=== PATIENT | male | born 1965 | race Caucasian/White ===

== ENCOUNTER 2017-06-24 02:19 | Emergency (ER) | payer MEDICARE ==
[2017-06-24] MEDS ORDERED: tiZANidine HCl 4 MG TAB PO SCH (04:00)
--- NOTE | 2017-06-24 08:15 | RAD ---
THREE VIEWS LUMBOSACRAL SPINE: COMPARISON: 04/23/11. HISTORY: Low back pain that started today. FINDINGS: Three views lumbosacral spine show postsurgical changes from prior posterior fusion of L4 through S1. No perihardware lucency is seen. The vertebral bodies and intervertebral disks demonstrate normal height and alignment without fracture or subluxation. IMPRESSION: Postsurgical changes of the lumbar spine without acute osseous abnormality. POS: [facility]
== END 2017-06-24 04:13 | disposition home or self-care (01) ==
LOC: ERS 02:19
DX: M54.5 Low back pain (principal); G89.29 Other chronic pain; I10 Essential (primary) hypertension; F17.210 Nicotine dependence, cigarettes, uncomplicated; Z87.442 Personal history of urinary calculi; Z79.891 Long term (current) use of opiate analgesic; Z79.899 Other long term (current) drug therapy
CPT/HCPCS: 72100

== ENCOUNTER 2017-07-02 14:15 | Inpatient (IN) | payer MEDICARE ==
[2017-07-02] MEDS ORDERED: ISOVUE-370 76%-LOCM 1 ML ONE (14:36)
[2017-07-02] MEDS ORDERED: Acetaminophen 650 MG Suppository ONE (14:51)
[2017-07-02 15:23] LABS: Hemoglobin 14.3 g/dL (14.0-18.0); Mean Corpuscular HGB CONC 33.6 g/dL (32.0-36.0); Mean Corpuscular Hemoglobin 30.8 pg (27.0-31.0); Mean Corpuscular Volume 91.6 fl (80.0-94.0); Mean Platelet Volume 7.6 fL (7.4-10.4); Platelet Count 224 thou/uL (130-400); RBC Distribution Width 13.9 % (11.5-14.5); Red Blood Cell (RBC) Count 4.65 mill/uL (4.70-6.10); White Blood Cell (WBC) Count 33.7 thou/uL (4.8-10.8)
[2017-07-02 15:37] LABS: Band 23 % (5-11); Lymphocytes 3 % (21-51); MDiff Complete? YES; Monocytes 2 % (0-10); Neutrophil 71 % (42-75); PLT Morphology Comment Appears Adequate; RBC Morphology Normal; Reactive Lymphocytes 1 % (0-10); Reflex for Review?? NO; Toxic Granulation MODERATE; Vacuoles SLIGHT
[2017-07-02 15:39] LABS: Bilirubin Negative (Negative); Blood, Urine Small (Negative); Clarity CLOUDY (Clear); Glucose, Urine (Dipstick) 250 mg/dL (Negative); Leukocyte Negative (Negative); Nitrite Negative (Negative); Protein, Urine (Dipstick) 30 mg/dL (Neg-Trace); Urobilinogen 0.2 mg/dL (0.2-1.0)
[2017-07-02 15:43] LABS: Bacteria/HPF 4+ HPF (None Seen); Hyaline Casts/LPF 4-6 HYALINE CAST LPF (0-3 Hyaline); Pathc Cast-AUWi Flag 1.21 (0-2.49); RBC/HPF 0-3 HPF (0-3); Squamous Epithelial 0-3 HPF (0-3)
[2017-07-02 15:45] LABS: Yeast-AUWi Flag 482.9 (0-25.0)
[2017-07-02 15:49] LABS: Acetaminophen Less than 6.0 mcg/mL (10.0-30.0); Alcohol Less than 10 mg/dL (Less than 10); Amphetamine Not Detected (NotDetected); Barbiturates Screen Not Detected (NotDetected); Benzodiazepine Screen Not Detected (NotDetected); Cocaine Metabolite Screen Not Detected (NotDetected); Medtox Control Line Valid? VALID (VALID); Medtox Reader # READER 1; Methadone Not Detected (NotDetected); Methamphetamine Not Detected (NotDetected); Opiate Screen Detected (NotDetected); Oxycodone Screen Not Detected (NotDetected); Phencyclidine (PCP) Not Detected (NotDetected); Salicylate Less than 8.0 mg/dL (15.0-30.0); THC/Cannabinoid Screen Not Detected (NotDetected); Tricyclic Screen Not Detected (NotDetected)
[2017-07-02 15:53] LABS: CKMB 5.3 ng/mL (0-6.6); Troponin I 0.027 ng/mL (< 0.028)
[2017-07-02 15:58] LABS: Other Casts/LPF 0-3 COARSE GRAN LPF (0-3 Hyaline); Renal Epithelial 0-3 HPF (0-3); Yeast-All Forms None Seen HPF (None Seen)
[2017-07-02 16:04] LABS: ALT (SGPT) 20 U/L (8-55); AST (SGOT) 26 U/L (5-34); Albumin 2.7 g/dL (3.5-5.0); Alkaline Phosphatase 188 U/L (40-150); Anion Gap 22 mmol/L (10-20); BUN (Urea Nitrogen) 53 mg/dL (8.9-20.6); CK (CPK) 269 U/L (30-200); Calc. Creatinine Clearance 0 mL/min (70-130); Calcium 8.5 mg/dL (7.8-10.44); Carbon Dioxide 14 mmol/L (22-29); Chloride 106 mmol/L (98-107); Estimated GFR-MDRD 35; Globulin 3.9 g/dL (2.4-3.5); Glucose 247 mg/dL (70-105); Lipase 12 U/L (8-78); Magnesium 2.3 mg/dL (1.6-2.6); Potassium 3.6 mmol/L (3.5-5.1); Protein, Total 6.6 g/dL (6.0-8.3); Sodium 138 mmol/L (136-145)
--- NOTE | 2017-07-02 16:12 | RAD ---
CHEST 1 VIEW: Date: 07/02/17 HISTORY: Emergency exam. COMPARISON: Chest 1 view dated 08/15/14. FINDINGS: The lungs are slightly hypoinflated with vascular crowding. No pneumothorax. No focal air space conso lidation. IMPRESSION: No acute intrathoracic abnormality. POS: [facility]
[2017-07-02 16:19] LABS: Actual Bicarbonate (HCO3a) 15.1 mEq/L (22-26); Base Excess (BEa) -6.6 mEq/L (0 (+/-) 2.5); CO2 Tension 21.7 mmHg (35.0-45.0); Hemoglobin (Hb) 13.1 g/dL (14.0-18.0); O2 Tension (PaO2) 76.1 mmHg (80.0-100.0); pH, Arterial 7.46 (7.35-7.45)
[2017-07-02 16:20] LABS: Analyzer IN Cardio ER; Calcium, Ionized 1.2 mmol/L (1.12-1.30); Puncture Site LBA
[2017-07-02] MEDS ORDERED: Lorazepam 2 MG/ML VIAL ONE (16:20)
--- NOTE | 2017-07-02 17:29 | CT ---
NONCONTRAST HEAD CT: Date: 07/02/17 HISTORY: Altered mental status changes over past 4 days. COMPARISON: 06/30/08. TECHNIQUE: A noncontrast head CT is performed from the skull base to the skull vertex. FINDINGS: No parenchymal hemorrhage or extra-axial hematoma. No midline shift. Basilar cisterns are patent. Bra in volume is age-appropriate. Cortical patterson-white matter differentiation is preserved. Ventricles and sulci are patent and symmetric. Calvarium is intact. Adequate aeration of the sinuses and mastoid ai r cells. IMPRESSION: No acute intracranial process. POS: [facility]
--- NOTE | 2017-07-02 17:46 | CT ---
CT ANGIOGRAM OF THORACIC AND ABDOMINAL AORTA: Date: 07/02/17 HISTORY: Back pain. Altered mental status. COMPARISON: None. TECHNIQUE: CT angiogram of the chest is performed in the axial plane. Sagittal and coronal three-dimensional ref ormatted images are submitted for interpretation. Limited evaluation of the thoracic and abdominal aorta due to decreased volume of contrast which had to be given due to patient's poor renal function. FINDINGS: No mediastinal mass, lymphadenopathy, or hematoma. Heart size is within normal limits. No pericardial effusion. Trachea and central bronchi are patent. There are diffuse ground-glass opacities throughout the lung parenchyma, which may be due to edema or infiltrate. A small bleb in the right upper lobe and small b lebs in the left upper lobe are noted. There are calcified granulomas in the right and left upper lob es, as well as the left lower lobe. There is no consolidation with air bronchograms. There is no pleu ral effusion or pneumothorax. ABDOMEN CT: Limited evaluation of the solid organs due to inadequate contrast opacification. Grossly, the liver, spleen, pancreas, and adrenal glands are unremarkable. Right hepatic lobe is enlarged, measuring 21.0 cm. Spleen is also mildly enlarged, measuring 15.0 cm. Appropriate enhancement of the adrenal glands and pancreas. No gastrohepatic, retrocrural, or periportal lymphadenopathy. Limited evaluation of the mesentery and alimentary canal due to motion and lack of oral contrast admi nistration. No definite mesenteric mass, lymphadenopathy, free air, or free fluid. There is a slightl y prominent duodenum which is fluid-filled. Findings are nonspecific. The remainder of the small rodrigue l is unremarkable. Ileocecal junction is normal. Normal caliber appendix is suggested from the cecal apex. Visualized colon is unremarkable. Nonobstructing calcifications in the lower pole of the left kidney. Subcentimeter hypodensity in the upper pole of the right kidney. Symmetric enhancement of the kidneys. Bilaterally, no obstructive uro trever. Symmetric attenuation of the psoas muscles. No retroperitoneal mass, lymphadenopathy, or hematoma. There is evidence of fusion hardware changes at L4, L5, and S1. No obvious complication or loosening. Evaluation limited by technique. CT ANGIOGRAM OF AORTA: There is appropriate enhancement and luminal diameter in the ascending thoracic aorta, aortic arch, d escending thoracic aorta, and abdominal aorta. The celiac artery origin, superior mesenteric artery o rigin, bilateral renal artery ostia, and inferior mesenteric artery origin are unremarkable. Limited evaluation of the aortic bifurcation and distal aorta due to beam attenuation artifact from lumbar fu ursula hardware. IMPRESSION: No evidence of aneurysm or dissection with regard to the aorta. Evaluation is limited due to decrease d volume of IV contrast secondary to patient's poor renal status. POS: [facility]
[2017-07-02] MEDS ORDERED: Fentanyl 100 MCG/2 ML VIAL ONE (18:22)
[2017-07-02] MEDS ORDERED: Fentanyl 20 MCG/ML 250 ML ONE (18:28)
--- NOTE | 2017-07-02 18:38 | RAD ---
1 VIEW CHEST: Date: 07/02/17 COMPARISON: 07/02/17. HISTORY: Respiratory distress. Ventilated patient. FINDINGS: There is evidence of endotracheal tube at the level of the clavicles. Nasogastric tube extends beyond the diaphragm. Distal tip is not seen. Normal cardiac silhouette. Pulmonary vessels are slightly pro minent. There are patchy infiltrates. No pleural effusion or pneumothorax. IMPRESSION: Endotracheal and nasogastric tubes as above. POS: [facility]
[2017-07-02 18:40] LABS: Actual Bicarbonate (HCO3a) 12.4 mEq/L (22-26); Base Excess (BEa) -13.3 mEq/L (0 (+/-) 2.5); CO2 Tension 28.2 mmHg (35.0-45.0); pH, Arterial 7.26 (7.35-7.45)
[2017-07-02 18:41] LABS: Analyzer IN Cardio ER; Calcium, Ionized 0.9 mmol/L (1.12-1.30); Hematocrit-ABG 27.6 % (42.0-52.0); Hemoglobin (Hb) 9.2 g/dL (14.0-18.0); Puncture Site RRA
[2017-07-02] MEDS ORDERED: VANCOMYCIN IVPB PRN (19:52)
[2017-07-02] MEDS ORDERED: CCU Electrolyte Replacement 1 EACH FS SCH (19:52)
[2017-07-02] MEDS ORDERED: Sedation Protocol FS SCH (19:52)
[2017-07-02] MEDS ORDERED: CCU ELECTROLYTE REPLACEMENT PROTOCOL FS PRN (19:57)
[2017-07-02] MEDS ORDERED: Potassium Chloride 40 MEQ in Sodium Chloride 0.9% 250 ML 250 ML IVPB PRN (19:57)
[2017-07-02] MEDS ORDERED: Potassium Phosphate 9 MMOL in Sodium Chloride 0.9% 100 ML IVPB PRN (19:57)
[2017-07-02] MEDS ORDERED: Potassium Phosphate 12 MMOL in Sodium Chloride 0.9% 250 ML 250 ML IV PRN (19:57)
[2017-07-02] MEDS ORDERED: Magnesium 2 GM/NS 0.9% 100 ML 2 GM in Premix Bag 1 BAG IVPB PRN (19:57)
[2017-07-02] MEDS ORDERED: Magnesium Oxide 400 MG TAB PO PRN ×2 (19:57)
[2017-07-02] MEDS ORDERED: Potassium Chloride 40 MEQ in Premix Bag 1 BAG IVPB PRN (19:57)
[2017-07-02] MEDS ORDERED: Potassium Phosphate 15 MMOL in Sodium Chloride 0.9% 250 ML 250 ML IV PRN (19:57)
[2017-07-02] MEDS ORDERED: Potassium Chloride 20 MEQ TAB PO PRN (19:57)
[2017-07-02] MEDS: Sodium Chloride 0.9% 1,000 ML IV SCH (20:00)
[2017-07-02] MEDS ORDERED: Morphine 2 MG/ML SYRINGE SLOW IVP PRN (20:04)
[2017-07-02] MEDS ORDERED: DISCONTINUE PREVIOUS NARCOTIC PAIN MEDICATIONS AND BENZODIAZEPINES FS SCH (20:04)
[2017-07-02] MEDS ORDERED: Fentanyl 20 MCG/ML 250 ML IVPB SCH (20:04)
[2017-07-02] MEDS ORDERED: Sodium Chloride 0.9% 1,000 ML IV SCH ×2 (20:45→22:30)
[2017-07-02 20:53] LABS: Lactic Acid 2.7 mmol/L (0.5-2.2)
[2017-07-02 20:54] LABS: Troponin I 0.045 ng/mL (< 0.028)
[2017-07-02] MEDS ORDERED: cefTRIAXone\\ROCEPHIN 2 GM in Sodium Chloride 0.9% 100 ML IVPB SCH (21:00)
[2017-07-02] MEDS ORDERED: Norepinephrine 8 MG/0.9% NS 250 ML IVPB SCH (21:15)
[2017-07-02] MEDS ORDERED: Dextrose 5% in Water 1,000 ML IV PRN (21:17)
[2017-07-02] MEDS ORDERED: Dextrose 50% Abboject 50 ML SYRINGE SLOW IVP PRN (21:17)
--- NOTE | 2017-07-02 21:43 | RAD ---
CHEST 1 VIEW: Date: 07/02/17 HISTORY: Interval placement of a central venous catheter. COMPARISON: 07/02/17 at 1806 hours. FINDINGS: Redemonstration of endotracheal and nasogastric tube. Interval placement of right-sided subclavian ce ntral venous catheter with the distal tip in the expected region of the right atrium. No pneumothorax . Increasing bilateral perihilar infiltrates. IMPRESSION: 1. Right-sided central venous catheter as above. No pneumothorax. 2. Worsening bilateral perihilar infiltrates. POS: [facility]
--- NOTE | 2017-07-02 21:48 | HP ---
DATE OF ADMISSION: 07/02/2017. CHIEF COMPLAINT: Altered mental status. HISTORY OF PRESENT ILLNESS: This is a 51-year-old young white male who has chronic back pain and has been disabled because of that, and has had multiple surgeries to the back. Recently, he has been go ing to the ER for his chronic back pain at the [facility]. He went there a week ago because of his chronic back pain and had some mental status changes. The patient was in a very b ad state according to the when he went to [place] ER. There, they diagnosed him with ce llulitis secondary to gout and they discharged the patient back to his home. The patient was in a pr ramírez bad state when he returned back home according to the , and his mental status was getting wo rse for the past 3 days as he was unable to walk and was not making any sense when he is talking. Sh e denies the patient having any fevers. She denies the patient having any nausea, vomiting, diarrhea , or constipation. The patient was brought to the [facility] ER in a completely disoriented state. Otherwise, the patient is usually alert and oriented x4 according to the EMS. The patient was unab le to tell where he was hurting. He denies any drug use and was totally confused. Because of his wo rsening mental status and the patient was very tachypneic with a respiratory rate of 70 with saturati on of 90%, the patient was intubated by the ER physician. Most of the history was obtained from the ER physicians and the patient's at the bedside. Pulmonology was immediately consulted because o f the worsening condition of the patient. Dr. Vital had seen the patient in the ER and advised imm ediately to transfer the patient to the ICU. The patient was noted to have markedly elevated white c ount of 33,000 and has a poorly controlled type 2 diabetes mellitus. The patient's was not even aware that the patient was diabetic. He had a severe lactic acid of 5, but his blood pressures were keeping up at 132/80. The patient had a thorough physical examination. He had a cellulitis of his right upper arm and also on the right lower extremity. Otherwise, no other respiratory abnormalities were noted. The patient had a chest x-ray, which showed an evidence of bilateral infiltrates, but n o solid consolidation or any focus of infection was noted. PAST MEDICAL HISTORY: 1. Back pain. 2. Hypertension. PAST SURGICAL HISTORY: The patient had a cholecystectomy according to his , but she is not very sure about this. SOCIAL HISTORY: The patient is a nonsmoker. He does not drink alcohol. No history of illicit drug use. FAMILY HISTORY: No significant family history of coronary artery disease, but again the history is o btained from the , which is not reliable as she is very anxious and confused at this time. REVIEW OF SYSTEMS: Could not be obtained as the patient is intubated and has no idea about what is going on with the patient at this time. HOME MEDICATIONS: The patient is on losartan and hydrochlorothiazide, and Tylenol No. 3. ALLERGIES: The patient has allergies to NSAIDs. PHYSICAL EXAMINATION: VITAL SIGNS: Blood pressure was 132/80, respiratory rate was 70 at the time of admission, and satura tion was 90% on 4 liters. This was before intubation. GENERAL: The patient was seen lying in the bed, intubated and sedated with propofol. HEENT: Atraumatic, normocephalic. CARDIOVASCULAR: S1, S2 normal. No murmurs, no rubs, no gallops. LUNGS: Bilateral air entry was equal. Crackles were noted in the lower bases. ABDOMEN: Distended, nontender. No guarding. No rebound tenderness. Bowel sounds were diminished. MUSCULOSKELETAL: The patient has erythema of the lower extremities with right-sided cellulitis kind of picture was noted. Calf tenderness could not be elicited as the patient is sedated. Joint tender ness was also not elicited as the patient is sedated. CENTRAL NERVOUS SYSTEM: Examination could not be done as the patient is sedated and not responding. SKIN: As explained above, the patient has cellulitis. Redness was noted in the lower extremities on the anterior part of the lower legs. No bruising wounds were noted on the body except for some redn ess on the right hand. LABORATORY DATA: WBC 33,000, hemoglobin is 14.3, hematocrit is 42.6. Sodium is 138, potassium 3.6, chloride is 106, bicarbonate is 14, BUN is 53, creatinine 2.02. Blood sugar is 247. Lactic acid is 4.9. Creatinine kinase is 269. Urine was negative for any urinary tract infection. Blood gases, ABG was done, pH was 7.2, pCO2 was 28, pO2 was 71. ASSESSMENT AND PLAN: 1. Acute hypoxic respiratory failure. 2. Acute metabolic encephalopathy. 3. Severe sepsis, unknown source. 4. Severe metabolic acidosis. 5. Acute kidney injury. 6. Type 2 diabetes mellitus, poorly controlled. PLAN: 1. Plan is to continue to monitor the patient in the ICU, the patient being intubated, and do the wo rkup for a sepsis. At this point, the patient has infiltrates in the lungs bilaterally. We would tr eat this as pneumonia and we will continue the patient on meropenem and vancomycin, which was started in the ER. Pulmonary has been consulted. Dr. Vital has seen the patient in the ER. We will foll ow up with the recommendations at this time regarding the vent management. 2. The patient has worsening encephalopathy for the past few days. The patient could be having a me ningitis, which could not be ruled out at this time. Plan to do a lumbar puncture. The CT head was negative for any intracranial hemorrhage. 3. We will consult Neurology on this patient once the patient is more awake. 4. Type 2 diabetes mellitus. We will start the patient on sliding scale insulin at this time and cl osely monitor. We will check for A1c to look for diabetes control. 5. The patient has renal dysfunction. We will continue the patient on IV fluids at 100 mL an hour a nd closely monitor the urine output. 6. DVT prophylaxis with Lovenox. I spent 75 minutes with this patient, of this 1 hour is critical care time. I have seen the patient from 07:15 to 08:15 p.m.
[2017-07-02 22:13] LABS: pH, Arterial 7.29 (7.35-7.45)
[2017-07-02 22:14] LABS: ALV-art Gradient 138.825 (0-20); Actual Bicarbonate (HCO3a) 17.8 mEq/L (22-26); CO2 Tension 37.5 mmHg (35.0-45.0); Calcium, Ionized 1.1 mmol/L (1.12-1.30); Hematocrit-ABG 39.4 % (42.0-52.0); Hemoglobin (Hb) 12.8 g/dL (14.0-18.0); O2 Tension (PaO2) 99.5 mmHg (80.0-100.0); Puncture Site RBRACH
[2017-07-02] MEDS ORDERED: Norepinephrine 8 MG/250 ML BAG IVPB PRN (22:25)
[2017-07-02] MEDS: Oseltamivir 75 MG CAP PO SCH (22:28)
[2017-07-02] MEDS: cefTRIAXone\\ROCEPHIN 2 GM in Sodium Chloride 0.9% 100 ML IVPB SCH (22:29)
[2017-07-02 22:30] LABS: Anion Gap 16 mmol/L (10-20); BUN (Urea Nitrogen) 56 mg/dL (8.9-20.6); Calc. Creatinine Clearance 60 mL/min (70-130); Calcium 7.9 mg/dL (7.8-10.44); Carbon Dioxide 20 mmol/L (22-29); Chloride 108 mmol/L (98-107); Estimated GFR-MDRD 31; Glucose 143 mg/dL (70-105); Potassium 3.9 mmol/L (3.5-5.1); Sodium 140 mmol/L (136-145)
[2017-07-02] MEDS: Potassium Chloride 40 MEQ in Sodium Chloride 0.9% 500 ML IVPB SCH (22:35)
[2017-07-02 22:37] LABS: Troponin I 0.063 ng/mL (< 0.028)
[2017-07-02] MEDS: Lorazepam 2 MG/ML VIAL SLOW IVP PRN (22:53)
[2017-07-02] MEDS: Vecuronium 10 MG VIAL IVP PRN (23:09)
[2017-07-02] MEDS: Hydrocortisone Sod Succ/PF 100 mg/2 ml Vial IVP SCH (23:19)
[2017-07-02] MEDS: Sterile Water 10 ML VIAL IVP PRN (23:19)
[2017-07-02] MEDS: Piperacillin/Tazobactam 3.375 GM in Sodium Chloride 0.9% 100 ML IVPB SCH (23:31)
--- NOTE | 2017-07-02 23:31 | OP ---
DATE OF SERVICE: 07/02/2017 PROCEDURE: Central line placement. PREOPERATIVE DIAGNOSIS: Poor IV access, need for aggressive hemodynamic monitoring and vasopressor s upport. ANESTHESIA: A 1% lidocaine without epinephrine to the entry site. DESCRIPTION OF PROCEDURE: Informed consent was obtained from the patient's , who understood the risks and agreed to proceed. The patient was placed in the Trendelenburg position. His right subclavian region was scrubbed with chlorhexidine and draped sterilely. A 1% lidocaine was used to anesthetize the entry site. Using th e modified Seldinger technique, a triple lumen catheter was placed in the right subclavian vein on th e first attempt. Three ports flushed venous blood. The x-ray confirmed placement. There were no ap parent complications.
--- NOTE | 2017-07-02 23:40 | CON ---
DATE OF CONSULTATION: 07/02/2017 This is 2-hour critical care time and does not include time spent performing central line. HISTORY OF PRESENT ILLNESS: The patient is a 51-year-old male, who was brought by EMS to the [facility] earlier this evening with altered mental status. I obtained the history mainly from speaking with the patient's , but also from speaking with the emergency room physician. The says he has b een sick for at least 6 days. She took him to [facility] 2 days ago. At that ti me, he was complaining of total body aches, particularly in the back. Apparently, back pain is not u nusual for him. She says at that time he had altered mental status. She was surprised he got sent h ome from the emergency room. Over the last 2 days, he has been laying around the house, not doing mu ch of anything. She says he has not been eating or drinking and has been barely communicative. He h as had a cough and congestion. She does not know much else of what is going on. PAST MEDICAL HISTORY: 1. Hypertension. She says he has never been diagnosed with diabetes mellitus before. 2. Chronic back pain. 3. Gout. 4. Nephrolithiasis. 5. Hypertension. PAST SURGICAL HISTORY: He has had back surgery, cholecystectomy, hernia repair, and orthopedic surge ry in the right hand. SOCIAL HISTORY: He is a hzi-lyxf-fnv-day smoker. He never drinks alcohol and never uses illicit susu gs other than that was prescribed to him. FAMILY MEDICAL HISTORY: Both parents of cancer. Heart disease also runs in the family. ALLERGIES: She says he is not allergic to any medications that she knows of, but he is sometimes sen sitive to NONSTEROIDAL ANTI-INFLAMMATORY MEDICATION in terms of making his stomach upset. MEDICATIONS PRIOR TO ADMISSION: She says he took hydrochlorothiazide and [place]. She does not know t he other medications at this time. REVIEW OF SYSTEMS: Cannot be obtained as the patient is sedated and on mechanical ventilation. PHYSICAL EXAMINATION: VITAL SIGNS: Pulse is 125, blood pressure 92/59, O2 sat 99%, temperature has been as high as 104.2. The patient is obtunded on mechanical ventilation. NEUROLOGIC: With deep painful stimulation, I cannot get him to withdraw in all 4 extremities. He wi ll open his eyes. He will not follow any commands for me. HEENT: Pupils are reactive. Sclerae are anicteric. Oropharynx is dry. NECK: No JVD or bruits. LUNGS: Inspiratory crackles bilaterally. CARDIOVASCULAR: S1, S2 tachycardic without audible murmur. ABDOMEN: Soft, obese, nontender. EXTREMITIES: He has no edema. He has cyanotic toes. He has Doppler pulses in the posterior tibial aspect of his ankle, but not dorsalis pedis. LABORATORY DATA: His chest x-ray demonstrated ground glass infiltrates bilaterally in the lungs. So dium is 138, potassium 3.6, chloride 106, CO2 of 14, BUN 53, creatinine 2, glucose 247. Lactate 4.9, repeat lactate 2.7. Troponin is 0.045. CPK is 269. TSH 0.15, free T4 of 0.8, lipase 12. White bl ood cell count 33.7, hemoglobin 14, hematocrit 42.6, platelet count 224 with 71% neutrophils, 23% ban ds. D-dimer was 7.88. ABG initial, pH was 7.46, pCO2 of 21, pO2 of 76. After intubation, pH 7.26, pCO2 of 28, pO2 of 71. Urinalysis demonstrates 4+ bacteria, 4-6 white blood cells. Toxicology scre en demonstrated opiates. No acetaminophen, no salicylates, no alcohol. Beta hydroxybutyrate level w as 0.36. I reviewed his chest x-ray and CT of the chest personally. ASSESSMENT: 1. Septic shock secondary to bilateral pneumonia. 2. Acute hypoxic respiratory failure requiring mechanical ventilation. 3. Severe metabolic acidosis, which appears to be lactic in nature. 4. History of pain in the back - I reviewed the CT scan that was done aortic dissection protocol. I do not see anything focal in the lumbar region that would look like an epidural abscess, although th is needs to be kept in mind. PLAN: 1. The patient is too unstable for further imaging at this time. He will be placed on broad-spectru m IV antibiotics to include vancomycin, Zosyn, and Levaquin. He will be sedated as needed. 2. CVP monitoring. 3. Empiric steroids, thiamine, vitamin C. 4. I spoke with the patient's at length.
[2017-07-03] MEDS: Oseltamivir 75 MG CAP PO SCH (00:17)
[2017-07-03 00:47] LABS: Lactic Acid 1.8 mmol/L (0.5-2.2)
[2017-07-03] MEDS: Potassium Chloride 40 MEQ in Sodium Chloride 0.9% 500 ML IVPB SCH (00:48)
[2017-07-03] MEDS: Sodium Chloride 0.9% 1,000 ML IV SCH ×5 (01:42→20:43)
[2017-07-03] MEDS: Sterile Water 10 ML VIAL IVP PRN (03:50)
[2017-07-03] MEDS: Vecuronium 10 MG VIAL IVP PRN ×2 (03:50→10:42)
[2017-07-03] MEDS: Vancomycin HCl 750 MG in Sodium Chloride 0.9% 250 ML 250 ML IVPB SCH ×2 (03:55→16:54)
[2017-07-03 04:28] LABS: ALT (SGPT) 15 U/L (8-55); AST (SGOT) 31 U/L (5-34); Albumin 1.9 g/dL (3.5-5.0); Alkaline Phosphatase 108 U/L (40-150); Anion Gap 16 mmol/L (10-20); BUN (Urea Nitrogen) 57 mg/dL (8.9-20.6); Bilirubin, Total 0.7 mg/dL (0.2-1.2); Calc. Creatinine Clearance 63 mL/min (70-130); Calcium 7.3 mg/dL (7.8-10.44); Carbon Dioxide 19 mmol/L (22-29); Chloride 113 mmol/L (98-107); Estimated GFR-MDRD 33; Globulin 3.5 g/dL (2.4-3.5); Glucose 158 mg/dL (70-105); Magnesium 2.3 mg/dL (1.6-2.6); Potassium 4.5 mmol/L (3.5-5.1); Protein, Total 5.4 g/dL (6.0-8.3); Sodium 143 mmol/L (136-145)
[2017-07-03] MEDS: Acetaminophen 650 MG Suppository PR PRN ×3 (04:28→20:43)
[2017-07-03] MEDS: HumaLOG 300 UNITS/3 ML VIAL SC PRN ×2 (04:38→18:29)
[2017-07-03 04:39] LABS: Band 16 % (5-11); Hemoglobin 11.5 g/dL (14.0-18.0); Lymphocytes 7 % (21-51); MDiff Complete? YES; Mean Corpuscular HGB CONC 32.3 g/dL (32.0-36.0); Mean Corpuscular Hemoglobin 30.7 pg (27.0-31.0); Mean Platelet Volume 7.4 fL (7.4-10.4); Metamyelocyte 1 % (0-0); Monocytes 2 % (0-10); Myelocyte 1 % (0-0); Neutrophil 73 % (42-75); PLT Morphology Comment Appears Adequate; Platelet Count 141 thou/uL (130-400); RBC Morphology Normal; Red Blood Cell (RBC) Count 3.77 mill/uL (4.70-6.10); White Blood Cell (WBC) Count 24.6 thou/uL (4.8-10.8)
[2017-07-03] MEDS: Hydrocortisone Sod Succ/PF 100 mg/2 ml Vial IVP SCH ×4 (05:04→23:42)
[2017-07-03] MEDS: Piperacillin/Tazobactam 3.375 GM in Sodium Chloride 0.9% 100 ML IVPB SCH ×2 (05:08→13:04)
[2017-07-03 05:27] LABS: Actual Bicarbonate (HCO3a) 17.4 mEq/L (22-26); CO2 Tension 42.7 mmHg (35.0-45.0); O2 Tension (PaO2) 86.3 mmHg (80.0-100.0)
[2017-07-03 05:28] LABS: ALV-art Gradient 145.525 (0-20); Base Excess (BEa) -9.6 mEq/L (0 (+/-) 2.5); Hemoglobin (Hb) 11.5 g/dL (14.0-18.0); Puncture Site RBRACH
--- NOTE | 2017-07-03 08:28 | PRG ---
DATE OF SERVICE: 07/03/2017 He is intubated on the vent and sedated. Her history is outlined. He presented to the hospital with mental status change. He was earlier at [facility] for bodyaches. It is unclear what transpired. He i s intubated on the vent. He has got Staph sepsis. He apparently had chronic back pain for a period of time. X-rays shows bilateral infiltrates. He has longstanding history of tobacco abuse, longstanding histo ry of back pain. He is on several different antibiotics of vancomycin, Zosyn, and Levaquin. PHYSICAL EXAMINATION: VITAL SIGNS: His temperature was 102, blood pressure 110/64, respirations 24. His I's and O's are 3 668, 80 out. CHEST: Chest reveals bilateral rhonchi and crackles. CARDIAC: Sinus tachycardia. ABDOMEN: Soft. NEURO: Neurologically sedated. LABORATORY: White count 20, H&H 11 and 35, platelet count 141, pO2 is 86, pCO2 42.30, rate of 24, 40 %, 5 of PEEP. BUN is 57, creatinine 2.3. Blood cultures are growing staph. IMPRESSION: 1. Staph sepsis with endocarditis versus osteomyelitis. 2. Renal failure. 3. Chronic obstructive pulmonary disease. PLAN: Continue antibiotics. We will deescalate once we have all cultures back. Will start nutrition and PT. Discuss with family as they arrive. One half hour critical care time.
[2017-07-03] MEDS ORDERED: Pantoprazole 40 MG VIAL IVP SCH (09:00)
[2017-07-03] MEDS: cefTRIAXone\\ROCEPHIN 2 GM in Sodium Chloride 0.9% 100 ML IVPB SCH (10:05)
[2017-07-03] MEDS: Lorazepam 2 MG/ML VIAL SLOW IVP PRN ×2 (10:21→18:49)
[2017-07-03] MEDS ORDERED: Sterile Water 10 ML ONE (10:32)
[2017-07-03] MEDS: Propofol 1,000 MG/100 ML VIAL IV PRN ×2 (10:48→20:15)
--- NOTE | 2017-07-03 12:24 | PDOC.PN ---
- Subjective Encounter Start Date: 07/03/17 Encounter Start Time: 10:45 -: non-verbal, old records requested/rev Pt seen and examined, chart reviewed in its entirety, this is my first visit with this patient Pt sedated and intubated on the vent. refrigeration service technician at the bedside getting echocardiogram. Cx back with s aureus, sensitivities pending. Pt on Vanc, Zozyn, levoflox and rocephin. pt persistently febrile 102.X. Bcx with staph aureus. Echo report reviewed, structurally normal yehuda without evidence of regurg, but suboptimal pictures - Objective Resuscitation Status: Resuscitation Status FULL:Full Resuscitation MAR Reviewed: Yes Vital Signs & Weight: Vital Signs (12 hours) Pulse 07/03/17 10:42 119 H 07/03/17 08:07 117 H 07/03/17 02:12 117 H Weight Weight 240 lb 4.862 oz Most Recent Monitor Data Heart Rate from ECG 117 NIBP 110/64 NIBP BP-Mean 75 Respiration from ECG 24 SpO2 97 I&O: 07/02/17 07/03/17 07/04/17 06:59 06:59 06:59 Intake Total 3687 Output Total 800 Balance 2887 Result Diagrams: 07/03/17 03:40 07/03/17 03:40 Radiology Reviewed by me: Yes EKG Reviewed by me: Yes Phys Exam - Physical Examination sedated, intubated HEENT: PERRLA, moist MMs, sclera anicteric, oral pharynx no lesions oral ETT Neck: no nodes, no JVD, supple, full ROM coarse bilateral rales, no wheezes, no prolonged expiration Cardiovascular: no significant murmur, irregular tachy Gastrointestinal: soft, non-tender, no distention, positive bowel sounds Musculoskeletal: pulses present, edema present not testable Lymphatic: no nodes Skin: no rash, normal turgor, cap refill <2 seconds Deviation from normal: no splinters, no osler nodes Dx/Plan (1) Staphylococcus aureus bacteremia with sepsis Code(s): A41.01 - SEPSIS DUE TO METHICILLIN SUSCEPTIBLE STAPHYLOCOCCUS AUREUS Status: Acute Comment: on Vanc, Cefepime pending sensitivities. If MSSA, can stop Vanc. covered for regualr bacteriala dn atypical organisms for now (2) CAP (community acquired pneumonia) Code(s): J18.9 - PNEUMONIA, UNSPECIFIED ORGANISM Status: Acute Qualifiers: Laterality: left Comment: bilaterla perihilar infiltates (3) Back pain Code(s): M54.9 - DORSALGIA, UNSPECIFIED Status: Acute Comment: per reports. could represent embolci infection or chronic back pain. Imaging later, wont change immediate management, but paraspinal or epidural abscess would neccessitate drainage. (4) Metabolic encephalopathy Code(s): G93.41 - METABOLIC ENCEPHALOPATHY Status: Acute Comment: could be due to general condition, meningoencephalitis, or perimeningela focus of infections. Covered. Will need advanced imaging. Would not undergo LP until we clear the spine, unless cervical approach possible - Plan cont current plan of care, continue antibiotics, respiratory therapy, DVT proph w/SCDs * .
[2017-07-03] MEDS: Cefepime 2 GM, Syringe 2.5 ML in Sterile Water 10 ML SLOW IVP SCH (18:34)
[2017-07-03] MEDS ORDERED: Cefepime 2 GM in Sodium Chloride 0.9% 100 ML IVPB SCH (21:00)
[2017-07-03] MEDS ORDERED: Pancrelipase DR 12000 1 CAP FS PRN (23:09)
[2017-07-03] MEDS ORDERED: Sodium Bicarbonate Tab 325 MG TAB PER TUBE PRN (23:09)
[2017-07-04] MEDS: HumaLOG 300 UNITS/3 ML VIAL SC PRN ×4 (01:19→15:32)
[2017-07-04] MEDS: Propofol 1,000 MG/100 ML VIAL IV PRN ×4 (03:14→19:30)
[2017-07-04] MEDS: Acetaminophen 650 MG Suppository PR PRN (03:14)
[2017-07-04] MEDS: Sodium Chloride 0.9% 1,000 ML IV SCH ×2 (04:04→08:43)
[2017-07-04 04:46] LABS: Vancomycin, Trough 12.9 ug/mL
[2017-07-04 04:47] LABS: Anion Gap 14 mmol/L (10-20); BUN (Urea Nitrogen) 54 mg/dL (8.9-20.6); Calc. Creatinine Clearance 70 mL/min (70-130); Calcium 7.3 mg/dL (7.8-10.44); Carbon Dioxide 18 mmol/L (22-29); Chloride 122 mmol/L (98-107); Estimated GFR-MDRD 36; Glucose 220 mg/dL (70-105); Magnesium 2.8 mg/dL (1.6-2.6); Potassium 3.7 mmol/L (3.5-5.1); Sodium 150 mmol/L (136-145)
[2017-07-04] MEDS: Hydrocortisone Sod Succ/PF 100 mg/2 ml Vial IVP SCH ×4 (05:01→23:53)
[2017-07-04] MEDS: Cefepime 2 GM, Syringe 2.5 ML in Sterile Water 10 ML SLOW IVP SCH ×2 (05:05→17:11)
[2017-07-04 05:08] LABS: Band 8 % (5-11); Hemoglobin 9.9 g/dL (14.0-18.0); Lymphocytes 8 % (21-51); MDiff Complete? YES; Mean Corpuscular HGB CONC 32.4 g/dL (32.0-36.0); Mean Corpuscular Hemoglobin 30.6 pg (27.0-31.0); Mean Corpuscular Volume 94.2 fl (80.0-94.0); Mean Platelet Volume 7.7 fL (7.4-10.4); Monocytes 2 % (0-10); Neutrophil 82 % (42-75); PLT Morphology Comment Appears Adequate; Platelet Count 150 thou/uL (130-400); Red Blood Cell (RBC) Count 3.24 mill/uL (4.70-6.10); White Blood Cell (WBC) Count 17.6 thou/uL (4.8-10.8)
[2017-07-04] MEDS: Vancomycin HCl 750 MG in Sodium Chloride 0.9% 250 ML 250 ML IVPB SCH (06:08)
[2017-07-04 06:47] LABS: ALV-art Gradient 178.125 (0-20); Base Excess (BEa) -7.2 mEq/L (0 (+/-) 2.5); CO2 Tension 29.5 mmHg (35.0-45.0); Calcium, Ionized 1.1 mmol/L (1.12-1.30); Hematocrit-ABG 25.5 % (42.0-52.0); Hemoglobin (Hb) 9.6 g/dL (14.0-18.0); O2 Tension (PaO2) 68.2 mmHg (80.0-100.0); Puncture Site RRA; pH, Arterial 7.38 (7.35-7.45)
--- NOTE | 2017-07-04 08:30 | RAD ---
PORTABLE UPRIGHT FRONTAL CHEST RADIOGRAPH: Date: 07-04-17 Comparison: 07-02-17 History: Ventilated patient. FINDINGS: Stable endotracheal tube, nasogastric tube, and right sided vascular catheter. No pneumothorax is pre sent. There is perihilar interstitial density and pulmonary vascular prominence with bibasilar increa sed linear density. IMPRESSION: Stable lines and tubes. Persistent interstitial opacity in the perihilar regions and lung bases may s ignify pulmonary edema or a interstitial infectious process. Follow up to resolution advised. POS: [facility]
[2017-07-04] MEDS: Sodium Chloride 0.45% 1,000 ML IV SCH ×2 (09:31→18:41)
[2017-07-04] MEDS: Pantoprazole 40 MG GRANULES PACKET PER TUBE SCH (09:32)
[2017-07-04] MEDS: Enoxaparin Sodium 30 MG/0.3 ML SYRINGE SC SCH (09:32)
--- NOTE | 2017-07-04 09:33 | PRG ---
DATE OF SERVICE: 07/04/2017 This morning he is intubated on the vent, sedated. Sedation is withheld. He opens his eyes. PHYSICAL EXAMINATION: VITAL SIGNS: Blood pressure 115/70, O2 sat 95%, respirations 24. His temperature is 103. EXTREMITIES: He has got a right thumb looks infected. CHEST: Chest revealed decreased breath sounds, no wheezing. CARDIAC: Normal S1-S2. No gallops. ABDOMEN: Soft. EXTREMITIES: Trace edema. LABORATORY: White count 17,000, H&H 9 and 30, platelet count is 150, PO2 68, PCO2 29, pH 7.38, rate of 24, 5, sodium 150, creatinine 1.98, BUN is 54. X-ray shows stable findings, his vancomycin level is 12. Blood cultures are growing Staph, it is not MRSA. IMPRESSION: 1. Respiratory failure, Staph sepsis. 2. Chronic back pain. 3. Infected right thumb. 4. Renal failure. PLAN: He is switched over to Maxipime. It is unclear why this was done, he has had adequate coverag e with ceftriaxone. I started on Lovenox. Cut back his steroids. Continue Levaquin. IV fluids will be changed to half normal. I will follow. Wean slowly. One-half hour critical care time.
--- NOTE | 2017-07-04 11:54 | CON ---
DATE OF SERVICE: 07/04/2017 ORTHOPEDIC CONSULTATION REQUESTING PHYSICIAN: Luis Miguel Osman M.D. CONSULTING PHYSICIAN: Frankie Miranda M.D. REASON FOR CONSULTATION: Right thumb septic tenosynovitis. BRIEF CLINICAL HISTORY: Joel is a 51-year-old white male who was admitted through the ER by the [facility] after he had mental status changes for almost a week. Pulmonary Service was consulted on the night of admission, which was yesterday evening. He was intubated in the emergency room and placed on pulmonary ventilation and antibiotics. His primary complaint was mental status changes loly or to being intubated. He has had some cough and congestion. He has chronic back pain and hypertens ion and apparently new diagnosis of diabetes type 2 has been established. He smokes 2 packs of cigar ettes per day. Apparently, he has been on hydrochlorothiazide and [place] prior to admission. His adm ission diagnosis at that time was septic shock secondary to bilateral pneumonia and acute hypoxic res piratory failure, metabolic acidosis. He has been placed on IV antibiotics. Our service was consult ed for right thumb which has been swollen and blistering with some drainage since admission. Has vag ue history of trauma, but I am not certain about this since I have not spoken directly with the patie nt nor family members at this time. PHYSICAL EXAMINATION: Visual inspection of the right thumb demonstrates him to indeed have blisterin g circumferential swelling and some redness which appears consistent with dorsal and volar septic syn ovitis. IMPRESSION: Right thumb septic tenosynovitis. PLAN: 1. I was able to obtain a culture at the bedside after a sterile prep, but since the patient is alre sulema intubated and not requiring pressors and medically he is stable, we will go ahead and take him to the operating room today for a formal incision, drainage, exploration, washout of the right thumb. The risks, benefits, options, alternatives, and rationale for proceeding with surgery have been expla ined in great detail to the patient's family and they are ready to proceed. All questions were answe red. No guarantee of outcomes were stated or implied. 2. Please see orders.
[2017-07-04] MEDS ORDERED: Acetaminophen 1,000 MG in Premix Bag 1 BAG IVPB PRN (12:52)
--- NOTE | 2017-07-04 13:20 | RAD ---
THREE VIEWS OF THE RIGHT THUMB: Date: 07-04-17 Comparison: None. History: Right thumb swelling. FINDINGS: There is mild degenerative change at the first interphalangeal joint. There is no displaced fracture or evidence of dislocation seen. There is probable soft tissue swelling dorsal to the first metacarpa l. IMPRESSION: Probable nonspecific soft tissue swelling with no radiopaque foreign body, subcutaneous gas, displace d fracture, or evidence of dislocation. POS: [facility]
--- NOTE | 2017-07-04 14:18 | PDOC.PN ---
- Subjective Encounter Start Date: 07/04/17 Encounter Start Time: 09:40 -: non-verbal Pt remains sedated and intubated. Dr Osman following, his input is appreciated Pt not on pressors, sedated with proprofol and fentanyl. Right thumb ecchymotic, apparently slammed in a car door prior to admit. Tmax down, but still elevated over 100.5. No chills or rigors, no D/C, no acute events noted ROS not obtainable - Objective Resuscitation Status: Resuscitation Status FULL:Full Resuscitation MAR Reviewed: Yes Vital Signs & Weight: Vital Signs (12 hours) Temp Pulse Pulse Resp BP BP Pulse Ox 07/04/17 12:00 103.2 F H 35 H 07/04/17 10:54 108 H 116/64 07/04/17 10:37 77 114/67 07/04/17 10:00 29 H 07/04/17 08:34 101 H 07/04/17 08:08 100 115/70 07/04/17 08:00 98.3 F 100 27 H 95 07/04/17 07:00 98.4 F 07/04/17 06:00 28 H 07/04/17 04:00 100.7 F H 07/04/17 03:00 101.8 F H 07/04/17 02:24 111 H 112/64 Pulse Ox 07/04/17 12:00 07/04/17 10:54 07/04/17 10:37 95 07/04/17 10:00 07/04/17 08:34 07/04/17 08:08 07/04/17 08:00 07/04/17 07:00 07/04/17 06:00 07/04/17 04:00 07/04/17 03:00 07/04/17 02:24 Weight Admit Weight 240 lb Weight 238 lb 1.588 oz Most Recent Monitor Data Heart Rate from ECG 111 NIBP 131/69 NIBP BP-Mean 89 Respiration from ECG 37 SpO2 92 I&O: 07/03/17 07/04/17 07/05/17 06:59 06:59 06:59 Intake Total 3687 5538 244.6 Output Total 800 5380 795 Balance 2887 158 -550.4 Result Diagrams: 07/04/17 03:02 07/04/17 03:02 Additional Labs: Accuchecks 07/04/17 12:09 POC Glucose 261 H Radiology Reviewed by me: Yes EKG Reviewed by me: Yes Phys Exam - Physical Examination Constitutional: NAD HEENT: PERRLA, moist MMs, sclera anicteric, oral pharynx no lesions oral ETT and OGT in place Neck: no nodes, no JVD, supple, full ROM Respiratory: no wheezing coarse bilateral rales, good airmovement Cardiovascular: RRR, no significant murmur, no rub Gastrointestinal: soft, non-tender, no distention, positive bowel sounds Musculoskeletal: pulses present, edema present Lymphatic: no nodes Skin: no rash, normal turgor, cap refill <2 seconds Deviation from normal: right humb ecchymotic, no splinters, no Ossler's nodes Dx/Plan (1) Staphylococcus aureus bacteremia with sepsis Code(s): A41.01 - SEPSIS DUE TO METHICILLIN SUSCEPTIBLE STAPHYLOCOCCUS AUREUS Status: Acute Comment: MSSA on sulture. Stop Vanc, to Rocephin and Levoflox. repeat BCx tomorrow. Has CVC in place on admit, by definition already infected. TTE neg for echo evidence of endocarditis, but thumbs looks like a distant site, febrile, possible pulm involvement. 1 major, 2 minor criteria presnet for now (2) CAP (community acquired pneumonia) Code(s): J18.9 - PNEUMONIA, UNSPECIFIED ORGANISM Status: Acute Qualifiers: Laterality: unspecified laterality Qualified Code(s): J18.9 - Pneumonia, unspecified organism Comment: bilaterla perihilar infiltates (3) Back pain Code(s): M54.9 - DORSALGIA, UNSPECIFIED Status: Acute Qualifiers: Chronicity: acute Back pain laterality: unspecified Sciatica presence: unspecified whether sciatica present Comment: per reports. could represent embolic infection or chronic back pain. Imaging later, wont change immediate management, but paraspinal or epidural abscess would neccessitate drainage. (4) Metabolic encephalopathy Code(s): G93.41 - METABOLIC ENCEPHALOPATHY Status: Acute Comment: could be due to general condition, meningoencephalitis, or perimeningela focus of infections. Covered. Will need advanced imaging. Would not undergo LP until we clear the spine, unless cervical approach possible - Plan cont current plan of care, continue antibiotics, respiratory therapy, DVT proph w/lovenox * .
[2017-07-04] MEDS: Lorazepam 2 MG/ML VIAL SLOW IVP PRN (15:15)
[2017-07-04] MEDS ORDERED: Acetaminophen 650 MG/20.3 ML UDCUP PER TUBE SCH (15:30)
[2017-07-04] MEDS ORDERED: [UNRECOGNIZED DRUG - OTHER] IV SCH ×2 (17:15)
[2017-07-04] MEDS ORDERED: SODIUM CHLORIDE 0.9% IV SCH ×2 (17:15)
[2017-07-04] MEDS: SODIUM CHLORIDE IV SCH (18:17)
[2017-07-04] MEDS: STERILE WATER IV SCH (18:17)
[2017-07-04] MEDS ORDERED: Bacitracin Zinc Ointment 30 gm TUBE ONE (19:07)
[2017-07-04] MEDS ORDERED: Bupivacaine PF 0.5% 30 ML VIAL ONE (19:18)
[2017-07-04] MEDS ORDERED: Morphine 2 MG/ML SYRINGE SLOW IVP SCH (21:00)
[2017-07-04] MEDS ORDERED: Morphine 4 MG/ML Carpuject SLOW IVP SCH (21:15)
[2017-07-04 23:26] LABS: HBCM Index 0.11 S/CO (0-0.79); HIV (1/2) Antibody/Antigen Non-Reactive (NonReactive); HIV 1/2 INDEX 0.11 S/CO (<1.00); Hep A IgM AB Non-Reactive (NonReactive); Hep A IgM S/CO 0.29 S/CO (0-0.79); Hep B Surf Ag Non-Reactive S/CO (NonReactive); Hep C IgG Ab Non-Reactive (NonReactive); Hep C Index 0.17 S/CO (0-0.79); Hepatitis B Core IGM Abs Non-Reactive (NonReactive)
[2017-07-05] MEDS: Propofol 1,000 MG/100 ML VIAL IV PRN ×3 (00:26→15:46)
[2017-07-05] MEDS: HumaLOG 300 UNITS/3 ML VIAL SC PRN ×4 (00:26→18:31)
[2017-07-05] MEDS: STERILE WATER IV SCH (02:42)
[2017-07-05] MEDS: SODIUM CHLORIDE IV SCH (02:42)
[2017-07-05 05:03] LABS: #Lymphocytes 1.7 thou/uL (1.20-3.40); #Monocytes 0.9 thou/uL (0.11-0.59); #Neutrophils 14.7 thou/uL (1.40-6.50); %Basophils 0.2 % (0.0-1.0); %Eosinophils 0.1 % (0.0-10.0); %Lymphocytes 9.5 % (21.0-51.0); %Monocytes 5.2 % (0.0-10.0); Hemoglobin 10.1 g/dL (14.0-18.0); Mean Corpuscular HGB CONC 32.8 g/dL (32.0-36.0); Mean Corpuscular Hemoglobin 30.9 pg (27.0-31.0); Mean Corpuscular Volume 94.2 fl (80.0-94.0); Mean Platelet Volume 8.4 fL (7.4-10.4); Platelet Count 184 thou/uL (130-400); RBC Distribution Width 14.4 % (11.5-14.5); Red Blood Cell (RBC) Count 3.28 mill/uL (4.70-6.10); White Blood Cell (WBC) Count 17.3 thou/uL (4.8-10.8)
[2017-07-05 05:13] LABS: Anion Gap 12 mmol/L (10-20); BUN (Urea Nitrogen) 54 mg/dL (8.9-20.6); Calc. Creatinine Clearance 91 mL/min (70-130); Calcium 7.6 mg/dL (7.8-10.44); Carbon Dioxide 19 mmol/L (22-29); Estimated GFR-MDRD 50; Glucose 256 mg/dL (70-105); Potassium 3.1 mmol/L (3.5-5.1); Sodium 155 mmol/L (136-145)
[2017-07-05] MEDS: Hydrocortisone Sod Succ/PF 100 mg/2 ml Vial IVP SCH ×4 (05:15→23:43)
[2017-07-05 05:20] LABS: Chloride 127 mmol/L (98-107)
[2017-07-05] MEDS: Cefepime 2 GM, Syringe 2.5 ML in Sterile Water 10 ML SLOW IVP SCH ×2 (05:20→18:38)
--- NOTE | 2017-07-05 08:00 | RAD ---
SINGLE VIEW OF THE CHEST: Comparison: 07-04-17 History: Ventilated patient with respiratory failure. FINDINGS: Single view of the chest shows a normal sized cardiomediastinal silhouette. The lines and tubes are u nchanged in position. Interstitial markings are unchanged. There is slight improvement in the airspac e opacity in the bilateral hilar regions and left lower lobe. IMPRESSION: Slight improvement in multifocal infiltrates. POS: [facility]
[2017-07-05 08:12] LABS: pH, Arterial 7.35 (7.35-7.45)
[2017-07-05 08:13] LABS: ALV-art Gradient 174.375 (0-20); Base Excess (BEa) -7.9 mEq/L (0 (+/-) 2.5); CO2 Tension 31.7 mmHg (35.0-45.0); Calcium, Ionized 1.2 mmol/L (1.12-1.30); Hemoglobin (Hb) 7.5 g/dL (14.0-18.0); O2 Tension (PaO2) 71.2 mmHg (80.0-100.0); Puncture Site LRA
--- NOTE | 2017-07-05 08:36 | PRG ---
DATE OF SERVICE: 07/05/2017 This morning he is intubated on the vent. He is a little bit more responsive. PHYSICAL EXAMINATION: VITAL SIGNS: Pulse 88, blood pressure 120/68, sats 97, respirations 33. NEURO: Neurologically, he opens her eyes. I's and O's 4494 in, 346 out. CHEST: Chest revealed decreased breath sounds, bilateral rhonchi. CARDIAC: Normal S1-S2. ABDOMEN: Soft. No masses. LABORATORY: White count 17,000, H&H 12 and 38, platelet 84, PO2 of 71, PCO2 of 37.35 on a rate of 16 , 40% FiO2. Sodium 155, BUN and creatinine 154 and 150 - improved renal function. Staph culture growing MRSA. IMPRESSION: 1. Staph sepsis. 2. Infected right thumb status post surgery. 3. Chronic back pain. PLAN: Continue nutrition, PT. IV fluid is being changed, antibiotics, steroids. Try and wean today. One-half hour critical care. I will follow.
[2017-07-05] MEDS ORDERED: FLU VACC QS2017-18 36 mo. & older 0.5 ML SYRINGE IM ONE (09:00)
[2017-07-05] MEDS: Enoxaparin Sodium 30 MG/0.3 ML SYRINGE SC SCH (09:36)
[2017-07-05] MEDS: Pantoprazole 40 MG GRANULES PACKET PER TUBE SCH (09:36)
[2017-07-05] MEDS ORDERED: fentaNYL Citrate/PF 2,000 MCG in Sodium Chloride 0.9% 60 ML IV SCH (11:00)
--- NOTE | 2017-07-05 14:50 | PDOC.PN ---
- Subjective Encounter Start Date: 07/05/17 Encounter Start Time: 10:00 -: non-verbal sedated and intubated. To OR yesterday for I&D of thumb, talked to orho - septic arthritis. febrile overnight, afebrile at present. Pt taken off of sedation earlier, following commands, put back under. No N/V/D/C, no acute event otherwise - Objective Resuscitation Status: Resuscitation Status FULL:Full Resuscitation MAR Reviewed: Yes Vital Signs & Weight: Vital Signs (12 hours) Pulse Pulse Pulse Resp BP BP BP 07/05/17 14:00 29 H 07/05/17 12:00 24 H 07/05/17 10:50 89 119/62 07/05/17 10:00 27 H 07/05/17 09:01 82 77 122/65 121/65 07/05/17 08:05 90 120/68 07/05/17 08:00 26 H Pulse Ox 07/05/17 14:00 07/05/17 12:00 07/05/17 10:50 07/05/17 10:00 07/05/17 09:01 97 07/05/17 08:05 07/05/17 08:00 Weight Admit Weight 240 lb Weight 239 lb 10.279 oz Most Recent Monitor Data Heart Rate from ECG 84 NIBP 109/64 NIBP BP-Mean 81 Respiration from ECG 25 SpO2 96 I&O: 07/04/17 07/05/17 07/06/17 06:59 06:59 06:59 Intake Total 5538 4494.6 50 Output Total 5380 3460 1250 Balance 158 1034.6 -1200 Result Diagrams: 07/05/17 04:00 07/05/17 04:00 Additional Labs: Accuchecks 07/05/17 07/05/17 07/05/17 12:35 05:38 00:21 POC Glucose 319 H 254 H 280 H 07/04/17 15:33 POC Glucose 226 H Radiology Reviewed by me: Yes (improved aeration, slight decr in infiltrates) EKG Reviewed by me: Yes Phys Exam - Physical Examination Constitutional: NAD HEENT: PERRLA, moist MMs, sclera anicteric, oral pharynx no lesions orally intubated, OG tube present Neck: no nodes, no JVD, supple, full ROM coarse bilateral crackles Cardiovascular: RRR, no significant murmur, no rub tachy Gastrointestinal: soft, non-tender, no distention, positive bowel sounds Musculoskeletal: pulses present, edema present right hand wrappe dpost op - not removed Lymphatic: no nodes Skin: no rash, normal turgor, cap refill <2 seconds Dx/Plan (1) Staphylococcus aureus bacteremia with sepsis Code(s): A41.01 - SEPSIS DUE TO METHICILLIN SUSCEPTIBLE STAPHYLOCOCCUS AUREUS Status: Acute Comment: MSSA on culture. Stop Vanc, to Rocephin and Levoflox. repeat BCx tomorrow. Has CVC in place on admit, by definition already infected. TTE neg for echo evidence of endocarditis, but thumbs looks like a distant site, febrile, possible pulm involvement. 1 major, 2 minor criteria present for now. Major concern is possible sinal emboli, will need imaging, CVC placed into infected bloodstream. Repeat Bcx, if neg, can try to place a picc while sterilized, i positive or fevers persistent, may need to pull CVC when possible (2) CAP (community acquired pneumonia) Code(s): J18.9 - PNEUMONIA, UNSPECIFIED ORGANISM Status: Acute Qualifiers: Laterality: unspecified laterality Qualified Code(s): J18.9 - Pneumonia, unspecified organism Comment: bilateral perihilar infiltates (3) Back pain Code(s): M54.9 - DORSALGIA, UNSPECIFIED Status: Acute Qualifiers: Chronicity: acute Back pain laterality: unspecified Sciatica presence: unspecified whether sciatica present Comment: per reports. could represent embolic infection or chronic back pain. Imaging later, wont change immediate management, but paraspinal or epidural abscess would neccessitate drainage. (4) Metabolic encephalopathy Code(s): G93.41 - METABOLIC ENCEPHALOPATHY Status: Acute Comment: could be due to general condition, meningoencephalitis, or perimeningela focus of infections. Covered. Will need advanced imaging. Would not undergo LP until we clear the spine, unless cervical approach possible - Plan cont current plan of care, continue antibiotics, PT/OT, social services specialist, respiratory therapy, DVT proph w/SCDs * .
[2017-07-05] MEDS: Acetaminophen 650 MG Suppository PR PRN (15:39)
[2017-07-05] MEDS ORDERED: Acetaminophen 650 MG in Premix Bag 1 BAG IVPB PRN (15:51)
[2017-07-06] MEDS: HumaLOG 300 UNITS/3 ML VIAL SC PRN ×6 (00:50→23:28)
[2017-07-06] MEDS: Cefepime 2 GM, Syringe 2.5 ML in Sterile Water 10 ML SLOW IVP SCH ×3 (02:17→18:39)
[2017-07-06] MEDS: Propofol 1,000 MG/100 ML VIAL IV PRN (02:17)
[2017-07-06 04:57] LABS: #Monocytes 0.5 thou/uL (0.11-0.59); #Neutrophils 10.1 thou/uL (1.40-6.50); %Eosinophils 0.2 % (0.0-10.0); %Lymphocytes 8.6 % (21.0-51.0); %Monocytes 4.6 % (0.0-10.0); %Neutrophils 86.5 % (42.0-75.0); Hemoglobin 9.3 g/dL (14.0-18.0); Mean Corpuscular HGB CONC 32.4 g/dL (32.0-36.0); Mean Corpuscular Hemoglobin 30.8 pg (27.0-31.0); Mean Corpuscular Volume 95.2 fl (80.0-94.0); Mean Platelet Volume 8.8 fL (7.4-10.4); Platelet Count 179 thou/uL (130-400); RBC Distribution Width 14.3 % (11.5-14.5); Red Blood Cell (RBC) Count 3.03 mill/uL (4.70-6.10); White Blood Cell (WBC) Count 11.7 thou/uL (4.8-10.8)
[2017-07-06 05:13] LABS: Anion Gap 12 mmol/L (10-20); BUN (Urea Nitrogen) 53 mg/dL (8.9-20.6); Calc. Creatinine Clearance 110 mL/min (70-130); Calcium 7.8 mg/dL (7.8-10.44); Carbon Dioxide 18 mmol/L (22-29); Estimated GFR-MDRD 61; Glucose 396 mg/dL (70-105); Magnesium 2.5 mg/dL (1.6-2.6); Potassium 3.3 mmol/L (3.5-5.1); Sodium 159 mmol/L (136-145)
[2017-07-06 05:19] LABS: Chloride 132 mmol/L (98-107)
[2017-07-06] MEDS: Hydrocortisone Sod Succ/PF 100 mg/2 ml Vial IVP SCH (06:44)
[2017-07-06 07:31] LABS: Actual Bicarbonate (HCO3a) 16.2 mEq/L (22-26); Base Excess (BEa) -8.4 mEq/L (0 (+/-) 2.5); CO2 Tension 29.9 mmHg (35.0-45.0); Hemoglobin (Hb) 9.2 g/dL (14.0-18.0); O2 Tension (PaO2) 110.9 mmHg (80.0-100.0); pH, Arterial 7.35 (7.35-7.45)
[2017-07-06 07:32] LABS: ALV-art Gradient 136.925 (0-20); Calcium, Ionized 1.3 mmol/L (1.12-1.30); Puncture Site LRA
[2017-07-06] MEDS: Dextrose 5% in Water 1,000 ML IV SCH ×3 (08:10→22:42)
--- NOTE | 2017-07-06 08:24 | PRG ---
DATE OF SERVICE: 07/06/2017 He is awake, more responsive this morning. Sedative is withheld. PHYSICAL EXAMINATION: VITAL SIGNS: Pulse 76, blood pressure 102/60, respirations 22. His I's and O's are 4494 in, 1506 ou t. CHEST: Chest revealed decreased breath sounds, no wheezing. CARDIAC: Normal S1-S2. No gallops. ABDOMEN: Soft. No masses. LABORATORY: White count 9000, H&H 9 and 20, platelet 179, pO2 of 110, pCO2 37.35, sodium is 159, pot assium 3.3, chloride 132. Glucose 396. Staph aureus. IMPRESSION: 1. Respiratory failure. 2. Pneumonia. 3. Adult respiratory distress syndrome. 4. Electrolyte imbalance. 5. Diabetes. 6. Staph sepsis. PLAN: IV fluid has been adjusted. Continue aggressive nutrition, PT. Will try and wean and extubate if possible. Await input from Dimitri camarena regarding further surgical intervention of his thumb. is still to come to the hospital discuss patient's underlying medical issues. One-half hour critical care time.
--- NOTE | 2017-07-06 09:07 | RAD ---
AP CHEST: Indication: Intubation. Comparison: 07-05-17 FINDINGS: Patient remains intubated with gastric catheter and right subclavian central venous catheter. Opacity within the right perihilar region is stable. Left lung is clear. No pneumothorax is evident. IMPRESSION: Stable exam. POS: [facility]
[2017-07-06] MEDS: Enoxaparin Sodium 30 MG/0.3 ML SYRINGE SC SCH (09:10)
[2017-07-06] MEDS: Pantoprazole 40 MG GRANULES PACKET PER TUBE SCH (09:10)
[2017-07-06] MEDS: Insulin Detemir 100 UNITS/ML 20 UNITS in Pre-Filled Syringe 1 EACH SC SCH ×2 (09:11→20:49)
--- NOTE | 2017-07-06 10:54 | OP ---
DATE OF PROCEDURE: 07/04/2017 SURGEON: Jae Reynoso M.D. PROCEDURE: Procedure was performed at bedside in ICU in sterile condition, bringing the operating ro om tech, nurse, and all of the equipment to the patient because he was intubated and sedated. Theref ore, anesthesia intubation sedation, supervised by Dr. Reynoso, augmented by 10 mL 0.5% Marcaine. 1. Thumb metacarpophalangeal joint block level. 2. The patient was given morphine 4 mg, and is already on propofol drip. PREOPERATIVE DIAGNOSIS: Abscessed thumb. FINDINGS: Intra-articular abscess process that had ruptured out of the joint and traveled up the ext ensor tendon, almost to the level of the dorsal al of MP joint. PROCEDURE PERFORMED: 1. Arthrotomy of the joint with drainage of abscess. 2. Incision and drainage abscess subcutaneous. 3. Radical extensor tenosynovectomy because the abscess and purulence followed the extensor tendon p ath as far proximal as the metacarpophalangeal joint dorsal al, but did not violate the joint. 4. Possible early osteomyelitis based on the changes on the chondral surface seen with chondrolysis already seen proximal aspect of the joint or the head of the proximal phalanx. PROCEDURE PERFORMED: 1. Incision and drainage of abscess subcutaneously. 2. Arthrotomy with drainage of abscess in metatarsophalangeal joint. 3. Extensive tenosynovectomy, extensor pollicis longus tendon along from the joint to the level of t he metacarpophalangeal joint from the interphalangeal joint to the level of the metacarpophalangeal j oint. DESCRIPTION OF PROCEDURE: After successful anesthesia listed above the limb was prepped and draped s terilely, has all the sterile field equipment, irrigation and cultures necessary were brought from [facility] operating room with the presence of OR nurse and OR tech. Under sterile conditions, we then made a n L-shaped incision across his joint surface and down proximal phalanx medially. Purulence escaped s ubcutaneously, but I noticed that the purulence seemed to be traveling along the extensor tendons, we extended the incision all the way to the level of the metacarpophalangeal head along the midlateral radial aspect of the thumb. Then, I opened the joint capsule, partially open so I opened it more, re tracted extensor pollicis longus tendon. Here we could see mucopurulence inside and discoloration of the chondral surface, especially on the proximal aspect/head of the proximal phalanx. We then irrig ated this joint out with 500 mL normal saline. There was tenosynovial involvement of the extensor te ndon so it was just probably along the entire proximal phalanx base underwent a radical synovectomy. We then irrigated this area with 2 liters normal saline bulb syringe technique, catching in . Dissected along the neurovascular bundle until I opened up the sheath of the flexor tendon. It had n o purulence escape. We finished irrigation with additional 1 liter of normal saline bulb syringe anne marie hnique. I released the finger tourniquet used for approximately 10 minutes using a Spurger drain, ob tained hemostasis and packed the wound with normal saline soaked gauze. I placed a bulky dressing wi th 4 x 4's, Kerlix, and Stevie wrap. The patient tolerated the procedure well. Cultures were taken fro m the joint with a swab and sent to the lab. He tolerated the procedure well.
--- NOTE | 2017-07-06 15:26 | PDOC.PN ---
- Subjective Encounter Start Date: 07/06/17 Encounter Start Time: 10:15 extubated, stable, but sleep. ROS not avialable due to somnolence No F/C, no N/V/D/C - Objective Resuscitation Status: Resuscitation Status FULL:Full Resuscitation MAR Reviewed: Yes Vital Signs & Weight: Vital Signs (12 hours) Temp Pulse Resp BP Pulse Ox 07/06/17 10:12 99 07/06/17 08:00 97.8 F 73 20 97 07/06/17 06:43 69 111/63 07/06/17 06:00 21 H 07/06/17 04:00 21 H Weight Admit Weight 240 lb Weight 235 lb 0.204 oz Most Recent Monitor Data Heart Rate from ECG 77 NIBP 132/55 NIBP BP-Mean 94 Respiration from ECG 27 SpO2 99 I&O: 07/05/17 07/06/17 07/07/17 06:59 06:59 06:59 Intake Total 4494.6 4036 182.9 Output Total 3460 4115 830 Balance 1034.6 -79 -647.1 Result Diagrams: 07/07/17 04:21 07/07/17 04:21 Additional Labs: Accuchecks 07/06/17 07/06/17 07/05/17 11:07 00:22 18:31 POC Glucose 370 H 340 H 374 H Radiology Reviewed by me: Yes EKG Reviewed by me: Yes Phys Exam - Physical Examination Constitutional: NAD HEENT: PERRLA, moist MMs, sclera anicteric, oral pharynx no lesions Neck: no nodes, no JVD, supple, full ROM Respiratory: no rhonchi coarse bilateral rales Cardiovascular: RRR, no significant murmur, no rub Gastrointestinal: soft, non-tender, no distention, positive bowel sounds Musculoskeletal: pulses present, edema present Neurological: non-focal, normal sensation, moves all 4 limbs Lymphatic: no nodes Skin: no rash, normal turgor, cap refill <2 seconds Dx/Plan (1) Staphylococcus aureus bacteremia with sepsis Code(s): A41.01 - SEPSIS DUE TO METHICILLIN SUSCEPTIBLE STAPHYLOCOCCUS AUREUS Status: Acute Comment: MSSA on culture. repeat BCx neg so far. Has CVC in place on admit, by definition already infected. TTE neg for echo evidence of endocarditis, but thumbs looks like a distant site, febrile, possible pulm involvement. 1 major, 2 minor criteria present for now. Streamline to anc alone tomorrow Major concern is possible sinal emboli, will need imaging, CVC placed into infected bloodstream. Repeat Bcx, if neg, can try to place a picc while sterilized, i positive or fevers persistent, may need to pull CVC when possible (2) CAP (community acquired pneumonia) Code(s): J18.9 - PNEUMONIA, UNSPECIFIED ORGANISM Status: Acute Qualifiers: Laterality: unspecified laterality Qualified Code(s): J18.9 - Pneumonia, unspecified organism Comment: ruled OUT by pulmonary (3) Back pain Code(s): M54.9 - DORSALGIA, UNSPECIFIED Status: Acute Qualifiers: Chronicity: acute Back pain laterality: unspecified Sciatica presence: unspecified whether sciatica present Comment: per reports. could represent embolic infection or chronic back pain. Imaging later, wont change immediate management, but paraspinal or epidural abscess would neccessitate drainage. (4) Metabolic encephalopathy Code(s): G93.41 - METABOLIC ENCEPHALOPATHY Status: Acute Comment: could be due to general condition, meningoencephalitis, or perimeningela focus of infections. Covered. Will need advanced imaging. Would not undergo LP until we clear the spine, unless cervical approach possible - Plan * .
--- NOTE | 2017-07-06 15:58 | RAD ---
PORTABLE CHEST 1 VIEW: Date: 07/03/17 Time: 0530 hours HISTORY: Respiratory failure. FINDINGS/IMPRESSION: Comparison is made with exam dated 07/03/17. Line and tube placements are unchanged in position. Bilateral perihilar infiltrates are again noted. No pneumothorax or large effusions are seen. POS: [facility]
[2017-07-06] MEDS: Morphine 4 MG/ML Carpuject IVP PRN ×2 (16:04→19:41)
[2017-07-06] MEDS: Acetaminophen/Codeine 30-300mg Tablet PO PRN ×2 (18:33→23:16)
[2017-07-06] MEDS ORDERED: Labetalol HCl 100 MG/20 ML VIAL SLOW IVP PRN (19:34)
[2017-07-06] MEDS ORDERED: hydrALAZINE 20 MG/ML VIAL SLOW IVP PRN (19:35)
[2017-07-06] MEDS ORDERED: Hydrocortisone Sod Succ/PF 100 mg/2 ml Vial IVP SCH (21:00)
[2017-07-07] MEDS: Morphine 4 MG/ML Carpuject IVP PRN (01:37)
[2017-07-07] MEDS: Cefepime 2 GM, Syringe 2.5 ML in Sterile Water 10 ML SLOW IVP SCH ×2 (01:42→09:26)
[2017-07-07] MEDS: Dextrose 5% in Water 1,000 ML IV SCH ×4 (01:42→22:53)
[2017-07-07] MEDS: HumaLOG 300 UNITS/3 ML VIAL SC PRN ×4 (04:04→21:38)
[2017-07-07 05:12] LABS: Anion Gap 10 mmol/L (10-20); BUN (Urea Nitrogen) 42 mg/dL (8.9-20.6); Calc. Creatinine Clearance 128 mL/min (70-130); Calcium 7.8 mg/dL (7.8-10.44); Carbon Dioxide 19 mmol/L (22-29); Chloride 136 mmol/L (98-107); Estimated GFR-MDRD 75; Glucose 281 mg/dL (70-105); Magnesium 2.2 mg/dL (1.6-2.6); Potassium 3.6 mmol/L (3.5-5.1); Sodium 161 mmol/L (136-145)
[2017-07-07 06:10] LABS: #Lymphocytes 1.7 thou/uL (1.20-3.40); #Monocytes 0.5 thou/uL (0.11-0.59); #Neutrophils 11.4 thou/uL (1.40-6.50); %Eosinophils 0.2 % (0.0-10.0); %Lymphocytes 12.4 % (21.0-51.0); %Monocytes 3.4 % (0.0-10.0); %Neutrophils 84.1 % (42.0-75.0); Hemoglobin 8.9 g/dL (14.0-18.0); Mean Corpuscular HGB CONC 32.7 g/dL (32.0-36.0); Mean Corpuscular Hemoglobin 30.7 pg (27.0-31.0); Mean Corpuscular Volume 93.9 fl (80.0-94.0); Mean Platelet Volume 8.6 fL (7.4-10.4); PLT Morphology Comment Appears Adequate; Platelet Count 230 thou/uL (130-400); RBC Distribution Width 14.4 % (11.5-14.5); RBC Morphology Normal; Red Blood Cell (RBC) Count 2.91 mill/uL (4.70-6.10); White Blood Cell (WBC) Count 13.6 thou/uL (4.8-10.8)
--- NOTE | 2017-07-07 08:18 | RAD ---
PORTABLE CHEST 1 VIEW: DATE: 07/27/17. TIME: 5:00 a.m. HISTORY: Respiratory distress. FINDINGS: Comparison is made with the exam of the previous day. Endotracheal and nasogastric tubes have been removed in the interim. Central line remains in place. The heart size is normal. The lungs are expanded without evidence of old granulomatous disease. Op acity in the right infrahilar region is again noted. No pneumothoraces or large effusions are seen. POS: [facility]
[2017-07-07] MEDS ORDERED: Furosemide 20 MG/2 ML VIAL SLOW IVP SCH (08:30)
--- NOTE | 2017-07-07 09:00 | PRG ---
DATE OF SERVICE: 07/07/2017 He is awake, alert, and responsive. PHYSICAL EXAMINATION: VITAL SIGNS: His I's and O's have been relatively even. Temperature 99, blood pressure 114/60, puls e 77, sats 100%. CHEST: Chest reveals extensive rhonchi and crackles. CARDIAC: Sinus tachycardia. ABDOMEN: Soft. NEUROLOGIC: He is awake. He is still having some back pain. His white count is growing Staph aureus sensitive to the present antibiotic coverage. His x-ray today shows nonspecific right-sided infiltrate. Surprised about his sodium which is 161 in spite of changing his IV fluid to D5. Chloride 136, gluco se 281. IMPRESSION: 1. Respiratory failure. 2. Encephalopathy. 3. Staph sepsis. 4. Right thumb osteomyelitis. 5. Electrolyte imbalance. PLAN: Continue D5 at 150 an hour. His BUN and creatinine are improved. I have given him Lasix 20. Recheck electrolytes later on in the afternoon. Continue observation in the ICU, neb treatments, steroids, supportive care. One-half hour critical care time.
[2017-07-07] MEDS: Enoxaparin Sodium 40 MG/0.4 ML SYRINGE SC SCH (09:27)
[2017-07-07] MEDS: Insulin Detemir 100 UNITS/ML 20 UNITS in Pre-Filled Syringe 1 EACH SC SCH ×2 (09:28→21:38)
[2017-07-07] MEDS ORDERED: Pantoprazole 40 MG VIAL IVP SCH ×2 (10:00→21:00)
--- NOTE | 2017-07-07 12:18 | PDOC.PN ---
- Subjective Encounter Start Date: 07/07/17 Encounter Start Time: 10:30 -: non-verbal Pt somnolent, but arousable, no recent fevers. No N/V/D/C, no CP, some SOB and wheezing Pt staying stable, but sleepy. NO acute overnight events 10 point ROS performed and neg x as per HPI - Objective Resuscitation Status: Resuscitation Status FULL:Full Resuscitation MAR Reviewed: Yes Vital Signs & Weight: Vital Signs (12 hours) Temp Pulse Resp Pulse Ox 07/07/17 08:00 99.5 F 79 30 H 99 Weight Admit Weight 240 lb Weight 236 lb 15.951 oz Most Recent Monitor Data Heart Rate from ECG 73 NIBP 123/68 NIBP BP-Mean 84 Respiration from ECG 30 SpO2 100 I&O: 07/06/17 07/07/17 07/08/17 06:59 06:59 06:59 Intake Total 4036 4182.9 Output Total 4115 3591 775 Balance -79 591.9 -775 Result Diagrams: 07/07/17 04:21 07/07/17 04:21 Additional Labs: Accuchecks 07/07/17 07/06/17 07/06/17 04:01 23:28 20:12 POC Glucose 283 H 233 H 284 H 07/06/17 11:07 POC Glucose 370 H EKG Reviewed by me: Yes Phys Exam - Physical Examination Constitutional: NAD HEENT: PERRLA, moist MMs, sclera anicteric, oral pharynx no lesions Neck: no nodes, no JVD, supple, full ROM Respiratory: wheezing present coarse bilateral BS, basilar/posterior crackles Cardiovascular: RRR, no significant murmur, no rub Gastrointestinal: soft, non-tender, no distention, positive bowel sounds Musculoskeletal: pulses present, edema present Neurological: non-focal, moves all 4 limbs Lymphatic: no nodes Skin: no rash, normal turgor, cap refill <2 seconds Dx/Plan (1) Staphylococcus aureus bacteremia with sepsis Code(s): A41.01 - SEPSIS DUE TO METHICILLIN SUSCEPTIBLE STAPHYLOCOCCUS AUREUS Status: Acute Comment: MSSA on culture. repeat BCx neg so far. Has CVC in place on admit, by definition already infected. TTE neg for echo evidence of endocarditis, but thumbs looks like a distant site, febrile, possible pulm involvement. 1 major, 2 minor criteria present for now. Streamline to ancef alone Major concern is possible sinal emboli, will need imaging, CVC placed into infected bloodstream. Repeat Bcx, if neg, can try to place a picc while sterilized, i positive or fevers persistent, may need to pull CVC when possible (2) CAP (community acquired pneumonia) Code(s): J18.9 - PNEUMONIA, UNSPECIFIED ORGANISM Status: Acute Qualifiers: Laterality: unspecified laterality Qualified Code(s): J18.9 - Pneumonia, unspecified organism Comment: ruled OUT by pulmonary (3) Back pain Code(s): M54.9 - DORSALGIA, UNSPECIFIED Status: Acute Qualifiers: Chronicity: acute Back pain laterality: unspecified Sciatica presence: unspecified whether sciatica present Comment: per reports. could represent embolic infection or chronic back pain. Imaging later, wont change immediate management, but paraspinal or epidural abscess would neccessitate drainage. (4) Metabolic encephalopathy Code(s): G93.41 - METABOLIC ENCEPHALOPATHY Status: Acute Comment: could be due to general condition, meningoencephalitis, or perimeningela focus of infections. Covered. Will need advanced imaging. Would not undergo LP until we clear the spine, unless cervical approach possible - Plan cont current plan of care, continue antibiotics, PT/OT, respiratory therapy, DVT proph w/SCDs * .
[2017-07-07 13:24] VITALS: BMI 33.0
[2017-07-07] MEDS: CEFAZOLIN/Water 2 GM/20 ML SYRINGE SLOW IVP SCH ×2 (14:59→21:36)
[2017-07-07] MEDS: Acetaminophen 500 MG TAB PO PRN (16:12)
[2017-07-07 16:37] LABS: Anion Gap 12 mmol/L (10-20); BUN (Urea Nitrogen) 41 mg/dL (8.9-20.6); Calc. Creatinine Clearance 120 mL/min (70-130); Calcium 7.5 mg/dL (7.8-10.44); Carbon Dioxide 19 mmol/L (22-29); Estimated GFR-MDRD 69; Glucose 335 mg/dL (70-105); Potassium 4.1 mmol/L (3.5-5.1); Sodium 159 mmol/L (136-145)
[2017-07-07 16:41] LABS: Chloride 132 mmol/L (98-107)
[2017-07-07] MEDS: Acetaminophen/Codeine 30-300mg Tablet PO PRN (21:37)
[2017-07-08] MEDS: HumaLOG 300 UNITS/3 ML VIAL SC PRN ×6 (00:25→21:05)
[2017-07-08] MEDS: CEFAZOLIN/Water 2 GM/20 ML SYRINGE SLOW IVP SCH ×3 (05:07→20:55)
[2017-07-08] MEDS: Dextrose 5% in Water 1,000 ML IV SCH ×3 (05:07→20:59)
[2017-07-08 05:09] LABS: #Lymphocytes 1.1 thou/uL (1.20-3.40); #Monocytes 0.4 thou/uL (0.11-0.59); #Neutrophils 10.1 thou/uL (1.40-6.50); %Basophils 0.1 % (0.0-1.0); %Eosinophils 0.1 % (0.0-10.0); %Lymphocytes 9.2 % (21.0-51.0); %Monocytes 3.2 % (0.0-10.0); %Neutrophils 87.4 % (42.0-75.0); Hemoglobin 8.8 g/dL (14.0-18.0); Mean Corpuscular HGB CONC 33.7 g/dL (32.0-36.0); Mean Corpuscular Hemoglobin 31.6 pg (27.0-31.0); Mean Corpuscular Volume 93.9 fl (80.0-94.0); Mean Platelet Volume 8.4 fL (7.4-10.4); Platelet Count 238 thou/uL (130-400); RBC Distribution Width 14.2 % (11.5-14.5); Red Blood Cell (RBC) Count 2.77 mill/uL (4.70-6.10); White Blood Cell (WBC) Count 11.5 thou/uL (4.8-10.8)
[2017-07-08 05:25] LABS: Anion Gap 10 mmol/L (10-20); BUN (Urea Nitrogen) 37 mg/dL (8.9-20.6); Calc. Creatinine Clearance 145 mL/min (70-130); Calcium 7.9 mg/dL (7.8-10.44); Carbon Dioxide 19 mmol/L (22-29); Estimated GFR-MDRD 85; Glucose 344 mg/dL (70-105); Magnesium 2.2 mg/dL (1.6-2.6); Sodium 156 mmol/L (136-145)
[2017-07-08 05:30] LABS: Chloride 131 mmol/L (98-107)
[2017-07-08] MEDS: Insulin Detemir 100 UNITS/ML 20 UNITS in Pre-Filled Syringe 1 EACH SC SCH ×2 (08:37→21:04)
[2017-07-08] MEDS: Enoxaparin Sodium 40 MG/0.4 ML SYRINGE SC SCH (08:38)
[2017-07-08] MEDS: Acetaminophen/Codeine 30-300mg Tablet PO PRN ×2 (09:52→18:24)
--- NOTE | 2017-07-08 10:56 | RAD ---
SEMIUPRIGHT PORTABLE CHEST 1 VIEW: HISTORY: A 51-year-old male with respiratory insufficiency. Monitor leads overlie the chest. Minimal increased linear interstitial markings bilaterally with dominique e old granulomatous disease. Right subclavian catheter in lace. The heart size is within normal ukmar its. No confluent pneumonia, overt edema, or pleural effusion. IMPRESSION: Stable-appearing chest. No significant new process. POS: MICHAELA
--- NOTE | 2017-07-08 10:59 | PRG ---
DATE OF SERVICE: 07/08/2017 SERVICE: Pulmonary Medicine. INTERVAL HISTORY: The patient is doing fine from a respiratory standpoint. He is breathing comforta denise. He has no chest discomfort. His major complaint this morning is that he is usually on Aurora 4 tabs on a daily basis. He has not been getting that since he has been here and he is having some wit hdrawal features. Otherwise, there has been no interval change to his condition. PHYSICAL EXAMINATION: VITAL SIGNS: Afebrile with T-max of 102.9, pulse 70, blood pressure 119/61, respirations 23, saturat ion 100% on 2 liters nasal cannula. GENERAL: Patient is awake, alert, no apparent distress. LUNGS: Decent air entry. There is no prolonged expiratory phase. Crackles are minimal. HEART: Normal rate, regular. ABDOMEN: Soft, nontender, nondistended. Bowel sounds positive. MUSCULOSKELETAL: No cyanosis or clubbing. He has a little erythema of the anterior leg on the right . He has got 1+ edema there. There is no edema of the left lower extremity. LABORATORY DATA: WBC 11.5, hemoglobin 8.8, platelets 283. Chloride 131 and down trending. Sodium 1 56 and gently down trending. Basic metabolic profile is otherwise unremarkable. BUN and creatinine are trending down into the normal range. Central line is persistently growing Staph aureus, most rec ently on 07/05/2017. IMAGING: Chest x-ray demonstrates no acute cardiopulmonary abnormality. There is a right-sided subc lavian central venous catheter that terminates at the cavoatrial junction. Small patchy infiltrates are present throughout predominantly in the right lung. ASSESSMENT: 1. Acute hypoxic respiratory failure, improving. 2. Metabolic encephalopathy, resolved. 3. Chronic pain. 4. Staphylococcal aureus bacteremia, persisting. 5. Right thumb osteomyelitis. 6. Endocarditis based on criteria. PLAN: We will continue antibiotics and supportive care. We will try to mobilize patient as much as he tolerates. I will discontinue daily chest x-rays. I will reintroduce Aurora 10/325 one tab p.o. b .i.d. We will do an ultrasound of right lower extremity. It appears that it is most likely represen tative of cellulitis, though I would like to exclude the possibility of DVT as it was the change what we have needed to do. Pulmonary or Critical Care will continue to follow while the patient remains in this location, but truth be told, he stable for transition out of the ICU to the IMCU.
--- NOTE | 2017-07-08 14:22 | ULT ---
RIGHT LOWER EXTREMITY VENOUS DUPLEX ULTRASOUND INCLUDING COLOR AND SPECTRAL DOPPLER IMAGING: HISTORY: A 51-year-old male with right lower extremity cellulitis, edema, and swelling. FINDINGS: Exam performed from groin to ankle including visualized greater saphenous, common femoral, superfici al femoral, profunda femoral, popliteal, and trifurcation and posterior tibial vein regions. There i s phasic flow with normal compressibility and normal augmentation. No intraluminal thrombus. IMPRESSION: No evidence for deep venous thrombosis. POS: TEENA
--- NOTE | 2017-07-08 15:45 | PDOC.PN ---
- Subjective Encounter Start Date: 07/08/17 Encounter Start Time: 12:00 Pt awake,m but still somewhat confused. No F/C, no N/V/D/C, no CP or SOB, no acute overnight events. Pulm/CC note reviewed. Pt gives history of chronic back pain well controlled until 2 months ago, then got acute worse and remained there - Objective Resuscitation Status: Resuscitation Status FULL:Full Resuscitation MAR Reviewed: Yes Vital Signs & Weight: Vital Signs (12 hours) Temp Pulse Pulse Resp BP Pulse Ox Pulse Ox 07/08/17 13:58 78 28 H 99 07/08/17 13:14 90 128/63 99 07/08/17 12:00 99 07/08/17 09:08 71 23 H 100 07/08/17 08:00 98.7 F 71 20 100 Pulse Ox 07/08/17 13:58 07/08/17 13:14 100 07/08/17 12:00 07/08/17 09:08 07/08/17 08:00 Weight Admit Weight 240 lb Weight 236 lb 15.951 oz Most Recent Monitor Data Heart Rate from ECG 90 NIBP 138/60 NIBP BP-Mean 89 Respiration from ECG 26 SpO2 100 I&O: 07/07/17 07/08/17 07/09/17 06:59 06:59 06:59 Intake Total 4182.9 4112 350 Output Total 3591 3810 1160 Balance 591.9 302 -810 Result Diagrams: 07/08/17 04:45 07/08/17 04:45 Additional Labs: Accuchecks 07/08/17 07/08/17 07/08/17 11:59 08:33 04:52 POC Glucose 273 H 262 H 317 H 07/08/17 07/07/17 07/07/17 00:19 21:07 16:10 POC Glucose 336 H 323 H 311 H 07/07/17 11:05 POC Glucose 238 H Radiology Reviewed by me: Yes EKG Reviewed by me: Yes Phys Exam - Physical Examination Constitutional: NAD HEENT: PERRLA, moist MMs, sclera anicteric, oral pharynx no lesions Neck: no nodes, no JVD, supple, full ROM Respiratory: no wheezing, no rhonchi coarse bilateral posterior rales Cardiovascular: RRR, no significant murmur, no rub Gastrointestinal: soft, non-tender, no distention, positive bowel sounds Musculoskeletal: pulses present, edema present LLE more than RLE Neurological: non-focal, normal sensation, moves all 4 limbs Lymphatic: no nodes Psychiatric: normal affect Skin: no rash, normal turgor, cap refill <2 seconds Dx/Plan (1) Staphylococcus aureus bacteremia with sepsis Code(s): A41.01 - SEPSIS DUE TO METHICILLIN SUSCEPTIBLE STAPHYLOCOCCUS AUREUS Status: Acute Comment: MSSA on culture. repeat BCx neg so far. Has CVC in place on admit, by definition already infected. TTE neg for echo evidence of endocarditis, but thumbs looks like a distant site, febrile, possible pulm involvement. 1 major, 2 minor criteria present for now. Streamline to ancef alone tomorrow Major concern is possible sinal emboli, will need imaging, CVC placed into infected bloodstream. Repeat Bcx, if neg, can try to place a picc while sterilized, i positive or fevers persistent, may need to pull CVC when possible (2) CAP (community acquired pneumonia) Code(s): J18.9 - PNEUMONIA, UNSPECIFIED ORGANISM Status: Acute Qualifiers: Laterality: unspecified laterality Qualified Code(s): J18.9 - Pneumonia, unspecified organism Comment: ruled OUT by pulmonary (3) Back pain Code(s): M54.9 - DORSALGIA, UNSPECIFIED Status: Acute Qualifiers: Chronicity: acute Back pain laterality: unspecified Sciatica presence: unspecified whether sciatica present Comment: per reports. could represent embolic infection or chronic back pain. Imaging later, wont change immediate management, but paraspinal or epidural abscess would neccessitate drainage. (4) Metabolic encephalopathy Code(s): G93.41 - METABOLIC ENCEPHALOPATHY Status: Acute Comment: could be due to general condition, meningoencephalitis, or perimeningela focus of infections. Covered. Will need advanced imaging. Would not undergo LP until we clear the spine, unless cervical approach possible - Plan * . will order MRI spine screen
--- NOTE | 2017-07-08 19:44 | MRI ---
MRI OF THE LUMBAR SPINE WITHOUT CONTRAST 07/08/17 COMPARISON: None. HISTORY: Acute onset of back pain. Patient has chronic back pain. Patient has Staph bacteremia. TECHNIQUE: Multiplanar and multisequence MR images were obtained of the lumbar spine without contrast. FINDINGS: Postsurgical changes are seen in the lower lumbosacral spine from fusion of L4 through S1 with bilate ral pedicle screws. Susceptibility artifact from the hardware limits evaluation of these levels. The patient has had a right laminectomy at L5. There is a lara shaped area extending through this laminec gurjit defect from the central canal measuring 3.5 cm in craniocaudal dimension which could represent a contained CSF leak or fluid collection. There is increased T2 signal within the L5 and S1 vertebral bodies. There is also a small amount of edema anterior to the sacrum. Within the central canal, the n erve roots of the cauda equina are seen along the posterior aspect of the canal at the L4 through S1 levels. There is a slightly heterogeneous signal appearance of the CSF in front of the nerve roots an d an epidural abscess cannot be excluded. The conus medullaris terminates normally at T11-12. No significant bulge or protrusion is seen throughout the lumbar spine. No obvious neural foraminal s tenosis is seen. Evaluation of the neural foramina at L4-5 and L5-S1 is limited secondary to the sanjay fact from the hardware. IMPRESSION: 1. There is abnormal T2 signal in the L5 and S1 vertebral bodies which may represent edema. This is of uncertain significance. There is a small amount of edema in front of these vertebral bodies an d a heterogeneous appearance of the signal within the central canal posterior to these vertebral bodi es. An epidural abscess in this location is a possibility but cannot be adequately seen or assessed w ithout IV contrast. 2. Abnormality extending through the laminectomy defect could represent a contained CSF leak or a fluid collection such as an abscess. Evaluation is limited without IV contrast. POS: TEENA
[2017-07-08] MEDS: HYDROcodone/Acetaminophen 10/325 mg Tablet PO SCH (20:55)
[2017-07-09] MEDS: HumaLOG 300 UNITS/3 ML VIAL SC PRN ×6 (00:54→21:27)
[2017-07-09] MEDS: Dextrose 5% in Water 1,000 ML IV SCH ×3 (02:45→19:56)
[2017-07-09 04:31] LABS: #Eosinphils 0.1 thou/uL (0.0-0.7); #Lymphocytes 2.3 thou/uL (1.20-3.40); #Monocytes 0.5 thou/uL (0.11-0.59); #Neutrophils 12.2 thou/uL (1.40-6.50); %Basophils 0.1 % (0.0-1.0); %Eosinophils 0.9 % (0.0-10.0); %Lymphocytes 15.4 % (21.0-51.0); %Neutrophils 80.6 % (42.0-75.0); Hemoglobin 9.7 g/dL (14.0-18.0); Mean Corpuscular HGB CONC 33.2 g/dL (32.0-36.0); Mean Corpuscular Hemoglobin 31.2 pg (27.0-31.0); Mean Corpuscular Volume 93.8 fl (80.0-94.0); Mean Platelet Volume 8.1 fL (7.4-10.4); Platelet Count 288 thou/uL (130-400); RBC Distribution Width 14.3 % (11.5-14.5); White Blood Cell (WBC) Count 15.1 thou/uL (4.8-10.8)
[2017-07-09 04:51] LABS: Anion Gap 12 mmol/L (10-20); BUN (Urea Nitrogen) 29 mg/dL (8.9-20.6); Calc. Creatinine Clearance 168 mL/min (70-130); Carbon Dioxide 18 mmol/L (22-29); Chloride 124 mmol/L (98-107); Estimated GFR-MDRD Greater than 90; Glucose 195 mg/dL (70-105); Potassium 3.7 mmol/L (3.5-5.1); Sodium 150 mmol/L (136-145)
[2017-07-09] MEDS: CEFAZOLIN/Water 2 GM/20 ML SYRINGE SLOW IVP SCH ×3 (04:56→21:20)
[2017-07-09] MEDS: Acetaminophen 500 MG TAB PO PRN ×2 (04:57→08:29)
[2017-07-09] MEDS: Enoxaparin Sodium 40 MG/0.4 ML SYRINGE SC SCH ×2 (08:29→12:42)
[2017-07-09] MEDS: HYDROcodone/Acetaminophen 10/325 mg Tablet PO SCH ×2 (08:29→21:20)
[2017-07-09] MEDS: Insulin Detemir 100 UNITS/ML 20 UNITS in Pre-Filled Syringe 1 EACH SC SCH ×2 (08:30→21:27)
[2017-07-09] MEDS ORDERED: HYDROcodone/Acetaminophen 10/325 mg Tablet PO SCH (10:45)
[2017-07-09] MEDS ORDERED: ISOVUE-370 76%-LOCM 1 ML ONE (12:44)
[2017-07-09] MEDS ORDERED: Gadobenate Dimeglumine 529 MG/1 ML (20ML VIAL) ONE (12:45)
--- NOTE | 2017-07-09 13:19 | MRI ---
LUMBAR SPINE MRI WITH IV CONTRAST: HISTORY: A 51-year-old male with a history of acute and chronic back pain with MRSA bacteremia. COMPARISON: A prior MRI exam 07/08/17. FINDINGS: There is some minimal increased marrow signal involving the L4, L5, and S1 vertebral bodies with some slight enhancement. I favor these changes being nonspecific osteitis versis eary osteomyelitis. Th ere is a somewhat multilobulated fluid collection extending posteriorly from the thecal sac to the ri ght of midline and extending into the adjacent paraspinous musculature. This fluid collection has so me enhancement around it. Consistent with a complicated postsurgical fluid collection. There is dominique e minimal fluid signal within the disk around the disk prosthesis at L5-S1 with some associated enhan cement which could represent some focal diskitis. There is some extradural nonspecific ventral and l eft ventral signal which appears to be compressing the thecal sac posteriorly with some minimal heter ogeneous enhancement raising concern for infection/phlegmon without a well-defined focal drainable ab scess. There does appear to be fairly marked compression of the thecal sac in the anterior posterior dimension at the L4 and L5 and L5-S1 levels. This exam is somewhat limited technically because of the extensive artifact from the pedicle screws a t L4, L5, and S1. IMPRESSION: Some nonspecific increased marrow signal involving the caudal aspects of L4, L5, and S1 vertebral bod ies consistent with at least nonspecific osteitis. The possibility of coexistent early osteomyelitis cannot be totally excluded. Some minimal STIR hyperintensity and minimal enhancement within the L5- S1 disk around the disk prosthesis raises concern for associated diskitis. Abnormal multilobulated f luid collection extending posteriorly primarily to the right of midline from the thecal sac at the L4 -L5 disk with some surrounding enhancement concerning for a complicated postsurgical extradural fluid collection. Some heterogeneous abnormal signal changes involving the anterior spinal canal from ap proximately the L4-L5 level down to the L5-S1 level with some slight heterogeneous enhancement juan antonio g concern for extradural infection/abscess/phlegmon versus some extensive scar. Bilateral pedicle sc rews at L4, L5, and S1. Moderate canal stenosis at L3-L4 with what may be some minimal nonspecific v entral extradural signal. More proximal lumbar spine appears unremarkable. Probable right renal cys t/cysts. This is reviewed in consensus with Dr. Allison. I will have a neuroradiologist review this study in the morning and, if any additional findings or re commendations are noted, I will have him do an addendum report at that time. POS: TEENA
--- NOTE | 2017-07-09 14:07 | PDOC.PN ---
- Subjective Encounter Start Date: 07/09/17 Encounter Start Time: 11:55 Pt more awake and alert, daughter at bedsdie. explained need for repeat lumbar MRI, pt had earlier, awaiting results then. febrile, 101.8 overnight, now 100.8 no chills, pain about the same, no bowel or bladder incontinence. 10 point ROS performed and neg for all systems except as above - Objective Resuscitation Status: Resuscitation Status FULL:Full Resuscitation MAR Reviewed: Yes Vital Signs & Weight: Vital Signs (12 hours) Temp Pulse Resp Pulse Ox 07/09/17 11:42 90 20 07/09/17 08:00 101.7 F H 109 H 22 H 100 07/09/17 07:11 98 24 H 07/09/17 02:48 98 Weight Admit Weight 240 lb Weight 236 lb 15.951 oz Most Recent Monitor Data Heart Rate from ECG 76 NIBP 119/61 NIBP BP-Mean 81 Respiration from ECG 28 SpO2 100 I&O: 07/08/17 07/09/17 07/10/17 06:59 06:59 06:59 Intake Total 4112 4545 100 Output Total 3810 2885 450 Balance 302 1660 -350 Result Diagrams: 07/09/17 04:15 07/09/17 04:15 Additional Labs: Accuchecks 07/09/17 07/09/17 07/09/17 12:20 08:33 04:16 POC Glucose 177 H 231 H 183 H 07/09/17 07/08/17 07/08/17 00:45 20:27 16:57 POC Glucose 204 H 262 H 308 H Radiology Reviewed by me: Yes EKG Reviewed by me: Yes Phys Exam - Physical Examination Constitutional: NAD HEENT: PERRLA, moist MMs, sclera anicteric, oral pharynx no lesions Neck: no nodes, no JVD, supple, full ROM coarse BS bilaterally, no wheeze, no rhonchi, failt bibasilar rales Cardiovascular: RRR, no significant murmur, no rub Gastrointestinal: soft, non-tender, no distention, positive bowel sounds Musculoskeletal: pulses present, edema present Neurological: non-focal, normal sensation, moves all 4 limbs Lymphatic: no nodes Psychiatric: normal affect, A&O x 3 Skin: no rash, normal turgor, cap refill <2 seconds Dx/Plan (1) Staphylococcus aureus bacteremia with sepsis Code(s): A41.01 - SEPSIS DUE TO METHICILLIN SUSCEPTIBLE STAPHYLOCOCCUS AUREUS Status: Acute Comment: MSSA on culture. repeat BCx neg so far. Has CVC in place on admit, by definition already infected. TTE neg for echo evidence of endocarditis, but thumbs looks like a distant site, febrile, possible pulm involvement. 1 major, 2 minor criteria present for now. Streamline to ancef alone tomorrow Major concern is possible sinal emboli, will need imaging, CVC placed into infected bloodstream. Repeat Bcx, if neg, can try to place a picc while sterilized, i positive or fevers persistent, may need to pull CVC when possible (2) CAP (community acquired pneumonia) Code(s): J18.9 - PNEUMONIA, UNSPECIFIED ORGANISM Status: Acute Qualifiers: Laterality: unspecified laterality Qualified Code(s): J18.9 - Pneumonia, unspecified organism Comment: ruled OUT by pulmonary (3) Back pain Code(s): M54.9 - DORSALGIA, UNSPECIFIED Status: Acute Qualifiers: Chronicity: acute Back pain laterality: unspecified Sciatica presence: unspecified whether sciatica present Comment: MRi with contrast with possible diskitis and possible abscess. I have discussed with Dr gonzalez, automation analyst for NeuroSurg, they will eval. (4) Metabolic encephalopathy Code(s): G93.41 - METABOLIC ENCEPHALOPATHY Status: Acute Comment: improved. no LP at present - Plan cont current plan of care, plan discussed w/ family, continue antibiotics, PT/OT , respiratory therapy * .
--- NOTE | 2017-07-09 15:17 | PRG ---
DATE OF SERVICE: 07/09/2017 SERVICE: Pulmonary Medicine. INTERVAL HISTORY: The patient is doing really well from a respiratory standpoint. He is breathing c omfortably. He was able to do the second part of the MRI today. Otherwise, there has been no interv al change to his condition. PHYSICAL EXAMINATION: VITAL SIGNS: Afebrile with T-max of 99.9, pulse 97, blood pressure 139/80, respirations 35, saturati on 100% on 2 liters nasal cannula. GENERAL: Patient is awake, alert, in no apparent distress. LUNGS: Decent air entry. There is no prolonged expiratory phase. I do not appreciate crackles or w heezing today. HEART: Normal rate, regular. ABDOMEN: Soft, nontender, nondistended. Bowel sounds are positive. MUSCULOSKELETAL: No cyanosis or clubbing. There is trace pitting in the bilateral lower extremities . NEUROLOGIC: Grossly nonfocal. LABORATORY DATA: WBC 15.1, hemoglobin 9.7, and platelets 288,000. Sodium 150 and down trending. Po tassium 3.7, chloride 124, also down trending nicely. Bicarbonate 18. Basic metabolic profile is ot herwise unremarkable. One out of two blood cultures drawn from the central line is growing Staph epi dermidis. Staph aureus is growing in multiple blood cultures. Urine culture is growing Staph aureus as well as alpha hemolytic streptococcus. Finger culture is growing Staphylococcus aureus. IMAGIN. MRI of the lumbar spine demonstrates abnormal T2 signal in L5-S1 vertebral bodies which may repre sent edema. Epidural abscess is a possibility but cannot be adequately assessed without IV contrast. The second portion of the study is currently pending. 2. Vascular ultrasound demonstrates no evidence of DVT. ASSESSMENT: 1. Acute hypoxic respiratory failure, resolving. 2. Metabolic encephalopathy, resolved. 3. Chronic pain. 4. Staphylococcus aureus bacteremia. 5. Right thumb osteomyelitis. 6. Possible lumbar spine osteomyelitis versus epidural abscess (second portion of MRI pending). 7. Endocarditis, based on criteria. 8. Hypernatremia, improving. PLAN: We will continue free water for an additional 24 hours. Tomorrow, if his sodium returns to th e normal range, we will need to back off on the amount of free water, but this may need to be continu ed for a period of time with some smaller rates of IV fluids may needed to be continued for a longer period of time. Pulmonary or Critical Care will continue to follow while he remains in this locatio n, but from my perspective, he is stable for transition out of the ICU to IMCU as he has fairly high nursing requirements.
--- NOTE | 2017-07-09 16:14 | CT ---
LUMBAR SPINE CT SCAN WITH AND WITHOUT IV CONTRAST: History: 51-year-old male with history of MRSA bacteremia, possible back infection FINDINGS: T12-L1, L1-2 and L2-3: No significant central canal stenosis or foraminal or lateral recess stenosis. L3-4: There is some generalized disc protrusion changes with some associated moderate canal and later al recess stenosis and some left foraminal stenosis. Post-operative pedicle screw placement changes are noted at L4, L5, and S1 with intradiscal prosthesi s at L4-5 and L5-S1. L4-5: There is a mass projecting posteriorly and laterally from the thecal sac into the right p araspinus region which appears to represent some central fluid and some enhancing wall thickness arou nd the fluid which certainly raises the concern for the possibility of infection. It is very difficul t to differentiate thecal sac from the epidural region at the L4-5 level because of the extensive art ifact. L5-S1: It is difficult to differentiate thecal sac from the epidural regions. There is some nondescri pt increased density in the ventral aspect of the spinal canal at the L4-5 and L5-S1 levels. There is a nonobstructing left renal calculus. There is noted to be some minimal nonspecific presacra l fat stranding centrally and to the right of midline beginning at the L4-5 level and extending down to the S2 region, possibly representing some type of nonspecific inflammation. IMPRESSION: Canal stenosis at L3-4 and some left foraminal stenosis and bilateral lateral recess stenosis posteri larissa projecting mass in the region of the posterolateral aspect at the L4-5 level with what liang ears to be some central low density and some minimal enhancing margin peripherally. The possibility o f some infected extradural fluid or other extradural process is certainly a consideration. The possib ility of some ventral extradural changes at L4 through S1 is a consideration as well. It is very diff icult to differentiate thecal sac from the extradural changes at this level from the extensive artifa ct. Nonspecific fat stranding in the presacral region centrally and to the right of midline, nonspeci fic. POS: TEENA
--- NOTE | 2017-07-09 19:44 | CON ---
This is Rafaela Edgar PA-C, with Neurosurgery Service. DATE OF CONSULTATION: 07/09/2017 ATTENDING PHYSICIAN: Dr. Markell Encinas. HISTORY OF PRESENT ILLNESS: The patient is a 51-year-old male with past medical history of hypertension and chronic back pain with prior fusion L4- S1 done by Dr. Camarillo in 2011 and was admitted for altered mental status and sepsis with new onset diabetes on 07/02/2017. His blood cultures have been positive for MRSA and Staph epidermidis. Patient was also complaining of progressively worsening low back pain for the past 2 months and was therefore evaluated with lumbar MRI with and without contrast. The MRI revealed enhancement around L4, L5 and S1 vertebrae as well as the disk spaces suspicious for osteomyelitis/diskitis. Also, there was a fluid collection posterior to the thecal sac at L4-L5, which was concerning for epidural abscess ; however, there was also significant artifacts from the hardware at this region making it difficult to completely characterize. CT of the lumbar spine with and without contrast was done additionally to further evaluate, but there was also significant artifacts of this image. I am seeing the patient at the bedside. He is also complaining of low back pain at this time. He has pain with any range of motion of the back and is tender to palpation of the lumbar spine. He is able to move all extremities, but is weak in the legs, 4/5 strength. He is hyperreflexive throughout. He denies any sensation changes or saddle anesthesia. PAST MEDICAL HISTORY: Back pain and hypertension. PAST SURGICAL HISTORY: Cholecystectomy, lumbar fusion L4-S1 in 2011. SOCIAL HISTORY: The patient is a 2-pack per day smoker. The patient does drink or use any drugs. He is . He lives at home with his . FAMILY HISTORY: Noncontributory. REVIEW OF SYSTEMS: Per HPI. ALLERGIES: The patient is allergic to NSAIDs. PHYSICAL EXAMINATION: VITAL SIGNS: Blood pressure is 150/76, heart rate is 89, temperature is 100.8, and he is 100% on room air. HEENT: Normocephalic and atraumatic. EYES: PERRLA. Extraocular movements are intact. NECK: Nontender to palpation. Free active range of motion. No meningismus or nuchal rigidity. LUNGS: The patient is breathing comfortably at this time. CARDIOVASCULAR: Regular rate and rhythm. BACK: He is tender to palpation of the lumbar spine. He has pain with any range of motion. MUSCULOSKELETAL: He is able to move all his extremities. He is hyperreflexive over all his extremities. Negative clonus. Negative Farley's. NEUROLOGIC: The patient is A&O x4. He is slightly weak over the lower extremities, 4/5 strength compared to the upper. He has normal cranial nerve exam. ASSESSMENT AND PLAN: This is a 51-year-old male who recently admitted for sepsis with positive blood cultures for Staph aureus and Staph epidermidis whose MRI is concerning for underlying osteomyelitis diskitis with questionable epidural fluid collection concerning for abscess. At this point on reviewing the imaging, there is a concern for possible epidural abscess; however, this has been poorly characterized by the imaging. I have discussed with Dr. Encinas and he will also review. We agreed with continued IV abx regimen at this time. MTDD
[2017-07-10] MEDS: HumaLOG 300 UNITS/3 ML VIAL SC PRN ×2 (00:22→05:55)
[2017-07-10] MEDS: Dextrose 5% in Water 1,000 ML IV SCH ×3 (02:13→12:28)
[2017-07-10 04:28] LABS: #Basophils 0.1 thou/uL (0.0-0.2); #Eosinphils 0.1 thou/uL (0.0-0.7); #Lymphocytes 1.8 thou/uL (1.20-3.40); #Monocytes 0.6 thou/uL (0.11-0.59); #Neutrophils 10.2 thou/uL (1.40-6.50); %Basophils 0.6 % (0.0-1.0); %Lymphocytes 14.1 % (21.0-51.0); %Monocytes 4.3 % (0.0-10.0); Hemoglobin 8.7 g/dL (14.0-18.0); Mean Corpuscular HGB CONC 32.9 g/dL (32.0-36.0); Mean Corpuscular Hemoglobin 30.8 pg (27.0-31.0); Mean Corpuscular Volume 93.6 fl (80.0-94.0); Mean Platelet Volume 7.8 fL (7.4-10.4); Platelet Count 219 thou/uL (130-400); RBC Distribution Width 14.6 % (11.5-14.5); White Blood Cell (WBC) Count 12.8 thou/uL (4.8-10.8)
[2017-07-10 04:46] LABS: Anion Gap 9 mmol/L (10-20); BUN (Urea Nitrogen) 21 mg/dL (8.9-20.6); Calc. Creatinine Clearance 172 mL/min (70-130); Calcium 7.7 mg/dL (7.8-10.44); Carbon Dioxide 20 mmol/L (22-29); Chloride 115 mmol/L (98-107); Estimated GFR-MDRD Greater than 90; Glucose 185 mg/dL (70-105); Potassium 3.9 mmol/L (3.5-5.1); Sodium 140 mmol/L (136-145)
[2017-07-10] MEDS: CEFAZOLIN/Water 2 GM/20 ML SYRINGE SLOW IVP SCH ×3 (05:56→20:55)
[2017-07-10] MEDS: Acetaminophen 500 MG TAB PO PRN (06:20)
[2017-07-10] MEDS: HYDROcodone/Acetaminophen 10/325 mg Tablet PO SCH ×2 (08:18→20:55)
[2017-07-10] MEDS: Insulin Detemir 100 UNITS/ML 20 UNITS in Pre-Filled Syringe 1 EACH SC SCH ×2 (08:21→20:56)
--- NOTE | 2017-07-10 08:29 | PRG ---
DATE OF SERVICE: 07/10/2017 This morning he appears weak, sitting in the chair. PHYSICAL EXAMINATION: VITAL SIGNS: Sats are 90% on room air, blood pressure 134/80, respirations 18, temperature 101. CHEST: Chest reveals decreased breath sounds, no wheezing. CARDIAC: Normal S1, S2. ABDOMEN: Soft, no masses. LABORATORY DATA: White count 12,000, H&H 8 and 26. Electrolytes normal. White count is unremarkabl e. Glucose is still elevated. Neurosurgery was consulted for his abnormal spine. IMPRESSION: The impression at this time is they may be a concern, but he is too unstable to continu e antibiotics. Will have to call Infectious Disease about long-term antibiotics. He is probably goi ng to need a PICC line. Outpatient antibiotics. Pulmonary-obrien, continue neb treatments, PT and supportive care. I will follow.
--- NOTE | 2017-07-10 10:15 | PRG ---
DATE OF SERVICE: 07/10/2017 HISTORY OF PRESENT ILLNESS: The patient seen and examined. I agree with Rafaela Herve's evaluation on 07/09/2017. This is a 51-year-old man with a history of L4-S1 instrumented fusion elsewhere in 2011, admitted for MRSA sepsis. He has generally been clinically improving on IV antibiotics. He has had ongoing and progressive complaints of low back pain. MRI with and without gadolinium as well as CT scans were re viewed. There is substantial artifact around his hardware. There is some enhancement of the vertebr al bodies and disk spaces between L4 and S1. There is some possible small amounts of fluid collectio n in the epidural space and extra laminar space. The quantity of any fluid is modest and it is uncle ar whether this would represent infected fluid or any fluid at all. IMPRESSION AND PLAN: The patient with recent MRSA sepsis as well as increased back pain. His imagin g is not definitive for the presence of infection, but is suspicious. There is no meaningful amount of abscess formation to necessitate surgical drainage. I am recommending no surgical intervention fo r now and ongoing IV antibiotic therapy. Ultimately, if his hardware has been seated by Graciela, he wo uld be high risk for recrudescence of infection and may ultimately require hardware removal and washo ut down the road. However, the interbody devices cannot be removed surgically. I will participate in ongoing outpatient followup with a follow up MRI of the lumbar spine in approxi mately 2 months.
[2017-07-10] MEDS: Acetaminophen/Codeine 30-300mg Tablet PO PRN (17:08)
--- NOTE | 2017-07-10 19:36 | PDOC.PN ---
- Subjective Encounter Start Date: 07/10/17 Encounter Start Time: 19:00 Subjective: f/u for staph aureaus bacteremia, thumb abscess post drainage and now -: L/T-spine epidural abscesses and likely osteomyelitis. Currently on Ancef -: but spiking fever with persistent leukocytosis. - Objective Resuscitation Status: Resuscitation Status FULL:Full Resuscitation MAR Reviewed: Yes Vital Signs & Weight: Vital Signs (12 hours) Temp Pulse Pulse Pulse Resp BP BP 07/10/17 18:33 97 24 H 07/10/17 16:11 100 26 H 07/10/17 16:05 100.3 F H 102 H 31 H 07/10/17 12:37 98.4 F 82 23 H 07/10/17 11:30 75 25 H 07/10/17 10:45 81 80 129/59 L 127/61 07/10/17 08:00 99.9 F H 85 28 H BP Pulse Ox 07/10/17 18:33 100 07/10/17 16:11 95 07/10/17 16:05 118/48 L 95 07/10/17 12:37 99 07/10/17 11:30 95 07/10/17 10:45 07/10/17 08:00 99 Weight Admit Weight 240 lb Weight 236 lb 15.951 oz Most Recent Monitor Data Heart Rate from ECG 97 NIBP 148/68 NIBP BP-Mean 93 Respiration from ECG 36 SpO2 99 I&O: 07/09/17 07/10/17 07/11/17 06:59 06:59 06:59 Intake Total 4545 4681 383 Output Total 2885 2590 1016 Balance 1660 2091 -518 Result Diagrams: 07/10/17 04:15 07/10/17 04:15 Additional Labs: Accuchecks 07/10/17 07/10/17 07/10/17 16:40 11:29 04:12 POC Glucose 191 H 219 H 181 H 07/10/17 07/09/17 00:19 21:24 POC Glucose 231 H 205 H Microbiology 07/05/17 13:20 Central Line - Right Subclavian Vein Blood Culture - Final Staphylococcus epidermidis 07/05/17 12:50 Central Line - Right Subclavian Vein Blood Culture - Final NO GROWTH IN 5 DAYS 07/04/17 19:41 Thumb - Abscess Bacterial Culture - Final 07/04/17 19:41 Thumb - Abscess Anaerobic Culture - Final Staphylococcus aureus 07/09/17 08:55 Central Line - Right Subclavian Vein Blood Culture - Preliminary Specimen has been received and culture in progress. No Growth to date. 07/05/17 18:09 Central Line - Right Subclavian Vein Blood Culture - Preliminary NO GROWTH AT 48 HOURS Laboratory Tests 07/05/17 07/06/17 07/07/17 04:00 04:20 04:21 WBC 17.3 H 11.7 H 13.6 H 07/08/17 07/09/17 04:45 04:15 WBC 11.5 H 15.1 H Radiology Reviewed by me: Yes (MRI L-spine - osteo, arachnoiditis, diskitis, spondylitis multiple sites) EKG Reviewed by me: Yes (Tele - SR) Phys Exam - Physical Examination lethargic, grimacing HEENT: PERRLA, oral pharynx no lesions Neck: no JVD, supple Respiratory: no wheezing Cardiovascular: RRR Gastrointestinal: soft, non-tender, no distention, positive bowel sounds bilat UE edema R hand with dressing in place Musculoskeletal: pulses present, edema present Neurological: moves all 4 limbs Psychiatric: A&O x 3 Skin: normal turgor, cap refill <2 seconds Dx/Plan (1) Lumbar spondylitis Code(s): M46.96 - UNSPECIFIED INFLAMMATORY SPONDYLOPATHY, LUMBAR REGION Status : Acute Comment: Continue Ancef, add Vancomycin 1gm IV q12h, no surgical intervention per Neurosurgery currently (2) Osteomyelitis of lumbar vertebra Code(s): M46.26 - OSTEOMYELITIS OF VERTEBRA, LUMBAR REGION Status: Acute Comment: See above (3) Arachnoiditis Code(s): G03.9 - MENINGITIS, UNSPECIFIED Status: Acute Comment: Staph spp, see mgmt as above (4) Metabolic encephalopathy Code(s): G93.41 - METABOLIC ENCEPHALOPATHY Status: Acute Comment: improved, supportive mgmt (5) Staphylococcus aureus bacteremia with sepsis Code(s): A41.01 - SEPSIS DUE TO METHICILLIN SUSCEPTIBLE STAPHYLOCOCCUS AUREUS Status: Acute Comment: MSSA on culture. repeat BCx neg so far. Has CVC in place on admit, by definition already infected. TTE neg for echo evidence of endocarditis, but thumbs looks like a distant site, febrile, possible pulm involvement. 1 major, 2 minor criteria present for now. Ancef currently, add Vancomycin Major concern is possible sinal emboli, will need imaging, CVC placed into infected bloodstream. Repeat Bcx, if neg, can try to place a picc while sterilized, i positive or fevers persistent, may need to pull CVC when possible (6) Diabetes mellitus, type II, insulin dependent Code(s): E11.9 - TYPE 2 DIABETES MELLITUS WITHOUT COMPLICATIONS; Z79.4 - VICE PRESIDENT OF TALENT MANAGEMENT (CURRENT) USE OF INSULIN Status: Acute Comment: Continue Levemir 20u sc BID, ISS (7) Abscess of thumb, right Code(s): L02.511 - CUTANEOUS ABSCESS OF RIGHT HAND Status: Acute Comment: s/ p I&D 07/06/17, continue local care, IV Ancef, add Vancomycin - Plan continue antibiotics, social service agency director, DVT proph w/SCDs Continue supportive mgmt -: Continue local WCT -: Add Vancomycin to current Ancef -: Likely will need PICC line and jail IV abx -: May need surgical intervention irregardless of IV abx coverage * AM lab: BMP, CBC
[2017-07-10] MEDS: Vancomycin HCl 1 GM in Premix Bag 1 BAG IVPB SCH (20:56)
[2017-07-10] MEDS ORDERED: Mag-Al 1200 mg/1200 mg/30 ML UDCUP PO PRN (21:53)
--- NOTE | 2017-07-10 22:29 | CON ---
DATE OF CONSULTATION: 07/10/2017. REASON FOR CONSULTATION: Bacteremia with possible back infection. HISTORY OF PRESENT ILLNESS: A 51-year-old admitted at the end of June, has a history of chronic back pain with prior back fusion with interbody device placement, about a week before admission developed worsening back pain and some confusional state. He was told by the ER staff that he had cellulitis and was discharged home. The patient worsened for the next 3 days, lost the ability to walk, and continued with confusional state. He was brought to the [facility] disoriented, and the patient was tachypneic with O2 sats 90% and had to be intubated by the ER physician. The patient was transferred to the ICU and initial white cell count 33,000 with a left shift. There was lactic acidosis of 5.0. BP kept stable at 130/80. Initial impression was hypoxic respiratory failure, metabolic encephalopathy, and sepsis. The patient has had 3 sets of blood cultures positive for Staphylococcus aureus. He also had a finger inflammatory process, which required surgical intervention. Dr. Reynoso did an I&D of thumb metacarpophalangeal joint. There was an intra- articular abscess, which ruptured out of the joint and travelled to the extensor tendon. There was possible early osteomyelitis as well. In addition to that, the patient had lumbosacral spine MRI, which demonstrated findings that would be consistent with infection at the level with effusion with abnormal T2 signal at L5-S1 vertebral bodies, heterogeneous appearance of the signal within central canal, possible epidural abscess, abnormally extending area of fluid collection through the laminectomy. Neurosurgery was consulted and Dr. Encinas recommended conservative management. He commented that the device would not be removable. Currently, Mr. Dennison is having some pain in the back area. The left hand has developed swelling, a little bit of pressure injury in the left presacral region. Otherwise denies headaches, visual symptoms, sore throat, odynophagia, dysphagia. No cough, sputum production, or chest pain. No abdominal pain. He has a Hernandez catheter with good output. I's and O's have been positive throughout. PAST MEDICAL HISTORY: Chronic back pain with multiple prior surgeries with interbody fusion at [facility] in 2009, hypertension. PAST SURGICAL HISTORY: Also includes cholecystectomy. SOCIAL HISTORY: Never a smoker. Does not drink. No illicit drug use history. FAMILY HISTORY: Coronary artery disease. ALLERGIES: NSAIDs. CURRENT MEDICATIONS: Tylenol, [place], DuoNeb, Ancef, glucagon, insulin, labetalol, magnesium. PHYSICAL EXAMINATION: VITAL SIGNS: T-max 103.2 a few days ago. He is currently 101.7. SKIN: Shows the area of superficial laceration or abrasion in the right anterior leg. The right hand is covered with dressing, which was not removed. The patient has a triple-lumen catheter in right subclavian location. The photo from the thumb shows the area of necrosis and dried blood from 2017. It is more like a dried scab of blood lying over the base of the wound. There is an area of pressure injury in the left intergluteal region, unstageable. No lymphadenopathy, alopecia. HEENT: Oral cavity dry with numerous teeth in marked decay. Ocular movements are conjugate. Sclerae are white. Pupils are equal. Conjunctivae are somewhat pale. No conjunctival hemorrhages. NECK: Supple. LUNGS: Symmetric breath sounds with faint basilar crackles. HEART: S1, S2 without murmurs. Regular rate. ABDOMEN: Soft, nondistended, or tender. No ascites. No bladder distention. MUSCULOSKELETAL: Hips and knees are okay. Ankles without pain. No foot involvement noted. The left hand is swollen, but no joint tenderness. The edema in the left upper extremity extends to the axillary fold area. NEUROLOGIC: He is awake, follows commands, oriented. LABORATORY DATA: White cell count is down from 30,000 to 12,000, hemoglobin 8.7 , platelets 219, bands are down markedly. Creatinine is 0.79. Liver profile is normal. Albumin is 1.9. Urinalysis with 4-6 wbc's. Serology with negative HIV and hepatitis C serology. Microbiology with multiple cultures positive for Staphylococcus aureus including 3 different sets of blood cultures. Last culture is from central line on 07/05/2017. The most recent cultures from central line was negative from 07/09/2017. ASSESSMENT: 1. Chronic low back pain, problems with multiple surgeries including fusion with interbody device in 2009. 2. Hand infection with septic arthritis and methicillin-susceptible Staphylococcus aureus bacteremia with involvement of the hand and lumbosacral spine involvement is possible as well at the region of the interbody device. DISCUSSION: Differential diagnosis includes superficial skin infection with bacteremia and dissemination to the other sites versus endocarditis associated with it. He does have some areas of what could be construed as representing embolic phenomenon in the feet area, particularly on the left first toe. We will check ultrasound of left upper extremity to rule out DVT and the echocardiogram, which was completed showed normal valvular structures, but the image of the valves was technically problematic, so this test will be repeated as recommended. PICC line placement and remove central line as soon as possible and continue Ancef for 6 weeks at least, probably 8 weeks in view of the osteomyelitis of right hand. Eventually transition to Rocephin to facilitate disposition. Regarding the interbody device, it is likely that there is involvement by the inflammatory process, and we will consider adding rifampin in view of the hardware. The patient will need to continue on suppressive dose of Keflex indefinitely following completion of iv phase of treatment. MTDD
[2017-07-10] MEDS: Melatonin 3 MG TAB PO PRN (23:38)
[2017-07-11] MEDS: Acetaminophen 500 MG TAB PO PRN (01:32)
[2017-07-11] MEDS: CEFAZOLIN/Water 2 GM/20 ML SYRINGE SLOW IVP SCH ×3 (05:21→20:48)
[2017-07-11 05:53] LABS: #Eosinphils 0.2 thou/uL (0.0-0.7); #Lymphocytes 2.1 thou/uL (1.20-3.40); #Monocytes 0.6 thou/uL (0.11-0.59); #Neutrophils 9.3 thou/uL (1.40-6.50); %Eosinophils 1.6 % (0.0-10.0); %Lymphocytes 17.4 % (21.0-51.0); %Monocytes 4.9 % (0.0-10.0); %Neutrophils 76.2 % (42.0-75.0); Hemoglobin 7.5 g/dL (14.0-18.0); Mean Corpuscular HGB CONC 32.7 g/dL (32.0-36.0); Mean Corpuscular Hemoglobin 30.8 pg (27.0-31.0); Mean Corpuscular Volume 94.3 fl (80.0-94.0); Mean Platelet Volume 7.7 fL (7.4-10.4); Platelet Count 234 thou/uL (130-400); RBC Distribution Width 14.9 % (11.5-14.5); Red Blood Cell (RBC) Count 2.45 mill/uL (4.70-6.10); White Blood Cell (WBC) Count 12.2 thou/uL (4.8-10.8)
[2017-07-11 06:16] LABS: Anion Gap 8 mmol/L (10-20); BUN (Urea Nitrogen) 20 mg/dL (8.9-20.6); Calc. Creatinine Clearance 176 mL/min (70-130); Calcium 7.6 mg/dL (7.8-10.44); Carbon Dioxide 21 mmol/L (22-29); Chloride 112 mmol/L (98-107); Estimated GFR-MDRD Greater than 90; Glucose 136 mg/dL (70-105); Potassium 4.1 mmol/L (3.5-5.1); Sodium 137 mmol/L (136-145)
--- NOTE | 2017-07-11 07:41 | ULT ---
LEFT UPPER EXTREMITY VENOUS DUPLEX ULTRASOUND INCLUDING COLOR AND SPECTRAL DOPPLER IMAGING: Date: 07/11/17 HISTORY: 51-year-old male with left upper extremity swelling and edema. FINDINGS: Exam includes visualization of the internal jugular, subclavian, axillary, brachial, radial and ulnar veins, basilic vein, and cephalic vein. In the distal basilic vein, in the region of the forearm, there is evidence for intraluminal thrombus . In the region of cephalic vein, near the level of the antecubital fossa, there is decreased demi sibility and decreased augmentation, raising concern for partial thrombus. The remainder of the deep venous system is unremarkable with phasic flow and normal compressibility and normal augmentation. IMPRESSION: Decreased compressibility in the region of the cephalic vein, evidence for incompletely obstructing t hrombus or minimal venous thickening or scarring. Evidence for intraluminal thrombus in the distal ba silic vein. The remainder of the deep venous system is intact. POS: TEENA
[2017-07-11] MEDS: Vancomycin HCl 1 GM in Premix Bag 1 BAG IVPB SCH (08:01)
[2017-07-11] MEDS: HYDROcodone/Acetaminophen 10/325 mg Tablet PO SCH ×2 (08:02→20:46)
--- NOTE | 2017-07-11 09:39 | PDOC.PN ---
- Subjective Encounter Start Date: 07/11/17 Encounter Start Time: 09:37 Mr. Dennison was seen today in follow-up. He note back pain, but no other acute concerns. He denies chest pain or trouble breathing. - Objective Resuscitation Status: Resuscitation Status FULL:Full Resuscitation MAR Reviewed: Yes Vital Signs & Weight: Vital Signs (12 hours) Temp Pulse Resp BP Pulse Ox 07/11/17 07:16 98.3 F 84 19 100 07/11/17 06:45 84 18 07/11/17 04:00 99.8 F H 86 22 H 100/43 L 100 07/11/17 02:13 98 22 H 96 07/10/17 22:11 100 22 H 100 Weight Admit Weight 240 lb Weight 236 lb 15.951 oz Most Recent Monitor Data Heart Rate from ECG 97 NIBP 148/68 NIBP BP-Mean 93 Respiration from ECG 36 SpO2 99 I&O: 07/10/17 07/11/17 07/12/17 06:59 06:59 06:59 Intake Total 4681 1333 250 Output Total 2590 1916 700 Balance 2091 -583 -450 Result Diagrams: 07/11/17 05:30 07/11/17 05:30 Additional Labs: Accuchecks 07/11/17 07/11/17 07/11/17 07:59 05:12 01:35 POC Glucose 128 H 145 H 171 H 07/10/17 07/10/17 07/10/17 20:55 16:40 11:29 POC Glucose 184 H 191 H 219 H Phys Exam - Physical Examination HEENT: PERRLA Respiratory: no wheezing, no rales, no rhonchi, clear to auscultation bilateral Cardiovascular: RRR 2/6 systolic murmur Gastrointestinal: soft, non-tender, positive bowel sounds Musculoskeletal: edema present + upper extremity swelling + erythema in the right vega, mild warmth Dx/Plan (1) Anemia, normocytic normochromic Code(s): D64.9 - ANEMIA, UNSPECIFIED Status: Acute (2) Deep venous thrombosis of left upper extremity Code(s): I82.622 - ACUTE EMBOLISM AND THROMBOSIS OF DEEP VEINS OF L UP EXTREM Status: Acute (3) Abscess of thumb, right Code(s): L02.511 - CUTANEOUS ABSCESS OF RIGHT HAND Status: Acute Comment: s/ p I&D 07/06/17, continue local care, IV Ancef, add Vancomycin (4) Diabetes mellitus, type II, insulin dependent Code(s): E11.9 - TYPE 2 DIABETES MELLITUS WITHOUT COMPLICATIONS; Z79.4 - MOLD BREAKER (CURRENT) USE OF INSULIN Status: Acute Comment: Continue Levemir 20u sc BID, ISS (5) Metabolic encephalopathy Code(s): G93.41 - METABOLIC ENCEPHALOPATHY Status: Acute Comment: improved, supportive mgmt (6) Osteomyelitis of lumbar vertebra Code(s): M46.26 - OSTEOMYELITIS OF VERTEBRA, LUMBAR REGION Status: Acute Comment: See above (7) Staphylococcus aureus bacteremia with sepsis Code(s): A41.01 - SEPSIS DUE TO METHICILLIN SUSCEPTIBLE STAPHYLOCOCCUS AUREUS Status: Acute Comment: MSSA on culture. repeat BCx neg so far. Has CVC in place on admit, by definition already infected. TTE neg for echo evidence of endocarditis, but thumbs looks like a distant site, febrile, possible pulm involvement. 1 major, 2 minor criteria present for now. Ancef currently, add Vancomycin Major concern is possible sinal emboli, will need imaging, CVC placed into infected bloodstream. Repeat Bcx, if neg, can try to place a picc while sterilized, i positive or fevers persistent, may need to pull CVC when possible - Plan * Mr. Dennison was admitted on 07/02/17 with metabolic encephalopathy due to MSSA sepsis. He has been found to have Multi-level Lumbar epidural abscesses, and L4- S1 Diskiitis. He also has abscess of the right thumb. He is currently on Ancef IV for this. He has been evaluated by Dr. Colon, and he recommending repeat Echo , and PICC line for at least 6-8 weeks of Ancef. He has also been found to have an upper extremity, Left Basilic vein thrombosis. * Will continue IV Ancef * Echo has been ordered * Upper extremity DVT- will start Lovenox, but will monitor H&H cautiously, as patient says he has a history of bleeding ulcer, but that was years ago, and attributed to Ibuprofen * Will check a baseline occult blood in the stool, and place him on Protonix. * PICC line will be needed, but where to put it, will discussed with ID * DM- blood glucose is stable * Symptom management for back pain.
--- NOTE | 2017-07-11 10:16 | PRG ---
DATE OF SERVICE: 07/11/2017 SUBJECTIVE: Awake, alert, responsive, some back pain. Denies any difficulty breathing. OBJECTIVE: VITAL SIGNS: Sats are 100% on room air, temperature 98, blood pressure is 100/43. CHEST: With decreased breath sounds, no wheezing. CARDIAC: Normal S1, S2. No gallops. ABDOMEN: Soft, no masses. LABORATORY DATA: White count 10,000, H&H is 7 and 23. Electrolytes are normal. Please note, he has had right thumb osteomyelitis for which he was going for debridement today. His left upper extremity was swollen, probably from an infiltrated IV. There is evidence of incomplete o bstruction of thrombus, more than likely this is from an IV that had been infiltrated. IMPRESSION: 1. Staph sepsis. 2. Osteomyelitis of the thumb. 3. Possible disk infection. PLAN: I agree with placement of PICC line, IV antibiotics, 6 weeks of antibiotics as per Infectious Disease. We will follow.
[2017-07-11] MEDS: Dextrose 5% in Water 1,000 ML IV SCH (11:21)
[2017-07-11] MEDS: Insulin Detemir 100 UNITS/ML 20 UNITS in Pre-Filled Syringe 1 EACH SC SCH ×2 (11:25→20:49)
[2017-07-11] MEDS ORDERED: Midazolam HCl 2 mg/2 ml Vial ONE (12:50)
[2017-07-11] MEDS ORDERED: Fentanyl 100 MCG/2 ML VIAL ONE (12:50)
[2017-07-11] MEDS ORDERED: Propofol 1,000 MG/100 ML VIAL IV ONE (12:50)
[2017-07-11] MEDS ORDERED: Bupivacaine PF 0.5% 30 ML VIAL ONE ×2 (13:32→14:20)
[2017-07-11] MEDS ORDERED: Bacitracin Zinc Ointment 30 gm TUBE ONE (13:33)
[2017-07-11] MEDS ORDERED: Sodium Chloride 0.9% 30 ML ONE (14:01)
[2017-07-11] MEDS ORDERED: Lidocaine 1% PF 5 ML VIAL ONE (16:27)
[2017-07-11] MEDS ORDERED: Ondansetron HCl/PF 4 MG/2 ML Vial ONE (16:27)
[2017-07-11] MEDS ORDERED: PHENYLEPHRINE-NS 100 MCG/ML 10 ML SYRINGE ONE (16:27)
[2017-07-11] MEDS: Enoxaparin Sodium 100 MG/ML SYRINGE SC SCH (20:48)
[2017-07-12] MEDS: Acetaminophen/Codeine 30-300mg Tablet PO PRN ×2 (01:38→05:46)
[2017-07-12] MEDS: Dextrose 5% in Water 1,000 ML IV SCH (04:00)
[2017-07-12 04:40] LABS: #Eosinphils 0.2 thou/uL (0.0-0.7); #Lymphocytes 1.7 thou/uL (1.20-3.40); #Monocytes 0.6 thou/uL (0.11-0.59); #Neutrophils 7.9 thou/uL (1.40-6.50); %Basophils 0.1 % (0.0-1.0); %Eosinophils 1.5 % (0.0-10.0); %Lymphocytes 15.9 % (21.0-51.0); %Monocytes 6.1 % (0.0-10.0); %Neutrophils 76.5 % (42.0-75.0); Hemoglobin 7.7 g/dL (14.0-18.0); Mean Corpuscular HGB CONC 32.5 g/dL (32.0-36.0); Mean Corpuscular Hemoglobin 30.8 pg (27.0-31.0); Mean Corpuscular Volume 94.6 fl (80.0-94.0); Mean Platelet Volume 7.8 fL (7.4-10.4); Platelet Count 278 thou/uL (130-400); RBC Distribution Width 14.4 % (11.5-14.5); White Blood Cell (WBC) Count 10.3 thou/uL (4.8-10.8)
[2017-07-12 04:49] LABS: Anion Gap 8 mmol/L (10-20); BUN (Urea Nitrogen) 17 mg/dL (8.9-20.6); Calc. Creatinine Clearance 164 mL/min (70-130); Calcium 7.6 mg/dL (7.8-10.44); Carbon Dioxide 21 mmol/L (22-29); Chloride 111 mmol/L (98-107); Estimated GFR-MDRD Greater than 90; Glucose 182 mg/dL (70-105); Potassium 4.4 mmol/L (3.5-5.1); Sodium 136 mmol/L (136-145)
[2017-07-12] MEDS: CEFAZOLIN/Water 2 GM/20 ML SYRINGE SLOW IVP SCH ×3 (05:27→20:50)
--- NOTE | 2017-07-12 07:22 | OP ---
PREOPERATIVE DIAGNOSES: Right thumb open wound with necrotic bone on the radial aspect of the distal phalanx with the skin at the eponychial fold, the bone and the radial 20% of the tendon had become d ry, excoriated, and desiccated. PROCEDURE PERFORMED: 1. Tenotomy and resection of the tendon. 2. Debridement of wound in IP joint. 3. Thumb wound irrigation of the metacarpophalangeal joint. 4. Flexor tendon sheath irrigation using flexor carpal tunnel level tenosynovectomy where ther e are no gross infection found, but there was minimal amount of gross purulence found between A1 and A2 pulleys. Cultures were sent from both the bone after the bone debridement base of the distal phal anges, flexor tenosynovium and in flexor sheath. ESTIMATED BLOOD LOSS: 50 mL. TOURNIQUET TIME: 35 minutes. DESCRIPTION OF PROCEDURE: Patient returns for staged wound management after having a bedside incisio n and drainage. He responded, but not enough, so surgery must be done in order to maximize the patie nt's return to activities of daily living. Patient then was brought from the Intensive Care Unit straight to the operating room, prepped and marlyn ped, and then prepared for possible skin graft, but upon visualizing the wound in great detail under loupe magnification, the skin was not noted to be close, we extended incision 2 cm proximal Then, I began to visualize the flexor sheath in mid lateral position, so the mucopurulent between A2 and A3 p ulleys, we then did a tenosynovectomy, as well as flexor sheath irrigation open. This was very succe ssful as there no gross purulence, so we prepared to partially close one wound but the rest were left open. We extended the dorsal incision enough to visualize and was well irrigated with 1 L of normal saline and prepared with VAC type dressing with a sponge in the A1 dimitry region wound, the joint in excellent alignment. At this point, we extended the incision proximally enough to visualize the pal m A1 dimitry region. There was some mucopurulent between the A2 and A1 dimitry in the sheath. This wa s treated with sheath irrigation from [id number] to [id number], tenosynovectomy , flexor pollicis longus tendon. We then worried that since we could not visualize the purulence wit h palpation that the carpal tunnel might be involved, so we made an incision 2.5 cm long, beginning j ust 1 cm wrist volar crease and then closing back back approximately 2 cm, making sure we did not inv olve median nerve as he had previous carpal tunnel release. We followed through the scar and then fo und that the flexor tendon itself appeared normal with no gross infection or abscess seen. We released the tourniquet, irrigated the areas completely after the debridement; took 2 sets of bone specimens in the area of necrotic bone at the base of the 30% necrotic extensor pollicis longus ten don. The patient then had a VAC dressing applied; closed the palmar wrist approach incision primaril y with 4-0 nylon interrupted mattress pattern and the patient left the operating room in an appropria te splint. No evidence of anesthetic or operative complication.
[2017-07-12] MEDS: Insulin Detemir 100 UNITS/ML 20 UNITS in Pre-Filled Syringe 1 EACH SC SCH ×2 (08:11→20:54)
[2017-07-12] MEDS: HYDROcodone/Acetaminophen 10/325 mg Tablet PO SCH ×5 (08:12→23:58)
[2017-07-12] MEDS: Enoxaparin Sodium 100 MG/ML SYRINGE SC SCH ×2 (08:13→20:51)
--- NOTE | 2017-07-12 09:20 | PDOC.PN ---
- Subjective Encounter Start Date: 07/12/17 Encounter Start Time: 09:18 Mr. Dennison was seen in follow-up of MSSA sepsis. He has had considerable pain in his lower back. He oral intake has improved however. - Objective Resuscitation Status: Resuscitation Status FULL:Full Resuscitation MAR Reviewed: Yes Vital Signs & Weight: Vital Signs (12 hours) Temp Pulse Resp BP Pulse Ox 07/12/17 08:27 99.5 F 105 H 18 100 07/12/17 07:23 101 H 16 07/12/17 04:00 98.9 F 102 H 18 98/50 L 99 07/12/17 02:34 99 16 99 07/12/17 00:00 99.8 F H 100 18 107/53 L 99 07/11/17 22:52 98 18 100 Weight Admit Weight 235 lb 0.204 oz Weight 236 lb 15.951 oz Most Recent Monitor Data Heart Rate from ECG 97 NIBP 148/68 NIBP BP-Mean 93 Respiration from ECG 36 SpO2 99 I&O: 07/11/17 07/12/17 07/13/17 06:59 06:59 06:59 Intake Total 1333 2860 200 Output Total 1916 3250 Balance -583 -390 200 Result Diagrams: 07/12/17 04:15 07/12/17 04:15 Additional Labs: Accuchecks 07/12/17 07/12/17 07/11/17 07:57 00:50 20:46 POC Glucose 183 H 144 H 157 H 07/11/17 07/11/17 16:37 11:18 POC Glucose 135 H 141 H Phys Exam - Physical Examination HEENT: PERRLA Respiratory: no wheezing, no rales, no rhonchi, clear to auscultation bilateral Cardiovascular: RRR, no significant murmur Gastrointestinal: soft, non-tender, positive bowel sounds Musculoskeletal: edema present + swelling in both upper extremities, mild erythema in the left arm +erythema in the left leg Dx/Plan (1) Anemia, normocytic normochromic Code(s): D64.9 - ANEMIA, UNSPECIFIED Status: Acute (2) Deep venous thrombosis of left upper extremity Code(s): I82.622 - ACUTE EMBOLISM AND THROMBOSIS OF DEEP VEINS OF L UP EXTREM Status: Acute (3) Abscess of thumb, right Code(s): L02.511 - CUTANEOUS ABSCESS OF RIGHT HAND Status: Acute Comment: s/ p I&D 07/06/17, continue local care, IV Ancef, add Vancomycin (4) Diabetes mellitus, type II, insulin dependent Code(s): E11.9 - TYPE 2 DIABETES MELLITUS WITHOUT COMPLICATIONS; 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 repeat BCx neg so far. Has CVC in place on admit, by definition already infected. TTE neg for echo evidence of endocarditis, but thumbs looks like a distant site, febrile, possible pulm involvement. 1 major, 2 minor criteria present for now. Ancef currently, add Vancomycin Major concern is possible sinal emboli, will need imaging, CVC placed into infected bloodstream. Repeat Bcx, if neg, can try to place a picc while sterilized, i positive or fevers persistent, may need to pull CVC when possible - Plan * MSSA Sepsis- will continue Ancef * PICC line can be placed in right upper extremity * Dr. Reynoso suggest having the sacral decubitus evaluated by General Surgery * Echo results are pending. * DM- blood glucose is stable * DVT- continue Lovenox, and will monitor H&H- * Anemia- will limit blood draws, and start a low dose iron supplement * Symptom control- will add Morphine for severe pain
--- NOTE | 2017-07-12 09:36 | PRG ---
DATE OF SERVICE: 07/12/2017 This morning he is awake, alert, responsive, status post wound debridement. PHYSICAL EXAMINATION: VITAL SIGNS: Sats are 100% on room air, respirations 18, temperature 99. Blood pressure is 90/50. CHEST: Chest reveals decreased breath sounds, no wheezing. CARDIAC: Normal S1, S2. ABDOMEN: Soft, no masses. LABORATORY DATA: White count 10,000, H&H 7 and 23. Platelet count normal. IMPRESSION: 1. Staph sepsis. 2. Staph osteomyelitis, right thumb. 3. Respiratory failure. 4. Severe deconditioning. 5. Dysphagia. PLAN: Antibiotics per Infectious Disease. Neb treatments. PT and supportive care. I will follow.
--- NOTE | 2017-07-12 12:39 | SPC ---
RIGHT UPPER EXTREMITY PICC LINE ULTRASOUND AND FLUOROSCOPIC GUIDANCE: Fluoroscopy time: Zero minutes. Dose: 31 mGy per cm2 PROCEDURE: After informed consent had been obtained, the patient was placed on the interventional suite table in a supine position. The right arm was prepped and draped in a standard sterile fashion. Topical ane sthesia was achieved utilizing 1% Lidocaine and sodium bicarbonate. Under real-time sonography, the brachial vein of the right upper extremity was accessed with a small caliber needle with venous flash present at the needle hub. A guidewire was then advanced in to the needle, and under real-time fluo roscopy, the guidewire was advanced to the level of the inferior vena cava to confirm appropriate neto ous placement. A small skin incision was made and the needle was removed. Over the guidewire, a sin gle lumen PICC line was cut to 36 cm. The PICC line was advanced under real-time fluoroscopy over th e guidewire to the level of the cavoatrial junction. The guidewire and peelaway sheath were then rem bharath. PICC line flushed and aspirated appropriately and was secured to the right upper extremity. T here were no procedural complications. IMPRESSION: Technically successful ultrasound and fluoroscopic-guided right upper extremity peripherally inserted central catheter placement, as above. POS: TEENA
--- NOTE | 2017-07-12 12:59 | PRG ---
DATE OF SERVICE: 07/12/2017 SUBJECTIVE: The patient had further debridement of his stump yesterday by Dr. Reynoso. Cultures we re submitted and he is in the neuro chair right now. An area of pressure ulceration was found in the presacral area with some foul odor to it. Coughs intermittently. No abdominal pain. Still Hernandez c atheter in place. OBJECTIVE: VITAL SIGNS: Temperature max 101.7 on 07/09/2017, T-max 99.8 over the past two days. Blood pressure 98/50, pulse 90, respirations 16, O2 sat 100%. GENERAL: Awake, alert, oriented. Ocular movements are conjugate. Sclerae white. Pupils are equal. Oral cavity moist. LUNGS: With bilateral inspiratory crackles. HEART: S1, S2, regular rate. ABDOMEN: Soft, mildly distended, but not tender. Hernandez catheter in place. Swelling of left upper e xtremity, PICC line in the right upper extremity, triple lumen catheter, able to move the lower extre mities and area of cellulitis steadily improving. LABORATORY DATA: White cell count down to 10.3, hemoglobin 7.7, platelets 278. Sodium 136, creatini ne 0.83. Liver profile normal. Cultures from the finger yesterday's procedure growing the same orga nism, i.e., Staphylococcus aureus. ASSESSMENT AND DISCUSSION: 1. Chronic back pain, multiple surgeries with interbody device and possible infection of the site an d had an infection with methicillin-susceptible Staphylococcus aureus, septic arthritis, and osteomye litis with bacteremia. 2. Possible decubitus ulcer of significant stage, yet unstageable at this time and now evidence of i ncompletely obstructing thrombus in the left upper extremity. This is in the distal basilic vein. T his is near the level of the antecubital fossa. Patient to continue on cefazolin and will need wound care consultation to evaluate the presacral ulceration, may need a surgical consultation for debride ment. Superficial thrombosis of left upper extremity does not require anticoagulation and just elías nue prophylaxis with enoxaparin and remove the triple lumen catheter.
[2017-07-12] MEDS ORDERED: Heparin 1,000 UNITS/ML VIAL ONE (16:03)
[2017-07-13] MEDS: Dextrose 5% in Water 1,000 ML IV SCH (02:39)
[2017-07-13 04:29] LABS: Hemoglobin 7.3 g/dL (14.0-18.0); Platelet Count 318 thou/uL (130-400)
[2017-07-13] MEDS: CEFAZOLIN/Water 2 GM/20 ML SYRINGE SLOW IVP SCH ×3 (05:11→21:12)
[2017-07-13] MEDS: Acetaminophen/Codeine 30-300mg Tablet PO PRN ×2 (05:18→16:46)
[2017-07-13] MEDS: Acetaminophen 500 MG TAB PO PRN (07:34)
[2017-07-13] MEDS: Zinc Sulfate 220 MG CAP PO SCH (09:13)
[2017-07-13] MEDS: Ferrous Sulfate 325 MG TAB PO SCH (09:14)
[2017-07-13] MEDS: HYDROcodone/Acetaminophen 10/325 mg Tablet PO SCH ×3 (09:14→21:13)
[2017-07-13] MEDS: Insulin Detemir 100 UNITS/ML 20 UNITS in Pre-Filled Syringe 1 EACH SC SCH ×2 (09:15→21:12)
--- NOTE | 2017-07-13 09:25 | PRG ---
DATE OF SERVICE: 07/13/2017 He is awake, alert, responsive, less pain. PHYSICAL EXAMINATION: VITAL SIGNS: Blood pressure is 170/57, sats are 100% on room air, respiration 16, temperature is sti ll low grade 100.6. CHEST: Chest revealed decreased breath sounds, no wheezing. CARDIAC: Normal S1-S2. ABDOMEN: Soft, no masses. IMPRESSION: 1. Staph sepsis. 2. Staph osteomyelitis, possibly disk space infection. PLAN: Ancef as per Infectious Disease, PT and supportive care. Eventually placement. Probably sánchez s not need to be in a monitored bed. I will follow.
--- NOTE | 2017-07-13 09:31 | PDOC.PN ---
- Subjective Encounter Start Date: 07/13/17 Encounter Start Time: 09:30 Mr. Dennison was seen today in follow-up. He says he is beginning to feel a lot better. He says he has less pain in his hand, and less swelling. - Objective Resuscitation Status: Resuscitation Status FULL:Full Resuscitation MAR Reviewed: Yes Vital Signs & Weight: Vital Signs (12 hours) Temp Pulse Resp BP BP Pulse Ox 07/13/17 08:00 94 142/65 H 07/13/17 07:52 100.6 F H 106 H 16 173/57 H 100 07/13/17 07:03 98 07/13/17 07:01 103 H 18 99 07/13/17 04:05 98.4 F 90 18 166/56 H 100 07/13/17 00:30 99.8 F H 104 H 24 H 117/54 L 100 07/13/17 00:20 113 H 16 100 Weight Admit Weight 235 lb 0.204 oz Weight 236 lb 15.951 oz Most Recent Monitor Data Heart Rate from ECG 97 NIBP 148/68 NIBP BP-Mean 93 Respiration from ECG 36 SpO2 99 I&O: 07/12/17 07/13/17 07/14/17 06:59 06:59 06:59 Intake Total 2860 1260 120 Output Total 3250 1800 Balance -390 -540 120 Result Diagrams: 07/13/17 04:05 07/12/17 04:15 Additional Labs: Accuchecks 07/13/17 07/13/17 07/13/17 08:21 04:13 00:39 POC Glucose 149 H 126 H 223 H 07/12/17 07/12/17 07/12/17 20:51 16:11 12:22 POC Glucose 112 H 153 H 139 H Phys Exam - Physical Examination HEENT: PERRLA Respiratory: no wheezing, no rales, no rhonchi, clear to auscultation bilateral Cardiovascular: RRR, no significant murmur Gastrointestinal: soft, non-tender, positive bowel sounds Musculoskeletal: edema present upper extemity edema has improved lower extremity edema also improved Dx/Plan (1) Anemia, normocytic normochromic Code(s): D64.9 - ANEMIA, UNSPECIFIED Status: Acute (2) Deep venous thrombosis of left upper extremity Code(s): I82.622 - ACUTE EMBOLISM AND THROMBOSIS OF DEEP VEINS OF L UP EXTREM Status: Acute (3) Abscess of thumb, right Code(s): L02.511 - CUTANEOUS ABSCESS OF RIGHT HAND Status: Acute Comment: s/ p I&D 07/06/17, continue local care, IV Ancef, add Vancomycin (4) Diabetes mellitus, type II, insulin dependent Code(s): E11.9 - TYPE 2 DIABETES MELLITUS WITHOUT COMPLICATIONS; 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 repeat BCx neg so far. Has CVC in place on admit, by definition already infected. TTE neg for echo evidence of endocarditis, but thumbs looks like a distant site, febrile, possible pulm involvement. 1 major, 2 minor criteria present for now. Ancef currently, add Vancomycin Major concern is possible sinal emboli, will need imaging, CVC placed into infected bloodstream. Repeat Bcx, if neg, can try to place a picc while sterilized, i positive or fevers persistent, may need to pull CVC when possible - Plan * MSSA sepsis with Thumb abscess, and Lumbar diskiitis - he is currently on IV Ancef * Repeat Echo results are pending * HTN- blood pressure has been trending up - will re-start Benicar-HCT * Anemia- blood count is trending down- still await occult blood in the stool, and will continue Protonix, and will reduce blood draws, will re-check H&H on . * Upper Extremity DVT- Provoked- ID recommendation noted- will discontinue Full dose Lovenox, and will place on Prophylaxis dose * DM- blood glucose is stable * Decubitus Ulcer- will have wound care to evaluate, and then consult General Surgery if needed
[2017-07-13] MEDS ORDERED: Non-Formulary Item 1 EACH (Olmesartan/Hydrochlorothiazide [Benicar Hct] 1 TABLET) PO SCH (09:37)
[2017-07-13] MEDS: Enoxaparin Sodium 100 MG/ML SYRINGE SC SCH (09:55)
[2017-07-13] MEDS ORDERED: Enoxaparin Sodium 40 MG/0.4 ML SYRINGE SC SCH (10:30)
[2017-07-13] MEDS ORDERED: Hydrochlorothiazide 25 MG TAB PO SCH (10:30)
--- NOTE | 2017-07-13 18:55 | CON ---
DATE OF CONSULTATION: 07/13/2017 REQUESTING PHYSICIAN: Nehemias Mckeon M.D. HISTORY OF PRESENT ILLNESS: This is a 51-year-old man with a history of chronic back pain and diabet es mellitus. The patient was admitted on 07/02/2017 with altered mental status, diagnosed with cellu litis of right hand and lower extremities. MRI of the spine also was suspicious for epidural abscess. The patient was evaluated by Neurosurgery and determined a nonoperative intervention for a questionab le small epidural infection. The patient has been on broad-spectrum antibiotics, managed by Infectious Disease. Sepsis appears to be resolving as well. The patient was noted with sacral decubitus ulcer, which appeared to be infec karine. I was asked to evaluate the patient for surgical debridement. At the time of my evaluation, the patient is awake and alert. He denies any significant pain to the area. PHYSICAL EXAMINATION: VITAL SIGNS: Currently includes blood pressure 118/55, pulse 91, respiration rate 18, maximum temper ature in the last 24 hours is 100.6 degrees Fahrenheit, oxygen saturation 99% on room air. HEART: Reveals regular rate and rhythm. No murmurs or gallops auscultated. LUNGS: Clear to auscultation bilaterally. Breathing regular and unlabored. ABDOMEN: Soft, nontender, and nondistended. Bowel sounds in all four quadrants appear normoactive. EXTREMITIES: I examined the sacrococcygeal area including the gluteal folds noting 4 x 7 cm what liang ears to be a stage II-III sacrococcygeal decubitus ulcer. There is some necrotic tissue in the dome of the ulcer with mild purulence. No associated subcutaneous emphysema is present. No significant f oul odor associated with this. PERTINENT LABORATORY FINDINGS: Today includes CBC with 10,300 white blood cells, hemoglobin and bi tocrit stable at 7.7 and 23.6 respectively. Platelet count is 278,000. Metabolic profile from yeste rday reveals sodium 136, potassium is 4.4, chloride is 111, bicarbonate 21, BUN 17, creatinine 0.83, glucose 182. I did review all current medications which includes enoxaparin 40 mg subcutaneously given daily. No other anticoagulants have been administered. IMPRESSION: A 4 x 7 cm sacrococcygeal infected decubitus ulcer. PLAN: Surgical debridement of the decubitus ulcer. The patient has already eating today. He will b e made n.p.o. after midnight and proceed to surgery in the morning for excisional debridement of the infected sacrococcygeal decubitus ulcer. Above findings and recommendations discussed with the patient who indicates understanding of informat ion given. I answered his questions. The patient has given consent for this surgical intervention. Thank you again, Dr. Mckeon for allowing me the opportunity to participate in the care of this patien t.
[2017-07-14] MEDS: HYDROcodone/Acetaminophen 10/325 mg Tablet PO SCH ×4 (03:18→20:48)
[2017-07-14] MEDS: CEFAZOLIN/Water 2 GM/20 ML SYRINGE SLOW IVP SCH ×3 (05:24→20:48)
[2017-07-14] MEDS: Acetaminophen 500 MG TAB PO PRN ×2 (05:42→21:04)
[2017-07-14] MEDS ORDERED: Fentanyl 100 MCG/2 ML VIAL ONE ×2 (06:49)
[2017-07-14] MEDS ORDERED: Non-Formulary Item 1 EACH (Olmesartan/Hydrochlorothiazide [Benicar Hct] 1 TABLET) PO SCH (09:00)
[2017-07-14] MEDS ORDERED: Enoxaparin Sodium 40 MG/0.4 ML SYRINGE SC SCH (09:00)
[2017-07-14] MEDS: Hydrochlorothiazide 25 MG TAB PO SCH (10:29)
--- NOTE | 2017-07-14 10:40 | OP ---
DATE OF OPERATION: 07/14/2017 PREOPERATIVE DIAGNOSIS: 4 x 7 cm sacrococcygeal decubitus ulcer. POSTOPERATIVE DIAGNOSIS: 3 x 4 cm stage 2 sacrococcygeal decubitus ulcer. PROCEDURE PERFORMED: Excisional debridement of a stage 2 sacral decubitus ulcer. INDICATIONS FOR PROCEDURE: A 51-year-old man with a history of chronic back pain and diabetes mellit us. The patient has developed an unstaged decubitus ulcer, which was suspected to be infected. As a result, the patient was brought to the operating room for excision. FINDINGS: Consistent with what actually is 4 x 5 cm sacrococcygeal decubitus ulcer stage 2. No evid ence of active infection or abscess. DESCRIPTION OF PROCEDURE: Informed consent obtained, following which patient was brought to the oper ating room and placed in supine position. Following general anesthesia, the patient was placed in a lateral recumbent position using beanbag. The sacrococcygeal area including the gluteal folds were s terilely prepped and draped in the usual fashion. The decubitus ulcer was then inspected. There is necrotic epithelial lining, which were excised using a scalpel. Immediately viable tissue is noted u nderneath. No gross purulence or flocculent to suggest underlying infection. Following this excision, wound is irrigated with saline and packed with wet to dry sterile gauze. Th e patient tolerated this procedure without any apparent complication and was returned to recovery [facility] in satisfactory condition.
[2017-07-14] MEDS: Ferrous Sulfate 325 MG TAB PO SCH (10:51)
[2017-07-14] MEDS: Zinc Sulfate 220 MG CAP PO SCH (10:53)
[2017-07-14] MEDS: Insulin Detemir 100 UNITS/ML 20 UNITS in Pre-Filled Syringe 1 EACH SC SCH ×2 (10:54→21:50)
--- NOTE | 2017-07-14 11:28 | PRG ---
DATE OF SERVICE: 07/14/2017 He is back from decubitus surgery. He is doing well except for pain, no breathing issues. PHYSICAL EXAMINATION: VITAL SIGNS: Sats are 94% on room air, blood pressure 140/83, temperature 98, respirations 18. CHEST: Chest revealed decreased breath, no wheezing. CARDIAC: Normal S1-S2. No gallops. ABDOMEN: Soft, no masses. IMPRESSION: 1. Staph sepsis. 2. Osteomyelitis, possibly disk space infection. 3. Respiratory failure. 4. Severe deconditioning. 5. Decubitus. PLAN: Continue antibiotics per Infectious Disease. Continue PT and supportive care. Diet. I will follow.
--- NOTE | 2017-07-14 13:57 | PDOC.PN ---
- Subjective Encounter Start Date: 07/14/17 Encounter Start Time: 13:55 Mr. Dennison was seen in follow-up. He says he had a fairly rough day. He had some pain today in his hand. He got a bit dizzy, and blood pressure dropped some when he stood up. - Objective Resuscitation Status: Resuscitation Status FULL:Full Resuscitation MAR Reviewed: Yes Vital Signs & Weight: Vital Signs (12 hours) Temp Pulse Resp BP BP Pulse Ox 07/14/17 13:00 97 111/57 L 07/14/17 12:26 101 H 20 100 07/14/17 12:11 101 H 109/66 07/14/17 11:30 95 124/58 L 07/14/17 11:00 91 144/83 H 07/14/17 10:45 87 121/90 07/14/17 10:30 88 131/80 07/14/17 10:15 81 103/63 07/14/17 10:08 98.5 F 84 20 108/53 L 94 L 07/14/17 07:44 98.3 F 88 21 H 94/50 L 100 07/14/17 07:30 88 20 100 07/14/17 07:20 99.3 F 94 20 100 07/14/17 07:00 98 07/14/17 06:30 99.3 F 94 20 105/50 L 98 07/14/17 04:00 99.3 F 94 20 95/52 L 98 Weight Admit Weight 235 lb 0.204 oz Weight 236 lb 15.951 oz Most Recent Monitor Data Heart Rate from ECG 97 NIBP 148/68 NIBP BP-Mean 93 Respiration from ECG 36 SpO2 99 I&O: 07/13/17 07/14/17 07/15/17 06:59 06:59 06:59 Intake Total 1260 1512 240 Output Total 1800 4500 Balance -540 -2988 240 Result Diagrams: 07/13/17 04:05 07/12/17 04:15 Additional Labs: Accuchecks 07/14/17 07/14/17 07/13/17 10:31 05:47 21:12 POC Glucose 118 H 115 H 92 07/13/17 16:17 POC Glucose 88 Phys Exam - Physical Examination HEENT: PERRLA Respiratory: no wheezing, no rales, no rhonchi, clear to auscultation bilateral Cardiovascular: RRR, no significant murmur, no rub Gastrointestinal: soft, non-tender, positive bowel sounds Musculoskeletal: no edema Dx/Plan (1) Anemia, normocytic normochromic Code(s): D64.9 - ANEMIA, UNSPECIFIED Status: Acute (2) Deep venous thrombosis of left upper extremity Code(s): I82.622 - ACUTE EMBOLISM AND THROMBOSIS OF DEEP VEINS OF L UP EXTREM Status: Acute (3) Abscess of thumb, right Code(s): L02.511 - CUTANEOUS ABSCESS OF RIGHT HAND Status: Acute Comment: s/ p I&D 07/06/17, continue local care, IV Ancef, add Vancomycin (4) Diabetes mellitus, type II, insulin dependent Code(s): E11.9 - TYPE 2 DIABETES MELLITUS WITHOUT COMPLICATIONS; 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 repeat BCx neg so far. Has CVC in place on admit, by definition already infected. TTE neg for echo evidence of endocarditis, but thumbs looks like a distant site, febrile, possible pulm involvement. 1 major, 2 minor criteria present for now. Ancef currently, add Vancomycin Major concern is possible sinal emboli, will need imaging, CVC placed into infected bloodstream. Repeat Bcx, if neg, can try to place a picc while sterilized, i positive or fevers persistent, may need to pull CVC when possible - Plan * MSSA sepsis with Diskiitis, and left thumb abscess- will continue Ancef * Decubitus, sacral- continue local wound care- and the area was debrided * Anemia- will check H&H in the AM . * DM- blood glucose is stable * Continue PT/OT * Symptom management
[2017-07-14] MEDS ORDERED: Lidocaine 1% PF 5 ML VIAL ONE (14:23)
[2017-07-14] MEDS ORDERED: PHENYLEPHRINE-NS 100 MCG/ML 10 ML SYRINGE ONE (14:23)
[2017-07-14] MEDS ORDERED: Glycopyrrolate 0.2 MG/ML 5 ML SYRINGE ONE (14:23)
[2017-07-14] MEDS ORDERED: Propofol 200 MG/20 ML VIAL ONE (14:23)
[2017-07-14] MEDS ORDERED: Ondansetron HCl/PF 4 MG/2 ML Vial ONE (14:23)
[2017-07-14] MEDS: Melatonin 3 MG TAB PO PRN (21:05)
[2017-07-14] MEDS: Morphine 2 MG/ML SYRINGE SLOW IVP PRN (23:17)
[2017-07-15] MEDS: HYDROcodone/Acetaminophen 10/325 mg Tablet PO SCH ×4 (02:06→20:31)
[2017-07-15 05:55] LABS: Hemoglobin 6.8 g/dL (14.0-18.0); Platelet Count 370 thou/uL (130-400)
[2017-07-15] MEDS: CEFAZOLIN/Water 2 GM/20 ML SYRINGE SLOW IVP SCH ×3 (06:11→20:32)
[2017-07-15] MEDS: Ferrous Sulfate 325 MG TAB PO SCH (08:11)
[2017-07-15] MEDS: Insulin Detemir 100 UNITS/ML 20 UNITS in Pre-Filled Syringe 1 EACH SC SCH ×2 (08:12→21:44)
[2017-07-15] MEDS: Hydrochlorothiazide 25 MG TAB PO SCH (08:14)
[2017-07-15] MEDS: Zinc Sulfate 220 MG CAP PO SCH (08:16)
[2017-07-15] MEDS: Enoxaparin Sodium 40 MG/0.4 ML SYRINGE SC SCH (09:50)
--- NOTE | 2017-07-15 13:24 | PRG ---
DATE OF SERVICE: 07/15/2017 SUBJECTIVE: Jesi this morning is better. He has got blood in his Hernandez. OBJECTIVE: VITAL SIGNS: Sats 97 on room air, respiratory rate 16, temperature 99, blood pressure 115/66. CHEST: Reveals decreased breath sounds, no wheezing. CARDIAC: Normal S1 and S2. LABORATORY DATA: H and H is 6 and 20. IMPRESSION: 1. Hematuria from traumatic Hernandez. 2. Sepsis syndrome. 3. Osteomyelitis. 4. Chronic back pain. 5. Respiratory failure. PLAN: Continue aggressive PT and supportive care. Hopefully he can be discharged to a long-term placement.
--- NOTE | 2017-07-15 13:34 | PDOC.PN ---
- Subjective Encounter Start Date: 07/15/17 Encounter Start Time: 13:30 Mr. Dennison was seen today in follow-up. He says he feels tired, and weak. He also feels really cold. - Objective Resuscitation Status: Resuscitation Status FULL:Full Resuscitation MAR Reviewed: Yes Vital Signs & Weight: Vital Signs (12 hours) Temp Pulse Resp BP BP Pulse Ox 07/15/17 11:34 98.5 F 87 18 128/76 100 07/15/17 08:00 99 F 89 16 97 07/15/17 07:55 89 16 97 07/15/17 07:39 99.0 F 93 18 103/66 96 07/15/17 05:07 99.1 F 95 20 95/53 L 95 07/15/17 04:10 99.1 F Weight Admit Weight 235 lb 0.204 oz Weight 236 lb 15.951 oz Most Recent Monitor Data Heart Rate from ECG 97 NIBP 148/68 NIBP BP-Mean 93 Respiration from ECG 36 SpO2 99 I&O: 07/14/17 07/15/17 07/16/17 06:59 06:59 06:59 Intake Total 1512 1412 0 Output Total 4500 2150 Balance -2988 -738 0 Result Diagrams: 07/15/17 05:15 07/12/17 04:15 Additional Labs: Accuchecks 07/15/17 07/15/17 07/14/17 11:01 05:07 21:11 POC Glucose 103 147 H 143 H 07/14/17 14:54 POC Glucose 116 H Phys Exam - Physical Examination HEENT: PERRLA Respiratory: no wheezing, no rales, no rhonchi, clear to auscultation bilateral Cardiovascular: RRR, no significant murmur, no rub Gastrointestinal: soft, non-tender, positive bowel sounds Musculoskeletal: no edema Dx/Plan (1) Anemia, normocytic normochromic Code(s): D64.9 - ANEMIA, UNSPECIFIED Status: Acute (2) Deep venous thrombosis of left upper extremity Code(s): I82.622 - ACUTE EMBOLISM AND THROMBOSIS OF DEEP VEINS OF L UP EXTREM Status: Acute (3) Abscess of thumb, right Code(s): L02.511 - CUTANEOUS ABSCESS OF RIGHT HAND Status: Acute Comment: s/ p I&D 07/06/17, continue local care, IV Ancef, add Vancomycin (4) Diabetes mellitus, type II, insulin dependent Code(s): E11.9 - TYPE 2 DIABETES MELLITUS WITHOUT COMPLICATIONS; Z79.4 - SNF (CURRENT) USE OF INSULIN Status: Acute Comment: Continue Levemir 20u sc BID, ISS (5) Metabolic encephalopathy Code(s): G93.41 - METABOLIC ENCEPHALOPATHY Status: Acute Comment: improved, supportive mgmt (6) Osteomyelitis of lumbar vertebra Code(s): M46.26 - OSTEOMYELITIS OF VERTEBRA, LUMBAR REGION Status: Acute Comment: See above (7) Staphylococcus aureus bacteremia with sepsis Code(s): A41.01 - SEPSIS DUE TO METHICILLIN SUSCEPTIBLE STAPHYLOCOCCUS AUREUS Status: Acute Comment: MSSA on culture. repeat BCx neg so far. Has CVC in place on admit, by definition already infected. TTE neg for echo evidence of endocarditis, but thumbs looks like a distant site, febrile, possible pulm involvement. 1 major, 2 minor criteria present for now. Ancef currently, add Vancomycin Major concern is possible sinal emboli, will need imaging, CVC placed into infected bloodstream. Repeat Bcx, if neg, can try to place a picc while sterilized, i positive or fevers persistent, may need to pull CVC when possible - Plan * Anemia- will transfuse a unit of RBC's today, and monitor. Will need to follow -up on the occult stool test ( he has not had a bowel movement in a few days) . Will give a Dulcolax suppository and follow * MSSA sepsis- Continue Cefazolin * Continue local wound care for the Thumb wound, and sacral decubitus * HTN- blood pressure is stable * DM- blood glucose is stable * Continue PT/OT
[2017-07-15] MEDS ORDERED: Polyethylene Glycol 3350 17 GM Packet PO PRN (13:35)
[2017-07-15] MEDS ORDERED: Bisacodyl 10 MG SUPP PR SCH (13:45)
[2017-07-15] MEDS: Milk Of Magnesia 30 ML UDCUP PO PRN (17:19)
[2017-07-15] MEDS: Docusate 100 MG CAP PO SCH (20:31)
[2017-07-15] MEDS: Acetaminophen 500 MG TAB PO PRN (21:45)
[2017-07-16] MEDS: Morphine 2 MG/ML SYRINGE SLOW IVP PRN ×2 (01:55→09:55)
[2017-07-16] MEDS: HYDROcodone/Acetaminophen 10/325 mg Tablet PO SCH ×4 (03:39→21:35)
[2017-07-16 05:56] LABS: Hemoglobin 7.9 g/dL (14.0-18.0); Platelet Count 382 thou/uL (130-400)
[2017-07-16] MEDS: CEFAZOLIN/Water 2 GM/20 ML SYRINGE SLOW IVP SCH ×3 (06:39→21:38)
[2017-07-16] MEDS: Insulin Detemir 100 UNITS/ML 20 UNITS in Pre-Filled Syringe 1 EACH SC SCH ×2 (08:51→21:37)
[2017-07-16] MEDS: Enoxaparin Sodium 40 MG/0.4 ML SYRINGE SC SCH (08:51)
[2017-07-16] MEDS: Hydrochlorothiazide 25 MG TAB PO SCH (08:51)
[2017-07-16] MEDS: Docusate 100 MG CAP PO SCH ×2 (08:52→21:35)
[2017-07-16] MEDS: Zinc Sulfate 220 MG CAP PO SCH (08:52)
[2017-07-16] MEDS: Ferrous Sulfate 325 MG TAB PO SCH (08:52)
--- NOTE | 2017-07-16 11:47 | PDOC.PN ---
- Subjective Encounter Start Date: 07/16/17 Encounter Start Time: 11:44 Mr. Dennison is complaining of back pain. He admits however that it is getting a little better. - Objective Resuscitation Status: Resuscitation Status FULL:Full Resuscitation MAR Reviewed: Yes Vital Signs & Weight: Vital Signs (12 hours) Temp Pulse Resp BP Pulse Ox 07/16/17 08:43 99.3 F 102 H 20 134/91 H 96 07/16/17 08:00 99.3 F 102 H 20 96 07/16/17 07:06 92 14 97 07/16/17 06:00 99.5 F 07/16/17 03:45 100.1 F H 07/16/17 03:27 95 07/16/17 01:04 12 Weight Admit Weight 235 lb 0.204 oz Weight 236 lb 15.951 oz Most Recent Monitor Data Heart Rate from ECG 97 NIBP 148/68 NIBP BP-Mean 93 Respiration from ECG 36 SpO2 99 I&O: 07/15/17 07/16/17 07/17/17 06:59 06:59 06:59 Intake Total 4775 137 2067 Output Total 2150 1700 900 Balance -738 -840 300 Result Diagrams: 07/16/17 05:34 07/12/17 04:15 Additional Labs: Accuchecks 07/16/17 07/16/17 07/15/17 11:23 06:37 20:08 POC Glucose 166 H 106 120 H 07/15/17 07/14/17 16:26 15:59 POC Glucose 116 H 121 H Phys Exam - Physical Examination HEENT: PERRLA Respiratory: no wheezing, no rales, no rhonchi, clear to auscultation bilateral Cardiovascular: RRR, no significant murmur Gastrointestinal: soft, non-tender, positive bowel sounds Musculoskeletal: no edema Dx/Plan (1) Anemia, normocytic normochromic Code(s): D64.9 - ANEMIA, UNSPECIFIED Status: Acute (2) Deep venous thrombosis of left upper extremity Code(s): I82.622 - ACUTE EMBOLISM AND THROMBOSIS OF DEEP VEINS OF L UP EXTREM Status: Acute (3) Abscess of thumb, right Code(s): L02.511 - CUTANEOUS ABSCESS OF RIGHT HAND Status: Acute Comment: s/ p I&D 07/06/17, continue local care, IV Ancef, add Vancomycin (4) Diabetes mellitus, type II, insulin dependent Code(s): E11.9 - TYPE 2 DIABETES MELLITUS WITHOUT COMPLICATIONS; Z79.4 - [facility] (CURRENT) USE OF INSULIN Status: Acute Comment: Continue Levemir 20u sc BID, ISS (5) Metabolic encephalopathy Code(s): G93.41 - METABOLIC ENCEPHALOPATHY Status: Acute Comment: improved, supportive mgmt (6) Osteomyelitis of lumbar vertebra Code(s): M46.26 - OSTEOMYELITIS OF VERTEBRA, LUMBAR REGION Status: Acute Comment: See above (7) Staphylococcus aureus bacteremia with sepsis Code(s): A41.01 - SEPSIS DUE TO METHICILLIN SUSCEPTIBLE STAPHYLOCOCCUS AUREUS Status: Acute Comment: MSSA on culture. repeat BCx neg so far. Has CVC in place on admit, by definition already infected. TTE neg for echo evidence of endocarditis, but thumbs looks like a distant site, febrile, possible pulm involvement. 1 major, 2 minor criteria present for now. Ancef currently, add Vancomycin Major concern is possible sinal emboli, will need imaging, CVC placed into infected bloodstream. Repeat Bcx, if neg, can try to place a picc while sterilized, i positive or fevers persistent, may need to pull CVC when possible - Plan * Anemia- etiology, may be due to multiple factors- he is occult blood positive- so will consult GI * MSSA sepsis- Continue Ancef * Hematuria- mild- and likely due to Loya trauma- will bladder irrigate as needed. Will leave the loya in place, due to is difficulty with mobility, and sacral decubitus * DM- blood glucose is stable * Sacral Decubitus and Thumb abscess- continue local wound care * Deconditioning- continue PT/OT.
--- NOTE | 2017-07-16 13:46 | PRG ---
DATE OF SERVICE: 07/16/2017 OBJECTIVE: VITAL SIGNS: Blood pressure 134/91, saturations 96% on room air, temperature 99, pulse 102. CHEST: Decreased breath sounds, no wheezing. CARDIAC: Normal S1. IMPRESSION: 1. Staph sepsis. 2. Status respiratory failure. PLAN: Antibiotics, PT, and long-term placement.
--- NOTE | 2017-07-17 00:44 | CON ---
DATE OF CONSULTATION: 07/16/2017 REFERRING PHYSICIAN: Dr. Nehemias Mckeon, [facility]. REASON FOR CONSULTATION: Occult GI bleeding. HISTORY OF PRESENT ILLNESS: Mr. Joel Dennison is a 51-year-old male hospitalized with back pain and also pain over the right hand. The patient has had multiple orthopedic surgeries done of t he back in over several years. The patient came to the ER because of severe back pain and also was f ound to have evidence of sepsis with a WBC count of 33,000. Since admission, the patient has been se en by Dr. Encinas because of his spinal problem and also by Dr. Rosario for infected wound over the ba ck. He has undergone surgery by Dr. Rosario. He was also seen by Dr. De Jesus because of infected ri ght thumb and underwent surgery and there is mention of abscess and possible osteomyelitis. The xander ent is on broad-spectrum antibiotic therapy. The patient is basically in bed. He is not able to alok n get up and sit in bed or walk around. He says he still has lot of pain over the back and also over the right hand. The patient had a stool testing done for occult blood and came back positive. Stein miah, the patient denies having any rectal bleeding or melena. He has remote history of mild rectal b leeding a while back. His bowel movements are fairly regular. There is no history of any perianal d iscomfort or any tenderness. The patient denies any abdominal pain. No history of any epigastric di scomfort, nausea or indigestion. No history of dysphagia or odynophagia. He has no other relevant h istory or GI symptoms except for the positive stool in the blood. SOCIAL HISTORY: The patient does not smoke or drink alcohol. There is no mention of drug abuse. PAST MEDICAL HISTORY: 1. Chronic back pain with multiple prior surgeries with interbody fusion at [facility] in 2009. 2. Hypertension. 3. Status post cholecystectomy. FAMILY HISTORY: Coronary artery disease. ALLERGIES: NSAIDs. REVIEW OF SYSTEMS: Ten point systems reviewed. MEDICAL EDITOR: No history of chronic headache, no TIA, no syn cope, no seizure disorder. Respiratory system: No history of chronic cough, hemoptysis, dyspnea. C ardiovascular system: No chest pain, no palpitation, no orthopnea or PND. Gastrointestinal: As in history of present illness. Genitourinary: No dysuria, hematuria or frequency of urination. Muscul oskeletal: History of back pain, which is chronic in nature. He also has pain over the right hand. Neuropsychiatric: Unremarkable. PHYSICAL EXAMINATION: GENERAL: The patient is obese, appears comfortable. He is awake, alert, and communicative. He is i n no distress. VITAL SIGNS: Temperature 99.3 degrees Fahrenheit, pulse is 102, blood pressure 134/91. HEENT: Conjunctivae clear. NECK: Supple. No adenitis or thyromegaly noted. CARDIOVASCULAR SYSTEM: First and second heart sounds normal. LUNGS: Clear to auscultation. ABDOMEN: Flabby and mildly distended. However, abdomen is soft and nontender. There is no organome bryan or masses. Bowel sounds are normal. EXTREMITIES: Reveal no edema. The patient has a bandage over the right hand. LABORATORY DATA: From 07/10/2017, he also has pneumonia and mild anemia. The hemoglobin on 07/10/19 18 was 8.7 and today 7.9 without any significant drop, however, did drop down to 7.7 and 6.4 recently . The hematocrit today is 24.2. Platelet count is 386,000. Differential count on 07/12/2017 is elana ymorphs 76, lymphocytes 15, monocytes 6. His serum chemistries, blood sugar is 166. He had bacteria l culture from the wound except from the finger, which include Staph aureus. The blood cultures karely in negative. The stool for occult blood came back positive. CLINICAL IMPRESSION: 1. A 51-year-old male with chronic back pain, infected right hand and also an infection ov er the spine area. The patient has no history of overt gastrointestinal bleeding. Did drop in blood count slightly and his stool is positive. There is no mention of the stool was black. The patient has no dyspepsia. No ulcer symptoms: 2. Hypertension. 3. Multiple back surgeries in the past for infection over the back. 4. Infected right thumb. RECOMMENDATIONS: 1. Follow up H&H. 2. Empiric PPI therapy. 3. I did speak to Mr. Dennison about having a colonoscopy. However, he is somewhat pressured because he still has back pain and he is not able to ambulate. As he has no overt bleeding in the form of he matochezia or melena, we might defer the endoscopic studies for the time being. However, if he start s having overt bleeding or do not function, we have to change the treatment plan.
[2017-07-17] MEDS: Morphine 5 MG/ML SYRINGE SLOW IVP PRN ×2 (01:04→10:52)
[2017-07-17] MEDS: HYDROcodone/Acetaminophen 10/325 mg Tablet PO SCH ×4 (03:22→23:21)
[2017-07-17] MEDS: CEFAZOLIN/Water 2 GM/20 ML SYRINGE SLOW IVP SCH ×3 (06:24→23:20)
[2017-07-17] MEDS: Acetaminophen 500 MG TAB PO PRN (06:30)
[2017-07-17] MEDS: Enoxaparin Sodium 40 MG/0.4 ML SYRINGE SC SCH (08:51)
[2017-07-17] MEDS: Ferrous Sulfate 325 MG TAB PO SCH (08:51)
[2017-07-17] MEDS: Docusate 100 MG CAP PO SCH ×2 (08:51→23:20)
[2017-07-17] MEDS: Hydrochlorothiazide 25 MG TAB PO SCH (08:52)
[2017-07-17] MEDS: Insulin Detemir 100 UNITS/ML 20 UNITS in Pre-Filled Syringe 1 EACH SC SCH ×2 (08:52→23:21)
[2017-07-17] MEDS: Zinc Sulfate 220 MG CAP PO SCH (08:53)
--- NOTE | 2017-07-17 09:41 | PRG ---
DATE OF SERVICE: 07/17/2017 This morning he is better. He is still complaining of his Hernandez catheter. He has got hematuria, it is probably from being pulled. PHYSICAL EXAMINATION: VITAL SIGNS: His I's and O's are good, his sats are great 95% on room air, pulse 106, blood pressure 130/80. CHEST: Chest reveals decreased breath sounds, no wheezing. CARDIAC: Normal S1, S2. ABDOMEN: Soft, no masses. IMPRESSION: 1. Staph sepsis. 2. Hematuria. 3. Diabetes. PLAN: From a pulmonary standpoint of view he can be transferred to a long-term place for IV antibiot ics anytime.
[2017-07-17] MEDS: Acetaminophen 650 MG Suppository PR PRN (11:00)
[2017-07-17] MEDS ORDERED: PHENYLEPHRINE-NS 100 MCG/ML 10 ML SYRINGE ONE (12:24)
[2017-07-17] MEDS ORDERED: Lidocaine 1% PF 5 ML VIAL ONE (12:24)
[2017-07-17] MEDS ORDERED: Propofol 200 MG/20 ML VIAL ONE (12:24)
--- NOTE | 2017-07-17 14:37 | PDOC.PN ---
- Subjective Encounter Start Date: 07/17/17 Encounter Start Time: 14:36 Mr. Dennison does not have any complaints except that he is hungry and wants to eat. Stable back pain. - Objective Resuscitation Status: Resuscitation Status FULL:Full Resuscitation MAR Reviewed: Yes Vital Signs & Weight: Vital Signs (12 hours) Pulse Resp Pulse Ox 07/17/17 07:28 106 H 16 95 Weight Admit Weight 235 lb 0.204 oz Weight 236 lb 15.951 oz Most Recent Monitor Data Heart Rate from ECG 97 NIBP 148/68 NIBP BP-Mean 93 Respiration from ECG 36 SpO2 99 I&O: 07/16/17 07/17/17 07/18/17 06:59 06:59 06:59 Intake Total 860 1200 180 Output Total 1700 4100 Balance -840 -2900 180 Result Diagrams: 07/16/17 05:34 07/12/17 04:15 Additional Labs: Accuchecks 07/17/17 07/17/17 07/16/17 11:20 04:41 20:40 POC Glucose 133 H 111 H 138 H 07/16/17 15:56 POC Glucose 109 Phys Exam - Physical Examination HEENT: PERRLA Respiratory: no wheezing, no rales, no rhonchi, clear to auscultation bilateral Cardiovascular: RRR, no significant murmur, no rub Gastrointestinal: soft, non-tender, positive bowel sounds Musculoskeletal: edema present pedal edema, and upper extremity edema- improving Dx/Plan (1) Anemia, normocytic normochromic Code(s): D64.9 - ANEMIA, UNSPECIFIED Status: Acute (2) Deep venous thrombosis of left upper extremity Code(s): I82.622 - ACUTE EMBOLISM AND THROMBOSIS OF DEEP VEINS OF L UP EXTREM Status: Acute (3) Abscess of thumb, right Code(s): L02.511 - CUTANEOUS ABSCESS OF RIGHT HAND Status: Acute Comment: s/ p I&D 07/06/17, continue local care, IV Ancef, add Vancomycin (4) Diabetes mellitus, type II, insulin dependent Code(s): E11.9 - TYPE 2 DIABETES MELLITUS WITHOUT COMPLICATIONS; Z79.4 - [facility] (CURRENT) USE OF INSULIN Status: Acute Comment: Continue Levemir 20u sc BID, ISS (5) Metabolic encephalopathy Code(s): G93.41 - METABOLIC ENCEPHALOPATHY Status: Acute Comment: improved, supportive mgmt (6) Osteomyelitis of lumbar vertebra Code(s): M46.26 - OSTEOMYELITIS OF VERTEBRA, LUMBAR REGION Status: Acute Comment: See above (7) Staphylococcus aureus bacteremia with sepsis Code(s): A41.01 - SEPSIS DUE TO METHICILLIN SUSCEPTIBLE STAPHYLOCOCCUS AUREUS Status: Acute Comment: MSSA on culture. repeat BCx neg so far. Has CVC in place on admit, by definition already infected. TTE neg for echo evidence of endocarditis, but thumbs looks like a distant site, febrile, possible pulm involvement. 1 major, 2 minor criteria present for now. Ancef currently, add Vancomycin Major concern is possible sinal emboli, will need imaging, CVC placed into infected bloodstream. Repeat Bcx, if neg, can try to place a picc while sterilized, i positive or fevers persistent, may need to pull CVC when possible - Plan * Anemia- discussed with Dr. Garcia- he may plan to do EGD while he is in the hospital, and Colonoscopy as an Outpatient * Continue Protonix, and monitor jid H&H periodically * MSSA sepsis- improving- continue Cefazolin * Thumb abscess- plan is for further debridement by Dr. Reynoso * Lumbar Spine Disciitis, and epidural abscess- treating conservatively with IV Antibiotics * DM- blood glucose is stable. * HTN- blood pressure is stable * Screen for [facility] is in progress
[2017-07-17] MEDS ORDERED: Fentanyl 100 MCG/2 ML VIAL ONE ×2 (19:35→20:52)
[2017-07-17] MEDS ORDERED: Midazolam HCl 2 mg/2 ml Vial ONE (19:35)
[2017-07-17] MEDS ORDERED: Bacitracin Zinc Ointment 30 gm TUBE ONE (20:25)
[2017-07-17] MEDS ORDERED: Thrombin 5000 UNITS/5 ML VIAL ONE (20:25)
[2017-07-17] MEDS ORDERED: Sodium Chloride 0.9% 0 ML ONE (20:25)
[2017-07-17] MEDS ORDERED: CEFAZOLIN/Water 2 GM/20 ML SYRINGE ONE (20:39)
[2017-07-17] MEDS ORDERED: Lidocaine 1% w/Epinephrine 1:200K 30 ML VIAL ONE (20:58)
[2017-07-17] MEDS ORDERED: Bupivacaine 0.5% 10 ML VIAL ONE ×2 (21:45→21:46)
[2017-07-17] MEDS ORDERED: Promethazine HCl 25 MG/ML VIAL SLOW IVP PRN (22:17)
[2017-07-17] MEDS ORDERED: Ondansetron HCl/PF 4 MG/2 ML Vial IVP PRN (22:17)
[2017-07-17] MEDS ORDERED: HYDROmorphone 2 MG/ML VIAL SLOW IVP PRN (22:17)
[2017-07-17] MEDS ORDERED: Promethazine HCl 25 MG/ML VIAL IM PRN (22:17)
--- NOTE | 2017-07-17 22:39 | RAD ---
INTRAOPERATIVE FLUOROSCOPIC IMAGES RIGHT THUMB TWO VIEWS: Date: 07-11-17 History: Right thumb fracture. FINDINGS: This exam was performed on 07/11/17 but submitted for interpretation on 07/17/17. There is a single pin transfixing the interphalangeal joint of the right thumb. Correlation with intraoperative findings is recommended. POS: MICHAELA
[2017-07-18] MEDS: Morphine 5 MG/ML SYRINGE SLOW IVP PRN ×2 (01:26→13:08)
[2017-07-18] MEDS: HYDROcodone/Acetaminophen 10/325 mg Tablet PO SCH ×4 (03:07→21:06)
--- NOTE | 2017-07-18 04:32 | PRG ---
DATE OF SERVICE: 07/17/2017 SUBJECTIVE: This is a 51-year-old male with chronic back pain and infected right thumb. Kyrie alvarado has undergone surgery by Dr. Reynoso. He is supposed to have another surgery this afternoon. He is on the antibiotics for possible osteomyelitis and also right thumb abscess. He was found to have a mild drop in H and H and had a stool guaiac done. The stool guaiac came back positive. The patien t has no hematochezia or melena. Denies abdominal pain, nausea, vomiting. The patient is still not very mobile as he still has significant abdominal pain over the lower back. . The patient mimi ot have any colonoscopy at the present time because of his poor mobility. PHYSICAL EXAMINATION: GENERAL: Appears comfortable, in no distress. VITAL SIGNS: Temperature 98.8 degrees Fahrenheit, pulse is 89, blood pressure 123/67. CARDIOVASCULAR SYSTEM: First and second heart sounds normal. LUNGS: Clear to auscultation. ABDOMEN: Soft to palpate. No organomegaly. No tenderness. No masses. I did talk to Mr. Dennison about having EGD because bowel prep. The patient is agreeable. I palma l plan for EGD in the near future.
--- NOTE | 2017-07-18 04:49 | OP ---
PREOPERATIVE DIAGNOSIS: Right thumb wound edge necrosis. FINDINGS: 1. Necrosis of the wound to include the periosseous fat, base of the germinal nail bed, the dorsal 2 5% of the proximal phalanx head and base of the distal phalanx and the terminal 5 mm of the remaining one half of the extensor pollicis longus tendon. 2. No gross infection or necrosis palmar 4 cm wound. PROCEDURE PERFORMED: 1. At the palmar wound right thumb, a debridement down to benign occluding tendon 33677 level. 2. Closure of wound simple fashion, 4 cm stump palmar hand. 3. At the dorsal wound wand debridement of material associated open joint. 4. Debridement of bone with ostectomy of bone, distal phalanx. 5. Ostectomy of bone proximal phalanx. 6. Tenotomy extensor tendon. 7. Irrigation. A dressing type calcium alginate dressing underneath 4 x 4s. ESTIMATED BLOOD LOSS: 25 mL. TOURNIQUET TIME: None. SPECIMENS: Culture of the bone and two specimens of the bone to rule out osteomyelitis. INDICATION: The patient return for stage wound management now almost 2 weeks since his initial proce dure. We had infection in his joint. We reminded him to have a second debridement to have the joint and extensor flexor tendon approach and had a thorough irrigation and debridement, just less than 5 days ago. This operation was undertaken as a hope to possibly close the wound if the environment was indicative that this was indicated. DESCRIPTION OF PROCEDURE: After successful general LMA technique, the limb was prepped and draped. A block was given at the level of the thumb, first webspace involving both the radial and ulnar senso ry nerve branches and then, we performed timeout for an injection and then inspected the wound. The radial distal half of the wound had some early wound edge necrosis with mucopurulent drainage around the soft tissue, so this was debrided with a combination of knife and [place] blade. Then, the patien t had the joint inspected. There was some necrotic bone approximately 25% depths obtained and was ab le to perform appropriate procedure debridement of this area. Next, we were able to visualize the joint from inside out and after irrigated with 2 liters normal sa line and bulb syringe pressure with antibiotics inside, we were now able to discern the full extent o f the tendon loss, which was complete transverse slight oblique, proximally and there was no evidence of bony abnormality. With the resected bone from the distal end of the metacarpal head and the other associated areas of q uestion, now sent to the labs, both specimen and for pathology, we were able to then finish the irrig ation. We pinned the joint from inside out and then back from outside in to make sure we was center in the remaining bone surfaces. Hemostasis was finally obtained, Calcium Alginate dressing placed over the debrided wound with soft t issue warning and the patient had a bulky dressing applied along with a split Spica and left operatin g room without evidence of anesthetic or operative complication.
[2017-07-18 04:53] LABS: Hemoglobin 7.3 g/dL (14.0-18.0); Platelet Count 387 thou/uL (130-400)
[2017-07-18] MEDS: CEFAZOLIN/Water 2 GM/20 ML SYRINGE SLOW IVP SCH ×3 (04:57→21:07)
[2017-07-18] MEDS: Acetaminophen 500 MG TAB PO PRN (04:59)
[2017-07-18] MEDS ORDERED: Albuterol Sulfate 2.5 mg/3 ml Neb NEB SCH (07:00)
[2017-07-18] MEDS: Ferrous Sulfate 325 MG TAB PO SCH (08:46)
[2017-07-18] MEDS: Hydrochlorothiazide 25 MG TAB PO SCH (08:47)
[2017-07-18] MEDS: Zinc Sulfate 220 MG CAP PO SCH (08:47)
[2017-07-18] MEDS: Enoxaparin Sodium 40 MG/0.4 ML SYRINGE SC SCH (08:48)
[2017-07-18] MEDS: Docusate 100 MG CAP PO SCH ×2 (08:48→21:08)
--- NOTE | 2017-07-18 08:53 | PRG ---
DATE OF SERVICE: 07/18/2017 This morning he is awake, alert, responsive. He underwent debridement of his thumb. He is better. PHYSICAL EXAMINATION: VITAL SIGNS: Sats are 98%, respirations 14, temperature 99. CHEST: Chest reveals decreased breath sounds, no wheezing. CARDIAC: Normal S1, S2. No gallops. H&H 7 and 23. IMPRESSION: 1. Osteomyelitis thumb, probably disk space infection. 2. Chronic pain. 3. Anemia. PLAN: Antibiotics per Infectious Disease. Supportive care and PT. Eventually placement. I will follow.
[2017-07-18] MEDS: Insulin Detemir 100 UNITS/ML 20 UNITS in Pre-Filled Syringe 1 EACH SC SCH ×2 (10:31→21:08)
--- NOTE | 2017-07-18 11:43 | PDOC.PN ---
- Subjective Encounter Start Date: 07/18/17 Encounter Start Time: 11:15 -: old records requested/rev Pt seen again today, not seen for last week or so by me. chart reviewed. taken to OR for repeat washout, bone biopsy, awaiting hand surgery note. no f/C , no n/V/D/C, kay abs no itching or rash. repeat Bcx 2/5 negative. tissue cultures pending. Pt requesting loya to be removed 10 point ROS performed and neg for all systems except as above - Objective Resuscitation Status: Resuscitation Status FULL:Full Resuscitation MAR Reviewed: Yes Vital Signs & Weight: Vital Signs (12 hours) Temp Pulse Resp BP Pulse Ox 07/18/17 08:57 97.9 F 85 18 100 07/18/17 08:30 97.9 F 85 18 135/75 100 07/18/17 06:33 96 14 96 07/18/17 04:10 99.6 F 103 H 20 110/70 96 Weight Admit Weight 235 lb 0.204 oz Weight 236 lb 15.951 oz Most Recent Monitor Data Heart Rate from ECG 97 NIBP 148/68 NIBP BP-Mean 93 Respiration from ECG 36 SpO2 99 I&O: 07/17/17 07/18/17 07/19/17 06:59 06:59 06:59 Intake Total 1200 1130 Output Total 4100 1500 Balance -2900 -370 Result Diagrams: 07/18/17 04:20 07/12/17 04:15 Additional Labs: Accuchecks 07/18/17 07/17/17 06:08 11:20 POC Glucose 133 H 133 H Radiology Reviewed by me: Yes EKG Reviewed by me: Yes Phys Exam - Physical Examination Constitutional: NAD HEENT: PERRLA, moist MMs, sclera anicteric, oral pharynx no lesions teeth in poor repair Neck: no nodes, no JVD, supple, full ROM Respiratory: no wheezing, no rales, no rhonchi, clear to auscultation bilateral Cardiovascular: RRR, no significant murmur, no rub Gastrointestinal: soft, non-tender, no distention, positive bowel sounds Musculoskeletal: pulses present, edema present Neurological: non-focal, normal sensation, moves all 4 limbs Lymphatic: no nodes Psychiatric: normal affect, A&O x 3 Skin: no rash, normal turgor, cap refill <2 seconds Dx/Plan (1) Staphylococcus aureus bacteremia with sepsis Code(s): A41.01 - SEPSIS DUE TO METHICILLIN SUSCEPTIBLE STAPHYLOCOCCUS AUREUS Status: Acute Comment: MSSA on culture. repeat BCx neg so far. Has CVC in place on admit, by definition already infected. TTE neg for echo evidence of endocarditis, but thumbs looks like a distant site, febrile, possible pulm involvement. 1 major, 2 minor criteria present for now. continue ancef for 4- 6 weeks. If osteo present, would go 6-8 weeks from last surgery to hand. Major concern is possible spinal emboli, diskitis preent, possible abscess, poor images due to hardware signal scatter. low likelihood of clearance without all abscess drained, will need repeat imaging (2) Back pain Code(s): M54.9 - DORSALGIA, UNSPECIFIED Status: Acute Qualifiers: Chronicity: acute Back pain laterality: unspecified Sciatica presence: unspecified whether sciatica present Comment: MRi with contrast with possible diskitis and possible abscess. I have discussed with Dr gonzalez, recreation facility attendant for NeuroSurg, no current plans for surgery. (3) CAP (community acquired pneumonia) Code(s): J18.9 - PNEUMONIA, UNSPECIFIED ORGANISM Status: Resolved Qualifiers: Laterality: unspecified laterality Qualified Code(s): J18.9 - Pneumonia, unspecified organism Comment: ruled OUT by pulmonary (4) Metabolic encephalopathy Code(s): G93.41 - METABOLIC ENCEPHALOPATHY Status: Resolved Comment: improved, supportive mgmt (5) Septic arthritis of interphalangeal joint of finger of right hand Code(s): M00.841 - ARTHRITIS DUE TO OTHER BACTERIA, RIGHT HAND Status: Acute Comment: bone biopsy today lookng for osteo. Will follow. CCM with Ancef - Plan cont current plan of care, continue antibiotics, PT/OT, out of bed/ambulate, DVT proph w/SCDs * .
[2017-07-18] MEDS: HumaLOG 300 UNITS/3 ML VIAL SC PRN (18:30)
[2017-07-18] MEDS ORDERED: Tamsulosin HCl 0.4 MG CAP PO SCH (19:00)
[2017-07-19] MEDS: Melatonin 3 MG TAB PO PRN (00:49)
[2017-07-19] MEDS: Morphine 5 MG/ML SYRINGE SLOW IVP PRN ×2 (01:35→11:56)
--- NOTE | 2017-07-19 01:48 | PRG ---
DATE OF SERVICE: 07/18/2017 SUBJECTIVE: This is a 51-year-old male with atrophied thumb and also has chronic back pain with multiple surgeries. The patient appears to have osteomyelitis. . He is on broad spectrum antibiotic therapy. He underwent a fusion surgery by Dr. Reynoso yesterday on the right thumb. Th e patient was found to have anemia and also has positive stool guaiac. The patient was really not ab le to have colonoscopy because he is not ambulating and he is resting in the bed. He continues to nix ve back pain and also right hand pain. However, he is agreeable with plan of EGD. PHYSICAL EXAMINATION: GENERAL: Appears comfortable. VITAL SIGNS: He is afebrile. His vital signs are stable. CARDIOVASCULAR SYSTEM: First and second heart sounds normal. LUNGS: Clear to auscultation. ABDOMEN: Soft to palpate. Abdomen is nontender. No organomegaly. No masses. CLINICAL IMPRESSION AND PLAN: Anemia, recent drop in blood count and also stool guaiac is positive. I did talk to Mr. Dennison about having EGD. I will plan for EGD tomorrow.
[2017-07-19] MEDS: HYDROcodone/Acetaminophen 10/325 mg Tablet PO SCH ×4 (03:26→21:37)
[2017-07-19] MEDS: CEFAZOLIN/Water 2 GM/20 ML SYRINGE SLOW IVP SCH ×3 (05:29→21:38)
[2017-07-19 05:55] LABS: #Eosinphils 0.1 thou/uL (0.0-0.7); #Lymphocytes 1.5 thou/uL (1.20-3.40); #Monocytes 0.5 thou/uL (0.11-0.59); #Neutrophils 4.2 thou/uL (1.40-6.50); %Basophils 0.3 % (0.0-1.0); %Eosinophils 1.9 % (0.0-10.0); %Lymphocytes 23.6 % (21.0-51.0); %Monocytes 7.2 % (0.0-10.0); %Neutrophils 66.9 % (42.0-75.0); Hemoglobin 6.5 g/dL (14.0-18.0); Mean Corpuscular HGB CONC 33.1 g/dL (32.0-36.0); Mean Corpuscular Hemoglobin 30.5 pg (27.0-31.0); Mean Corpuscular Volume 92.2 fl (80.0-94.0); Mean Platelet Volume 5.9 fL (7.4-10.4); Platelet Count 358 thou/uL (130-400); RBC Distribution Width 13.9 % (11.5-14.5); Red Blood Cell (RBC) Count 2.13 mill/uL (4.70-6.10); White Blood Cell (WBC) Count 6.2 thou/uL (4.8-10.8)
[2017-07-19 06:22] LABS: Anion Gap 12 mmol/L (10-20); BUN (Urea Nitrogen) 27 mg/dL (8.9-20.6); Calc. Creatinine Clearance 85 mL/min (70-130); Calcium 7.9 mg/dL (7.8-10.44); Carbon Dioxide 21 mmol/L (22-29); Chloride 104 mmol/L (98-107); Estimated GFR-MDRD 46; Glucose 87 mg/dL (70-105); Magnesium 1.5 mg/dL (1.6-2.6); Potassium 3.8 mmol/L (3.5-5.1); Sodium 133 mmol/L (136-145)
[2017-07-19] MEDS ORDERED: Ondansetron HCl/PF 4 MG/2 ML Vial IVP PRN (10:25)
[2017-07-19] MEDS ORDERED: Promethazine HCl 25 MG/ML VIAL IM PRN (10:25)
[2017-07-19] MEDS ORDERED: Promethazine HCl 25 MG/ML VIAL SLOW IVP PRN (10:25)
[2017-07-19] MEDS: Hydrochlorothiazide 25 MG TAB PO SCH (11:01)
[2017-07-19] MEDS: Insulin Detemir 100 UNITS/ML 20 UNITS in Pre-Filled Syringe 1 EACH SC SCH ×2 (11:02→21:38)
[2017-07-19] MEDS: Zinc Sulfate 220 MG CAP PO SCH (11:49)
[2017-07-19] MEDS: Enoxaparin Sodium 40 MG/0.4 ML SYRINGE SC SCH (11:50)
[2017-07-19] MEDS: Docusate 100 MG CAP PO SCH ×2 (11:50→21:38)
[2017-07-19] MEDS: Ferrous Sulfate 325 MG TAB PO SCH (11:56)
--- NOTE | 2017-07-19 12:09 | PRG ---
DATE OF SERVICE: 07/19/2017 SUBJECTIVE: This morning, he is awake, alert and responsive, in no distress. OBJECTIVE: VITAL SIGNS: Sats are 90% on room air, respirations 14, temperature is 99 and blood pressure 120/73. CHEST: Decreased breath sounds. No wheezing. CARDIAC: Normal S1 and S2. ABDOMEN: Soft. No masses. LABORATORY DATA: White count 6000, hemoglobin and hematocrit 6 and 19, platelet count 358. Creatini ne 1.6. IMPRESSION: Ongoing staph sepsis, low-grade fever, anemia, possibly gastrointestinal bleed. PLAN: Endoscopy is to be performed today. Antibiotics as per Infectious Disease. PT and supportive care. Eventually placement.
--- NOTE | 2017-07-19 13:20 | PDOC.PN ---
- Subjective Encounter Start Date: 07/19/17 Encounter Start Time: 13:30 No acute events. Hgb down to 6.5 today to EGD earlier, biopsies sent, unknown findings, awaiting report NO F/C, no N/V/D/C, no CP or SOB 10 point ROS performed and neg for all systems except as per HPI - Objective Resuscitation Status: Resuscitation Status FULL:Full Resuscitation MAR Reviewed: Yes Vital Signs & Weight: Vital Signs (12 hours) Temp Pulse Resp BP BP Pulse Ox 07/19/17 10:50 98.8 F 88 18 102/62 94 L 07/19/17 09:09 98.1 F 89 16 111/68 98 07/19/17 06:44 95 14 95 07/19/17 05:35 99.2 F 96 20 123/73 96 Weight Admit Weight 235 lb 0.204 oz Weight 236 lb 15.951 oz Most Recent Monitor Data Heart Rate from ECG 97 NIBP 148/68 NIBP BP-Mean 93 Respiration from ECG 36 SpO2 99 I&O: 07/18/17 07/19/17 07/20/17 06:59 06:59 06:59 Intake Total 1130 500 Output Total 1500 3200 Balance -370 -2700 Result Diagrams: 07/19/17 05:20 07/19/17 05:20 Additional Labs: Accuchecks 07/19/17 07/19/17 07/18/17 11:15 05:51 20:18 POC Glucose 113 H 98 83 07/18/17 17:13 POC Glucose 208 H Radiology Reviewed by me: Yes EKG Reviewed by me: Yes Phys Exam - Physical Examination Constitutional: NAD HEENT: PERRLA, moist MMs, sclera anicteric, oral pharynx no lesions Neck: no nodes, no JVD, supple, full ROM Respiratory: no wheezing, no rales, no rhonchi, clear to auscultation bilateral Cardiovascular: RRR, no significant murmur, no rub Gastrointestinal: soft, non-tender, no distention, positive bowel sounds Musculoskeletal: pulses present, edema present Neurological: non-focal, normal sensation, moves all 4 limbs Lymphatic: no nodes Psychiatric: normal affect, A&O x 3 Skin: no rash, normal turgor, cap refill <2 seconds Dx/Plan (1) Staphylococcus aureus bacteremia with sepsis Code(s): A41.01 - SEPSIS DUE TO METHICILLIN SUSCEPTIBLE STAPHYLOCOCCUS AUREUS Status: Acute Comment: MSSA on culture. repeat BCx neg so far. Has CVC in place on admit, by definition already infected. TTE neg for echo evidence of endocarditis, but thumbs looks like a distant site, febrile, possible pulm involvement. 1 major, 2 minor criteria present for now. continue ancef for 4- 6 weeks. If osteo present, would go 6-8 weeks from last surgery to hand. Major concern is possible spinal emboli, diskitis preent, possible abscess, poor images due to hardware signal scatter. low likelihood of clearance without all abscess drained, will need repeat imaging (2) Back pain Code(s): M54.9 - DORSALGIA, UNSPECIFIED Status: Acute Qualifiers: Chronicity: acute Back pain laterality: unspecified Sciatica presence: unspecified whether sciatica present Comment: MRi with contrast with possible diskitis and possible abscess. I have discussed with Dr gonzalez, formation testing operator for NeuroSurg, no current plans for surgery. (3) CAP (community acquired pneumonia) Code(s): J18.9 - PNEUMONIA, UNSPECIFIED ORGANISM Status: Resolved Qualifiers: Laterality: unspecified laterality Qualified Code(s): J18.9 - Pneumonia, unspecified organism Comment: ruled OUT by pulmonary (4) Metabolic encephalopathy Code(s): G93.41 - METABOLIC ENCEPHALOPATHY Status: Resolved Comment: improved, supportive mgmt (5) Septic arthritis of interphalangeal joint of finger of right hand Code(s): M00.841 - ARTHRITIS DUE TO OTHER BACTERIA, RIGHT HAND Status: Acute Comment: bone biopsy today lookng for osteo. Will follow. [facility] with Ancef - Plan * .
[2017-07-19] MEDS ORDERED: Propofol 200 MG/20 ML VIAL ONE (16:30)
[2017-07-19] MEDS ORDERED: Lidocaine 1% PF 5 ML VIAL ONE (16:30)
[2017-07-19] MEDS: Tamsulosin HCl 0.4 MG CAP PO SCH (21:38)
[2017-07-20] MEDS: HYDROcodone/Acetaminophen 10/325 mg Tablet PO SCH ×4 (03:22→21:30)
[2017-07-20] MEDS: CEFAZOLIN/Water 2 GM/20 ML SYRINGE SLOW IVP SCH ×3 (05:17→21:30)
[2017-07-20 06:06] LABS: #Eosinphils 0.1 thou/uL (0.0-0.7); #Lymphocytes 1.5 thou/uL (1.20-3.40); #Monocytes 0.4 thou/uL (0.11-0.59); %Eosinophils 2.6 % (0.0-10.0); %Lymphocytes 29.8 % (21.0-51.0); %Monocytes 7.8 % (0.0-10.0); %Neutrophils 59.9 % (42.0-75.0); Hemoglobin 6.5 g/dL (14.0-18.0); Mean Corpuscular HGB CONC 32.4 g/dL (32.0-36.0); Mean Corpuscular Volume 92.8 fl (80.0-94.0); Platelet Count 326 thou/uL (130-400); RBC Distribution Width 14.3 % (11.5-14.5); Red Blood Cell (RBC) Count 2.17 mill/uL (4.70-6.10)
--- NOTE | 2017-07-20 06:15 | OP ---
DATE OF SURGERY: 07/19/2017 OPERATIVE PROCEDURE: Esophagogastroduodenoscopy with biopsy. PREOPERATIVE DIAGNOSIS: A 51-year-old male with anemia with recent drop in blood count. [facility] stool guaiac is positive. The patient is undergoing esophagogastroduodenoscopy. POSTOPERATIVE DIAGNOSES: 1. Erosive esophagitis with ulcerations over the [id number] esophagus. 2. Ulcer in the duodenal bulb, nonbleeding. 3. Normal stomach. PROCEDURE IN DETAIL: The patient was placed on his left lateral position and was given sedation by [facility] anesthesia department. A [employer]ax video gastroscope under direct vision was passed down the orophar ynx, past the gastroesophageal junction, into the stomach and subsequently the descending duodenum. The patient was found to have erosive esophagitis with ulcerations, mucosal friability, and exudates. The lesion is circumferential. The patient had another ulceration just over the GE junction. The fundus, cardia, gastric body, gastric antrum, no pathology seen. The duodenal bulb showed ulceration measuring approximately 1.5 cm. The ulcer base appeared very clean and no visible vessel seen. The descending duodenum, no pathology seen. Biopsies obtained from the gastric antrum and gastric body. Also, biopsies were obtained from the esophagus. The stomach was decompressed and the scope remove d. RECOMMENDATIONS: 1. Continue pantoprazole. 2. Iron supplement. 3. Follow up H and H. 4. Transfuse p.r.n. I believe a colonoscopy will be difficult to perform as the patient is basicall y bedridden even of bed. He continues to complain of back pain. The patient also wishes to de lay the colonoscopy for the time being.
[2017-07-20] MEDS: Hydrochlorothiazide 25 MG TAB PO SCH (08:50)
[2017-07-20] MEDS: Ferrous Sulfate 325 MG TAB PO SCH (08:50)
[2017-07-20] MEDS: Docusate 100 MG CAP PO SCH ×2 (08:54→21:30)
[2017-07-20] MEDS: Zinc Sulfate 220 MG CAP PO SCH (08:54)
[2017-07-20] MEDS: Enoxaparin Sodium 40 MG/0.4 ML SYRINGE SC SCH (08:54)
[2017-07-20] MEDS: Insulin Detemir 100 UNITS/ML 20 UNITS in Pre-Filled Syringe 1 EACH SC SCH ×2 (08:59→21:28)
[2017-07-20] MEDS: Morphine 5 MG/ML SYRINGE SLOW IVP PRN (13:26)
--- NOTE | 2017-07-20 13:53 | PRG ---
DATE OF SERVICE: 07/20/2017 SUBJECTIVE: Jsei is a 51-year-old gentleman who was doing much better. OBJECTIVE: VITAL SIGNS: Sats 90% on room air, respiration 20, temperature is 98, and blood pressure 120/72. CHEST: Chest reveals decreased breath sounds, no wheezing. CARDIAC: Normal S1, S2. ABDOMEN: Soft, no masses. LABORATORY DATA: White count 5000, H and H is 6 and 20. IMPRESSION: 1. Staphylococcal sepsis. 2. Gastrointestinal bleed, presumably. 3. Probably disk infection. 4. Respiratory failure. PLAN: Probably needs placement in the process of finding long-term place for prolonged antibiotic co verage.
--- NOTE | 2017-07-20 16:14 | PDOC.PN ---
- Objective Resuscitation Status: Resuscitation Status FULL:Full Resuscitation Vital Signs & Weight: Vital Signs (12 hours) Temp Pulse Resp BP BP Pulse Ox 07/20/17 11:00 98.2 F 117 H 20 112/72 99 07/20/17 07:50 98.2 F 88 22 H 119/72 99 07/20/17 07:41 98.2 F 88 22 H 99 07/20/17 04:14 98.1 F 83 16 110/69 99 Weight Admit Weight 235 lb 0.204 oz Weight 236 lb 15.951 oz Most Recent Monitor Data Heart Rate from ECG 97 NIBP 148/68 NIBP BP-Mean 93 Respiration from ECG 36 SpO2 99 I&O: 07/19/17 07/20/17 07/21/17 06:59 06:59 06:59 Intake Total 500 3045 Output Total 3200 1750 Balance -2700 1295 Result Diagrams: 07/20/17 05:30 07/19/17 05:20 Additional Labs: Accuchecks 07/20/17 07/19/17 05:50 20:31 POC Glucose 117 H 136 H Dx/Plan - Plan * .
[2017-07-20] MEDS: Tamsulosin HCl 0.4 MG CAP PO SCH (21:30)
[2017-07-21] MEDS: HYDROcodone/Acetaminophen 10/325 mg Tablet PO SCH ×4 (04:24→22:05)
[2017-07-21] MEDS: CEFAZOLIN/Water 2 GM/20 ML SYRINGE SLOW IVP SCH ×3 (05:20→22:43)
[2017-07-21] MEDS: Morphine 5 MG/ML SYRINGE SLOW IVP PRN ×2 (05:20→13:10)
[2017-07-21 05:41] LABS: #Eosinphils 0.1 thou/uL (0.0-0.7); #Lymphocytes 1.2 thou/uL (1.20-3.40); #Monocytes 0.4 thou/uL (0.11-0.59); #Neutrophils 3.7 thou/uL (1.40-6.50); %Basophils 0.4 % (0.0-1.0); %Lymphocytes 21.5 % (21.0-51.0); %Monocytes 7.5 % (0.0-10.0); %Neutrophils 68.6 % (42.0-75.0); Hemoglobin 6.4 g/dL (14.0-18.0); Mean Corpuscular HGB CONC 32.6 g/dL (32.0-36.0); Mean Corpuscular Hemoglobin 29.8 pg (27.0-31.0); Mean Corpuscular Volume 91.6 fl (80.0-94.0); Mean Platelet Volume 5.8 fL (7.4-10.4); Platelet Count 375 thou/uL (130-400); RBC Distribution Width 14.3 % (11.5-14.5); Red Blood Cell (RBC) Count 2.16 mill/uL (4.70-6.10); White Blood Cell (WBC) Count 5.4 thou/uL (4.8-10.8)
[2017-07-21] MEDS: Ferrous Sulfate 325 MG TAB PO SCH (08:26)
[2017-07-21] MEDS: Docusate 100 MG CAP PO SCH ×2 (08:26→22:05)
[2017-07-21] MEDS: Enoxaparin Sodium 40 MG/0.4 ML SYRINGE SC SCH (08:26)
[2017-07-21] MEDS: Zinc Sulfate 220 MG CAP PO SCH (08:28)
[2017-07-21] MEDS: Insulin Detemir 100 UNITS/ML 20 UNITS in Pre-Filled Syringe 1 EACH SC SCH ×2 (08:28→22:06)
[2017-07-21] MEDS: Hydrochlorothiazide 25 MG TAB PO SCH (08:29)
--- NOTE | 2017-07-21 15:57 | PRG ---
DATE OF SERVICE: 07/21/2017 OBJECTIVE: VITAL SIGNS: Sats are 99% on room air, respiratory rate 18, temperature is low grade 99, blood press ure 150/65. CHEST: Reveals no wheezing or crackles. CARDIAC: Normal S1, S2. No gallops. LABORATORY DATA: White count 5000, H and H is 6 and 19. IMPRESSION: 1. Staph sepsis. 2. Staph osteomyelitis. 3. Possible anemia. PLAN: He may need 2 units of packed cells transfusion today. Antibiotics per Infectious Disease: Kyrie alvarado needs long-term antibiotics as per Infectious Disease, eventually outpatient workup for his spine. Pulmonary Critical Care will follow at a distance. If he goes back to ICU, please call us.
[2017-07-21] MEDS ORDERED: Propofol 200 MG/20 ML VIAL ONE (16:43)
--- NOTE | 2017-07-21 16:51 | PDOC.PN ---
- Subjective Encounter Start Date: 07/21/17 Encounter Start Time: 16:50 Subjective: Seen and examined no new complaint - Objective Resuscitation Status: Resuscitation Status FULL:Full Resuscitation Vital Signs & Weight: Vital Signs (12 hours) Temp Pulse Resp BP BP Pulse Ox 07/21/17 15:35 98.1 F 78 16 101/62 99 07/21/17 11:15 98.6 F 89 12 119/74 99 07/21/17 08:00 98.6 F 88 16 99 07/21/17 07:50 99.2 F 88 12 103/63 99 Weight Admit Weight 235 lb 0.204 oz Weight 236 lb 15.951 oz Most Recent Monitor Data Heart Rate from ECG 97 NIBP 148/68 NIBP BP-Mean 93 Respiration from ECG 36 SpO2 99 I&O: 07/20/17 07/21/17 07/22/17 06:59 06:59 06:59 Intake Total 3045 1925 Output Total 1750 1350 Balance 1295 575 Result Diagrams: 07/21/17 05:15 07/19/17 05:20 Additional Labs: Accuchecks 07/21/17 07/21/17 07/21/17 15:42 10:56 05:32 POC Glucose 119 H 113 H 111 H 07/20/17 20:57 POC Glucose 115 H Phys Exam - Physical Examination Constitutional: NAD HEENT: PERRLA, moist MMs, sclera anicteric, TM's clear, oral pharynx no lesions Neck: no nodes, no JVD, supple, full ROM Respiratory: no wheezing, no rales, no rhonchi, clear to auscultation bilateral Cardiovascular: RRR, no significant murmur, no rub Gastrointestinal: soft, non-tender, no distention, positive bowel sounds Dx/Plan (1) Abscess of thumb, right Code(s): L02.511 - CUTANEOUS ABSCESS OF RIGHT HAND Status: Acute Comment: s/ p I&D 07/06/17, continue local care, IV Ancef, add Vancomycin (2) Anemia, normocytic normochromic Code(s): D64.9 - ANEMIA, UNSPECIFIED Status: Acute (3) Arachnoiditis Code(s): G03.9 - MENINGITIS, UNSPECIFIED Status: Acute Comment: Staph spp, see mgmt as above (4) Back pain Code(s): M54.9 - DORSALGIA, UNSPECIFIED Status: Acute Qualifiers: Chronicity: acute Back pain laterality: unspecified Sciatica presence: unspecified whether sciatica present Comment: MRi with contrast with possible diskitis and possible abscess. I have discussed with Dr gonzalez, government operations consultant for NeuroSurg, no current plans for surgery. (5) Deep venous thrombosis of left upper extremity Code(s): I82.622 - ACUTE EMBOLISM AND THROMBOSIS OF DEEP VEINS OF L UP EXTREM Status: Acute (6) Diabetes mellitus, type II, insulin dependent Code(s): E11.9 - TYPE 2 DIABETES MELLITUS WITHOUT COMPLICATIONS; Z79.4 - [facility] (CURRENT) USE OF INSULIN Status: Acute Comment: Continue Levemir 20u sc BID, ISS (7) Lumbar spondylitis Code(s): M46.96 - UNSPECIFIED INFLAMMATORY SPONDYLOPATHY, LUMBAR REGION Status : Acute Comment: Continue Ancef, add Vancomycin 1gm IV q12h, no surgical intervention per Neurosurgery currently (8) Osteomyelitis of lumbar vertebra Code(s): M46.26 - OSTEOMYELITIS OF VERTEBRA, LUMBAR REGION Status: Acute Comment: See above (9) Septic arthritis of interphalangeal joint of finger of right hand Code(s): M00.841 - ARTHRITIS DUE TO OTHER BACTERIA, RIGHT HAND Status: Acute Comment: bone biopsy today lookng for osteo. Will follow. CCM with Ancef (10) Staphylococcus aureus bacteremia with sepsis Code(s): A41.01 - SEPSIS DUE TO METHICILLIN SUSCEPTIBLE STAPHYLOCOCCUS AUREUS Status: Acute Comment: MSSA on culture. repeat BCx neg so far. Has CVC in place on admit, by definition already infected. TTE neg for echo evidence of endocarditis, but thumbs looks like a distant site, febrile, possible pulm involvement. 1 major, 2 minor criteria present for now. continue ancef for 4- 6 weeks. If osteo present, would go 6-8 weeks from last surgery to hand. Major concern is possible spinal emboli, diskitis preent, possible abscess, poor images due to hardware signal scatter. low likelihood of clearance without all abscess drained, will need repeat imaging (11) CAP (community acquired pneumonia) Code(s): J18.9 - PNEUMONIA, UNSPECIFIED ORGANISM Status: Resolved Qualifiers: Laterality: unspecified laterality Qualified Code(s): J18.9 - Pneumonia, unspecified organism Comment: ruled OUT by pulmonary (12) Metabolic encephalopathy Code(s): G93.41 - METABOLIC ENCEPHALOPATHY Status: Resolved Comment: improved, supportive mgmt - Plan plan discussed w/ family, loya catheter, continue antibiotics, PT/OT, social sciences chair, respiratory therapy Transfuse 2 units of blood -: [facility]ci antibiotics indicated * .
[2017-07-21] MEDS: Sodium Chloride 0.9% 1,000 ML IV SCH (19:46)
[2017-07-21] MEDS: Tamsulosin HCl 0.4 MG CAP PO SCH (22:08)
[2017-07-21] MEDS ORDERED: Sodium Chloride 0.9% 0 ML ONE (22:51)
[2017-07-21] MEDS ORDERED: Sodium Chloride 0.9% 10 ML ONE (23:15)
[2017-07-22] MEDS ORDERED: Fentanyl 100 MCG/2 ML VIAL ONE (00:59)
[2017-07-22] MEDS ORDERED: Bacitracin Zinc Ointment 30 gm TUBE ONE (01:17)
[2017-07-22] MEDS ORDERED: Promethazine HCl 25 MG/ML VIAL IM PRN (01:42)
[2017-07-22] MEDS ORDERED: Promethazine HCl 25 MG/ML VIAL SLOW IVP PRN (01:42)
[2017-07-22] MEDS ORDERED: Ondansetron HCl/PF 4 MG/2 ML Vial IVP PRN (01:42)
[2017-07-22] MEDS: HYDROcodone/Acetaminophen 10/325 mg Tablet PO SCH ×4 (03:21→21:23)
[2017-07-22] MEDS: Sodium Chloride 0.9% 1,000 ML IV SCH ×3 (05:04→23:13)
[2017-07-22] MEDS: CEFAZOLIN/Water 2 GM/20 ML SYRINGE SLOW IVP SCH ×3 (05:36→21:23)
[2017-07-22] MEDS: Docusate 100 MG CAP PO SCH ×2 (09:55→21:23)
[2017-07-22] MEDS: Zinc Sulfate 220 MG CAP PO SCH (09:55)
[2017-07-22] MEDS: Hydrochlorothiazide 25 MG TAB PO SCH (09:55)
[2017-07-22] MEDS: Ferrous Sulfate 325 MG TAB PO SCH (09:55)
[2017-07-22] MEDS: Insulin Detemir 100 UNITS/ML 20 UNITS in Pre-Filled Syringe 1 EACH SC SCH ×2 (09:56→21:23)
[2017-07-22] MEDS: Enoxaparin Sodium 40 MG/0.4 ML SYRINGE SC SCH (09:56)
[2017-07-22] MEDS: HumaLOG 300 UNITS/3 ML VIAL SC PRN (12:48)
--- NOTE | 2017-07-22 16:50 | OP ---
DATE OF PROCEDURE: 07/22/2017 PREOPERATIVE DIAGNOSES: Wound complex open approximately 5 cm in length x 1.5 cm in diameter. POSTOPERATIVE DIAGNOSES: . Minimum wound is necrosed without gross infection, minimum bony nec rosis without infection. COMPLICATIONS: None. ANESTHESIA: MAC anesthesia, General LMA technique. INDICATIONS: The patient to have a staged wound management, where he had undergone multiple debridem ents before we could obtain a stable wound environment, but he had bone necrosis and had to have debr idements. This operation is undergone to find bloody base through the entire wound and place a synth etic Integra graft over this, so they can grow through dermis for skin grafting. The Integra graft i s 2 inches x 2 inches. DESCRIPTION OF PROCEDURE: After successful general LMA technique, the limb prepped and draped. The patient had the timeout done appropriately. The wound was inspected. Minimal radial wound necrosis just next to the joint line and then the joint line was inspected, debrided, and a small amount of ne crotic bone was removed to the point where there was some bleeding bone. We then irrigated with [address] normal saline as there is no other areas of contamination seen today on the Pulsavac pressure. We then soaked a 2 inch x 2 inch Integra graft and appropriately placed it in a normal saline f or 1 minute and then placed over the wound with appropriate side up. We stapled this down. We then put bacitracin, Adaptic on this and on top of that superficial to it, was then placed multiple staple s to hold this in place. The patient then had the entire construct covered and a bulky dressing appl ied with a splint 3 inches over the thumb and left the operating room with the wound covered successf ully. No evidence of anesthetic or operative complication.
[2017-07-22] MEDS: Acetaminophen 500 MG TAB PO PRN (17:44)
[2017-07-22] MEDS: Vancomycin HCl 1.25 GM in Sodium Chloride 0.9% 250 ML 250 ML IVPB SCH (17:44)
--- NOTE | 2017-07-22 21:02 | PDOC.PN ---
- Subjective Encounter Start Date: 07/22/17 Encounter Start Time: 21:00 Subjective: Seen and examined c/o heaviness involving the RT lower extremity - Objective Resuscitation Status: Resuscitation Status FULL:Full Resuscitation Vital Signs & Weight: Vital Signs (12 hours) Temp Pulse Resp BP BP Pulse Ox 07/22/17 20:00 98.1 F 80 16 126/73 99 07/22/17 16:57 98.4 F 83 18 111/69 98 07/22/17 11:47 98.0 F 84 16 109/74 97 Weight Admit Weight 235 lb 0.204 oz Weight 236 lb 15.951 oz Most Recent Monitor Data Heart Rate from ECG 97 NIBP 148/68 NIBP BP-Mean 93 Respiration from ECG 36 SpO2 99 I&O: 07/21/17 07/22/17 07/23/17 06:59 06:59 06:59 Intake Total 1925 1550 500 Output Total 7524 860 8754 Balance 575 600 -800 Result Diagrams: 07/21/17 05:15 07/19/17 05:20 Additional Labs: Accuchecks 07/22/17 07/22/17 07/22/17 16:17 12:00 05:49 POC Glucose 115 H 182 H 117 H Phys Exam - Physical Examination Constitutional: NAD HEENT: PERRLA, moist MMs, sclera anicteric, TM's clear Neck: no nodes, no JVD, supple, full ROM Respiratory: no wheezing, no rales, no rhonchi, clear to auscultation bilateral Cardiovascular: RRR, no significant murmur, no rub Dx/Plan (1) Abscess of thumb, right Code(s): L02.511 - CUTANEOUS ABSCESS OF RIGHT HAND Status: Acute Comment: s/ p I&D 07/06/17, continue local care, IV Ancef, add Vancomycin (2) Anemia, normocytic normochromic Code(s): D64.9 - ANEMIA, UNSPECIFIED Status: Acute (3) Arachnoiditis Code(s): G03.9 - MENINGITIS, UNSPECIFIED Status: Acute Comment: Staph spp, see mgmt as above (4) Back pain Code(s): M54.9 - DORSALGIA, UNSPECIFIED Status: Acute Qualifiers: Chronicity: acute Back pain laterality: unspecified Sciatica presence: unspecified whether sciatica present Comment: MRi with contrast with possible diskitis and possible abscess. I have discussed with Dr gonzalez, pharmacy operations coordinator for NeuroSurg, no current plans for surgery. (5) Deep venous thrombosis of left upper extremity Code(s): I82.622 - ACUTE EMBOLISM AND THROMBOSIS OF DEEP VEINS OF L UP EXTREM Status: Acute (6) Diabetes mellitus, type II, insulin dependent Code(s): E11.9 - TYPE 2 DIABETES MELLITUS WITHOUT COMPLICATIONS; Z79.4 - [facility] (CURRENT) USE OF INSULIN Status: Acute Comment: Continue Levemir 20u sc BID, ISS (7) Lumbar spondylitis Code(s): M46.96 - UNSPECIFIED INFLAMMATORY SPONDYLOPATHY, LUMBAR REGION Status : Acute Comment: Continue Ancef, add Vancomycin 1gm IV q12h, no surgical intervention per Neurosurgery currently (8) Osteomyelitis of lumbar vertebra Code(s): M46.26 - OSTEOMYELITIS OF VERTEBRA, LUMBAR REGION Status: Acute Comment: See above (9) Septic arthritis of interphalangeal joint of finger of right hand Code(s): M00.841 - ARTHRITIS DUE TO OTHER BACTERIA, RIGHT HAND Status: Acute Comment: bone biopsy today lookng for osteo. Will follow. CCM with Ancef (10) Staphylococcus aureus bacteremia with sepsis Code(s): A41.01 - SEPSIS DUE TO METHICILLIN SUSCEPTIBLE STAPHYLOCOCCUS AUREUS Status: Acute Comment: MSSA on culture. repeat BCx neg so far. Has CVC in place on admit, by definition already infected. TTE neg for echo evidence of endocarditis, but thumbs looks like a distant site, febrile, possible pulm involvement. 1 major, 2 minor criteria present for now. continue ancef for 4- 6 weeks. If osteo present, would go 6-8 weeks from last surgery to hand. Major concern is possible spinal emboli, diskitis preent, possible abscess, poor images due to hardware signal scatter. low likelihood of clearance without all abscess drained, will need repeat imaging (11) CAP (community acquired pneumonia) Code(s): J18.9 - PNEUMONIA, UNSPECIFIED ORGANISM Status: Resolved Qualifiers: Laterality: unspecified laterality Qualified Code(s): J18.9 - Pneumonia, unspecified organism Comment: ruled OUT by pulmonary (12) Metabolic encephalopathy Code(s): G93.41 - METABOLIC ENCEPHALOPATHY Status: Resolved Comment: improved, supportive mgmt - Plan cont current plan of care, plan discussed w/ family, continue antibiotics, PT/OT , public health social worker Dispo planning * .
[2017-07-22] MEDS: Tamsulosin HCl 0.4 MG CAP PO SCH (21:23)
[2017-07-23] MEDS: CEFAZOLIN/Water 2 GM/20 ML SYRINGE SLOW IVP SCH ×3 (04:06→21:04)
[2017-07-23] MEDS: Vancomycin HCl 1.25 GM in Sodium Chloride 0.9% 250 ML 250 ML IVPB SCH ×2 (04:06→18:12)
[2017-07-23] MEDS: HYDROcodone/Acetaminophen 10/325 mg Tablet PO SCH ×4 (04:07→21:05)
[2017-07-23 05:04] LABS: #Eosinphils 0.1 thou/uL (0.0-0.7); #Lymphocytes 1.6 thou/uL (1.20-3.40); #Monocytes 0.4 thou/uL (0.11-0.59); #Neutrophils 3.3 thou/uL (1.40-6.50); %Basophils 0.5 % (0.0-1.0); %Eosinophils 1.4 % (0.0-10.0); %Lymphocytes 28.7 % (21.0-51.0); %Monocytes 8.1 % (0.0-10.0); %Neutrophils 61.4 % (42.0-75.0); Mean Corpuscular HGB CONC 33.9 g/dL (32.0-36.0); Mean Corpuscular Volume 91.4 fl (80.0-94.0); Platelet Count 356 thou/uL (130-400); RBC Distribution Width 14.1 % (11.5-14.5); Red Blood Cell (RBC) Count 2.59 mill/uL (4.70-6.10); White Blood Cell (WBC) Count 5.4 thou/uL (4.8-10.8)
[2017-07-23] MEDS: Hydrochlorothiazide 25 MG TAB PO SCH (08:36)
[2017-07-23] MEDS: Zinc Sulfate 220 MG CAP PO SCH (08:36)
[2017-07-23] MEDS: Ferrous Sulfate 325 MG TAB PO SCH (08:36)
[2017-07-23] MEDS: Docusate 100 MG CAP PO SCH ×2 (08:36→21:04)
[2017-07-23] MEDS: Enoxaparin Sodium 40 MG/0.4 ML SYRINGE SC SCH (08:37)
[2017-07-23] MEDS: Insulin Detemir 100 UNITS/ML 20 UNITS in Pre-Filled Syringe 1 EACH SC SCH ×2 (08:52→21:05)
[2017-07-23] MEDS: Sodium Chloride 0.9% 1,000 ML IV SCH ×2 (10:14→19:46)
--- NOTE | 2017-07-23 17:20 | ULT ---
SONOGRAM SOFT TISSUE LEFT FOREARM: History: Arm pain. Abscess. FINDINGS: Sonographic evaluation of the soft tissues at the dorsum of the left forearm shows a large ill-define d heterogeneous echogenicity measuring up to 4.1 cm length x 3.0 cm width x 1.1 cm depth. Tiny internal control consultant al pockets are present, although a large well defined fluid pocket is not visible. IMPRESSION: 1. The subcutaneous lesion at the dorsum of the left forearm has the appearance of a large phlegmon ( in the setting of known infection). Small pockets of fluid or present, although a large well defined abscess is not evident. POS: MICHAELAH
--- NOTE | 2017-07-23 19:08 | PDOC.PN ---
- Subjective Encounter Start Date: 07/23/17 Encounter Start Time: 19:07 Subjective: Seen and examined no new complaint - Objective Resuscitation Status: Resuscitation Status FULL:Full Resuscitation Vital Signs & Weight: Vital Signs (12 hours) Temp Pulse Resp BP Pulse Ox 07/23/17 17:10 98.0 F 86 16 113/68 97 07/23/17 12:13 98.0 F 93 16 114/71 98 07/23/17 08:30 98.0 F 80 16 100 07/23/17 08:17 98.0 F 80 16 136/74 100 Weight Admit Weight 235 lb 0.204 oz Weight 236 lb 15.951 oz Most Recent Monitor Data Heart Rate from ECG 97 NIBP 148/68 NIBP BP-Mean 93 Respiration from ECG 36 SpO2 99 I&O: 07/22/17 07/23/17 07/24/17 06:59 06:59 06:59 Intake Total 1550 500 Output Total 950 1300 Balance 600 -800 Result Diagrams: 07/23/17 04:01 07/19/17 05:20 Additional Labs: Accuchecks 07/23/17 07/23/17 07/23/17 16:12 10:45 05:46 POC Glucose 113 H 95 72 07/22/17 21:22 POC Glucose 121 H Phys Exam - Physical Examination Constitutional: NAD HEENT: PERRLA, moist MMs, sclera anicteric Neck: no nodes, no JVD, supple, full ROM Respiratory: no wheezing, no rales, no rhonchi, clear to auscultation bilateral Cardiovascular: RRR, no significant murmur, no rub Gastrointestinal: soft, non-tender, no distention, positive bowel sounds Musculoskeletal: no edema, pulses present Dx/Plan (1) Abscess of thumb, right Code(s): L02.511 - CUTANEOUS ABSCESS OF RIGHT HAND Status: Acute Comment: s/ p I&D 07/06/17, continue local care, IV Ancef, add Vancomycin (2) Anemia, normocytic normochromic Code(s): D64.9 - ANEMIA, UNSPECIFIED Status: Acute (3) Arachnoiditis Code(s): G03.9 - MENINGITIS, UNSPECIFIED Status: Acute Comment: Staph spp, see mgmt as above (4) Back pain Code(s): M54.9 - DORSALGIA, UNSPECIFIED Status: Acute Qualifiers: Chronicity: acute Back pain laterality: unspecified Sciatica presence: unspecified whether sciatica present Comment: MRi with contrast with possible diskitis and possible abscess. I have discussed with Dr gonzalez, conductor yard for NeuroSurg, no current plans for surgery. (5) Deep venous thrombosis of left upper extremity Code(s): I82.622 - ACUTE EMBOLISM AND THROMBOSIS OF DEEP VEINS OF L UP EXTREM Status: Acute (6) Diabetes mellitus, type II, insulin dependent Code(s): E11.9 - TYPE 2 DIABETES MELLITUS WITHOUT COMPLICATIONS; Z79.4 - LINER HELPER (CURRENT) USE OF INSULIN Status: Acute Comment: Continue Levemir 20u sc BID, ISS (7) Lumbar spondylitis Code(s): M46.96 - UNSPECIFIED INFLAMMATORY SPONDYLOPATHY, LUMBAR REGION Status : Acute Comment: Continue Ancef, add Vancomycin 1gm IV q12h, no surgical intervention per Neurosurgery currently (8) Osteomyelitis of lumbar vertebra Code(s): M46.26 - OSTEOMYELITIS OF VERTEBRA, LUMBAR REGION Status: Acute Comment: See above (9) Septic arthritis of interphalangeal joint of finger of right hand Code(s): M00.841 - ARTHRITIS DUE TO OTHER BACTERIA, RIGHT HAND Status: Acute Comment: bone biopsy today lookng for osteo. Will follow. CCM with Ancef (10) Staphylococcus aureus bacteremia with sepsis Code(s): A41.01 - SEPSIS DUE TO METHICILLIN SUSCEPTIBLE STAPHYLOCOCCUS AUREUS Status: Acute Comment: MSSA on culture. repeat BCx neg so far. Has CVC in place on admit, by definition already infected. TTE neg for echo evidence of endocarditis, but thumbs looks like a distant site, febrile, possible pulm involvement. 1 major, 2 minor criteria present for now. continue ancef for 4- 6 weeks. If osteo present, would go 6-8 weeks from last surgery to hand. Major concern is possible spinal emboli, diskitis preent, possible abscess, poor images due to hardware signal scatter. low likelihood of clearance without all abscess drained, will need repeat imaging (11) CAP (community acquired pneumonia) Code(s): J18.9 - PNEUMONIA, UNSPECIFIED ORGANISM Status: Resolved Qualifiers: Laterality: unspecified laterality Qualified Code(s): J18.9 - Pneumonia, unspecified organism Comment: ruled OUT by pulmonary (12) Metabolic encephalopathy Code(s): G93.41 - METABOLIC ENCEPHALOPATHY Status: Resolved Comment: improved, supportive mgmt - Plan plan discussed w/ family, loya catheter, continue antibiotics, PT/OT, social worker health services, respiratory therapy Dispo planning -: Pain management * .
[2017-07-23] MEDS: Tamsulosin HCl 0.4 MG CAP PO SCH (21:04)
[2017-07-24] MEDS: Vancomycin HCl 1.25 GM in Sodium Chloride 0.9% 250 ML 250 ML IVPB SCH (04:33)
[2017-07-24] MEDS: CEFAZOLIN/Water 2 GM/20 ML SYRINGE SLOW IVP SCH ×3 (04:33→20:12)
[2017-07-24] MEDS: HYDROcodone/Acetaminophen 10/325 mg Tablet PO SCH ×4 (04:33→20:09)
[2017-07-24] MEDS: Sodium Chloride 0.9% 1,000 ML IV SCH ×2 (06:14→18:41)
[2017-07-24 06:28] LABS: Vancomycin, Trough 30.9 ug/mL
[2017-07-24] MEDS ORDERED: Vancomycin HCl 1.25 GM in Sodium Chloride 0.9% 250 ML 250 ML IVPB SCH (06:45)
--- NOTE | 2017-07-24 09:13 | PRG ---
DATE OF SERVICE: 07/24/2017 This morning he is much better, less short of breath. PHYSICAL EXAMINATION: VITAL SIGNS: Blood pressure is 136/62, sats are 96% on room air, temperature 98. Still awaiting placement. CHEST: Decreased breath sounds, no wheezing. CARDIAC: Normal S1-S2. ABDOMEN: Soft, no masses. IMPRESSION: 1. Sepsis staph. 2. Chronic back pain, possibly diskitis. 3. Severe deconditioning. 4. Chronic obstructive pulmonary disease. 5. Respiratory failure. PLAN: Awaiting placement. Antibiotics per Infectious Disease. Discontinue his Hernandez since he is ambulating.
[2017-07-24] MEDS: Enoxaparin Sodium 40 MG/0.4 ML SYRINGE SC SCH (09:21)
[2017-07-24] MEDS: Hydrochlorothiazide 25 MG TAB PO SCH (09:21)
[2017-07-24] MEDS: Zinc Sulfate 220 MG CAP PO SCH (09:21)
[2017-07-24] MEDS: Ferrous Sulfate 325 MG TAB PO SCH (09:22)
[2017-07-24] MEDS: Docusate 100 MG CAP PO SCH ×3 (09:24→20:11)
[2017-07-24] MEDS: Insulin Detemir 100 UNITS/ML 20 UNITS in Pre-Filled Syringe 1 EACH SC SCH ×2 (09:31→20:32)
[2017-07-24] MEDS ORDERED: Collagenase 250 UNITS/GM Ointment 30 GM TUBE TOP SCH (09:45)
--- NOTE | 2017-07-24 16:25 | MRI ---
MRI CERVICAL SPINE WITHOUT CONTRAST: INDICATION: Left-sided weakness for 2 days with a history of I&D of the right thumb. COMPARISON: None. FINDINGS: Bone marrow signal intensity appears within normal limits. The visualized aspects of the posterior fossa appear within normal limits. Craniocervical junction appears within normal limits. At C2-C3, there is mild facet joint degenerative change without appreciable central canal or neural f oraminal narrowing. At C3-4, there is mild facet joint degenerative change. There is no appreciable central canal or alysha ral foraminal narrowing. At C4-5, There is no appreciable central canal or neural foraminal narrowing. There is mild facet tangela int degenerative change and a mild broad-based bulge. At C5-6, there is no appreciable central canal or neural foraminal narrowing. There is a mild broad- based bulge with facet joint degenerative change. At C6-7, there is no appreciable central canal or neural foraminal narrowing. There is mild facet tangela int degenerative change. At C7-T1, there is no appreciable central canal or neural foraminal narrowing. IMPRESSION: Mild multilevel spondylosis of the cervical spine as above. POS: [facility]
--- NOTE | 2017-07-24 16:29 | MRI ---
MRI BRAIN WITHOUT CONTRAST: HISTORY: Acute weakness after sepsis, left-sided weakness. FINDINGS: No restricted diffusion is seen. No evidence of infarct, hemorrhage, midline shift, or abnormal extr aaxial fluid collections are seen. The ventricular size is normal and the basilar cisterns are paten t. The visualized paranasal sinuses are well aerated. There is fluid in the mastoid air cells. IMPRESSION: No evidence of acute intracranial process. POS: [facility]
--- NOTE | 2017-07-24 17:55 | PDOC.PN ---
- Subjective Encounter Start Date: 07/24/17 Encounter Start Time: 17:53 Subjective: pain in back, R hand - Objective Resuscitation Status: Resuscitation Status FULL:Full Resuscitation MAR Reviewed: Yes Vital Signs & Weight: Vital Signs (12 hours) Temp Pulse Resp BP Pulse Ox 07/24/17 11:45 98.2 F 69 18 119/72 98 07/24/17 09:30 98.4 F 86 12 99/69 100 07/24/17 08:30 98.4 F 86 12 Weight Admit Weight 235 lb 0.204 oz Weight 236 lb 15.951 oz Most Recent Monitor Data Heart Rate from ECG 97 NIBP 148/68 NIBP BP-Mean 93 Respiration from ECG 36 SpO2 99 I&O: 07/23/17 07/24/17 07/25/17 06:59 06:59 06:59 Intake Total 500 Output Total 1300 1200 1200 Balance -800 -1200 -1200 Result Diagrams: 07/23/17 04:01 07/19/17 05:20 Additional Labs: Accuchecks 07/24/17 07/24/17 07/23/17 11:16 06:27 19:44 POC Glucose 108 87 169 H Phys Exam - Physical Examination Neck: no JVD Respiratory: clear to auscultation bilateral Cardiovascular: RRR, no significant murmur Gastrointestinal: soft, positive bowel sounds Musculoskeletal: no edema bandaged right hand Dx/Plan (1) Abscess of thumb, right Code(s): L02.511 - CUTANEOUS ABSCESS OF RIGHT HAND Status: Acute Comment: s/ p I&D 07/06/17, continue local care, IV Ancef, add Vancomycin (2) Anemia, normocytic normochromic Code(s): D64.9 - ANEMIA, UNSPECIFIED Status: Acute (3) Arachnoiditis Code(s): G03.9 - MENINGITIS, UNSPECIFIED Status: Acute Comment: Staph spp, see mgmt as above (4) Back pain Code(s): M54.9 - DORSALGIA, UNSPECIFIED Status: Acute Qualifiers: Chronicity: acute Back pain laterality: unspecified Sciatica presence: unspecified whether sciatica present Comment: MRi with contrast with possible diskitis and possible abscess. I have discussed with Dr gonzalez, operations administrator for NeuroSurg, no current plans for surgery. 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 Will follow. CCM with Ancef - Plan multiple C&S pos pen sens staph -: MRI brain and C-spine unrevealing -: discuss outpt antibx type and duration with ID * .
[2017-07-24] MEDS: Tamsulosin HCl 0.4 MG CAP PO SCH (20:10)
[2017-07-25] MEDS: Sodium Chloride 0.9% 1,000 ML IV SCH ×3 (02:30→23:19)
[2017-07-25] MEDS: HYDROcodone/Acetaminophen 10/325 mg Tablet PO SCH ×4 (03:21→21:16)
[2017-07-25] MEDS: CEFAZOLIN/Water 2 GM/20 ML SYRINGE SLOW IVP SCH ×3 (05:37→21:16)
[2017-07-25 06:32] LABS: ALT (SGPT) Less than 7 U/L (8-55); AST (SGOT) 14 U/L (5-34); Albumin 2.3 g/dL (3.5-5.0); Alkaline Phosphatase 81 U/L (40-150); Anion Gap 11 mmol/L (10-20); BUN (Urea Nitrogen) 33 mg/dL (8.9-20.6); Bilirubin, Total 0.2 mg/dL (0.2-1.2); Calc. Creatinine Clearance 82 mL/min (70-130); Calcium 8.4 mg/dL (7.8-10.44); Carbon Dioxide 25 mmol/L (22-29); Chloride 102 mmol/L (98-107); Estimated GFR-MDRD 44; Globulin 4.6 g/dL (2.4-3.5); Potassium 3.3 mmol/L (3.5-5.1); Protein, Total 6.9 g/dL (6.0-8.3); Sodium 135 mmol/L (136-145)
[2017-07-25 06:41] LABS: Glucose 57 mg/dL (70-105)
--- NOTE | 2017-07-25 09:03 | PRG ---
DATE OF SERVICE: 07/25/2017 SUBJECTIVE: This morning, awake, alert, responsive. He is doing well. No cough or shortness of kirk ath. I have told the hand surgeon, he is going to drain several of his localized skin infection, now in hi s left hand and his knee. Patient had an MRI of the cervical spine yesterday, which shows degenerative changes. I am not so scott re there is any evidence of infection there. OBJECTIVE: VITAL SIGNS: Blood pressure is 150/74, sats are 98.8 on room air, respiration 20, temperature 97. CHEST: No wheezing. CARDIAC: Normal S1, S2, no gallops. ABDOMEN: Soft, no masses. LABORATORY DATA: Creatinine 1.66, glucose 57. Albumin is 2.3. IMPRESSION: 1. Staph sepsis, right thumb osteomyelitis. 2. Probably diskitis of the lumbar spine. 3. Renal failure. PLAN: Antibiotics per Infectious Disease. Surgery as planned by hand surgeon. Please note, Pulmona ry and Critical Care will follow at a distance. Please call at any time. The patient was transferre d back to the ICU.
[2017-07-25 10:56] LABS: Vancomycin, Random 22.4 ug/mL (See Comment)
[2017-07-25] MEDS ORDERED: CEFAZOLIN/Water 2 GM/20 ML SYRINGE ONE (14:06)
[2017-07-25] MEDS ORDERED: Fentanyl 100 MCG/2 ML VIAL ONE ×2 (14:38→16:01)
[2017-07-25] MEDS ORDERED: Sodium Chloride 0.9% 30 ML ONE (14:50)
[2017-07-25] MEDS: Ferrous Sulfate 325 MG TAB PO SCH (16:41)
[2017-07-25] MEDS: Docusate 100 MG CAP PO SCH ×2 (16:42→21:16)
[2017-07-25] MEDS: Insulin Detemir 100 UNITS/ML 20 UNITS in Pre-Filled Syringe 1 EACH SC SCH ×2 (16:42→21:17)
[2017-07-25] MEDS: Hydrochlorothiazide 25 MG TAB PO SCH (16:42)
[2017-07-25] MEDS: Enoxaparin Sodium 40 MG/0.4 ML SYRINGE SC SCH (16:42)
[2017-07-25] MEDS: Zinc Sulfate 220 MG CAP PO SCH (16:43)
[2017-07-25] MEDS ORDERED: Lidocaine 1% PF 5 ML VIAL ONE (16:49)
[2017-07-25] MEDS ORDERED: Ondansetron HCl/PF 4 MG/2 ML Vial ONE (16:49)
[2017-07-25] MEDS ORDERED: PHENYLEPHRINE-NS 100 MCG/ML 10 ML SYRINGE ONE (16:49)
[2017-07-25] MEDS ORDERED: Propofol 200 MG/20 ML VIAL ONE (16:49)
[2017-07-25] MEDS ORDERED: ePHEDrine/0.9% NaCl/PF SYRINGE 50 mg/10 ml ONE (16:49)
[2017-07-25] MEDS ORDERED: Thrombin 5000 UNITS/5 ML VIAL ONE ×2 (16:51→17:04)
[2017-07-25] MEDS ORDERED: HYDROmorphone 0.5 MG/0.5 ML SYRINGE ONE ×4 (17:51→19:00)
[2017-07-25] MEDS ORDERED: HYDROmorphone 2 MG/ML VIAL SLOW IVP PRN (17:51)
--- NOTE | 2017-07-25 17:51 | PDOC.EVN ---
Event Note - Event Note Event Note: patient taken to OR at 7am, at 6pm he is still in OR . actually only taken into OR about 5 pm
[2017-07-25 19:06] LABS: #Eosinphils 0.1 thou/uL (0.0-0.7); #Lymphocytes 1.6 thou/uL (1.20-3.40); #Monocytes 0.4 thou/uL (0.11-0.59); #Neutrophils 3.2 thou/uL (1.40-6.50); %Basophils 0.1 % (0.0-1.0); %Eosinophils 1.2 % (0.0-10.0); %Lymphocytes 29.8 % (21.0-51.0); %Monocytes 7.7 % (0.0-10.0); %Neutrophils 61.2 % (42.0-75.0); Hemoglobin 6.8 g/dL (14.0-18.0); Mean Corpuscular HGB CONC 32.2 g/dL (32.0-36.0); Mean Corpuscular Hemoglobin 29.8 pg (27.0-31.0); Mean Corpuscular Volume 92.3 fl (80.0-94.0); Mean Platelet Volume 5.8 fL (7.4-10.4); Platelet Count 317 thou/uL (130-400); RBC Distribution Width 14.2 % (11.5-14.5); Red Blood Cell (RBC) Count 2.29 mill/uL (4.70-6.10); White Blood Cell (WBC) Count 5.2 thou/uL (4.8-10.8)
[2017-07-25 19:15] LABS: INR-International Normal Ratio 1.3; PTT 51.1 SEC (22.9-36.1); Prothrombin Time 16.4 SEC (12.0-14.7)
[2017-07-25 19:27] LABS: Anion Gap 9 mmol/L (10-20); BUN (Urea Nitrogen) 31 mg/dL (8.9-20.6); Calc. Creatinine Clearance 85 mL/min (70-130); Calcium 7.8 mg/dL (7.8-10.44); Carbon Dioxide 23 mmol/L (22-29); Chloride 105 mmol/L (98-107); Estimated GFR-MDRD 46; Glucose 92 mg/dL (70-105); Potassium 3.1 mmol/L (3.5-5.1); Sodium 134 mmol/L (136-145)
[2017-07-25] MEDS: Gentamicin Sulfate 80 MG in Premix Bag 1 BAG IVPB SCH (21:10)
[2017-07-25] MEDS: Tamsulosin HCl 0.4 MG CAP PO SCH (21:16)
[2017-07-25 22:26] LABS: Vancomycin, Random 17.1 ug/mL (See Comment)
[2017-07-26] MEDS: HYDROcodone/Acetaminophen 10/325 mg Tablet PO SCH ×4 (03:20→21:04)
[2017-07-26] MEDS: CEFAZOLIN/Water 2 GM/20 ML SYRINGE SLOW IVP SCH ×3 (05:35→21:04)
[2017-07-26] MEDS: Gentamicin Sulfate 80 MG in Premix Bag 1 BAG IVPB SCH ×3 (06:55→23:20)
--- NOTE | 2017-07-26 07:25 | OP ---
DATE OF SURGERY: 07/25/2017 PREOPERATIVE DIAGNOSES: 1. Right forearm and left forearm abscess. 2. Open wound, right thumb. 3. Abscess, right leg. POSTOPERATIVE DIAGNOSES: Right leg involving two compartment necrosis with subfascial plane evidence of infection documented by fascial sampling fresh frozen to the pathologist indicative of necrotizin g fasciitis. PROCEDURE PERFORMED: At the right forearm: 1. Debridement of the wound: Using the following technique, the right forearm where we used tenotom ies, used a [place] blade, 11 blade knife, tenotomy scissors, and a rongeur. 2. Excisional technique. 3. Depth was down to but not including the bone including fascia. 4. There was definite infection seen with tissue necrosis. At the left forearm, procedures as follows: 1. Incision and drainage abscess. 2. Debridement of wound. Using the following techniques: A. Excisional technique. B. Use of [place] blade, tenotomy scissors, 11 blade knife, Adson's and rongeur. C. Depth was through fascia down to deep muscle, but not including bone. D. There was gross infection and tissue necrosis. There was fasciectomy, dorsal left forearm. At the right le. Incision and drainage of abscess, a large abscess possibly 7 cm long, 2 cm wide with tissue necro sis below the level of fascia involving anterior compartment and lateral compartments with some necro sis up to the level of tibial ridge. 2. Debridement wide of muscle, tendon, and down to, but not including bone. TECHNIQUES: A. An excision. B. Use of rongeur, a [place] blade, 11 blade knife, 15 blade knife, tenotomy scissors, Adson's and cu rettes. C. There was gross infection and marked amount of tissue necrosis involved in the certainly entire a nterior and mostly anterior lateral portion of the lateral compartment and the most anterior portion of the tibia ridge. Fasciectomy/fasciotomy: Three compartment right leg fascia release and three compartments with the medial, lateral, anterior, and the deep posterior was evaluated. Application of 65 cm2 VAC dressing white sponge over the debrided muscle and black sponge over the wh ite. SPECIMEN REMOVED: He has multiple cultures with each wound and aerobic and anaerobic along with den al, TB, and TB was all tissue cultures today. Bone samples were accomplished from the right tibia fo r culture as well as pathological specimen and also that was the necrotic fascial contents sent, abigail rivera came back necrotizing fasciitis. ESTIMATED BLOOD LOSS: 300 mL. TOURNIQUET TIME: 25 minutes at the right leg, 12 minutes at the left forearm, none on the right side . DESCRIPTION OF PROCEDURE: After successful general endotracheal anesthesia, Dr. Reynoso assisted 2 OR nurses with 3 simultaneous prep and 3 simultaneous drape along with the help of multimedia production assistant, Darryl garcia. We then placed a tourniquet on the left arm for the left forearm surgery and the right thigh f or the right leg surgery. We approached first the right side which has no tourniquet. There was a f luctuant area that was 3 cm wide and 1.5 cm long. We introduced in a zigzag fashion the skin, subcutaneous tissue, and immediately noted gross purulence escaping. We debrided this using the tech nique listed above and sent the specimen to the pathology lab. Then, we packed his normal saline sterile gauze, and approached the left side and again at the forear m, at this time, we were able to exsanguinate the limb and inflating of tourniquet to 250 mmHg pressu re, a zigzag incision was made on the skin, there was some red areas and this was also evaluated for debridement. We finished with the forearm on the left side, we had penetrated the fascia, we debride d a marked amount of lead and the edges of the extensor wad without involving the superficial radial nerve and we irrigated this with 2 liters normal saline and Pulsavac pressure inside. The normal nathanael ine soaked gauze was placed on this until we finished the right lower extremity and all cultures were completed. Then at the right side, we exsanguinated the limb and inflated at 300 mmHg pressure, and then outline d a zigzag incision just first over the erythematous area, but as soon as we opened the subcutaneous skin, so much purulence escaped. Then we had to band on the simple incision that extended at 4 inche s proximally and 6 inches distally. Here, we were able to debride copious amounts of muscle belly th at had only minimal contractility and no electrical current flow to create a platform for debridement . Now, at the leg, the widest debridement took place as possible. We did a release of the fascia on both sides of the fibula, both sides of the tibia and deep, so that we will make sure that we did no t leave any area where purulence could hide. This was done with care, caution, and certainty. Once we accomplished this, we had no more nonviable noncontractile muscle left in the anterior compar tment, we preserved the neurovascular bundle, we then began our irrigation with 3 liters normal salin e under Pulsavac pressure. There was no further necrotic tissue seen after this wide debridement. N o purulence and the all of the fascia had been removed from this compartment. There was some erythem a still around the legs, we folded the skin back and found a few areas of gross purulence, resected a ll fat that did not look like it was in the correct place. Then, we completed the irrigation again, placed two sets of thrombin-soaked Gelfoam over the copiously bleeding muscle and tendon areas. We p erformed a tenotomy procedure. Once we had allowed the thrombus of gauze, thrombin-soaked Gelfoam to tower erector helper with muscle diffuse hemostasis, placed the white sponge over this area, black sponge over t he white sponge and then we were able to place excellent suction, both with the wall suction and with the VAC. Bulky dressing was applied to each side, the patient was told to return. The patient will have visit for potential discharge and only once all of these were normal. Intraperatively, the roger davis called back with a fresh specimen that showing necrotizing fasciitis. The patient will be p laced in isolation at this time. The patient then had a bulky dressing placed on the leg and left the operating room without evidence of anesthetic or operative complication.
[2017-07-26] MEDS ORDERED: Vancomycin HCl 1.25 GM in Sodium Chloride 0.9% 250 ML 250 ML IVPB SCH (09:00)
[2017-07-26] MEDS: Zinc Sulfate 220 MG CAP PO SCH (09:01)
[2017-07-26] MEDS: Hydrochlorothiazide 25 MG TAB PO SCH (09:01)
[2017-07-26] MEDS: Enoxaparin Sodium 40 MG/0.4 ML SYRINGE SC SCH (09:02)
[2017-07-26] MEDS: Docusate 100 MG CAP PO SCH ×2 (09:02→21:05)
[2017-07-26] MEDS: Ferrous Sulfate 325 MG TAB PO SCH (09:02)
--- NOTE | 2017-07-26 09:31 | PDOC.PN ---
- Subjective Encounter Start Date: 07/26/17 Encounter Start Time: 09:28 Subjective: significant pain, post op I&D, debridment both arms and R leg - Objective Resuscitation Status: Resuscitation Status FULL:Full Resuscitation Vital Signs & Weight: Vital Signs (12 hours) Temp Pulse Pulse Resp BP BP Pulse Ox 07/26/17 08:23 98.7 F 92 16 123/72 98 07/26/17 05:32 98.2 F 85 16 121/73 98 07/26/17 03:15 98.2 F 88 16 111/69 07/26/17 03:00 98.1 F 87 18 112/68 96 07/26/17 01:30 97.7 F 87 16 123/70 100 07/25/17 23:30 98.0 F 88 18 119/69 100 07/25/17 23:15 97.5 F L 83 18 107/65 98 Weight Admit Weight 235 lb 0.204 oz Weight 236 lb 15.951 oz Most Recent Monitor Data Heart Rate from ECG 97 NIBP 148/68 NIBP BP-Mean 93 Respiration from ECG 36 SpO2 99 I&O: 07/25/17 07/26/17 07/27/17 06:59 06:59 06:59 Intake Total 1000 700 Output Total 3900 1100 Balance -2900 -400 Result Diagrams: 07/25/17 18:20 07/25/17 18:20 Additional Labs: Accuchecks 07/26/17 07/25/17 07/25/17 05:43 20:41 13:53 POC Glucose 111 H 92 73 Phys Exam - Physical Examination Neck: no JVD Respiratory: clear to auscultation bilateral Cardiovascular: RRR, no significant murmur Gastrointestinal: soft, positive bowel sounds Musculoskeletal: edema present wound vac RLext, bandaged mid arm bilat Dx/Plan (1) Abscess of thumb, right Code(s): L02.511 - CUTANEOUS ABSCESS OF RIGHT HAND Status: Acute Comment: s/ p I&D 07/06/17, continue local care, IV Ancef, add Vancomycin (2) Anemia, normocytic normochromic Code(s): D64.9 - ANEMIA, UNSPECIFIED Status: Acute (3) Arachnoiditis Code(s): G03.9 - MENINGITIS, UNSPECIFIED Status: Acute Comment: Staph spp, see mgmt as above (4) Back pain Code(s): M54.9 - DORSALGIA, UNSPECIFIED Status: Acute Qualifiers: Chronicity: acute Back pain laterality: unspecified Sciatica presence: unspecified whether sciatica present Comment: MRi with contrast with possible diskitis and possible abscess. I have discussed with Dr gonzalez, director correctional agency for NeuroSurg, no current plans for surgery. 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 Will follow. CCM with Ancef (9) Abscess of leg, right Code(s): L02.415 - CUTANEOUS ABSCESS OF RIGHT LOWER LIMB Status: Acute (10) Abscess of arm, right Code(s): L02.413 - CUTANEOUS ABSCESS OF RIGHT UPPER LIMB Status: Acute - Plan cont iv antibx. await C&S of mult wound I&D -: increase iv morphine to 4mg q3h * .
[2017-07-26 10:22] LABS: HBCM Index 0.06 S/CO (0-0.79); HBSAg Index 0.16 S/CO (0-0.99); HIV (1/2) Antibody/Antigen Non-Reactive (NonReactive); HIV 1/2 INDEX 0.32 S/CO (<1.00); Hep A IgM AB Non-Reactive (NonReactive); Hep A IgM S/CO 0.13 S/CO (0-0.79); Hep B Surf Ag Non-Reactive S/CO (NonReactive); Hep C IgG Ab Non-Reactive (NonReactive); Hep C Index 0.11 S/CO (0-0.79); Hepatitis B Core IGM Abs Non-Reactive (NonReactive)
[2017-07-26] MEDS: Insulin Detemir 100 UNITS/ML 20 UNITS in Pre-Filled Syringe 1 EACH SC SCH ×2 (10:51→22:22)
[2017-07-26 14:12] LABS: ANA Symphony (Qualitative) Negative (Negative); ANA Symphony (Quantitative) 0.5 Ratio (<0.7 Negative); dsDNA IgG Antibody 0.9 IU/mL (<10 Negative)
[2017-07-26] MEDS: Sodium Chloride 0.9% 1,000 ML IV SCH ×2 (16:45→21:05)
--- NOTE | 2017-07-26 20:54 | CON ---
DATE OF CONSULTATION: 07/26/2017 HISTORY OF PRESENT ILLNESS: Mr. Joel Dennison is a very pleasant 51-year-old gentleman, who is refer red for evaluation for hyperbaric oxygen therapy for necrotizing fasciitis of the right lower extremi ty. On 07/25/2017, the patient underwent incision and drainage of an abscess of the right leg. At t he time of incision and drainage of the right leg abscess, the patient underwent wide debridement of muscle and tendon. A sample of the necrotic fascial contents was sent to pathology, which returned n ecrotizing fasciitis. The patient also underwent debridement of a wound of the right forearm in morelia tion to incision and drainage of a left forearm abscess followed by debridement. PAST MEDICAL HISTORY: 1. Hypertension. 2. Back pain, chronic. 3. Gout. 4. Nephrolithiasis. PAST SURGICAL HISTORY: 1. Cholecystectomy. 2. Back surgery, multiple. 3. Herniorrhaphy. 4. Right hand surgery. MEDICATIONS: On admission included losartan, hydrochlorothiazide, and Tylenol #3. ALLERGIES: NSAIDs. SOCIAL HISTORY: Significant for tobacco use of 1-1/2 packs of cigarettes per day for 30 years. The patient denies any history of ETOH use. FAMILY HISTORY: Significant for diabetes mellitus. The patient states that his grandmother was diag nosed with diabetes mellitus. Family history is also significant for coronary artery disease. The p atient states that his father was diagnosed with coronary artery disease. He also states that he has multiple relatives on the paternal side of his family, who were diagnosed with coronary artery disea se. PHYSICAL EXAMINATION: VITAL SIGNS: Temperature 98.3, pulse 100, respirations 15, blood pressure 111/68. GENERAL: A 51-year-old gentleman lying on stretcher in hyperbaric lab, in no acute distress. HEENT: Normocephalic, atraumatic. NECK: No nuchal rigidity. CHEST: Clear to auscultation. CARDIAC: Regular rate and rhythm. ABDOMEN: Soft. EXTREMITIES: Bulky dressings are in place over the right upper and lower extremities and over the le ft upper extremity. ASSESSMENT AND PLAN: A 51-year-old gentleman referred for hyperbaric oxygen therapy as adjunctive th erapy for necrotizing fasciitis. The patient underwent surgery yesterday and is receiving IV antibio tics. The patient denies any history of congestive heart failure, seizures, crushing chest trauma, p neumothorax, blood disorders including hereditary spherocytosis, recent retinal surgery, or the admin istration of any chemotherapeutic agents contraindicating hyperbaric oxygen therapy. The patient und erstands the risks and benefits of hyperbaric oxygen therapy. He states that he wishes to proceed; h owever, because of chronic back pain declines initiating hyperbaric oxygen therapy today. He states that once within the acrylic chambers, he is unable to reposition himself. He states that he require s assistance with repositioning, which would preclude treatment in a monoplace chamber. The patient states that the pain of his back is such that he requires frequent repositioning in order to alleviat e his significant back pain. The patient states he will consider receiving hyperbaric oxygen therapy tomorrow if the patient is amenable to HBOT tomorrow, the treatment will be administered at 2.5 TEJA with a treatment time of 90 minutes. The number of treatments will be determined by the patient's re sponse to HBOT determined by serial clinical exams.
[2017-07-26] MEDS: Tamsulosin HCl 0.4 MG CAP PO SCH (21:05)
[2017-07-26] MEDS: Melatonin 3 MG TAB PO PRN (23:26)
[2017-07-27] MEDS: HYDROcodone/Acetaminophen 10/325 mg Tablet PO SCH ×4 (03:34→23:11)
[2017-07-27] MEDS: Sodium Chloride 0.9% 1,000 ML IV SCH ×2 (03:35→16:24)
[2017-07-27] MEDS: CEFAZOLIN/Water 2 GM/20 ML SYRINGE SLOW IVP SCH ×3 (03:35→23:11)
[2017-07-27] MEDS: Gentamicin Sulfate 80 MG in Premix Bag 1 BAG IVPB SCH ×4 (05:18→23:12)
[2017-07-27] MEDS: Hydrochlorothiazide 25 MG TAB PO SCH (09:06)
[2017-07-27] MEDS: Zinc Sulfate 220 MG CAP PO SCH (09:06)
[2017-07-27] MEDS: Enoxaparin Sodium 40 MG/0.4 ML SYRINGE SC SCH (09:07)
[2017-07-27] MEDS: Docusate 100 MG CAP PO SCH ×2 (09:07→23:11)
[2017-07-27] MEDS: Ferrous Sulfate 325 MG TAB PO SCH (09:07)
[2017-07-27] MEDS: Insulin Detemir 100 UNITS/ML 20 UNITS in Pre-Filled Syringe 1 EACH SC SCH ×2 (09:08→23:12)
--- NOTE | 2017-07-27 11:12 | PDOC.PN ---
- Subjective Encounter Start Date: 07/27/17 Encounter Start Time: 11:11 Subjective: cont to have pain requiring IV morphine. no fever chills - Objective Resuscitation Status: Resuscitation Status FULL:Full Resuscitation MAR Reviewed: Yes Vital Signs & Weight: Vital Signs (12 hours) Temp Pulse Resp BP BP Pulse Ox 07/27/17 08:00 98.1 F 77 28 H 07/27/17 07:53 98.1 F 77 28 H 113/68 97 07/27/17 05:10 98.3 F 83 16 105/71 96 07/26/17 23:53 99.0 F 91 20 117/68 98 Weight Admit Weight 235 lb 0.204 oz Weight 236 lb 15.951 oz Most Recent Monitor Data Heart Rate from ECG 97 NIBP 148/68 NIBP BP-Mean 93 Respiration from ECG 36 SpO2 99 I&O: 07/26/17 07/27/17 07/28/17 06:59 06:59 06:59 Intake Total 700 3790 Output Total 1100 3525 Balance -400 265 Result Diagrams: 07/25/17 18:20 07/25/17 18:20 Additional Labs: Accuchecks 07/27/17 07/26/17 05:52 15:50 POC Glucose 109 104 Phys Exam - Physical Examination Neck: no JVD Respiratory: clear to auscultation bilateral Cardiovascular: RRR, no significant murmur Gastrointestinal: soft, positive bowel sounds Musculoskeletal: edema present Dx/Plan (1) Abscess of thumb, right Code(s): L02.511 - CUTANEOUS ABSCESS OF RIGHT HAND Status: Acute Comment: s/ p I&D 07/06/17, continue local care, IV Ancef, add Vancomycin (2) Anemia, normocytic normochromic Code(s): D64.9 - ANEMIA, UNSPECIFIED Status: Acute (3) Arachnoiditis Code(s): G03.9 - MENINGITIS, UNSPECIFIED Status: Acute Comment: Staph spp, see mgmt as above (4) Back pain Code(s): M54.9 - DORSALGIA, UNSPECIFIED Status: Acute Qualifiers: Chronicity: acute Back pain laterality: unspecified Sciatica presence: unspecified whether sciatica present Comment: MRi with contrast with possible diskitis and possible abscess. 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 Will follow. CCM with Ancef (9) Abscess of leg, right Code(s): L02.415 - CUTANEOUS ABSCESS OF RIGHT LOWER LIMB Status: Acute (10) Abscess of arm, right Code(s): L02.413 - CUTANEOUS ABSCESS OF RIGHT UPPER LIMB Status: Acute - Plan patient with multiple abcess' with same organism. on appropriate antibx -: currently requiring inpt wound care also -: eventual outpt wound and iv antibx tx planned * .
[2017-07-27 13:41] LABS: EliA RAS New Method **** NEW METHOD ****; Rheumatoid Factor IgA Antibody 8.3 IU/mL (<14 Negative); Rheumatoid Factor IgM Antibody 1.6 IU/mL (<3.5 Negative)
[2017-07-27] MEDS ORDERED: Ondansetron HCl/PF 4 MG/2 ML Vial ONE (17:15)
[2017-07-27] MEDS ORDERED: PHENYLEPHRINE-NS 100 MCG/ML 10 ML SYRINGE ONE (17:15)
[2017-07-27] MEDS ORDERED: Dexamethasone 20 MG/5 ML VIAL ONE (17:15)
[2017-07-27] MEDS ORDERED: Propofol 200 MG/20 ML VIAL ONE (17:15)
[2017-07-27] MEDS ORDERED: CEFAZOLIN/Water 2 GM/20 ML SYRINGE ONE (20:46)
[2017-07-27] MEDS ORDERED: Bupivacaine 0.5% 10 ML VIAL ONE (20:54)
[2017-07-27] MEDS ORDERED: Lidocaine 1% (PF) 30 ML VIAL ONE (20:55)
[2017-07-27] MEDS ORDERED: Bacitracin Zinc Ointment 30 gm TUBE ONE (20:56)
[2017-07-27] MEDS ORDERED: Thrombin 5000 UNITS/5 ML VIAL ONE ×2 (20:56→22:09)
[2017-07-27] MEDS ORDERED: Fentanyl 100 MCG/2 ML VIAL ONE ×3 (21:19→23:06)
[2017-07-27] MEDS ORDERED: HYDROmorphone 0.5 MG/0.5 ML SYRINGE ONE (22:09)
[2017-07-27] MEDS ORDERED: Promethazine HCl 25 MG/ML VIAL IM PRN (22:32)
[2017-07-27] MEDS ORDERED: Ondansetron HCl/PF 4 MG/2 ML Vial IVP PRN (22:32)
[2017-07-27] MEDS ORDERED: Promethazine HCl 25 MG/ML VIAL SLOW IVP PRN (22:32)
[2017-07-27] MEDS: Tamsulosin HCl 0.4 MG CAP PO SCH (23:12)
[2017-07-28] MEDS: Sodium Chloride 0.9% 1,000 ML IV SCH ×3 (00:06→22:18)
[2017-07-28] MEDS: Melatonin 3 MG TAB PO PRN ×2 (00:35→22:18)
[2017-07-28] MEDS: HYDROcodone/Acetaminophen 10/325 mg Tablet PO SCH ×4 (03:42→20:29)
[2017-07-28] MEDS: Gentamicin Sulfate 80 MG in Premix Bag 1 BAG IVPB SCH ×3 (05:43→22:22)
[2017-07-28] MEDS: CEFAZOLIN/Water 2 GM/20 ML SYRINGE SLOW IVP SCH ×3 (05:43→20:21)
[2017-07-28] MEDS: HumaLOG 300 UNITS/3 ML VIAL SC PRN ×3 (06:40→17:13)
[2017-07-28 08:15] LABS: Vancomycin, Trough 12.6 ug/mL
[2017-07-28] MEDS: Ferrous Sulfate 325 MG TAB PO SCH (09:01)
[2017-07-28] MEDS: Enoxaparin Sodium 40 MG/0.4 ML SYRINGE SC SCH (09:01)
[2017-07-28] MEDS: Zinc Sulfate 220 MG CAP PO SCH (09:02)
[2017-07-28] MEDS: Hydrochlorothiazide 25 MG TAB PO SCH (09:02)
[2017-07-28] MEDS: Docusate 100 MG CAP PO SCH ×2 (09:02→20:29)
[2017-07-28] MEDS: Insulin Detemir 100 UNITS/ML 20 UNITS in Pre-Filled Syringe 1 EACH SC SCH ×2 (09:02→22:22)
--- NOTE | 2017-07-28 11:12 | PDOC.PN ---
- Subjective Encounter Start Date: 07/28/17 Encounter Start Time: 09:20 no acute night events - Objective Resuscitation Status: Resuscitation Status FULL:Full Resuscitation Vital Signs & Weight: Vital Signs (12 hours) Temp Pulse Resp BP Pulse Ox 07/28/17 08:10 97.5 F L 75 18 127/72 100 07/27/17 23:45 97.4 F L 81 18 100 Weight Admit Weight 235 lb 0.204 oz Weight 236 lb 15.951 oz Most Recent Monitor Data Heart Rate from ECG 97 NIBP 148/68 NIBP BP-Mean 93 Respiration from ECG 36 SpO2 99 I&O: 07/27/17 07/28/17 07/29/17 06:59 06:59 06:59 Intake Total 3790 Output Total 3525 2825 Balance 265 -2825 Result Diagrams: 07/25/17 18:20 07/25/17 18:20 Additional Labs: Accuchecks 07/28/17 07/27/17 05:54 11:11 POC Glucose 167 H 105 Phys Exam - Physical Examination HEENT: PERRLA, moist MMs Neck: no JVD, supple Respiratory: no wheezing, clear to auscultation bilateral Cardiovascular: RRR, no significant murmur Gastrointestinal: soft, non-tender Musculoskeletal: pulses present Neurological: non-focal, moves all 4 limbs Psychiatric: normal affect, A&O x 3 Dx/Plan (1) Abscess of arm, right Code(s): L02.413 - CUTANEOUS ABSCESS OF RIGHT UPPER LIMB Status: Acute (2) Abscess of leg, right Code(s): L02.415 - CUTANEOUS ABSCESS OF RIGHT LOWER LIMB Status: Acute (3) Abscess of thumb, right Code(s): L02.511 - CUTANEOUS ABSCESS OF RIGHT HAND Status: Acute Comment: s/ p I&D 07/06/17, continue local care, IV Ancef, add Vancomycin (4) Anemia, normocytic normochromic Code(s): D64.9 - ANEMIA, UNSPECIFIED Status: Acute (5) Arachnoiditis Code(s): G03.9 - MENINGITIS, UNSPECIFIED Status: Acute Comment: Staph spp, see mgmt as above (6) Back pain Code(s): M54.9 - DORSALGIA, UNSPECIFIED Status: Acute Qualifiers: Chronicity: acute Back pain laterality: unspecified Sciatica presence: unspecified whether sciatica present Comment: MRi with contrast with possible diskitis and possible abscess. I have discussed with Dr gonzalez, splunk consultant for NeuroSurg, no current plans for surgery. 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 Will follow. CCM with Ancef (11) Staphylococcus aureus bacteremia with sepsis Code(s): A41.01 - SEPSIS DUE TO METHICILLIN SUSCEPTIBLE STAPHYLOCOCCUS AUREUS Status: Acute Comment: MSSA on culture. repeat BCx neg so far. Has CVC in place on admit, by definition already infected. TTE neg for echo evidence of endocarditis, but thumbs looks like a distant site, febrile, possible pulm involvement. 1 major, 2 minor criteria present for now. continue ancef for 4- 6 weeks. If osteo present, would go 6-8 weeks from last surgery to hand. Major concern is possible spinal emboli, diskitis preent, possible abscess, poor images due to hardware signal scatter. low likelihood of clearance without all abscess drained, will need repeat imaging (12) CAP (community acquired pneumonia) Code(s): J18.9 - PNEUMONIA, UNSPECIFIED ORGANISM Status: Resolved Qualifiers: Laterality: unspecified laterality Qualified Code(s): J18.9 - Pneumonia, unspecified organism Comment: ruled OUT by pulmonary (13) Metabolic encephalopathy Code(s): G93.41 - METABOLIC ENCEPHALOPATHY Status: Resolved Comment: improved, supportive mgmt - Plan cont current plan of care, continue antibiotics * . continue current mgmt hyperbaric oxygen therapy contine wound care contine IV Abx repeat blood cultures for clearance monitor accordingly
[2017-07-28 13:17] LABS: Lyme IgG/IgM AB <0.91 ISR (0.00-0.90)
--- NOTE | 2017-07-28 16:09 | PRG ---
DATE OF SERVICE: 07/28/2017 HISTORY: Mr. Dennison required repeat debridements. He has had thus far 6 different debridements. Th e first one was on 07/04/2017 with arthrotomy of the metacarpophalangeal joint of the right thumb inc ision and drainage of abscess and radical extensor tenosynovectomy with possible findings of early os teomyelitis in the chondral surface. The second procedure was a few days later on 07/11/2017 with te notomy and resection of tendon and debridement of the wound in the interphalangeal joint. On 018, the patient had a sacral coccygeal decubitus ulcer, which was shallow. On 07/17/2017, patient h ad debridement of the tendon at palmar site of the right thumb with closure of the wound and osteecto my of bone the proximal phalanx. On 07/22/2017, patient had a wound evaluation of the same site. Th ere was a small amount of necrotic bone removed. Then 07/25/2017, the patient had a right leg wound debridement with evidence of gross infection, tissue necrosis; at the right leg, there was a large ab scess. There was debridement of muscle, tendon, but not including bone. Currently, patient is upset because of recent wound care episodes during which apparently no opioid medication was given prior t o the intervention causing pain. He denies any headaches, no respiratory symptoms, or abdominal pain . He still has a Hernandez catheter in place. PHYSICAL EXAMINATION: VITAL SIGNS: Essentially normal. SKIN: Exam shows the right and left hand dressed and negative pressure dressing, as well as in the r ight leg. HEENT: Ocular movements are conjugate. LUNGS: Clear. HEART: S1, S2, regular rate. ABDOMEN: Soft. Hernandez catheter in place. The patient has a pathology from the leg tissue, which yajaira wed extensive abscess inflammation necrosis. No neoplastic change. Patient had a cervical spine MRI performed on 07/24/2017, which showed spondylosis, but no infection. A brain MRI was done as well w ith no evidence of acute intracranial process identified. Microbiology with Staph aureus and all the samples are submitted starting on 07/11/[address] t o 07/25/2017. The organism is tovar susceptible except for piperacillin and amoxicillin. ASSESSMENT AND DISCUSSION: 1. Chronic back pain with multiple surgeries with interbody device placement and possible infection of the site. 2. Right hand infectious arthritis, status post incision and drainage procedures. 3. Abscess of right leg, status post incision and drainage with evidence of facial muscle involvemen t. 4. Left forearm abscess as well. The patient has had multiple Staphylococcal infections, probably h ematogenous associated with lumbosacral spine device infection. The organism is again methicillin-scott sceptible Staphylococcus aureus in the current antimicrobial is considered adequate to be continued. The initial end date of therapy had been calculated around 08/16/2017. After that, the patient will have to continue on suppressive therapy with oral cephalosporin probably Keflex indefinitely in like ly involvement of interbody device in the lumbosacral spine area.
[2017-07-28] MEDS: Tamsulosin HCl 0.4 MG CAP PO SCH (20:29)
[2017-07-29] MEDS: HYDROcodone/Acetaminophen 10/325 mg Tablet PO SCH ×4 (02:38→21:42)
[2017-07-29] MEDS: Gentamicin Sulfate 80 MG in Premix Bag 1 BAG IVPB SCH ×3 (05:17→21:43)
[2017-07-29] MEDS: CEFAZOLIN/Water 2 GM/20 ML SYRINGE SLOW IVP SCH ×3 (05:17→21:43)
[2017-07-29] MEDS: Sodium Chloride 0.9% 1,000 ML IV SCH ×2 (07:27→16:09)
[2017-07-29] MEDS: Docusate 100 MG CAP PO SCH ×2 (08:34→21:43)
[2017-07-29] MEDS: Ferrous Sulfate 325 MG TAB PO SCH (08:34)
[2017-07-29] MEDS: Insulin Detemir 100 UNITS/ML 20 UNITS in Pre-Filled Syringe 1 EACH SC SCH ×2 (08:35→21:44)
[2017-07-29] MEDS: Enoxaparin Sodium 40 MG/0.4 ML SYRINGE SC SCH (08:35)
[2017-07-29] MEDS: Hydrochlorothiazide 25 MG TAB PO SCH (08:35)
[2017-07-29] MEDS: Zinc Sulfate 220 MG CAP PO SCH (08:37)
--- NOTE | 2017-07-29 10:17 | PDOC.PN ---
- Subjective Encounter Start Date: 07/29/17 Encounter Start Time: 08:55 doing okay without any major complaints or acute night events - Objective Resuscitation Status: Resuscitation Status FULL:Full Resuscitation Vital Signs & Weight: Vital Signs (12 hours) Temp Pulse Resp BP Pulse Ox 07/29/17 08:00 97.9 F 78 18 07/29/17 07:37 97.9 F 78 18 117/67 100 07/29/17 04:00 98.0 F 73 18 103/63 99 07/29/17 00:00 97.6 F 73 19 104/62 100 Weight Admit Weight 235 lb 0.204 oz Weight 236 lb 15.951 oz Most Recent Monitor Data Heart Rate from ECG 97 NIBP 148/68 NIBP BP-Mean 93 Respiration from ECG 36 SpO2 99 I&O: 07/28/17 07/29/17 07/30/17 06:59 06:59 06:59 Intake Total 1700 1440 Output Total 2825 450 750 Balance -2825 1250 690 Result Diagrams: 07/25/17 18:20 07/25/17 18:20 Additional Labs: Accuchecks 07/28/17 07/28/17 07/28/17 22:21 16:02 11:40 POC Glucose 127 H 176 H 192 H Phys Exam - Physical Examination HEENT: PERRLA, moist MMs, sclera anicteric Neck: no nodes, supple Respiratory: no wheezing, no rales, clear to auscultation bilateral Cardiovascular: RRR, no significant murmur Gastrointestinal: soft, non-tender, no distention Musculoskeletal: no edema, pulses present Neurological: non-focal, normal sensation, moves all 4 limbs Psychiatric: normal affect, A&O x 3 Dx/Plan (1) Abscess of arm, right Code(s): L02.413 - CUTANEOUS ABSCESS OF RIGHT UPPER LIMB Status: Acute (2) Abscess of leg, right Code(s): L02.415 - CUTANEOUS ABSCESS OF RIGHT LOWER LIMB Status: Acute (3) Abscess of thumb, right Code(s): L02.511 - CUTANEOUS ABSCESS OF RIGHT HAND Status: Acute Comment: s/ p I&D 07/06/17, continue local care, IV Ancef, add Vancomycin (4) Anemia, normocytic normochromic Code(s): D64.9 - ANEMIA, UNSPECIFIED Status: Acute (5) Arachnoiditis Code(s): G03.9 - MENINGITIS, UNSPECIFIED Status: Acute Comment: Staph spp, see mgmt as above (6) Back pain Code(s): M54.9 - DORSALGIA, UNSPECIFIED Status: Acute Qualifiers: Chronicity: acute Back pain laterality: unspecified Sciatica presence: unspecified whether sciatica present Comment: MRi with contrast with possible diskitis and possible abscess. 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 Will follow. CCM with Ancef (11) Staphylococcus aureus bacteremia with sepsis Code(s): A41.01 - SEPSIS DUE TO METHICILLIN SUSCEPTIBLE STAPHYLOCOCCUS AUREUS Status: Acute Comment: MSSA on culture. repeat BCx neg so far. Has CVC in place on admit, by definition already infected. TTE neg for echo evidence of endocarditis, but thumbs looks like a distant site, febrile, possible pulm involvement. 1 major, 2 minor criteria present for now. continue ancef for 4- 6 weeks. If osteo present, would go 6-8 weeks from last surgery to hand. Major concern is possible spinal emboli, diskitis preent, possible abscess, poor images due to hardware signal scatter. low likelihood of clearance without all abscess drained, will need repeat imaging (12) CAP (community acquired pneumonia) Code(s): J18.9 - PNEUMONIA, UNSPECIFIED ORGANISM Status: Resolved Qualifiers: Laterality: unspecified laterality Qualified Code(s): J18.9 - Pneumonia, unspecified organism Comment: ruled OUT by pulmonary (13) Metabolic encephalopathy Code(s): G93.41 - METABOLIC ENCEPHALOPATHY Status: Resolved Comment: improved, supportive mgmt - Plan cont current plan of care, continue antibiotics * . continue with current IV abx recs per in notes for abx mgmt moving forward will need Abx for two and half more weeks followed by suppression therapy with oral abx will consult Case managment for DC planning
[2017-07-29 14:13] LABS: Fungus Stain Final report (.)
[2017-07-29] MEDS: Melatonin 3 MG TAB PO PRN (21:42)
[2017-07-29] MEDS: Tamsulosin HCl 0.4 MG CAP PO SCH (21:43)
[2017-07-30] MEDS: HYDROcodone/Acetaminophen 10/325 mg Tablet PO SCH ×4 (03:13→20:48)
[2017-07-30] MEDS: Gentamicin Sulfate 80 MG in Premix Bag 1 BAG IVPB SCH ×3 (05:29→20:49)
[2017-07-30] MEDS: CEFAZOLIN/Water 2 GM/20 ML SYRINGE SLOW IVP SCH ×3 (05:29→20:49)
[2017-07-30 06:04] LABS: #Lymphocytes 1.6 thou/uL (1.20-3.40); #Monocytes 0.3 thou/uL (0.11-0.59); #Neutrophils 2.8 thou/uL (1.40-6.50); %Basophils 0.4 % (0.0-1.0); %Eosinophils 0.6 % (0.0-10.0); %Lymphocytes 32.9 % (21.0-51.0); %Monocytes 7.2 % (0.0-10.0); %Neutrophils 58.8 % (42.0-75.0); Hemoglobin 6.7 g/dL (14.0-18.0); Mean Corpuscular HGB CONC 32.9 g/dL (32.0-36.0); Mean Corpuscular Hemoglobin 30.1 pg (27.0-31.0); Mean Corpuscular Volume 91.3 fl (80.0-94.0); Mean Platelet Volume 5.9 fL (7.4-10.4); Platelet Count 257 thou/uL (130-400); RBC Distribution Width 13.8 % (11.5-14.5); Red Blood Cell (RBC) Count 2.23 mill/uL (4.70-6.10); White Blood Cell (WBC) Count 4.8 thou/uL (4.8-10.8)
[2017-07-30 06:16] LABS: Anion Gap 12 mmol/L (10-20); BUN (Urea Nitrogen) 27 mg/dL (8.9-20.6); Calc. Creatinine Clearance 75 mL/min (70-130); Calcium 7.6 mg/dL (7.8-10.44); Carbon Dioxide 22 mmol/L (22-29); Chloride 108 mmol/L (98-107); Estimated GFR-MDRD 40; Glucose 90 mg/dL (70-105); Sodium 139 mmol/L (136-145)
[2017-07-30 06:22] LABS: Potassium 2.9 mmol/L (3.5-5.1)
[2017-07-30] MEDS ORDERED: Bupivacaine 0.5% 10 ML VIAL ONE (07:21)
[2017-07-30] MEDS ORDERED: Bacitracin Zinc Ointment 30 gm TUBE ONE (07:21)
[2017-07-30] MEDS: Sodium Chloride 0.9% 1,000 ML IV SCH ×3 (07:24→20:47)
[2017-07-30] MEDS ORDERED: Potassium Chloride 40 MEQ in Premix Bag 1 BAG IVPB SCH (07:30)
[2017-07-30] MEDS: Ferrous Sulfate 325 MG TAB PO SCH (09:07)
[2017-07-30] MEDS: Docusate 100 MG CAP PO SCH ×2 (09:07→20:48)
[2017-07-30] MEDS: Insulin Detemir 100 UNITS/ML 20 UNITS in Pre-Filled Syringe 1 EACH SC SCH ×2 (09:07→22:44)
[2017-07-30] MEDS: Enoxaparin Sodium 40 MG/0.4 ML SYRINGE SC SCH (09:07)
[2017-07-30] MEDS: Magnesium Oxide 400 MG TAB PO SCH ×2 (09:07→20:48)
[2017-07-30] MEDS: Hydrochlorothiazide 25 MG TAB PO SCH (09:07)
[2017-07-30] MEDS: Zinc Sulfate 220 MG CAP PO SCH (09:08)
[2017-07-30] MEDS ORDERED: HYDROcodone/Acetaminophen 10/325 mg Tablet ONE (09:35)
[2017-07-30] MEDS: Potassium Chloride 20 MEQ TAB PO SCH ×3 (09:52→20:48)
[2017-07-30 11:18] LABS: Potassium 3.5 mmol/L (3.5-5.1)
[2017-07-30] MEDS ORDERED: CEFAZOLIN/Water 2 GM/20 ML SYRINGE ONE (13:01)
[2017-07-30] MEDS ORDERED: Fentanyl 100 MCG/2 ML VIAL ONE ×2 (14:44→15:10)
[2017-07-30] MEDS ORDERED: Lidocaine 1% PF 5 ML VIAL ONE (15:54)
[2017-07-30] MEDS ORDERED: Propofol 200 MG/20 ML VIAL ONE (15:54)
[2017-07-30] MEDS ORDERED: Promethazine HCl 25 MG/ML VIAL IM PRN ×2 (17:12→17:43)
[2017-07-30] MEDS ORDERED: Ondansetron HCl/PF 4 MG/2 ML Vial IVP PRN (17:12)
[2017-07-30] MEDS ORDERED: Promethazine HCl 25 MG/ML VIAL SLOW IVP PRN (17:12)
[2017-07-30] MEDS ORDERED: HYDROmorphone 0.5 MG/0.5 ML SYRINGE ONE ×2 (17:19→17:54)
[2017-07-30] MEDS: Tamsulosin HCl 0.4 MG CAP PO SCH (20:48)
[2017-07-30] MEDS ORDERED: HYDROmorphone 0.5 MG/0.5 ML SYRINGE SLOW IVP SCH (21:00)
[2017-07-30] MEDS ORDERED: HYDROcodone/Acetaminophen 10/325 mg Tablet PO SCH (21:00)
[2017-07-30] MEDS: Nystatin Ointment 15 GM TUBE TOP SCH (22:00)
[2017-07-31] MEDS: HYDROcodone/Acetaminophen 10/325 mg Tablet PO SCH ×4 (03:05→21:57)
[2017-07-31] MEDS: CEFAZOLIN/Water 2 GM/20 ML SYRINGE SLOW IVP SCH ×3 (05:31→21:57)
[2017-07-31] MEDS: Gentamicin Sulfate 80 MG in Premix Bag 1 BAG IVPB SCH ×3 (05:32→22:05)
[2017-07-31] MEDS: Potassium Chloride 20 MEQ TAB PO SCH ×4 (05:34→17:55)
--- NOTE | 2017-07-31 07:31 | OP ---
DATE OF SURGERY: 07/30/2017 PREOPERATIVE DIAGNOSES: 1. Right forearm 5 cm x 1 cm open wound. 2. Left forearm 12 cm x 3 cm open wound. 3. Right leg open wound 30 cm long x 3 mm wide, and 3 cm wide at its greatest edge. PROCEDURES PERFORMED: At the right upper extremity: 1. Debridement of wound. 2. Closure of wound in multiple layers complex 5 cm. At the left forearm: Debridement of wound, closure of wound complex multiple layers 12 x 3 cm. At the right le. Debridement of wound including tendon sheath, fascia, skin, subcutaneous fat, and epidermis/dermi s. 2. Closure of the wound. All but 12 cm of the wound was closed, so 9 cm on each side of the central portion and at this point, there was no exposed bone on the tendons, so we had to use Integra graft, so partial closure, a total of 18 cm and then application of 2 Integra, each 2 x 2 inches to cover t he defect appropriate side. Debridements were as follow; 1. Excisional. 2. Using [place] blade, 11 blade knife, tenotomy scissors pickups and curette. 3. No gross infection was found or fascial necrosis. 4. No complications. ESTIMATED BLOOD LOSS: 150 mL. ANESTHESIA: General LMA technique by [place] [facility]. DESCRIPTION OF PROCEDURE: After successful general LMA technique, the limb was prepped and draped. Case delayed almost 7 hours secondary to the patient low potassium and then doing a procedure because he was somewhat anemic and received 2 units of packed red blood cells. After prepped and draped all the incisions, we performed a proper time out. We first addressed the r ight arm, where underwent debridement listed above, and then we were able to close it in 2 layers wit hout undue pressure with outer layer having 4-0 nylon in a simple pattern. At the left upper extremity, we were able to debride the wound as listed above the techniques. No fa scial defects were seen. No infection and minimal wound edge necrosis, which was 1 mm circumfe rentially and then we began the closure. We were able to get a running 3-0 Monocryl to bring the edg es together and then we closed the skin epidermal layer with a 4-0 nylon in a simple pattern. We nelsy amie the bacitracin, Adaptic, 4 x 4s, Kerlix, and then a sterile drape over these wounds, then approac hed the lower extremity. The lower extremity, where he had the necrotizing fasciotomy, we inspected the fascia and bone in all compartments on the anterior lateral side of the leg and found no further evidence of that. There was no hematoma. We did debride some denuded tendon, especially dorsally, t he skin circumferentially had 2 mm removed, especially the central portion where it was possible expo sed bone. Then, began the partial closure. First we went distally to proximal. We were able to lizette se with a running 3-0 Vicryl and then we tied this. Then, coming from the proximal portion of the wo und into the mid wound, we were able to close as well using the same technique as suture. This left use with a defect of almost 11 cm long x 2.5 cm wide. This time, a graft would be needed and we were happy that we had covered the tibia with [place] skin. Because the patient had paratenon that had been debrided in most of this wound, we could not use a me dial skin graft technique but placed Integra with appropriate side down and bolstered it with mineral oil and ABD and then covered this wound with a bulky dressing. We covered all other wounds with bul ky dressings .
[2017-07-31 08:52] LABS: #Eosinphils 0.1 thou/uL (0.0-0.7); #Lymphocytes 2.1 thou/uL (1.20-3.40); #Monocytes 0.5 thou/uL (0.11-0.59); %Basophils 0.2 % (0.0-1.0); %Eosinophils 0.9 % (0.0-10.0); %Lymphocytes 37.4 % (21.0-51.0); %Monocytes 8.2 % (0.0-10.0); %Neutrophils 53.3 % (42.0-75.0); Hemoglobin 7.9 g/dL (14.0-18.0); Mean Corpuscular HGB CONC 33.4 g/dL (32.0-36.0); Mean Corpuscular Hemoglobin 30.6 pg (27.0-31.0); Mean Corpuscular Volume 91.4 fl (80.0-94.0); Mean Platelet Volume 6.1 fL (7.4-10.4); Platelet Count 205 thou/uL (130-400); RBC Distribution Width 13.9 % (11.5-14.5); Red Blood Cell (RBC) Count 2.59 mill/uL (4.70-6.10); White Blood Cell (WBC) Count 5.6 thou/uL (4.8-10.8)
[2017-07-31] MEDS: Sodium Chloride 0.9% 1,000 ML IV SCH ×2 (09:19→22:21)
[2017-07-31] MEDS: Hydrochlorothiazide 25 MG TAB PO SCH (09:19)
[2017-07-31] MEDS: Zinc Sulfate 220 MG CAP PO SCH (09:20)
[2017-07-31] MEDS: Ferrous Sulfate 325 MG TAB PO SCH (09:20)
[2017-07-31] MEDS: Enoxaparin Sodium 40 MG/0.4 ML SYRINGE SC SCH (09:20)
[2017-07-31] MEDS: Magnesium Oxide 400 MG TAB PO SCH ×2 (09:20→21:57)
[2017-07-31] MEDS: Docusate 100 MG CAP PO SCH ×2 (09:20→21:57)
[2017-07-31] MEDS: Nystatin Ointment 15 GM TUBE TOP SCH ×2 (09:28→21:56)
[2017-07-31] MEDS: Insulin Detemir 100 UNITS/ML 20 UNITS in Pre-Filled Syringe 1 EACH SC SCH ×2 (09:58→21:57)
[2017-07-31 10:07] LABS: Anion Gap 12 mmol/L (10-20); BUN (Urea Nitrogen) 25 mg/dL (8.9-20.6); Calc. Creatinine Clearance 77 mL/min (70-130); Calcium 7.6 mg/dL (7.8-10.44); Carbon Dioxide 20 mmol/L (22-29); Chloride 111 mmol/L (98-107); Estimated GFR-MDRD 41; Glucose 107 mg/dL (70-105); Potassium 3.7 mmol/L (3.5-5.1); Sodium 139 mmol/L (136-145)
--- NOTE | 2017-07-31 11:59 | PDOC.PN ---
- Subjective Encounter Start Date: 07/31/17 Encounter Start Time: 09:00 Subjective: no sob, feels better -: has not amb yet after yesterdays surgery - Objective Resuscitation Status: Resuscitation Status FULL:Full Resuscitation MAR Reviewed: Yes Vital Signs & Weight: Vital Signs (12 hours) Temp Pulse Resp BP BP Pulse Ox 07/31/17 08:15 98 F 77 14 100 07/31/17 07:50 98 F 77 14 117/77 100 07/31/17 04:00 100 F H 54 L 16 113/75 78 L 07/31/17 00:00 98.6 F 81 16 124/67 99 Weight Admit Weight 235 lb 0.204 oz Weight 236 lb 15.951 oz Most Recent Monitor Data Heart Rate from ECG 97 NIBP 148/68 NIBP BP-Mean 93 Respiration from ECG 36 SpO2 99 I&O: 07/30/17 07/31/17 08/01/17 06:59 06:59 06:59 Intake Total 3090 2200 1700 Output Total 1550 3200 1300 Balance 1540 -1000 400 Result Diagrams: 07/31/17 08:27 07/31/17 09:42 Additional Labs: Accuchecks 07/31/17 07/30/17 07/30/17 06:05 20:29 12:35 POC Glucose 103 96 98 Phys Exam - Physical Examination HEENT: PERRLA, moist MMs Neck: no JVD, supple Respiratory: no wheezing, no rales Cardiovascular: RRR, no significant murmur Gastrointestinal: soft, non-tender, positive bowel sounds Musculoskeletal: pulses present Neurological: non-focal, moves all 4 limbs Psychiatric: A&O x 3 Dx/Plan (1) Abscess of arm, right Code(s): L02.413 - CUTANEOUS ABSCESS OF RIGHT UPPER LIMB Status: Acute (2) Abscess of leg, right Code(s): L02.415 - CUTANEOUS ABSCESS OF RIGHT LOWER LIMB Status: Acute (3) Abscess of thumb, right Code(s): L02.511 - CUTANEOUS ABSCESS OF RIGHT HAND Status: Acute Comment: s/ p I&D 07/06/17, continue local care, IV Ancef, add gentamicin (4) Anemia, normocytic normochromic Code(s): D64.9 - ANEMIA, UNSPECIFIED Status: Acute (5) Diabetes mellitus, type II, insulin dependent Code(s): E11.9 - TYPE 2 DIABETES MELLITUS WITHOUT COMPLICATIONS; Z79.4 - COBBLER SOLE (CURRENT) USE OF INSULIN Status: Acute Comment: Continue Levemir 20u sc BID, ISS (6) Obesity (BMI 30.0-34.9) Code(s): E66.9 - OBESITY, UNSPECIFIED Status: Chronic (7) Staphylococcus aureus bacteremia with sepsis Code(s): A41.01 - SEPSIS DUE TO METHICILLIN SUSCEPTIBLE STAPHYLOCOCCUS AUREUS Status: Acute - Plan PT to mobilize as tolerated -: had debridement of multiple sites done yesterday by -: on ancef and gentamicin (per /ID advice) -: ?pharmacy to manage gentamicin dose -: watch for urine output, if good dc iv fluids. * . Review of Systems - Medications/Allergies Allergies/Adverse Reactions: Allergies Allergy/AdvReac Type Severity Reaction Status Date / Time NSAIDS (Non-Steroidal AdvReac "GASTRIC Verified 08/15/14 03:31 Anti-Inflamma ULCERS" Medications: Current Medications Acetaminophen (Tylenol) 650 mg [place] Q6H PRN PRN Reason: Headache/Fever or Pain Last Admin: 07/17/17 11:00 Dose: 650 mg Acetaminophen (Tylenol) 500 mg PO Q4H PRN PRN Reason: Headache/Fever or Pain Last Admin: 07/22/17 17:44 Dose: 500 mg Hydrocodone Bitart/Acetaminophen ([place] 10/325) 1 tab PO 0300,0900,1500,2100 [place] Last Admin: 07/31/17 09:20 Dose: 1 tab Al Hydroxide/Mg Hydroxide (Maalox) 30 ml PO Q6H PRN PRN Reason: Heartburn or Indigestion Last Admin: 07/10/17 22:04 Dose: 30 ml Albuterol/Ipratropium (Duoneb) 3 ml NEB Q4H PRN PRN Reason: SOB &/or Wheezing Bisacodyl (Dulcolax) 10 mg [place] DAILYPRN PRN PRN Reason: Constipation Cefazolin Sodium (Ancef) 2 gm SLOW IVP 0500,1300,2100 [place] Last Admin: 07/31/17 05:31 Dose: 2 gm Collagenase (Santyl 250 Units/Gram Ointment) 0 gm TOP ASDIR [place] Dextrose/Water (Dextrose 50%) 25 gm SLOW IVP PRN PRN PRN Reason: Hypoglycemia Docusate Sodium (Colace) 100 mg PO BID [facility] Last Admin: 07/31/17 09:20 Dose: 100 mg Enoxaparin Sodium (Lovenox) 40 mg SC DAILY [facility] Last Admin: 07/31/17 09:20 Dose: 40 mg Ferrous Sulfate (Feosol) 325 mg PO QAM-WM [facility] Last Admin: 07/31/17 09:20 Dose: 325 mg Glucagon (Glucagon) 1 mg IM PRN PRN PRN Reason: Hypoglycemia Hydralazine HCl (Apresoline) 10 mg SLOW IVP Q4H PRN PRN Reason: SBP > 180 Hydrochlorothiazide (Hydrochlorothiazide) 12.5 mg PO DAILY [facility] Last Admin: 07/31/17 09:19 Dose: 12.5 mg Dextrose/Water (D5w) 1,000 mls @ 0 mls/hr IV .Q0M PRN; As Directed PRN Reason: Hypoglycemia Insulin Detemir 20 units/ (Miscellaneous Medication) 0.2 mls @ 0 mls/hr SC BID [facility] Last Admin: 07/31/17 09:58 Dose: Not Given Sodium Chloride (Normal Saline 0.9%) 1,000 mls @ 100 mls/hr IV .Q10H [facility] Last Admin: 07/31/17 09:19 Dose: 1,000 mls Gentamicin Sulfate 80 mg/ (Device) 100 mls @ 200 mls/hr IVPB Q8HR [facility] Last Admin: 07/31/17 05:32 Dose: 100 mls Insulin Human Lispro (Humalog) 0 units SC .AGGRESSIVE SLIDING PRN PRN Reason: Aggressive Correctional Scale Last Admin: 07/28/17 17:13 Dose: 3 unit Labetalol HCl (Normodyne) 10 mg SLOW IVP Q4H PRN PRN Reason: SBP Greater Than 180 Magnesium Hydroxide (Milk Of Magnesium) 30 ml PO DAILYPRN PRN PRN Reason: Constipation Last Admin: 07/15/17 17:19 Dose: 30 ml Magnesium Oxide (Magnesium Oxide) 400 mg PO BID [facility] Last Admin: 07/31/17 09:20 Dose: 400 mg Melatonin (Melatonin) 3 mg PO HS PRN PRN Reason: Insomnia Last Admin: 07/29/17 21:42 Dose: 3 mg Meperidine HCl (Demerol) 50 mg IM Q4H PRN PRN Reason: Pain Stop: 08/01/17 23:59 Morphine Sulfate (Morphine Sulfate) 4 mg SLOW IVP Q3H PRN PRN Reason: Pain Last Admin: 07/31/17 06:02 Dose: 4 mg Nystatin (Mycostatin Ointment) 0 gm TOP BID [facility] Last Admin: 07/31/17 09:28 Dose: 1 applic Olmesartan (Benicar) 20 mg PO DAILY [facility] Last Admin: 07/31/17 09:20 Dose: 20 mg Pantoprazole Sodium (Protonix) 40 mg PO DAILY [facility] Last Admin: 07/31/17 09:20 Dose: 40 mg Polyethylene Glycol (Miralax) 17 gm PO DAILYPRN PRN PRN Reason: Constipation Last Admin: 07/31/17 09:20 Dose: 17 gm Potassium Chloride (K-Dur) 40 meq PO Q6HR [facility] Stop: 07/31/17 18:01 Last Admin: 07/31/17 05:34 Dose: 40 meq Promethazine HCl (Phenergan) 25 mg IM Q4H PRN PRN Reason: Nausea/Vomiting Sodium Chloride (Flush - Normal Saline) 10 ml IVF Q12HR [facility] Last Admin: 07/31/17 09:58 Dose: Not Given Sodium Chloride (Flush - Normal Saline) 10 ml IVF PRN PRN PRN Reason: Saline Flush Tamsulosin HCl (Flomax) 0.4 mg PO HS [facility] Last Admin: 07/30/17 20:48 Dose: 0.4 mg Zinc Sulfate (Zinc Sulfate) 220 mg PO DAILY [facility] Last Admin: 07/31/17 09:20 Dose: 220 mg
[2017-07-31] MEDS: Bisacodyl 10 MG SUPP PR PRN (12:37)
[2017-07-31] MEDS: Tamsulosin HCl 0.4 MG CAP PO SCH (21:57)
[2017-07-31] MEDS: Milk Of Magnesia 30 ML UDCUP PO PRN (22:06)
[2017-07-31] MEDS: Melatonin 3 MG TAB PO PRN (22:07)
[2017-08-01] MEDS: CEFAZOLIN/Water 2 GM/20 ML SYRINGE SLOW IVP SCH ×3 (04:54→21:18)
[2017-08-01] MEDS: HYDROcodone/Acetaminophen 10/325 mg Tablet PO SCH ×4 (04:54→21:23)
[2017-08-01] MEDS: Gentamicin Sulfate 80 MG in Premix Bag 1 BAG IVPB SCH ×3 (04:55→21:37)
[2017-08-01 05:17] LABS: #Eosinphils 0.1 thou/uL (0.0-0.7); #Lymphocytes 2.1 thou/uL (1.20-3.40); #Monocytes 0.5 thou/uL (0.11-0.59); #Neutrophils 2.7 thou/uL (1.40-6.50); %Basophils 0.2 % (0.0-1.0); %Eosinophils 1.5 % (0.0-10.0); %Lymphocytes 38.9 % (21.0-51.0); %Monocytes 8.4 % (0.0-10.0); %Neutrophils 50.9 % (42.0-75.0); Hemoglobin 7.6 g/dL (14.0-18.0); Mean Corpuscular HGB CONC 31.3 g/dL (32.0-36.0); Mean Corpuscular Hemoglobin 28.6 pg (27.0-31.0); Mean Corpuscular Volume 91.6 fl (80.0-94.0); Mean Platelet Volume 6.2 fL (7.4-10.4); Platelet Count 165 thou/uL (130-400); RBC Distribution Width 14.1 % (11.5-14.5); Red Blood Cell (RBC) Count 2.64 mill/uL (4.70-6.10); White Blood Cell (WBC) Count 5.4 thou/uL (4.8-10.8)
[2017-08-01 05:36] LABS: Anion Gap 11 mmol/L (10-20); BUN (Urea Nitrogen) 25 mg/dL (8.9-20.6); Calc. Creatinine Clearance 81 mL/min (70-130); Calcium 7.7 mg/dL (7.8-10.44); Carbon Dioxide 20 mmol/L (22-29); Chloride 111 mmol/L (98-107); Estimated GFR-MDRD 44; Glucose 62 mg/dL (70-105); Potassium 3.7 mmol/L (3.5-5.1); Sodium 138 mmol/L (136-145)
[2017-08-01] MEDS: Sodium Chloride 0.9% 1,000 ML IV SCH ×3 (06:41→21:27)
[2017-08-01] MEDS: Bisacodyl 10 MG SUPP PR PRN (09:15)
[2017-08-01] MEDS: Zinc Sulfate 220 MG CAP PO SCH (09:34)
[2017-08-01] MEDS: Ferrous Sulfate 325 MG TAB PO SCH (09:34)
[2017-08-01] MEDS: Magnesium Oxide 400 MG TAB PO SCH ×2 (09:34→21:25)
[2017-08-01] MEDS: Docusate 100 MG CAP PO SCH ×2 (09:34→21:18)
[2017-08-01] MEDS: Hydrochlorothiazide 25 MG TAB PO SCH (09:34)
[2017-08-01] MEDS: Insulin Detemir 100 UNITS/ML 20 UNITS in Pre-Filled Syringe 1 EACH SC SCH ×2 (09:35→21:24)
[2017-08-01] MEDS: Enoxaparin Sodium 40 MG/0.4 ML SYRINGE SC SCH (09:35)
--- NOTE | 2017-08-01 11:29 | PDOC.PN ---
- Subjective Encounter Start Date: 07/30/17 Encounter Start Time: 09:00 Subjective: awake, not in distress, is waiting for debribement today - Objective Resuscitation Status: Resuscitation Status FULL:Full Resuscitation MAR Reviewed: Yes Vital Signs & Weight: Vital Signs (12 hours) Temp Pulse Resp BP BP Pulse Ox 08/01/17 08:00 97.7 F 64 18 08/01/17 07:50 97.7 F 64 18 136/73 97 08/01/17 00:00 98.2 F 82 18 83/61 L 100 Weight Admit Weight 235 lb 0.204 oz Weight 236 lb 15.951 oz Most Recent Monitor Data Heart Rate from ECG 97 NIBP 148/68 NIBP BP-Mean 93 Respiration from ECG 36 SpO2 99 I&O: 07/31/17 08/01/17 08/02/17 06:59 06:59 06:59 Intake Total 2200 4175 2400 Output Total 3200 2550 2000 Balance -1000 1625 400 Result Diagrams: 08/01/17 03:30 08/01/17 03:30 Additional Labs: Accuchecks 08/01/17 07/31/17 07/31/17 05:30 20:02 15:20 POC Glucose 82 320 H 99 07/31/17 11:45 POC Glucose 120 H Phys Exam - Physical Examination HEENT: PERRLA, moist MMs Neck: no JVD, supple Respiratory: no wheezing, no rales Cardiovascular: RRR, no significant murmur Gastrointestinal: soft, non-tender Musculoskeletal: no edema, pulses present Neurological: non-focal, moves all 4 limbs Psychiatric: A&O x 3 Dx/Plan (1) Abscess of arm, right Code(s): L02.413 - CUTANEOUS ABSCESS OF RIGHT UPPER LIMB Status: Acute (2) Abscess of leg, right Code(s): L02.415 - CUTANEOUS ABSCESS OF RIGHT LOWER LIMB Status: Acute (3) Abscess of thumb, right Code(s): L02.511 - CUTANEOUS ABSCESS OF RIGHT HAND Status: Acute Comment: IV Ancef, add gentamicin (4) Anemia, normocytic normochromic Code(s): D64.9 - ANEMIA, UNSPECIFIED Status: Acute (5) Diabetes mellitus, type II, insulin dependent Code(s): E11.9 - TYPE 2 DIABETES MELLITUS WITHOUT COMPLICATIONS; Z79.4 - DETENTION (CURRENT) USE OF INSULIN Status: Acute Comment: Continue Levemir 20u sc BID, ISS (6) Obesity (BMI 30.0-34.9) Code(s): E66.9 - OBESITY, UNSPECIFIED Status: Chronic (7) Staphylococcus aureus bacteremia with sepsis Code(s): A41.01 - SEPSIS DUE TO METHICILLIN SUSCEPTIBLE STAPHYLOCOCCUS AUREUS Status: Acute - Plan is on vanc and gentamicin -: for debridement today by -: is deconditioned, needs to amb with PT -: ensure 1 can tid, encourage po intake, vit c, mvi, zn -: will f/u * .
--- NOTE | 2017-08-01 11:31 | PDOC.PN ---
- Subjective Encounter Start Date: 08/01/17 Encounter Start Time: 08:45 Subjective: awake, had a rectal suppository this am and waiting for bm -: no sob, pain is better - Objective Resuscitation Status: Resuscitation Status FULL:Full Resuscitation MAR Reviewed: Yes Vital Signs & Weight: Vital Signs (12 hours) Temp Pulse Resp BP BP Pulse Ox 08/01/17 08:00 97.7 F 64 18 08/01/17 07:50 97.7 F 64 18 136/73 97 08/01/17 00:00 98.2 F 82 18 83/61 L 100 Weight Admit Weight 235 lb 0.204 oz Weight 236 lb 15.951 oz Most Recent Monitor Data Heart Rate from ECG 97 NIBP 148/68 NIBP BP-Mean 93 Respiration from ECG 36 SpO2 99 I&O: 07/31/17 08/01/17 08/02/17 06:59 06:59 06:59 Intake Total 2200 4175 2400 Output Total 3200 2550 2000 Balance -1000 1625 400 Result Diagrams: 08/01/17 03:30 08/01/17 03:30 Additional Labs: Accuchecks 08/01/17 07/31/17 07/31/17 05:30 20:02 15:20 POC Glucose 82 320 H 99 07/31/17 11:45 POC Glucose 120 H Phys Exam - Physical Examination HEENT: PERRLA, moist MMs Neck: no JVD, supple Respiratory: no wheezing, no rales Cardiovascular: RRR, no significant murmur Gastrointestinal: soft, non-tender, positive bowel sounds Musculoskeletal: pulses present, edema present Neurological: non-focal, moves all 4 limbs Psychiatric: A&O x 3 Dx/Plan (1) Abscess of arm, right Code(s): L02.413 - CUTANEOUS ABSCESS OF RIGHT UPPER LIMB Status: Acute (2) Abscess of leg, right Code(s): L02.415 - CUTANEOUS ABSCESS OF RIGHT LOWER LIMB Status: Acute (3) Abscess of thumb, right Code(s): L02.511 - CUTANEOUS ABSCESS OF RIGHT HAND Status: Acute Comment: IV Ancef, add gentamicin (4) Anemia, normocytic normochromic Code(s): D64.9 - ANEMIA, UNSPECIFIED Status: Acute (5) Diabetes mellitus, type II, insulin dependent Code(s): E11.9 - TYPE 2 DIABETES MELLITUS WITHOUT COMPLICATIONS; Z79.4 - [employer]PORATE [employer] (CURRENT) USE OF INSULIN Status: Acute Comment: Continue Levemir 20u sc BID, ISS (6) Obesity (BMI 30.0-34.9) Code(s): E66.9 - OBESITY, UNSPECIFIED Status: Chronic (7) Staphylococcus aureus bacteremia with sepsis Code(s): A41.01 - SEPSIS DUE TO METHICILLIN SUSCEPTIBLE STAPHYLOCOCCUS AUREUS Status: Acute - Plan has had multiple debridements so far -: hemostable, urine output last 24hrs is good -: is on vanc and gentamicin, pharmacy to dose per protocol -: watch for renal function, hb this am is 7g, dm is labile 82-320mg fingersti -: Needs to amb with PT, dc plan per hand surg advice * . Review of Systems - Medications/Allergies Allergies/Adverse Reactions: Allergies Allergy/AdvReac Type Severity Reaction Status Date / Time NSAIDS (Non-Steroidal AdvReac "GASTRIC Verified 08/15/14 03:31 Anti-Inflamma ULCERS" Medications: Current Medications Acetaminophen (Tylenol) 650 mg [place] Q6H PRN PRN Reason: Headache/Fever or Pain Last Admin: 07/17/17 11:00 Dose: 650 mg Acetaminophen (Tylenol) 500 mg PO Q4H PRN PRN Reason: Headache/Fever or Pain Last Admin: 07/22/17 17:44 Dose: 500 mg Hydrocodone Bitart/Acetaminophen ([place] 10/325) 1 tab PO 0300,0900,1500,2100 [place] Last Admin: 08/01/17 09:34 Dose: 1 tab Al Hydroxide/Mg Hydroxide (Maalox) 30 ml PO Q6H PRN PRN Reason: Heartburn or Indigestion Last Admin: 07/10/17 22:04 Dose: 30 ml Albuterol/Ipratropium (Duoneb) 3 ml NEB Q4H PRN PRN Reason: SOB &/or Wheezing Bisacodyl (Dulcolax) 10 mg [place] DAILYPRN PRN PRN Reason: Constipation Last Admin: 08/01/17 09:15 Dose: 10 mg Cefazolin Sodium (Ancef) 2 gm SLOW IVP 0500,1300,2100 [place] Last Admin: 08/01/17 04:54 Dose: 2 gm Collagenase (Santyl 250 Units/Gram Ointment) 0 gm TOP ASDIR [place] Dextrose/Water (Dextrose 50%) 25 gm SLOW IVP PRN PRN PRN Reason: Hypoglycemia Docusate Sodium (Colace) 100 mg PO BID [facility] Last Admin: 08/01/17 09:34 Dose: 100 mg Enoxaparin Sodium (Lovenox) 40 mg SC DAILY [facility] Last Admin: 08/01/17 09:35 Dose: 40 mg Ferrous Sulfate (Feosol) 325 mg PO QAM-WM [facility] Last Admin: 08/01/17 09:34 Dose: 325 mg Glucagon (Glucagon) 1 mg IM PRN PRN PRN Reason: Hypoglycemia Hydralazine HCl (Apresoline) 10 mg SLOW IVP Q4H PRN PRN Reason: SBP > 180 Hydrochlorothiazide (Hydrochlorothiazide) 12.5 mg PO DAILY [facility] Last Admin: 08/01/17 09:34 Dose: 12.5 mg Dextrose/Water (D5w) 1,000 mls @ 0 mls/hr IV .Q0M PRN; As Directed PRN Reason: Hypoglycemia Insulin Detemir 20 units/ (Miscellaneous Medication) 0.2 mls @ 0 mls/hr SC BID [facility] Last Admin: 08/01/17 09:35 Dose: 0.2 mls Sodium Chloride (Normal Saline 0.9%) 1,000 mls @ 100 mls/hr IV .Q10H [facility] Last Admin: 08/01/17 06:41 Dose: Not Given Gentamicin Sulfate 80 mg/ (Device) 100 mls @ 200 mls/hr IVPB Q8HR [facility] Last Admin: 08/01/17 04:55 Dose: 100 mls Insulin Human Lispro (Humalog) 0 units SC .AGGRESSIVE SLIDING PRN PRN Reason: Aggressive Correctional Scale Last Admin: 07/28/17 17:13 Dose: 3 unit Labetalol HCl (Normodyne) 10 mg SLOW IVP Q4H PRN PRN Reason: SBP Greater Than 180 Magnesium Hydroxide (Milk Of Magnesium) 30 ml PO DAILYPRN PRN PRN Reason: Constipation Last Admin: 07/31/17 22:06 Dose: 30 ml Magnesium Oxide (Magnesium Oxide) 400 mg PO BID [facility] Last Admin: 08/01/17 09:34 Dose: 400 mg Melatonin (Melatonin) 3 mg PO HS PRN PRN Reason: Insomnia Last Admin: 07/31/17 22:07 Dose: 3 mg Meperidine HCl (Demerol) 50 mg IM Q4H PRN PRN Reason: Pain Stop: 08/01/17 23:59 Morphine Sulfate (Morphine Sulfate) 4 mg SLOW IVP Q3H PRN PRN Reason: Pain Last Admin: 07/31/17 06:02 Dose: 4 mg Nystatin (Mycostatin Ointment) 0 gm TOP BID [facility] Last Admin: 07/31/17 21:56 Dose: 1 applic Olmesartan (Benicar) 20 mg PO DAILY [facility] Last Admin: 08/01/17 09:33 Dose: 20 mg Pantoprazole Sodium (Protonix) 40 mg PO DAILY [facility] Last Admin: 08/01/17 09:34 Dose: 40 mg Polyethylene Glycol (Miralax) 17 gm PO DAILYPRN PRN PRN Reason: Constipation Last Admin: 07/31/17 09:20 Dose: 17 gm Promethazine HCl (Phenergan) 25 mg IM Q4H PRN PRN Reason: Nausea/Vomiting Last Admin: 08/01/17 10:15 Dose: 25 mg Sodium Chloride (Flush - Normal Saline) 10 ml IVF Q12HR [facility] Last Admin: 08/01/17 03:06 Dose: Not Given Sodium Chloride (Flush - Normal Saline) 10 ml IVF PRN PRN PRN Reason: Saline Flush Tamsulosin HCl (Flomax) 0.4 mg PO HS [facility] Last Admin: 07/31/17 21:57 Dose: 0.4 mg Zinc Sulfate (Zinc Sulfate) 220 mg PO DAILY [facility] Last Admin: 08/01/17 09:34 Dose: 220 mg
[2017-08-01] MEDS: Nystatin Ointment 15 GM TUBE TOP SCH ×2 (12:41→21:25)
--- NOTE | 2017-08-01 13:47 | PRG ---
DATE OF SERVICE: 08/01/2017 SUBJECTIVE: Patient with improvement in pain, no dyspnea, or abdominal pain, no diarrhea. OBJECTIVE: VITAL SIGNS: T-max 98-100, blood 140/83, pulse 60, respirations 18, O2 sat 99%. LUNGS: Clear. HEART: S1, S2, regular rate. ABDOMEN: Soft and not distended. EXTREMITY: Right and left upper extremity dressing is not removed. Patient has a negative pressure dressing, left lower extremity. LABORATORY DATA: White cell count 5.4, hemoglobin 7.6, platelets 165. Normal differential. Creatin ine is down to 1.67, GFR is at 44. ASSESSMENT AND DISCUSSION: 1. Chronic back pain, multiple surgeries with interbody device with possible infection due to methic illin-resistant Staphylococcus aureus, right hand infectious arthritis and osteomyelitis, multiple I&D procedures. 2. Abscess, right leg with evidence of facial and muscle involvement. 3. Left forearm abscesses. Patient to continue IV cefazolin, current dose until actually 09/05, I have recalculated end date of therapy with weekly labs. After that then transitioned to oral Keflex indefinitely, in view of the i nterbody device likely contamination.
[2017-08-01] MEDS: Tamsulosin HCl 0.4 MG CAP PO SCH (21:25)
[2017-08-02] MEDS: HYDROcodone/Acetaminophen 10/325 mg Tablet PO SCH ×4 (03:45→21:29)
[2017-08-02] MEDS: Gentamicin Sulfate 80 MG in Premix Bag 1 BAG IVPB SCH ×3 (05:42→21:33)
[2017-08-02] MEDS: CEFAZOLIN/Water 2 GM/20 ML SYRINGE SLOW IVP SCH ×3 (05:43→21:24)
[2017-08-02] MEDS: Sodium Chloride 0.9% 1,000 ML IV SCH (05:49)
[2017-08-02] MEDS: Magnesium Oxide 400 MG TAB PO SCH ×2 (09:05→21:25)
[2017-08-02] MEDS: Ferrous Sulfate 325 MG TAB PO SCH (09:05)
[2017-08-02] MEDS: Docusate 100 MG CAP PO SCH ×2 (09:05→21:25)
[2017-08-02] MEDS: Hydrochlorothiazide 25 MG TAB PO SCH (09:05)
[2017-08-02] MEDS: Zinc Sulfate 220 MG CAP PO SCH (09:05)
[2017-08-02] MEDS: Insulin Detemir 100 UNITS/ML 20 UNITS in Pre-Filled Syringe 1 EACH SC SCH ×2 (09:05→21:24)
[2017-08-02] MEDS: Enoxaparin Sodium 40 MG/0.4 ML SYRINGE SC SCH (09:05)
[2017-08-02] MEDS: Nystatin Ointment 15 GM TUBE TOP SCH ×2 (09:25→21:25)
--- NOTE | 2017-08-02 11:19 | PDOC.PN ---
- Subjective Encounter Start Date: 08/02/17 Encounter Start Time: 10:40 Subjective: his loya is leaking, has stood with PT yesterday -: pain is better - Objective Resuscitation Status: Resuscitation Status FULL:Full Resuscitation MAR Reviewed: Yes Vital Signs & Weight: Vital Signs (12 hours) Temp Pulse Resp BP BP Pulse Ox 08/02/17 08:00 98.3 F 62 16 150/76 H 98 08/02/17 03:44 97.9 F 62 19 141/78 H 93 L 08/02/17 00:00 98.3 F 66 19 152/79 H 96 Weight Admit Weight 235 lb 0.204 oz Weight 236 lb 15.951 oz Most Recent Monitor Data Heart Rate from ECG 97 NIBP 148/68 NIBP BP-Mean 93 Respiration from ECG 36 SpO2 99 I&O: 08/01/17 08/02/17 08/03/17 06:59 06:59 06:59 Intake Total 4175 4500 Output Total 2550 5875 Balance 1625 -1375 Result Diagrams: 08/01/17 03:30 08/01/17 03:30 Additional Labs: Accuchecks 08/02/17 08/01/17 08/01/17 06:22 19:57 17:32 POC Glucose 85 83 78 08/01/17 11:26 POC Glucose 73 Phys Exam - Physical Examination HEENT: PERRLA, moist MMs Neck: no JVD, supple Respiratory: no wheezing, no rales Cardiovascular: RRR, no significant murmur Gastrointestinal: soft, non-tender, positive bowel sounds Musculoskeletal: pulses present Neurological: non-focal, moves all 4 limbs Psychiatric: A&O x 3 Dx/Plan (1) Abscess of arm, right Code(s): L02.413 - CUTANEOUS ABSCESS OF RIGHT UPPER LIMB Status: Acute (2) Abscess of leg, right Code(s): L02.415 - CUTANEOUS ABSCESS OF RIGHT LOWER LIMB Status: Acute (3) Abscess of thumb, right Code(s): L02.511 - CUTANEOUS ABSCESS OF RIGHT HAND Status: Acute Comment: IV Ancef, add gentamicin (4) Anemia, normocytic normochromic Code(s): D64.9 - ANEMIA, UNSPECIFIED Status: Acute (5) Diabetes mellitus, type II, insulin dependent Code(s): E11.9 - TYPE 2 DIABETES MELLITUS WITHOUT COMPLICATIONS; Z79.4 - ALF (CURRENT) USE OF INSULIN Status: Acute Comment: Continue Levemir 20u sc BID, ISS (6) Obesity (BMI 30.0-34.9) Code(s): E66.9 - OBESITY, UNSPECIFIED Status: Chronic (7) Staphylococcus aureus bacteremia with sepsis Code(s): A41.01 - SEPSIS DUE TO METHICILLIN SUSCEPTIBLE STAPHYLOCOCCUS AUREUS Status: Acute - Plan is on ancef and gentamicin, pharmacy to follow protocol for gentamicin -: may dc to snf if accepted and ok with hand surgery -: has had nearly 7 debridements so far -: PT to amb pt in hallway as tolerated -: remove loya, its leaking cant bladder train * . Review of Systems - Medications/Allergies Allergies/Adverse Reactions: Allergies Allergy/AdvReac Type Severity Reaction Status Date / Time NSAIDS (Non-Steroidal AdvReac "GASTRIC Verified 08/15/14 03:31 Anti-Inflamma ULCERS" Medications: Current Medications Acetaminophen (Tylenol) 650 mg [place] Q6H PRN PRN Reason: Headache/Fever or Pain Last Admin: 07/17/17 11:00 Dose: 650 mg Acetaminophen (Tylenol) 500 mg PO Q4H PRN PRN Reason: Headache/Fever or Pain Last Admin: 07/22/17 17:44 Dose: 500 mg Hydrocodone Bitart/Acetaminophen ([place] 10/325) 1 tab PO 0300,0900,1500,2100 [place] Last Admin: 08/02/17 09:06 Dose: 1 tab Al Hydroxide/Mg Hydroxide (Maalox) 30 ml PO Q6H PRN PRN Reason: Heartburn or Indigestion Last Admin: 07/10/17 22:04 Dose: 30 ml Albuterol/Ipratropium (Duoneb) 3 ml NEB Q4H PRN PRN Reason: SOB &/or Wheezing Bisacodyl (Dulcolax) 10 mg [place] DAILYPRN PRN PRN Reason: Constipation Last Admin: 08/01/17 09:15 Dose: 10 mg Cefazolin Sodium (Ancef) 2 gm SLOW IVP 0500,1300,2100 [place] Last Admin: 08/02/17 05:43 Dose: 2 gm Collagenase (Santyl 250 Units/Gram Ointment) 0 gm TOP ASDIR [place] Dextrose/Water (Dextrose 50%) 25 gm SLOW IVP PRN PRN PRN Reason: Hypoglycemia Docusate Sodium (Colace) 100 mg PO BID [facility] Last Admin: 08/02/17 09:05 Dose: 100 mg Enoxaparin Sodium (Lovenox) 40 mg SC DAILY [facility] Last Admin: 08/02/17 09:05 Dose: 40 mg Ferrous Sulfate (Feosol) 325 mg PO QAM-WM [facility] Last Admin: 08/02/17 09:05 Dose: 325 mg Glucagon (Glucagon) 1 mg IM PRN PRN PRN Reason: Hypoglycemia Hydralazine HCl (Apresoline) 10 mg SLOW IVP Q4H PRN PRN Reason: SBP > 180 Hydrochlorothiazide (Hydrochlorothiazide) 12.5 mg PO DAILY [facility] Last Admin: 08/02/17 09:05 Dose: 12.5 mg Dextrose/Water (D5w) 1,000 mls @ 0 mls/hr IV .Q0M PRN; As Directed PRN Reason: Hypoglycemia Insulin Detemir 20 units/ (Miscellaneous Medication) 0.2 mls @ 0 mls/hr SC BID [facility] Last Admin: 08/02/17 09:05 Dose: 0.2 mls Gentamicin Sulfate 80 mg/ (Device) 100 mls @ 200 mls/hr IVPB Q8HR [facility] Last Admin: 08/02/17 05:42 Dose: 100 mls Insulin Human Lispro (Humalog) 0 units SC .AGGRESSIVE SLIDING PRN PRN Reason: Aggressive Correctional Scale Last Admin: 07/28/17 17:13 Dose: 3 unit Labetalol HCl (Normodyne) 10 mg SLOW IVP Q4H PRN PRN Reason: SBP Greater Than 180 Magnesium Hydroxide (Milk Of Magnesium) 30 ml PO DAILYPRN PRN PRN Reason: Constipation Last Admin: 07/31/17 22:06 Dose: 30 ml Magnesium Oxide (Magnesium Oxide) 400 mg PO BID [facility] Last Admin: 08/02/17 09:05 Dose: 400 mg Melatonin (Melatonin) 3 mg PO HS PRN PRN Reason: Insomnia Last Admin: 07/31/17 22:07 Dose: 3 mg Morphine Sulfate (Morphine Sulfate) 4 mg SLOW IVP Q3H PRN PRN Reason: Pain Last Admin: 07/31/17 06:02 Dose: 4 mg Nystatin (Mycostatin Ointment) 0 gm TOP BID [facility] Last Admin: 08/02/17 09:25 Dose: 1 applic Olmesartan (Benicar) 20 mg PO DAILY [facility] Last Admin: 08/02/17 09:05 Dose: 20 mg Pantoprazole Sodium (Protonix) 40 mg PO DAILY [facility] Last Admin: 08/02/17 09:05 Dose: 40 mg Polyethylene Glycol (Miralax) 17 gm PO DAILYPRN PRN PRN Reason: Constipation Last Admin: 07/31/17 09:20 Dose: 17 gm Promethazine HCl (Phenergan) 25 mg IM Q4H PRN PRN Reason: Nausea/Vomiting Last Admin: 08/01/17 10:15 Dose: 25 mg Sodium Chloride (Flush - Normal Saline) 10 ml IVF Q12HR [facility] Last Admin: 08/02/17 09:25 Dose: Not Given Sodium Chloride (Flush - Normal Saline) 10 ml IVF PRN PRN PRN Reason: Saline Flush Tamsulosin HCl (Flomax) 0.4 mg PO HS [facility] Last Admin: 08/01/17 21:25 Dose: 0.4 mg Zinc Sulfate (Zinc Sulfate) 220 mg PO DAILY [facility] Last Admin: 08/02/17 09:05 Dose: 220 mg
[2017-08-02] MEDS: Tamsulosin HCl 0.4 MG CAP PO SCH (21:26)
[2017-08-02] MEDS: Melatonin 3 MG TAB PO PRN (22:13)
[2017-08-03] MEDS: HYDROcodone/Acetaminophen 10/325 mg Tablet PO SCH ×4 (03:55→20:51)
[2017-08-03] MEDS: CEFAZOLIN/Water 2 GM/20 ML SYRINGE SLOW IVP SCH ×3 (04:02→20:51)
[2017-08-03] MEDS: Gentamicin Sulfate 80 MG in Premix Bag 1 BAG IVPB SCH ×3 (05:25→20:50)
[2017-08-03] MEDS: Ferrous Sulfate 325 MG TAB PO SCH (09:38)
[2017-08-03] MEDS: Docusate 100 MG CAP PO SCH ×2 (09:38→20:51)
[2017-08-03] MEDS: Enoxaparin Sodium 40 MG/0.4 ML SYRINGE SC SCH (09:38)
[2017-08-03] MEDS: Hydrochlorothiazide 25 MG TAB PO SCH (09:39)
[2017-08-03] MEDS: Insulin Detemir 100 UNITS/ML 20 UNITS in Pre-Filled Syringe 1 EACH SC SCH ×2 (09:41→20:50)
[2017-08-03] MEDS: Magnesium Oxide 400 MG TAB PO SCH ×2 (09:42→20:51)
[2017-08-03] MEDS: Nystatin Ointment 15 GM TUBE TOP SCH ×2 (09:42→20:50)
[2017-08-03] MEDS: Zinc Sulfate 220 MG CAP PO SCH (09:43)
--- NOTE | 2017-08-03 14:21 | PDOC.PN ---
- Subjective Encounter Start Date: 08/03/17 Encounter Start Time: 11:00 Subjective: feels better, has started to ambulate in wheel chair now -: no sob -: is passing urine after loya was removed - Objective Resuscitation Status: Resuscitation Status FULL:Full Resuscitation MAR Reviewed: Yes Vital Signs & Weight: Vital Signs (12 hours) Temp Pulse Resp BP BP Pulse Ox 08/03/17 12:00 98.0 F 63 20 116/77 95 08/03/17 08:15 98.0 F 63 20 94 L 08/03/17 08:00 97.5 F L 87 20 130/78 100 08/03/17 04:04 98.4 F 70 18 152/78 H 98 Weight Admit Weight 235 lb 0.204 oz Weight 236 lb 15.951 oz Most Recent Monitor Data Heart Rate from ECG 97 NIBP 148/68 NIBP BP-Mean 93 Respiration from ECG 36 SpO2 99 I&O: 08/02/17 08/03/17 08/04/17 06:59 06:59 06:59 Intake Total 4500 1400 Output Total 5875 2150 Balance -1375 -750 Result Diagrams: 08/01/17 03:30 08/01/17 03:30 Additional Labs: Accuchecks 08/03/17 08/03/17 08/02/17 11:36 05:42 20:10 POC Glucose 82 82 95 08/02/17 15:51 POC Glucose 89 Phys Exam - Physical Examination HEENT: PERRLA, moist MMs Neck: no JVD, supple Respiratory: no wheezing, no rales Cardiovascular: RRR, no significant murmur Gastrointestinal: soft, non-tender, positive bowel sounds Musculoskeletal: no edema, pulses present Neurological: non-focal, moves all 4 limbs Psychiatric: A&O x 3 Dx/Plan (1) Abscess of arm, right Code(s): L02.413 - CUTANEOUS ABSCESS OF RIGHT UPPER LIMB Status: Acute (2) Abscess of leg, right Code(s): L02.415 - CUTANEOUS ABSCESS OF RIGHT LOWER LIMB Status: Acute (3) Abscess of thumb, right Code(s): L02.511 - CUTANEOUS ABSCESS OF RIGHT HAND Status: Acute Comment: IV Ancef, add gentamicin (4) Anemia, normocytic normochromic Code(s): D64.9 - ANEMIA, UNSPECIFIED Status: Acute (5) Diabetes mellitus, type II, insulin dependent Code(s): E11.9 - TYPE 2 DIABETES MELLITUS WITHOUT COMPLICATIONS; Z79.4 - CORRECTION (CURRENT) USE OF INSULIN Status: Acute Comment: Continue Levemir 20u sc BID, ISS (6) Obesity (BMI 30.0-34.9) Code(s): E66.9 - OBESITY, UNSPECIFIED Status: Chronic (7) Staphylococcus aureus bacteremia with sepsis Code(s): A41.01 - SEPSIS DUE TO METHICILLIN SUSCEPTIBLE STAPHYLOCOCCUS AUREUS Status: Acute - Plan hemostable -: on ancef and gentamicin -: awaiting placement -: may dc anytime placement is ready -: to work with PT and ambulate as tolerated * . Review of Systems - Medications/Allergies Allergies/Adverse Reactions: Allergies Allergy/AdvReac Type Severity Reaction Status Date / Time NSAIDS (Non-Steroidal AdvReac "GASTRIC Verified 08/15/14 03:31 Anti-Inflamma ULCERS" Medications: Current Medications Acetaminophen (Tylenol) 650 mg [place] Q6H PRN PRN Reason: Headache/Fever or Pain Last Admin: 07/17/17 11:00 Dose: 650 mg Acetaminophen (Tylenol) 500 mg PO Q4H PRN PRN Reason: Headache/Fever or Pain Last Admin: 07/22/17 17:44 Dose: 500 mg Hydrocodone Bitart/Acetaminophen ([place] 10/325) 1 tab PO 0300,0900,1500,2100 GEOR[place]IE Last Admin: 08/03/17 14:03 Dose: 1 tab Al Hydroxide/Mg Hydroxide (Maalox) 30 ml PO Q6H PRN PRN Reason: Heartburn or Indigestion Last Admin: 07/10/17 22:04 Dose: 30 ml Albuterol/Ipratropium (Duoneb) 3 ml NEB Q4H PRN PRN Reason: SOB &/or Wheezing Bisacodyl (Dulcolax) 10 mg [place] DAILYPRN PRN PRN Reason: Constipation Last Admin: 08/01/17 09:15 Dose: 10 mg Cefazolin Sodium (Ancef) 2 gm SLOW IVP 0500,1300,2100 GE[place]IE Last Admin: 08/03/17 14:02 Dose: 2 gm Collagenase (Santyl 250 Units/Gram Ointment) 0 gm TOP ASDIR [place] Dextrose/Water (Dextrose 50%) 25 gm SLOW IVP PRN PRN PRN Reason: Hypoglycemia Docusate Sodium (Colace) 100 mg PO BID [facility], [facility] Last Admin: 08/03/17 09:38 Dose: 100 mg Enoxaparin Sodium (Lovenox) 40 mg SC DAILY [facility], [facility] Last Admin: 08/03/17 09:38 Dose: 40 mg Ferrous Sulfate (Feosol) 325 mg PO QAM-WM [facility], [facility] Last Admin: 08/03/17 09:38 Dose: 325 mg Glucagon (Glucagon) 1 mg IM PRN PRN PRN Reason: Hypoglycemia Hydralazine HCl (Apresoline) 10 mg SLOW IVP Q4H PRN PRN Reason: SBP > 180 Hydrochlorothiazide (Hydrochlorothiazide) 12.5 mg PO DAILY [facility], [facility] Last Admin: 08/03/17 09:39 Dose: 12.5 mg Dextrose/Water (D5w) 1,000 mls @ 0 mls/hr IV .Q0M PRN; As Directed PRN Reason: Hypoglycemia Insulin Detemir 20 units/ (Miscellaneous Medication) 0.2 mls @ 0 mls/hr SC BID [facility], [facility] Last Admin: 08/03/17 09:41 Dose: 0.2 mls Gentamicin Sulfate 80 mg/ (Device) 100 mls @ 200 mls/hr IVPB Q8HR [facility], [facility] Last Admin: 08/03/17 14:02 Dose: 100 mls Insulin Human Lispro (Humalog) 0 units SC .AGGRESSIVE SLIDING PRN PRN Reason: Aggressive Correctional Scale Last Admin: 07/28/17 17:13 Dose: 3 unit Labetalol HCl (Normodyne) 10 mg SLOW IVP Q4H PRN PRN Reason: SBP Greater Than 180 Magnesium Hydroxide (Milk Of Magnesium) 30 ml PO DAILYPRN PRN PRN Reason: Constipation Last Admin: 07/31/17 22:06 Dose: 30 ml Magnesium Oxide (Magnesium Oxide) 400 mg PO BID [facility] Last Admin: 08/03/17 09:42 Dose: 400 mg Melatonin (Melatonin) 3 mg PO HS PRN PRN Reason: Insomnia Last Admin: 08/02/17 22:13 Dose: 3 mg Morphine Sulfate (Morphine Sulfate) 4 mg SLOW IVP Q3H PRN PRN Reason: Pain Last Admin: 07/31/17 06:02 Dose: 4 mg Nystatin (Mycostatin Ointment) 0 gm TOP BID [facility], [facility] Last Admin: 08/03/17 09:42 Dose: 1 applic Olmesartan (Benicar) 20 mg PO DAILY [facility] Last Admin: 08/03/17 09:43 Dose: 20 mg Pantoprazole Sodium (Protonix) 40 mg PO DAILY [facility] Last Admin: 08/03/17 09:43 Dose: 40 mg Polyethylene Glycol (Miralax) 17 gm PO DAILYPRN PRN PRN Reason: Constipation Last Admin: 07/31/17 09:20 Dose: 17 gm Promethazine HCl (Phenergan) 25 mg IM Q4H PRN PRN Reason: Nausea/Vomiting Last Admin: 08/01/17 10:15 Dose: 25 mg Sodium Chloride (Flush - Normal Saline) 10 ml IVF Q12HR [facility] Last Admin: 08/03/17 09:43 Dose: 10 ml Sodium Chloride (Flush - Normal Saline) 10 ml IVF PRN PRN PRN Reason: Saline Flush Tamsulosin HCl (Flomax) 0.4 mg PO HS [facility] Last Admin: 08/02/17 21:26 Dose: 0.4 mg Zinc Sulfate (Zinc Sulfate) 220 mg PO DAILY [facility] Last Admin: 08/03/17 09:43 Dose: 220 mg
[2017-08-03] MEDS ORDERED: Morphine 2 MG/ML SYRINGE SLOW IVP PRN (18:45)
[2017-08-03] MEDS: Tamsulosin HCl 0.4 MG CAP PO SCH (20:51)
[2017-08-03] MEDS: Melatonin 3 MG TAB PO PRN (21:01)
[2017-08-04] MEDS: HYDROcodone/Acetaminophen 10/325 mg Tablet PO SCH ×2 (04:56→09:42)
[2017-08-04] MEDS: CEFAZOLIN/Water 2 GM/20 ML SYRINGE SLOW IVP SCH (04:57)
[2017-08-04] MEDS: Gentamicin Sulfate 80 MG in Premix Bag 1 BAG IVPB SCH (04:57)
[2017-08-04 08:29] VITALS: BP 153/80; TEMP 97.9
[2017-08-04] MEDS: Ferrous Sulfate 325 MG TAB PO SCH (09:42)
[2017-08-04] MEDS: Zinc Sulfate 220 MG CAP PO SCH (09:42)
[2017-08-04] MEDS: Magnesium Oxide 400 MG TAB PO SCH (09:42)
[2017-08-04] MEDS: Hydrochlorothiazide 25 MG TAB PO SCH (09:42)
[2017-08-04] MEDS: Docusate 100 MG CAP PO SCH (09:42)
[2017-08-04] MEDS: Enoxaparin Sodium 40 MG/0.4 ML SYRINGE SC SCH (09:44)
[2017-08-04] MEDS: Insulin Detemir 100 UNITS/ML 20 UNITS in Pre-Filled Syringe 1 EACH SC SCH (09:44)
[2017-08-04] MEDS: Nystatin Ointment 15 GM TUBE TOP SCH (09:44)
[2017-08-04 10:15] LABS: #Lymphocytes 1.7 thou/uL (1.20-3.40); #Monocytes 0.5 thou/uL (0.11-0.59); #Neutrophils 3.4 thou/uL (1.40-6.50); %Basophils 0.4 % (0.0-1.0); %Eosinophils 0.8 % (0.0-10.0); %Lymphocytes 29.6 % (21.0-51.0); %Monocytes 8.3 % (0.0-10.0); Hemoglobin 8.1 g/dL (14.0-18.0); Mean Corpuscular Hemoglobin 29.7 pg (27.0-31.0); Mean Platelet Volume 6.4 fL (7.4-10.4); Platelet Count 168 thou/uL (130-400); RBC Distribution Width 14.4 % (11.5-14.5); Red Blood Cell (RBC) Count 2.74 mill/uL (4.70-6.10); White Blood Cell (WBC) Count 5.6 thou/uL (4.8-10.8)
[2017-08-04 10:45] LABS: ALT (SGPT) Less than 7 U/L (8-55); AST (SGOT) 9 U/L (5-34); Albumin 2.4 g/dL (3.5-5.0); Alkaline Phosphatase 100 U/L (40-150); Anion Gap 12 mmol/L (10-20); BUN (Urea Nitrogen) 22 mg/dL (8.9-20.6); Bilirubin, Total 0.2 mg/dL (0.2-1.2); Calc. Creatinine Clearance 70 mL/min (70-130); Calcium 7.9 mg/dL (7.8-10.44); Carbon Dioxide 22 mmol/L (22-29); Chloride 104 mmol/L (98-107); Estimated GFR-MDRD 37; Globulin 3.8 g/dL (2.4-3.5); Glucose 102 mg/dL (70-105); Protein, Total 6.2 g/dL (6.0-8.3); Sodium 135 mmol/L (136-145)
[2017-08-04 10:56] LABS: Potassium 2.8 mmol/L (3.5-5.1)
[2017-08-04] MEDS ORDERED: Potassium Chloride 20 MEQ TAB PO SCH (11:15)
--- NOTE | 2017-08-04 19:41 | PDOC.PN ---
- Subjective Encounter Start Date: 08/04/17 Encounter Start Time: 09:40 Subjective: feels better, is mobilizing in wheel chair - Objective Resuscitation Status: Resuscitation Status FULL:Full Resuscitation MAR Reviewed: Yes Vital Signs & Weight: Vital Signs (12 hours) Temp Pulse Resp Pulse Ox 08/04/17 08:00 97.9 F 61 18 98 Weight Admit Weight 235 lb 0.204 oz Weight 236 lb 15.951 oz Most Recent Monitor Data Heart Rate from ECG 97 NIBP 148/68 NIBP BP-Mean 93 Respiration from ECG 36 SpO2 99 I&O: 08/03/17 08/04/17 08/05/17 06:59 06:59 06:59 Intake Total 1400 2080 Output Total 2150 3050 Balance -750 -970 Result Diagrams: 08/04/17 10:00 08/04/17 10:00 Additional Labs: Accuchecks 08/04/17 08/04/17 08/03/17 11:12 06:02 20:11 POC Glucose 92 48 L* 109 Phys Exam - Physical Examination HEENT: PERRLA, moist MMs Neck: no JVD, supple Respiratory: no wheezing, no rales Cardiovascular: RRR, no significant murmur Gastrointestinal: soft, non-tender, positive bowel sounds Musculoskeletal: no edema, pulses present Neurological: non-focal, moves all 4 limbs Psychiatric: A&O x 3 Dx/Plan (1) Abscess of arm, right Code(s): L02.413 - CUTANEOUS ABSCESS OF RIGHT UPPER LIMB Status: Acute (2) Abscess of leg, right Code(s): L02.415 - CUTANEOUS ABSCESS OF RIGHT LOWER LIMB Status: Acute (3) Abscess of thumb, right Code(s): L02.511 - CUTANEOUS ABSCESS OF RIGHT HAND Status: Acute Comment: IV Ancef, add gentamicin (4) Anemia, normocytic normochromic Code(s): D64.9 - ANEMIA, UNSPECIFIED Status: Acute (5) Diabetes mellitus, type II, insulin dependent Code(s): E11.9 - TYPE 2 DIABETES MELLITUS WITHOUT COMPLICATIONS; Z79.4 - LEDGE MAN (CURRENT) USE OF INSULIN Status: Acute Comment: Continue Levemir 20u sc BID, ISS (6) Obesity (BMI 30.0-34.9) Code(s): E66.9 - OBESITY, UNSPECIFIED Status: Chronic (7) Staphylococcus aureus bacteremia with sepsis Code(s): A41.01 - SEPSIS DUE TO METHICILLIN SUSCEPTIBLE STAPHYLOCOCCUS AUREUS Status: Acute - Plan to continue cefazolin until 05 of september, then start keflex for indefinite -: period of time for multiple foci of mssa. -: dc pt to snf * .
--- NOTE | 2017-08-05 04:09 | DIS ---
DATE OF ADMISSION: 07/02/2017 DATE OF DISCHARGE: 08/04/2017 DISCHARGE DISPOSITION: To [facility]. PRIMARY DISCHARGE DIAGNOSES: Staphylococcus aureus bacteremia with sepsis; cultures revealed MSSA; multiple abscesses of both upper extremities and leg, status post multiple debridements around 7, all done by Dr. Reynoso. SECONDARY DISCHARGE DIAGNOSES: Chronic anemia, diabetes mellitus type 2, deconditioning. PROCEDURES DONE DURING HOSPITALIZATION: Please note the patient was hospitalized for nearly 33 days and has had multiple procedures done. He has had echo with 2D Doppler done, which showed an EF of 60-65%. CT dissection protocol done on the day of admission showed no evidence of aneurysm or dissection. CT brain done on the day of admission showed no acute intracranial process. He has had nearly 7 debridements done for the multiple abscesses in both upper extremities and right lower extremity by Dr. Reynoso, Hand Surgery. Lumbar spine MRI done anterior epidural abscess smaller one at L3, L2, L1, and T12, osteomyelitis of L5 vertebral body and probably also L4 and S1, diskitis at L5-S1. MRI brain done showed no acute intracranial process. Cervical spine MRI done showed multilevel spondylosis. Wound cultures have grown Staph aureus sensitive, so which is an MSSA sensitive to cefazolin. Discharge H and H 8 and 24, platelet count 168, MCV is 90. Discharge BUN and creatinine is 22 and 1.9. Had potassium of 2.8 this morning and has been 1given a dose of 40 mEq p.o. and needs to continue 4 more doses on discharge. Albumin is 2.4 on the day of discharge, vancomycin trough levels on 07/28 is 12.6. CARRIE was negative. Acute hepatitis panel was negative. INPATIENT CONSULTS: Dr. Colon for Infectious Disease, Dr. Reynoso for Hand Surgery, Dr. Duval for Wound Care, Dr. Vital/Jacqui for Pulmonology. DISCHARGE PLAN: Patient is to follow up with Dr. Reynoso as advised. He also needs to follow up with primary care physician in 1 week. BRIEF COURSE DURING HOSPITALIZATION: Patient initially got admitted on 2017 for altered mental state. He has had multiple imaging studies done which have all revealed severe sepsis. He was also hypoxic on arrival and had to be intubated in the ER. Had a white count of 33,000 on the day of admission. He was essentially admitted for severe sepsis with multiple organ failure and acute hypoxic respiratory failure. He was evaluated by multiple specialists as mentioned above. The patient has had multiple debridements for abscesses in both upper extremities and right lower extremity. He was also found to have had epidural abscess in the lumbar spine. Patient has grown Staph aureus sensitive to cefazolin. He was placed on cefazolin and gentamicin was added later. The patient was successfully extubated and has been slowly, but gradually improving. He is still deconditioned and mobilizes himself in a wheelchair. He needs to continue antibiotics until 09/05 and later switch over to Keflex indefinitively for MSSA bacteremia with multiple focus of infection at present. He needs to work with physical therapy and gradually mobilize more. He is being discharged to [facility] for further recuperation. For full details of all the workup and the procedures done, please refer to [facility] as patient has been hospitalized for nearly 33 days here. A total of 35 minutes was spent on discharge plan. Please see a face to face documentation on [facility] for the day of discharge. DARRYL
== END 2017-08-04 12:42 | DRG 853 ==
LOC: ERS 14:15 → CCU 20:00 → IMCU/EMU 07-10 12:27 → T4-A 07-14 16:04 → SURG A 07-17 15:54
PROVIDERS: ADMIT Family Medicine; ATTEND Family Medicine
PROC: 5A1945Z Respiratory Ventilation, 24-96 Consecutive Hours (ICD-10-PCS; 2017-07-02)
PROC: 0BH17EZ Insertion of Endotracheal Airway into Trachea, Via Natural or Artificial Opening (ICD-10-PCS; 2017-07-02)
PROC: 02H633Z Insertion of Infusion Device into Right Atrium, Percutaneous Approach (ICD-10-PCS; 2017-07-02)
PROC: 0J9J0ZZ Drainage of Right Hand Subcutaneous Tissue and Fascia, Open Approach (ICD-10-PCS; 2017-07-06)
PROC: 0LB70ZZ Excision of Right Hand Tendon, Open Approach (ICD-10-PCS; 2017-07-11)
PROC: 02HV33Z Insertion of Infusion Device into Superior Vena Cava, Percutaneous Approach (ICD-10-PCS; 2017-07-12)
PROC: 0JB70ZZ Excision of Back Subcutaneous Tissue and Fascia, Open Approach (ICD-10-PCS; 2017-07-14)
PROC: 30233N1 Transfusion of Nonautologous Red Blood Cells into Peripheral Vein, Percutaneous Approach (ICD-10-PCS; principal; 2017-07-15)
PROC: 0PDR0ZZ Extraction of Right Thumb Phalanx, Open Approach (ICD-10-PCS; 2017-07-18)
PROC: 0LD70ZZ Extraction of Right Hand Tendon, Open Approach (ICD-10-PCS; 2017-07-18)
PROC: 0DB58ZX Excision of Esophagus, Via Natural or Artificial Opening Endoscopic, Diagnostic (ICD-10-PCS; 2017-07-19)
PROC: 0DB68ZX Excision of Stomach, Via Natural or Artificial Opening Endoscopic, Diagnostic (ICD-10-PCS; 2017-07-19)
PROC: 0JBG0ZZ Excision of Right Lower Arm Subcutaneous Tissue and Fascia, Open Approach (ICD-10-PCS; 2017-07-25)
PROC: 0KBB0ZZ Excision of Left Lower Arm and Wrist Muscle, Open Approach (ICD-10-PCS; 2017-07-25)
PROC: 0KBS0ZZ Excision of Right Lower Leg Muscle, Open Approach (ICD-10-PCS; 2017-07-25)
PROC: 0LBN0ZZ Excision of Right Lower Leg Tendon, Open Approach (ICD-10-PCS; 2017-07-30)
PROC: 0HRKXK3 Replacement of Right Lower Leg Skin with Nonautologous Tissue Substitute, Full Thickness, External Approach (ICD-10-PCS; 2017-07-30)
PROC: 0JBH0ZZ Excision of Left Lower Arm Subcutaneous Tissue and Fascia, Open Approach (ICD-10-PCS; 2017-07-30)
PROC: 0JBG0ZZ Excision of Right Lower Arm Subcutaneous Tissue and Fascia, Open Approach (ICD-10-PCS; 2017-07-30)
DX: A41.01 Sepsis due to Methicillin susceptible Staphylococcus aureus (principal); G00.3 Staphylococcal meningitis; J96.01 Acute respiratory failure with hypoxia; R65.21 Severe sepsis with septic shock; G06.1 Intraspinal abscess and granuloma; G93.41 Metabolic encephalopathy; I96 Gangrene, not elsewhere classified; L89.152 Pressure ulcer of sacral region, stage 2; M00.841 Arthritis due to other bacteria, right hand; L02.415 Cutaneous abscess of right lower limb; L02.413 Cutaneous abscess of right upper limb; L02.511 Cutaneous abscess of right hand; M46.26 Osteomyelitis of vertebra, lumbar region; I82.622 Acute embolism and thrombosis of deep veins of left upper extremity; L03.115 Cellulitis of right lower limb; N17.9 Acute kidney failure, unspecified; E87.2 Acidosis; E11.52 Type 2 diabetes mellitus with diabetic peripheral angiopathy with gangrene; M87.9 Osteonecrosis, unspecified; E87.0 Hyperosmolality and hypernatremia; I38 Endocarditis, valve unspecified; E11.69 Type 2 diabetes mellitus with other specified complication; D64.9 Anemia, unspecified; E66.9 Obesity, unspecified; Z79.4 Long term (current) use of insulin; B95.8 Unspecified staphylococcus as the cause of diseases classified elsewhere; M46.96 Unspecified inflammatory spondylopathy, lumbar region; M46.46 Discitis, unspecified, lumbar region; I10 Essential (primary) hypertension; R31.9 Hematuria, unspecified; F17.210 Nicotine dependence, cigarettes, uncomplicated; S51.802A Unspecified open wound of left forearm, initial encounter; S51.801A Unspecified open wound of right forearm, initial encounter; S81.801A Unspecified open wound, right lower leg, initial encounter; S61.001A Unspecified open wound of right thumb without damage to nail, initial encounter; Z68.33 Body mass index [BMI] 33.0-33.9, adult; J44.9 Chronic obstructive pulmonary disease, unspecified; M65.9 Synovitis and tenosynovitis, unspecified
CPT/HCPCS: 31500; 36415; 36416; 36430; 36569; 51702; 70450; 70551; 71045; 71275; 72133; 72141; 72148; 72149; 76999; 80048; 80053; 80074; 80202; 80306; 80307; 81003; 81015; 82010; 82140; 82274; 82550; 82553; 82805; 83520; 83605; 83690; 83735; 83880; 84439; 84443; 84484; 85014; 85018; 85025; 85049; 85379; 85610; 85652; 85730; 86038; 86225; 86618; 86850; 86900; 86901; 87040; 87070; 87077; 87086; 87102; 87116; 87149; 87186; 87205; 87206; 87389; 88304; 88305; 88307; 88311; 88312; 88313; 88331; 93005; 93306; 94002; 94003; 94640; 96361; 96365; 96366; 96367; 96374; 96375; 99292; J2270; A4216; A4217; A9579; C1751; C9113; C9363; G8978-GP-CM; G8978-GP-CN; G8979-GP-CK; G8979-GP-CL; G8987-GO-CM; G8987-GO-CN; G8988-GO-CK; G8988-GO-CL; G8996-GN-CK; G8997-GN-CI; G8997-GN-CJ; J0131; J0692; J0696; J1100; J1170; J1580; J1644; J1650; J1720; J1815; J1940; J1956; J2001; J2060; J2250; J2405; J2543; J2550; J2704; J2920; J3010; J3370; J3411; J3480; J3490; J7042; J7050; J7070; J7620; L1930; P9016; S0020

== ENCOUNTER 2017-08-12 21:49 | Emergency (ER) | payer MEDICARE ==
[2017-08-13] MEDS ORDERED: HYDROcodone/Acetaminophen 10/325 mg Tablet ONE (00:50)
--- NOTE | 2017-08-13 09:48 | CT ---
PRELIMINARY REPORT/[facility]/EMERGENCY AFTER HOURS PROCEDURE: EXAM: CT Head Without Intravenous Contrast CLINICAL HISTORY: 51 years old, male; Injury or trauma; Fall; Initial encounter; Abrasion; Head, generalized; Patient H X: Er 6; M51 presents to ed C/O head injury S/P fall while at rehab center today. Pt reports being in rehab due to inability to walk due to multiple injuries to extremities. Pt reports being on levaquin . Pt denies loc TECHNIQUE: Axial computed tomography images of the head/brain without intravenous contrast. COMPARISON: No relevant prior studies available. FINDINGS: Brain:Mild volume loss No hemorrhage. No significant white matter disease. No edema. Ventricles: Unremarkable. No ventriculomegaly. Bones/joints: Unremarkable. No acute fracture. Soft tissues: Left periorbital swelling/hematoma Sinuses: Unremarkable as visualized. No acute sinusitis. Mastoid air cells: Unremarkable as visualized. No mastoid effusion. IMPRESSION: No intracranial hemorrhage.Please see discussion above. Thank you for allowing us to participate in the care of your patient. Dictated and Authenticated by: Rashid Brooks MD 08/13/2017 12:58 AM Central Time ([place] & [place]) FINAL REPORT EMERGENCY AFTER HOURS CT BRAIN: Date: 08/13/17 IMPRESSION: I agree with the preliminary interpretation given by Anthony. Comparison made with the study dated 07/02. POS: [facility]
--- NOTE | 2017-08-13 09:49 | CT ---
PRELIMINARY REPORT/[facility]/EMERGENCY AFTER HOURS PROCEDURE: EXAM: CT Maxillofacial Without Intravenous Contrast CLINICAL HISTORY: 51 years old, male; Injury or trauma; Fall; Initial encounter; Abrasion; Ocular (eye or eyeball); Ciro ateral; Patient HX: Er 6; M51 presents to ed C/O head injury S/P fall while at rehab center today. Pt reports being in rehab due to inability to walk due to multiple injuries to extremities. Pt reports being on levaquin. Pt denies loss of consciousness TECHNIQUE: Axial computed tomography images of the face without intravenous contrast. Coronal and sagittal reformatted images were created and reviewed. COMPARISON: No relevant prior studies available. FINDINGS: Bones/joints: Minimal nasal bones/nasal septal fractures of indeterminate age Soft tissues: Left peroneal hematoma Orbits: Unremarkable. Sinuses: Unremarkable. No air-fluid levels. IMPRESSION: Minimal nasal bones/nasal septal fractures of indeterminate age No definite acute orbital or mandibular fracture observed Thank you for allowing us to participate in the care of your patient. Dictated and Authenticated by: Rashid Brooks MD 08/13/2017 12:58 AM Central Time ([place] & [place]) FINAL REPORT EMERGENCY AFTER HOURS CT FACIAL BONES: Date: 08/13/17 IMPRESSION: I disagree with the preliminary interpretation given by vRtravis. There is no evidence for acute nasal b one fracture or other facial fracture. There is rightward nasal septal deviation with nasal septal sp ur. POS: [facility]
== END 2017-08-13 04:05 | disposition home or self-care (01) ==
LOC: ERS 21:49
DX: S02.2XXA Fracture of nasal bones, initial encounter for closed fracture (principal); S00.11XA Contusion of right eyelid and periocular area, initial encounter; I10 Essential (primary) hypertension; M10.9 Gout, unspecified; F17.210 Nicotine dependence, cigarettes, uncomplicated; Z71.6 Tobacco abuse counseling; W05.0XXA Fall from non-moving wheelchair, initial encounter; Y92.129 Unspecified place in nursing home as the place of occurrence of the external cause
CPT/HCPCS: 70450; 70486; 96360; 96361; 99406

== ENCOUNTER 2017-08-14 22:12 | Emergency (ER) | payer MEDICARE ==
[2017-08-14 23:40] LABS: #Eosinphils 0.2 thou/uL (0.0-0.7); #Lymphocytes 2.5 thou/uL (1.20-3.40); #Monocytes 0.5 thou/uL (0.11-0.59); #Neutrophils 3.5 thou/uL (1.40-6.50); %Basophils 0.6 % (0.0-1.0); %Eosinophils 2.3 % (0.0-10.0); %Lymphocytes 36.9 % (21.0-51.0); %Monocytes 7.5 % (0.0-10.0); %Neutrophils 52.7 % (42.0-75.0); Hemoglobin 7.3 g/dL (14.0-18.0); Mean Corpuscular HGB CONC 33.6 g/dL (32.0-36.0); Mean Corpuscular Hemoglobin 30.2 pg (27.0-31.0); Mean Corpuscular Volume 89.8 fl (80.0-94.0); Mean Platelet Volume 5.9 fL (7.4-10.4); Platelet Count 184 thou/uL (130-400); RBC Distribution Width 15.1 % (11.5-14.5); Red Blood Cell (RBC) Count 2.41 mill/uL (4.70-6.10); White Blood Cell (WBC) Count 6.7 thou/uL (4.8-10.8)
[2017-08-15] LABS: ALT (SGPT) Less than 7 U/L (8-55); AST (SGOT) 8 U/L (5-34); Albumin 2.7 g/dL (3.5-5.0); Alkaline Phosphatase 100 U/L (40-150); Anion Gap 16 mmol/L (10-20); BUN (Urea Nitrogen) 21 mg/dL (8.9-20.6); Bilirubin, Total 0.3 mg/dL (0.2-1.2); Calc. Creatinine Clearance 0 mL/min (70-130); Carbon Dioxide 21 mmol/L (22-29); Chloride 105 mmol/L (98-107); Estimated GFR-MDRD 40; Globulin 3.6 g/dL (2.4-3.5); Glucose 84 mg/dL (70-105); Protein, Total 6.3 g/dL (6.0-8.3); Sodium 139 mmol/L (136-145)
[2017-08-15 00:02] LABS: Potassium 2.5 mmol/L (3.5-5.1)
[2017-08-15] MEDS ORDERED: Potassium Chloride 20 MEQ/100 ML PREMIX BAG ONE (01:45)
[2017-08-15] MEDS ORDERED: Clopidogrel Bisulfate 75 MG TAB ONE (01:45)
[2017-08-15] MEDS ORDERED: Potassium Chloride 20 MEQ TAB ONE (01:46)
[2017-08-15] MEDS ORDERED: Magnesium Chloride 64 MG TAB PO SCH (02:00)
[2017-08-15 02:11] LABS: Bilirubin Negative (Negative); Blood, Urine Large (Negative); Clarity CLEAR (Clear); Glucose, Urine (Dipstick) Negative (Negative); Leukocyte Trace (Negative); Nitrite Negative (Negative); Protein, Urine (Dipstick) 100 mg/dL (Neg-Trace); Urobilinogen 0.2 mg/dL (0.2-1.0); pH, Urine 6.5 (5.0-9.0)
[2017-08-15 02:13] LABS: Bacteria/HPF None Seen HPF (None Seen); Hyaline Casts/LPF 0-3 HYALINE CAST LPF (0-3 Hyaline); RBC/HPF GREATER THAN 50-TNTC HPF (0-3); Squamous Epithelial 0-3 HPF (0-3)
== END 2017-08-15 06:00 ==
LOC: ERS 22:12
DX: E87.6 Hypokalemia (principal); D64.9 Anemia, unspecified; E83.42 Hypomagnesemia; I10 Essential (primary) hypertension; M10.9 Gout, unspecified; F17.210 Nicotine dependence, cigarettes, uncomplicated; Z87.442 Personal history of urinary calculi; Z79.899 Other long term (current) drug therapy
CPT/HCPCS: 36430; 80053; 83735; 85025; 85046; 86850; 86900; 86901; 86920; 99285; 99406; P9016; 36415; 81003; 81015; 99211; G0463; J3480

== ENCOUNTER 2017-08-29 07:44 | Day surgery (SDC) | payer MEDICARE ==
[2017-08-28 10:53] VITALS: BMI 29.9
[2017-08-29 08:50] LABS: #Eosinphils 0.3 thou/uL (0.0-0.7); #Lymphocytes 3.2 thou/uL (1.20-3.40); #Monocytes 0.7 thou/uL (0.11-0.59); #Neutrophils 4.8 thou/uL (1.40-6.50); %Basophils 0.2 % (0.0-1.0); %Eosinophils 3.3 % (0.0-10.0); %Lymphocytes 35.6 % (21.0-51.0); %Monocytes 7.4 % (0.0-10.0); %Neutrophils 53.6 % (42.0-75.0); Hemoglobin 8.9 g/dL (14.0-18.0); Mean Corpuscular HGB CONC 33.1 g/dL (32.0-36.0); Mean Corpuscular Hemoglobin 30.4 pg (27.0-31.0); Mean Corpuscular Volume 91.8 fl (80.0-94.0); Mean Platelet Volume 5.3 fL (7.4-10.4); Platelet Count 250 thou/uL (130-400); Red Blood Cell (RBC) Count 2.92 mill/uL (4.70-6.10); White Blood Cell (WBC) Count 8.9 thou/uL (4.8-10.8)
[2017-08-29 09:08] LABS: Anion Gap 13 mmol/L (10-20); BUN (Urea Nitrogen) 22 mg/dL (8.9-20.6); Calc. Creatinine Clearance 75 mL/min (70-130); Calcium 9.4 mg/dL (7.8-10.44); Carbon Dioxide 21 mmol/L (22-29); Chloride 109 mmol/L (98-107); Estimated GFR-MDRD 47; Glucose 96 mg/dL (70-105); Potassium 4.3 mmol/L (3.5-5.1); Sodium 139 mmol/L (136-145)
[2017-08-29] MEDS ORDERED: Midazolam HCl 2 mg/2 ml Vial ONE (09:45)
[2017-08-29] MEDS ORDERED: Vancomycin HCl 1.5 GM in Sodium Chloride 0.9% 250 ML 300 ML IVPB SCH (09:45)
[2017-08-29] MEDS ORDERED: Fentanyl 250 MCG/5 ML VIAL ONE (09:45)
[2017-08-29] MEDS ORDERED: Thrombin 5000 UNITS/5 ML VIAL ONE (09:50)
[2017-08-29] MEDS ORDERED: Bacitracin Zinc Ointment 30 gm TUBE ONE (09:50)
[2017-08-29] MEDS ORDERED: Sodium Chloride 0.9% 0 ML ONE (09:50)
[2017-08-29] MEDS ORDERED: Clindamycin/D5W 600 mg/50 ml Premix Bag ONE (10:01)
[2017-08-29] MEDS ORDERED: Fentanyl 100 MCG/2 ML VIAL ONE ×3 (11:44→12:15)
[2017-08-29] MEDS ORDERED: HYDROmorphone 2 MG/ML VIAL SLOW IVP PRN (12:22)
[2017-08-29] MEDS ORDERED: Non-Formulary Medication 1 EACH PO PRN (12:22)
[2017-08-29] MEDS ORDERED: Promethazine HCl 25 MG/ML VIAL IM/IV PRN (12:22)
[2017-08-29] MEDS ORDERED: Ondansetron HCl/PF 4 MG/2 ML Vial IVP PRN (12:22)
[2017-08-29] MEDS ORDERED: HYDROmorphone 0.5 MG/0.5 ML SYRINGE ONE ×2 (12:42→13:10)
[2017-08-29] MEDS ORDERED: Sodium Chloride 0.9% 10 ML ONE (14:05)
[2017-08-29] MEDS ORDERED: Dexamethasone 20 MG/5 ML VIAL ONE (14:57)
[2017-08-29] MEDS ORDERED: Propofol 200 MG/20 ML VIAL ONE (14:57)
[2017-08-29] MEDS ORDERED: PHENYLEPHRINE-NS 100 MCG/ML 10 ML SYRINGE ONE (14:57)
[2017-08-29] MEDS ORDERED: Lidocaine 1% PF 5 ML VIAL ONE (14:57)
[2017-08-29] MEDS ORDERED: Ondansetron HCl/PF 4 MG/2 ML Vial ONE (14:57)
--- NOTE | 2017-08-29 14:57 | OP ---
DATE OF PROCEDURE: 08/29/2017 PREOPERATIVE DIAGNOSES: 1. Open wound, 7 x 2 cm thumb with exposed bone and distal phalangeal which is pinned, previous join t infection. 2. A 16 x 3 cm wound at the right leg, both wounds had Integra applied. At the right leg, 100% Inte gra covered at the right thumb, there was an area of tendon area where about 3-4 mm was not exposed, was not covered by Integra. There was Integra coverage even over the bone of the distal interphalang eal joint of the thumb, right. PROCEDURE PERFORMED: 1. Hudgins a skin graft to cover the 16 x 3 cm and 7 x 2 cm wound meshed 1:1.5 which is a total for both the thumb and the leg wound. 2. Removal of Integra. INDICATIONS: The patient with staged wound management, stated graft of the 2 sites because of expose d tendon and bone as well. Minimal amount of bone exposure at the thumb as well as soft tissue. ESTIMATED BLOOD LOSS: 20 mL. TOURNIQUET TIME: None. SURGEON: Dr. Jae Reynoso ANESTHESIA: Citizen Of [place] Anesthesia, general LMA technique augmented by nothing. DESCRIPTION OF PROCEDURE: After successful general endotracheal anesthesia, the patient was prepped and draped of both the right upper extremity and the right thigh as the patient had a harvest g raft. We then removed the dressings off of each digit and leg respectively at the right thumb and th e right leg. We noticed that there is no gross infection present at the right thumb interphalangeal joint, there was a small amount of Integra graft over the bone area and then we proceeded to harvest an appropriate size of split thickness skin graft 0.20 thickness at the right thigh. We then covered the donor site with thrombin-soaked Gelfoam and a Tegaderm. We measured the graft to 1.5, divided i t appropriately to get the 7 x 2 cm right thumb and the 16 x 3 cm right leg wound covered. The graft was stapled at both sites, bolster with mineral oil soaked ABD over bacitracin and Adaptic and the m ineral oil soaked ABD was used to bolster with bryan. Bulky dressing was applied and at the donor sites thrombin Gelfoam was placed, allowed to have 10 minutes hemostasis and covered with Tegaderm. A splint thumb spica was applied with Stevie wrap to the thumb and on the right thigh a 6 inch Stevie wrap was applied over all dressings. The patient left the operating room without evidence of anesthetic o r operative complication.
== END 2017-08-29 14:20 | disposition home or self-care (01) ==
LOC: SDC 07:44
PROVIDERS: ATTEND Orthopaedic Surgery Hand Surgery
PROC: 0HBHXZZ Excision of Right Upper Leg Skin, External Approach (ICD-10-PCS; principal; 2017-08-29)
PROC: 0HBHXZZ Excision of Right Upper Leg Skin, External Approach (ICD-10-PCS; 2017-08-29)
DX: M86.9 Osteomyelitis, unspecified (principal); M72.6 Necrotizing fasciitis; I10 Essential (primary) hypertension; M54.9 Dorsalgia, unspecified; G89.29 Other chronic pain; M10.9 Gout, unspecified; E11.9 Type 2 diabetes mellitus without complications; D64.9 Anemia, unspecified; K21.9 Gastro-esophageal reflux disease without esophagitis; Z79.4 Long term (current) use of insulin; Z79.2 Long term (current) use of antibiotics; Z79.899 Other long term (current) drug therapy; Z88.6 Allergy status to analgesic agent; Z98.890 Other specified postprocedural states
CPT/HCPCS: 36415; 80048; 85025; 85652; 93005; 93010; 96374; A4216; J1100; J1170; J2001; J2250; J2405; J2704; J3010; J3490

== ENCOUNTER 2017-09-20 12:49 | Outpatient (CLI) | payer MEDICARE ==
--- NOTE | 2017-09-20 15:28 | ULT ---
RIGHT LOWER EXTREMITY VENOUS DOPPLER ULTRASOUND: DATE: 09/20/17. COMPARISON: None. HISTORY: Calf pain and swelling, assess for DVT. TECHNIQUE: Multiplanar, patterson scale sonographic imaging of the venous structures of the right lower extremity obt ained with color flow and spectral analysis. FINDINGS: Right common femoral vein, greater saphenous vein, profunda femoral vein, femoral vein, popliteal vei n, and posterior tibial vein are patent. Normal blood flow, augmentation, and compression noted with no evidence of DVT of the right lower extremity. Edematous changes are seen within the subcutaneous fat in the posterior calf region. IMPRESSION: 1. No evidence for deep venous thrombosis of the right lower extremity. 2. Nonspecific subcutaneous edematous change noted in the right calf region. POS: [facility]
== END 2017-09-20 12:50 | disposition home or self-care (01) ==
LOC: ULT 12:49
PROVIDERS: ATTEND Orthopaedic Surgery Hand Surgery
DX: M79.661 Pain in right lower leg (principal)

== ENCOUNTER 2017-10-26 20:26 | Emergency (ER) | payer MEDICARE ==
[2017-10-26] MEDS ORDERED: Ondansetron ODT 4 MG TAB ONE (21:03)
[2017-10-26 21:31] LABS: #Basophils 0.1 thou/uL (0.0-0.2); #Eosinphils 0.2 thou/uL (0.0-0.7); #Lymphocytes 3.5 thou/uL (1.20-3.40); #Monocytes 1.3 thou/uL (0.11-0.59); #Neutrophils 12.4 thou/uL (1.40-6.50); %Basophils 0.4 % (0.0-1.0); %Eosinophils 1.4 % (0.0-10.0); %Lymphocytes 19.9 % (21.0-51.0); %Monocytes 7.4 % (0.0-10.0); Hemoglobin 10.7 g/dL (14.0-18.0); Mean Corpuscular HGB CONC 34.4 g/dL (32.0-36.0); Mean Corpuscular Hemoglobin 32.2 pg (27.0-31.0); Mean Corpuscular Volume 93.6 fl (80.0-94.0); Mean Platelet Volume 5.7 fL (7.4-10.4); Platelet Count 355 thou/uL (130-400); RBC Distribution Width 13.3 % (11.5-14.5); Red Blood Cell (RBC) Count 3.33 mill/uL (4.70-6.10); White Blood Cell (WBC) Count 17.5 thou/uL (4.8-10.8)
[2017-10-26 21:55] LABS: ALT (SGPT) 12 U/L (8-55); AST (SGOT) 12 U/L (5-34); Albumin 3.7 g/dL (3.5-5.0); Alkaline Phosphatase 103 U/L (40-150); Anion Gap 11 mmol/L (10-20); BUN (Urea Nitrogen) 9 mg/dL (8.9-20.6); Bilirubin, Total 0.4 mg/dL (0.2-1.2); Calc. Creatinine Clearance 0 mL/min (70-130); Calcium 9.2 mg/dL (7.8-10.44); Carbon Dioxide 25 mmol/L (22-29); Chloride 102 mmol/L (98-107); Estimated GFR-MDRD 40; Globulin 3.4 g/dL (2.4-3.5); Glucose 105 mg/dL (70-105); Lipase 13 U/L (8-78); Potassium 3.4 mmol/L (3.5-5.1); Protein, Total 7.1 g/dL (6.0-8.3); Sodium 135 mmol/L (136-145)
[2017-10-26] MEDS ORDERED: Promethazine HCl 25 MG/ML VIAL ONE (23:19)
== END 2017-10-26 23:52 | disposition home or self-care (01) ==
LOC: ERS 20:26
DX: A09 Infectious gastroenteritis and colitis, unspecified (principal); D64.9 Anemia, unspecified; I10 Essential (primary) hypertension; F17.210 Nicotine dependence, cigarettes, uncomplicated; M10.9 Gout, unspecified; M54.9 Dorsalgia, unspecified; G89.29 Other chronic pain
CPT/HCPCS: 80053; 83690; 85025; 87324; 87449; 96361; 96365; J2550; Q0162

== ENCOUNTER 2017-11-08 19:06 | Emergency (ER) | payer MEDICARE | END 2017-11-08 19:45 | disposition home or self-care (01) | LOC: ERS 19:06 | DX: A04.72 Enterocolitis due to Clostridium difficile, not specified as recurrent (principal); I10 Essential (primary) hypertension; M10.9 Gout, unspecified; F17.210 Nicotine dependence, cigarettes, uncomplicated; Z79.899 Other long term (current) drug therapy | CPT/HCPCS: 99283 ==

== ENCOUNTER 2020-09-25 14:45 | Emergency (ER) | payer MEDICARE ==
[2020-09-25 15:38] LABS: #Basophils 0.1 thou/uL (0.0-0.2); #Eosinphils 0.2 thou/uL (0.0-0.7); #Lymphocytes 2.5 thou/uL (1.20-3.40); #Monocytes 0.9 thou/uL (0.11-0.59); #Neutrophils 9.5 thou/uL (1.40-6.50); %Basophils 0.5 % (0.0-1.0); %Eosinophils 1.9 % (0.0-10.0); %Lymphocytes 18.9 % (21.0-51.0); %Monocytes 6.6 % (0.0-10.0); %Neutrophils 72.1 % (42.0-75.0); Hemoglobin 13.9 g/dL (14.0-18.0); Mean Corpuscular HGB CONC 34.2 g/dL (32.0-36.0); Mean Corpuscular Hemoglobin 32.4 pg (27.0-31.0); Mean Corpuscular Volume 94.8 fL (78.0-98.0); Mean Platelet Volume 6.4 fL (7.4-10.4); Platelet Count 183 thou/uL (130-400); RBC Distribution Width 15.8 % (11.5-14.5); Red Blood Cell (RBC) Count 4.28 mill/uL (4.70-6.10); White Blood Cell (WBC) Count 13.2 thou/uL (4.8-10.8)
[2020-09-25 16:04] LABS: ALT (SGPT) 16 U/L (8-55); AST (SGOT) 16 U/L (5-34); Albumin 3.8 g/dL (3.5-5.0); Alkaline Phosphatase 158 U/L (40-110); Anion Gap 14 mmol/L (10-20); BUN (Urea Nitrogen) 15 mg/dL (8.4-25.7); Bilirubin, Total 0.3 mg/dL (0.2-1.2); Calc. Creatinine Clearance 0 mL/min (70-130); Calcium 8.4 mg/dL (7.8-10.44); Carbon Dioxide 12 mmol/L (22-29); Chloride 113 mmol/L (98-107); Globulin 3.7 g/dL (2.4-3.5); Glucose 91 mg/dL (70-105); Potassium 3.6 mmol/L (3.5-5.1); Protein, Total 7.5 g/dL (6.0-8.3); Sodium 135 mmol/L (136-145)
[2020-09-25] MEDS ORDERED: Dexamethasone 4 MG TAB ONE (16:34)
[2020-09-26 03:29] LABS: SARS-CoV-2 PCR by NAA Not Detected (NotDetected)
== END 2020-09-25 16:48 ==
LOC: ERS 14:45
DX: J06.9 Acute upper respiratory infection, unspecified (principal); I10 Essential (primary) hypertension; M10.9 Gout, unspecified; Z86.718 Personal history of other venous thrombosis and embolism; F17.210 Nicotine dependence, cigarettes, uncomplicated; Z79.899 Other long term (current) drug therapy
CPT/HCPCS: 71045; 80053; 83880; 85025; 99284; U0003; U0005; 36415; 87635; J8540

== ENCOUNTER 2021-01-18 16:41 | Inpatient (IN) | payer MEDICARE ==
[2021-01-18 17:17] LABS: #Eosinphils 0.3 thou/uL (0.0-0.7); #Lymphocytes 2.9 thou/uL (1.20-3.40); #Neutrophils 10.3 thou/uL (1.40-6.50); %Basophils 0.1 % (0.0-1.0); %Eosinophils 1.9 % (0.0-10.0); %Lymphocytes 20.2 % (21.0-51.0); %Monocytes 6.6 % (0.0-10.0); %Neutrophils 71.1 % (42.0-75.0); Hemoglobin 12.4 g/dL (14.0-18.0); Mean Corpuscular HGB CONC 33.8 g/dL (32.0-36.0); Mean Corpuscular Hemoglobin 31.1 pg (27.0-31.0); Mean Corpuscular Volume 92.2 fL (78.0-98.0); Mean Platelet Volume 5.9 fL (7.4-10.4); Platelet Count 408 thou/uL (130-400); RBC Distribution Width 16.1 % (11.5-14.5); Red Blood Cell (RBC) Count 3.98 mill/uL (4.70-6.10); White Blood Cell (WBC) Count 14.5 thou/uL (4.8-10.8)
[2021-01-18 17:42] LABS: ALT (SGPT) 11 U/L (8-55); AST (SGOT) 11 U/L (5-34); Albumin 3.8 g/dL (3.5-5.0); Alkaline Phosphatase 104 U/L (40-110); Anion Gap 17 mmol/L (10-20); BUN (Urea Nitrogen) 45 mg/dL (8.4-25.7); Bilirubin, Total 0.4 mg/dL (0.2-1.2); Calc. Creatinine Clearance 0 mL/min (70-130); Calcium 9.5 mg/dL (7.8-10.44); Chloride 118 mmol/L (98-107); Globulin 4.5 g/dL (2.4-3.5); Glucose 97 mg/dL (70-105); Lipase 40 U/L (8-78); Potassium 4.1 mmol/L (3.5-5.1); Protein, Total 8.3 g/dL (6.0-8.3); Sodium 140 mmol/L (136-145)
[2021-01-18 17:44] LABS: Carbon Dioxide 9 mmol/L (22-29)
[2021-01-18] MEDS ORDERED: Ondansetron PF 4 MG/2 ML Vial ONE ×2 (18:37→19:32)
[2021-01-18 18:46] LABS: Analyzer IN Cardio ER; Calcium, Ionized (venous) 1.26 mmol/L (1.16-1.32); Chloride (VBG) 119 mmol/L (98-106); Potassium (VBG) 4.53 mmol/L (3.70-5.30); Sodium 142.8 mmol/L (133-146)
[2021-01-18 18:50] LABS: pH (venous) 7.14 (7.32-7.43)
[2021-01-18 18:51] LABS: Actual Bicarbonate (HCO3v) 10 mEq/L (22-28)
[2021-01-18] MEDS ORDERED: Cefepime 2 GM VIAL ONE (19:09)
[2021-01-18] MEDS ORDERED: Vancomycin 1 GM/200 ML BAG ONE (19:10)
[2021-01-18] MEDS ORDERED: Morphine 4 MG/ML VIAL ONE (19:32)
[2021-01-18 23:22] LABS: Bilirubin Negative (Negative); Blood, Urine 2+ (Negative); Clarity Turbid (Clear); Glucose, Urine (Dipstick) Normal (Negative); Ketone, Urine Negative (Negative); Leukocyte 500 Leu/uL (Negative); Nitrite 2+ (Negative); Protein, Urine (Dipstick) 100 mg/dL (Neg-Trace); Specific Gravity, Urine 1.014 (1.002-1.036); Squamous Epithelial 0-3 HPF (0-3); Urobilinogen Normal mg/dL (Less than 2); WBC/HPF Greater than 50 HPF (0-3)
[2021-01-18 23:25] LABS: Bacteria/HPF 3+ HPF (None Seen)
[2021-01-19] MEDS ORDERED: Sodium Chloride 0.9% 1,000 ML IV SCH ×2 (00:45→04:00)
[2021-01-19 00:50] VITALS: BMI 30.5
[2021-01-19] MEDS: HYDROcodone/Acetaminophen 10/325 mg Tablet PO PRN ×4 (01:29→22:58)
[2021-01-19] MEDS ORDERED: Melatonin 3 MG TAB PO PRN (03:48)
[2021-01-19] MEDS ORDERED: Ondansetron PF 4 MG/2 ML Vial IVP PRN (07:03)
[2021-01-19] MEDS ORDERED: Senokot S 8.6-50 MG TAB PO PRN (07:03)
[2021-01-19] MEDS ORDERED: Loperamide HCl 2 MG CAP PO PRN (07:03)
[2021-01-19] MEDS ORDERED: hydrALAZINE 20 MG/ML VIAL SLOW IVP PRN (07:03)
[2021-01-19] MEDS ORDERED: Benzonatate 100 MG CAP PO PRN (07:03)
[2021-01-19] MEDS ORDERED: Loratadine 10 MG TAB PO PRN (07:03)
[2021-01-19] MEDS ORDERED: Sodium Chloride 0.65% Nasal 44 ML BOT EA NARE PRN (07:03)
[2021-01-19] MEDS ORDERED: Hydrocerin (Eucerin) Cream 120 gm Jar TOP PRN (07:03)
[2021-01-19] MEDS ORDERED: Bisacodyl 5 MG TAB PO PRN (07:03)
[2021-01-19] MEDS ORDERED: Calcium Carbonate 500 MG ChewTAB PO PRN (07:03)
[2021-01-19] MEDS ORDERED: Cepastat Lozenges 1 LOZ PO PRN (07:03)
[2021-01-19] MEDS ORDERED: GUAIFENESIN SF SOLN 200 MG/10 ML UDCUP PO PRN (07:03)
[2021-01-19] MEDS ORDERED: Zolpidem Tartrate 5 MG TAB PO PRN (07:03)
[2021-01-19] MEDS ORDERED: Dextrose 50% Abboject 50 ML SYRINGE SLOW IVP PRN (07:08)
[2021-01-19] MEDS ORDERED: Dextrose 5% in Water 1,000 ML IV PRN (07:08)
[2021-01-19] MEDS ORDERED: HumaLOG 300 UNITS/3 ML VIAL SC PRN ×2 (07:08)
[2021-01-19] MEDS: Amlodipine 10 MG TAB PO SCH (08:04)
[2021-01-19] MEDS: Saccharomyces boulardii 250 MG CAP PO SCH (08:05)
[2021-01-19] MEDS: Heparin 5,000 UNITS/ML VIAL SC SCH ×3 (08:05→20:26)
[2021-01-19] MEDS: Sodium Bicarbonate 150 MEQ in Dextrose 5% in Water 1,000 ML IV SCH ×2 (08:06→20:25)
[2021-01-19 08:46] LABS: Hemoglobin A1c 4.5 % (4.0-6.0)
[2021-01-19] MEDS ORDERED: Cefepime 2 GM in Sodium Chloride 0.9% 100 ML IVPB SCH (09:00)
[2021-01-19 12:02] LABS: BUN (Urea Nitrogen) 41 mg/dL (8.4-25.7); Calc. Creatinine Clearance 44 mL/min (70-130); Calcium 8.8 mg/dL (7.8-10.44); Chloride 125 mmol/L (98-107); Glucose 107 mg/dL (70-105); Potassium 4.5 mmol/L (3.5-5.1); Sodium 141 mmol/L (136-145)
[2021-01-19 12:49] LABS: SARS-CoV-2 PCR by NAA Not Detected (NotDetected)
[2021-01-19 13:04] LABS: Carbon Dioxide Less than 8 mmol/L (22-29)
[2021-01-19] MEDS ORDERED: Sodium Bicarb 50 MEQ/50 ML Abboject 8.4% SYRINGE IVP SCH (13:45)
[2021-01-19] MEDS: Cefepime 2 GM in Sodium Chloride 0.9% 100 ML IVPB SCH (18:44)
[2021-01-19] MEDS ORDERED: VANCOMYCIN 1.25 GM/250 ML BAG 1.25 GM in Premix Bag 1 BAG IVPB SCH (20:00)
[2021-01-19] MEDS: Gabapentin 300 MG CAP PO SCH (20:26)
[2021-01-19] MEDS: Nicotine 14 MG PATCH TD SCH (21:12)
[2021-01-20 05:30] LABS: #Basophils 0.1 thou/uL (0.0-0.2); #Eosinphils 0.3 thou/uL (0.0-0.7); #Lymphocytes 3.1 thou/uL (1.20-3.40); #Monocytes 1.3 thou/uL (0.11-0.59); #Neutrophils 7.2 thou/uL (1.40-6.50); %Basophils 0.5 % (0.0-1.0); %Eosinophils 2.9 % (0.0-10.0); %Lymphocytes 26.2 % (21.0-51.0); %Monocytes 10.7 % (0.0-10.0); %Neutrophils 59.8 % (42.0-75.0); Hemoglobin 10.3 g/dL (14.0-18.0); Mean Corpuscular HGB CONC 35.6 g/dL (32.0-36.0); Mean Corpuscular Hemoglobin 32.8 pg (27.0-31.0); Mean Corpuscular Volume 92.1 fL (78.0-98.0); Mean Platelet Volume 6.1 fL (7.4-10.4); Platelet Count 265 thou/uL (130-400); RBC Distribution Width 15.9 % (11.5-14.5); Red Blood Cell (RBC) Count 3.14 mill/uL (4.70-6.10)
[2021-01-20 05:58] LABS: Anion Gap 13 mmol/L (10-20); BUN (Urea Nitrogen) 35 mg/dL (8.4-25.7); Calc. Creatinine Clearance 47 mL/min (70-130); Calcium 8.7 mg/dL (7.8-10.44); Carbon Dioxide 14 mmol/L (22-29); Chloride 116 mmol/L (98-107); Glucose 91 mg/dL (70-105); Magnesium 1.9 mg/dL (1.6-2.6); Phosphorus 3.9 mg/dL (2.3-4.7); Potassium 3.2 mmol/L (3.5-5.1); Sodium 140 mmol/L (136-145)
[2021-01-20] MEDS: HYDROcodone/Acetaminophen 10/325 mg Tablet PO PRN (07:36)
[2021-01-20] MEDS: Sodium Bicarbonate 150 MEQ in Dextrose 5% in Water 1,000 ML IV SCH ×2 (07:45→14:07)
[2021-01-20] MEDS: Amlodipine 10 MG TAB PO SCH (09:16)
[2021-01-20] MEDS: Saccharomyces boulardii 250 MG CAP PO SCH (09:16)
[2021-01-20] MEDS ORDERED: Potassium Chloride 20 MEQ TAB PO SCH ×3 (09:30→20:00)
[2021-01-20] MEDS: HYDROcodone/Acetaminophen 5/325 mg Tablet PO PRN ×2 (14:06→20:42)
[2021-01-20 16:35] LABS: Hemoglobin 9.7 g/dL (14.0-18.0); Platelet Count 301 thou/uL (130-400)
[2021-01-20 16:51] LABS: Anion Gap 13 mmol/L (10-20); BUN (Urea Nitrogen) 33 mg/dL (8.4-25.7); Calc. Creatinine Clearance 47 mL/min (70-130); Calcium 8.8 mg/dL (7.8-10.44); Carbon Dioxide 17 mmol/L (22-29); Chloride 111 mmol/L (98-107); Glucose 80 mg/dL (70-105); Potassium 3.2 mmol/L (3.5-5.1); Sodium 138 mmol/L (136-145)
[2021-01-20] MEDS: Cefepime 2 GM in Sodium Chloride 0.9% 100 ML IVPB SCH (17:10)
[2021-01-20 20:31] LABS: Vancomycin, Trough 19.1 ug/mL
[2021-01-20] MEDS: Nicotine 14 MG PATCH TD SCH (20:43)
[2021-01-20] MEDS: Gabapentin 300 MG CAP PO SCH (20:43)
[2021-01-21] MEDS: HYDROcodone/Acetaminophen 5/325 mg Tablet PO PRN ×4 (02:38→22:34)
[2021-01-21] MEDS: Sodium Bicarbonate 150 MEQ in Dextrose 5% in Water 1,000 ML IV SCH (05:21)
[2021-01-21 05:43] LABS: #Basophils 0.1 thou/uL (0.0-0.2); #Eosinphils 0.4 thou/uL (0.0-0.7); #Lymphocytes 2.3 thou/uL (1.20-3.40); #Monocytes 0.9 thou/uL (0.11-0.59); #Neutrophils 5.4 thou/uL (1.40-6.50); %Basophils 0.7 % (0.0-1.0); %Monocytes 9.9 % (0.0-10.0); %Neutrophils 60.3 % (42.0-75.0); Hemoglobin 9.5 g/dL (14.0-18.0); Mean Corpuscular HGB CONC 34.9 g/dL (32.0-36.0); Mean Corpuscular Hemoglobin 32.1 pg (27.0-31.0); Mean Platelet Volume 6.3 fL (7.4-10.4); Platelet Count 237 thou/uL (130-400); RBC Distribution Width 15.6 % (11.5-14.5); Red Blood Cell (RBC) Count 2.97 mill/uL (4.70-6.10)
[2021-01-21 06:02] LABS: Anion Gap 9 mmol/L (10-20); BUN (Urea Nitrogen) 27 mg/dL (8.4-25.7); Calc. Creatinine Clearance 48 mL/min (70-130); Calcium 8.9 mg/dL (7.8-10.44); Carbon Dioxide 23 mmol/L (22-29); Chloride 109 mmol/L (98-107); Glucose 98 mg/dL (70-105); Sodium 138 mmol/L (136-145)
[2021-01-21] MEDS: Amlodipine 10 MG TAB PO SCH (08:54)
[2021-01-21] MEDS ORDERED: Potassium Chloride 20 MEQ TAB PO SCH (10:45)
[2021-01-21] MEDS ORDERED: Fentanyl 100 MCG/2 ML VIAL ONE (10:57)
[2021-01-21] MEDS: Saccharomyces boulardii 250 MG CAP PO SCH (11:52)
[2021-01-21] MEDS ORDERED: PROPOFOL 200 MG/20 ML VIAL ONE (12:27)
[2021-01-21] MEDS ORDERED: Ondansetron PF 4 MG/2 ML Vial ONE ×2 (12:27→13:26)
[2021-01-21] MEDS ORDERED: Lidocaine 1% PF 5 ML VIAL ONE (12:27)
[2021-01-21] MEDS ORDERED: Iothalamate Meglumine 60% 30 ML VIAL FS ONE ×2 (12:39→12:58)
[2021-01-21] MEDS ORDERED: Promethazine HCl 25 MG/ML VIAL IM PRN (13:24)
[2021-01-21] MEDS ORDERED: Promethazine HCl 25 MG/ML VIAL IVPB PRN (13:24)
[2021-01-21] MEDS ORDERED: Ondansetron HCl/PF 4 MG/2 ML Vial IVP PRN (13:24)
[2021-01-21] MEDS: Cefepime 2 GM in Sodium Chloride 0.9% 100 ML IVPB SCH (18:42)
[2021-01-21] MEDS: Gabapentin 300 MG CAP PO SCH (22:28)
[2021-01-21] MEDS: Nicotine 14 MG PATCH TD SCH (22:28)
[2021-01-22] MEDS: HYDROcodone/Acetaminophen 5/325 mg Tablet PO PRN ×4 (05:09→21:49)
[2021-01-22 06:13] LABS: #Eosinphils 0.4 thou/uL (0.0-0.7); #Lymphocytes 2.9 thou/uL (1.20-3.40); #Neutrophils 5.2 thou/uL (1.40-6.50); %Basophils 0.4 % (0.0-1.0); %Eosinophils 4.5 % (0.0-10.0); %Lymphocytes 30.4 % (21.0-51.0); %Monocytes 10.2 % (0.0-10.0); %Neutrophils 54.5 % (42.0-75.0); Hemoglobin 9.6 g/dL (14.0-18.0); Mean Corpuscular HGB CONC 33.6 g/dL (32.0-36.0); Mean Corpuscular Hemoglobin 31.5 pg (27.0-31.0); Mean Corpuscular Volume 93.9 fL (78.0-98.0); Mean Platelet Volume 6.6 fL (7.4-10.4); Platelet Count 247 thou/uL (130-400); RBC Distribution Width 15.5 % (11.5-14.5); Red Blood Cell (RBC) Count 3.03 mill/uL (4.70-6.10); White Blood Cell (WBC) Count 9.5 thou/uL (4.8-10.8)
[2021-01-22 06:22] LABS: INR-International Normal Ratio 1.2; Prothrombin Time 15.3 sec (12.0-14.7)
[2021-01-22 06:23] LABS: PTT 42.3 sec (22.9-36.1)
[2021-01-22 06:33] LABS: Anion Gap 15 mmol/L (10-20); BUN (Urea Nitrogen) 22 mg/dL (8.4-25.7); Calc. Creatinine Clearance 46 mL/min (70-130); Calcium 8.8 mg/dL (7.8-10.44); Carbon Dioxide 19 mmol/L (22-29); Chloride 110 mmol/L (98-107); Glucose 88 mg/dL (70-105); Potassium 3.8 mmol/L (3.5-5.1); Sodium 140 mmol/L (136-145)
[2021-01-22] MEDS: Amlodipine 10 MG TAB PO SCH (09:31)
[2021-01-22] MEDS: Saccharomyces boulardii 250 MG CAP PO SCH (09:31)
[2021-01-22] MEDS ORDERED: Potassium Chloride 20 MEQ TAB PO SCH (12:00)
[2021-01-22] MEDS: Sodium Bicarbonate Tab 325 MG TAB PO SCH ×2 (15:20→20:47)
[2021-01-22 17:31] LABS: Platelet Count 226 thou/uL (130-400)
[2021-01-22] MEDS: Cefepime 2 GM in Sodium Chloride 0.9% 100 ML IVPB SCH (18:15)
[2021-01-22] MEDS: Nicotine 14 MG PATCH TD SCH (20:47)
[2021-01-22] MEDS: Gabapentin 300 MG CAP PO SCH (20:47)
[2021-01-23] MEDS: HYDROcodone/Acetaminophen 5/325 mg Tablet PO PRN ×4 (03:45→20:27)
[2021-01-23] MEDS: Amlodipine 10 MG TAB PO SCH (08:48)
[2021-01-23] MEDS: Saccharomyces boulardii 250 MG CAP PO SCH (08:48)
[2021-01-23] MEDS: Sodium Bicarbonate Tab 325 MG TAB PO SCH ×3 (08:49→20:26)
[2021-01-23] MEDS ORDERED: Cyclobenzaprine 10 MG TAB PO SCH (15:00)
[2021-01-23] MEDS ORDERED: Phenazopyridine HCl 100 MG TAB PO SCH (18:00)
[2021-01-23] MEDS: Cefepime 2 GM in Sodium Chloride 0.9% 100 ML IVPB SCH (18:11)
[2021-01-23] MEDS: Gabapentin 300 MG CAP PO SCH (20:26)
[2021-01-23] MEDS: Nicotine 14 MG PATCH TD SCH (20:28)
[2021-01-24] MEDS: HYDROcodone/Acetaminophen 5/325 mg Tablet PO PRN ×3 (02:12→12:58)
[2021-01-24 08:12] LABS: #Basophils 0.1 thou/uL (0.0-0.2); #Eosinphils 0.6 thou/uL (0.0-0.7); #Lymphocytes 3.5 thou/uL (1.20-3.40); #Monocytes 0.8 thou/uL (0.11-0.59); #Neutrophils 5.5 thou/uL (1.40-6.50); %Basophils 0.6 % (0.0-1.0); %Eosinophils 5.6 % (0.0-10.0); %Lymphocytes 33.3 % (21.0-51.0); %Monocytes 7.6 % (0.0-10.0); %Neutrophils 52.8 % (42.0-75.0); Hemoglobin 10.4 g/dL (14.0-18.0); Mean Corpuscular HGB CONC 33.4 g/dL (32.0-36.0); Mean Corpuscular Hemoglobin 31.8 pg (27.0-31.0); Mean Corpuscular Volume 95.1 fL (78.0-98.0); Mean Platelet Volume 6.4 fL (7.4-10.4); Platelet Count 216 thou/uL (130-400); RBC Distribution Width 15.5 % (11.5-14.5); Red Blood Cell (RBC) Count 3.28 mill/uL (4.70-6.10); White Blood Cell (WBC) Count 10.4 thou/uL (4.8-10.8)
[2021-01-24] MEDS: Sodium Bicarbonate Tab 325 MG TAB PO SCH ×2 (08:12→14:43)
[2021-01-24] MEDS: Saccharomyces boulardii 250 MG CAP PO SCH (08:12)
[2021-01-24] MEDS: Amlodipine 10 MG TAB PO SCH ×2 (08:14→09:39)
[2021-01-24 08:25] VITALS: TEMP 97.8
[2021-01-24] MEDS ORDERED: Oxybutynin ER 5 MG TAB PO SCH (09:00)
[2021-01-24 16:22] VITALS: BP 119/65
== END 2021-01-24 17:58 | disposition home or self-care (01) | DRG 853 ==
LOC: ERS 16:41 → SJJU 20:56
PROVIDERS: ADMIT Student in an Organized Health Care Education/Training Program; ATTEND Internal Medicine
PROC: 0TC78ZZ Extirpation of Matter from Left Ureter, Via Natural or Artificial Opening Endoscopic (ICD-10-PCS; principal; 2021-01-21)
PROC: 0T778DZ Dilation of Left Ureter with Intraluminal Device, Via Natural or Artificial Opening Endoscopic (ICD-10-PCS; 2021-01-21)
PROC: BT141ZZ Fluoroscopy of Kidneys, Ureters and Bladder using Low Osmolar Contrast (ICD-10-PCS; 2021-01-21)
DX: A41.9 Sepsis, unspecified organism (principal); N17.2 Acute kidney failure with medullary necrosis; L03.116 Cellulitis of left lower limb; L03.115 Cellulitis of right lower limb; E87.2 Acidosis; L97.919 Non-pressure chronic ulcer of unspecified part of right lower leg with unspecified severity; N13.6 Pyonephrosis; D62 Acute posthemorrhagic anemia; N18.4 Chronic kidney disease, stage 4 (severe); Z20.822 Contact with and (suspected) exposure to COVID-19; R65.20 Severe sepsis without septic shock; I87.2 Venous insufficiency (chronic) (peripheral); G89.29 Other chronic pain; I12.9 Hypertensive chronic kidney disease with stage 1 through stage 4 chronic kidney disease, or unspecified chronic kidney disease; M10.9 Gout, unspecified; F17.210 Nicotine dependence, cigarettes, uncomplicated; D63.1 Anemia in chronic kidney disease; E66.9 Obesity, unspecified; R31.0 Gross hematuria; E87.6 Hypokalemia; E11.51 Type 2 diabetes mellitus with diabetic peripheral angiopathy without gangrene; E11.622 Type 2 diabetes mellitus with other skin ulcer; E11.22 Type 2 diabetes mellitus with diabetic chronic kidney disease; K59.00 Constipation, unspecified; B96.4 Proteus (mirabilis) (morganii) as the cause of diseases classified elsewhere; B95.1 Streptococcus, group B, as the cause of diseases classified elsewhere; Z80.0 Family history of malignant neoplasm of digestive organs; Z88.5 Allergy status to narcotic agent; Z91.19 Patient's noncompliance with other medical treatment and regimen; Z86.718 Personal history of other venous thrombosis and embolism; Z90.49 Acquired absence of other specified parts of digestive tract; Z87.442 Personal history of urinary calculi; Z82.49 Family history of ischemic heart disease and other diseases of the circulatory system; Z83.3 Family history of diabetes mellitus; Z68.30 Body mass index [BMI] 30.0-30.9, adult; Z71.6 Tobacco abuse counseling; Z98.1 Arthrodesis status
CPT/HCPCS: 36415; 71045; 72148; 74176; 74420; 80048; 80053; 80202; 81003; 81015; 82010; 82805; 83036; 83605; 83690; 83735; 84100; 85025; 85610; 85730; 86850; 86900; 86901; 87040; 87070; 87077; 87086; 87205; 88305; 93005; 96365; 96375; 96376; C2617; J0692; J1644; J2270; J2405; J2704; J3010; J3370; J3490; J7070; U0003; U0005

== ENCOUNTER 2021-02-10 10:59 | Outpatient (CLI) | payer MEDICARE ==
[2021-02-10 12:29] LABS: Mean Corpuscular HGB CONC 31.2 g/dL (32.0-36.0); Mean Corpuscular Hemoglobin 30.4 pg (27.0-33.0); Mean Corpuscular Volume 97.5 fl (81.2-95.1); Mean Platelet Volume 9.4 fl (7.4-10.4); Platelet Count 201 10x3/uL (150-450); RBC Distribution Width 15.9 % (11.5-14.5); Red Blood Cell (RBC) Count 3.62 10x6/uL (4.32-5.72); White Blood Cell (WBC) Count 7.6 10x3/uL (3.5-10.5)
[2021-02-10 12:31] LABS: Bilirubin Neg (Negative); Blood, Urine 250 (Negative); Clarity Slightly Cloudy (Clear); Glucose, Urine (Dipstick) Normal (Negative); Ketone, Urine Negative (Negative); Urobilinogen Normal mg/dL (Less than 2); pH, Urine 6.5 (5.0-9.0)
[2021-02-10 12:39] LABS: Leukocyte Unable to Interpret (Negative); Nitrite Unable to Interpret (Negative); Protein, Urine (Dipstick) Unable to Interpret mg/dl (Neg-Trace)
[2021-02-10 12:40] LABS: RBC/HPF Greater than 50 HPF (0-3)
[2021-02-10 12:41] LABS: Bacteria/HPF None Seen HPF (None Seen); Squamous Epithelial None Seen HPF (0-3)
[2021-02-10 12:48] LABS: Anion Gap 14 mmol/L (10-20); BUN (Urea Nitrogen) 13 mg/dL (8.4-25.7); Calc. Creatinine Clearance 0 mL/min (70-130); Carbon Dioxide 17 mmol/L (22-29); Chloride 115 mmol/L (98-107); Glucose 77 mg/dL (70-105); Potassium 4.4 mmol/L (3.5-5.1); Sodium 142 mmol/L (136-145)
[2021-02-11 02:13] LABS: SARS-CoV-2 PCR by NAA Not Detected (NotDetected)
== END 2021-02-10 11:00 | disposition home or self-care (01) ==
LOC: LABBT 10:59
PROVIDERS: ATTEND Urology
DX: Z01.812 Encounter for preprocedural laboratory examination (principal); R31.0 Gross hematuria; R93.41 Abnormal radiologic findings on diagnostic imaging of renal pelvis, ureter, or bladder; Z20.822 Contact with and (suspected) exposure to COVID-19
CPT/HCPCS: 80048; 81001; 85027; 87086; U0003; U0005

== ENCOUNTER 2021-03-04 14:47 | Outpatient (CLI) | payer MEDICARE ==
[2021-03-04 16:12] LABS: Hemoglobin 12.8 g/dL (13.5-17.5); Mean Corpuscular HGB CONC 32.7 g/dL (32.0-36.0); Mean Corpuscular Volume 94.9 fl (81.2-95.1); Platelet Count 226 10x3/uL (150-450); Red Blood Cell (RBC) Count 4.13 10x6/uL (4.32-5.72); White Blood Cell (WBC) Count 16.7 10x3/uL (3.5-10.5)
[2021-03-04 16:30] LABS: Anion Gap 17 mmol/L (10-20); BUN (Urea Nitrogen) 22 mg/dL (8.4-25.7); Calc. Creatinine Clearance 0 mL/min (70-130); Calcium 9.4 mg/dL (7.8-10.44); Carbon Dioxide 12 mmol/L (22-29); Chloride 114 mmol/L (98-107); Glucose 90 mg/dL (70-105); Potassium 3.7 mmol/L (3.5-5.1); Sodium 139 mmol/L (136-145)
[2021-03-04 16:42] LABS: Bilirubin Neg (Negative); Blood, Urine 250 (Negative); Clarity Cloudy (Clear); Glucose, Urine (Dipstick) Normal (Negative); Ketone, Urine Negative (Negative); Leukocyte 500 (Negative); Nitrite Negative (Negative); Protein, Urine (Dipstick) 100 mg/dl (Neg-Trace); Urobilinogen Normal mg/dL (Less than 2)
[2021-03-04 17:06] LABS: RBC/HPF Greater than 50 HPF (0-3); WBC/HPF 21-50 HPF (0-3)
[2021-03-04 17:07] LABS: Bacteria/HPF 1+ HPF (None Seen)
[2021-03-05 08:53] LABS: SARS-CoV-2 PCR by NAA Not Detected (NotDetected)
== END 2021-03-04 14:48 | disposition home or self-care (01) ==
LOC: LABBT 14:47
PROVIDERS: ATTEND Urology
DX: Z01.812 Encounter for preprocedural laboratory examination (principal); R31.0 Gross hematuria; R93.41 Abnormal radiologic findings on diagnostic imaging of renal pelvis, ureter, or bladder; Z20.822 Contact with and (suspected) exposure to COVID-19
CPT/HCPCS: 80048; 81001; 85027; 87077; 87086; U0003; U0005; 87186

== ENCOUNTER 2021-03-09 11:30 | Day surgery (SDC) | payer MEDICARE ==
[2021-03-08 13:05] VITALS: BMI 30.7
[2021-03-09] MEDS ORDERED: Fentanyl 100 MCG/2 ML VIAL ONE ×2 (11:54→14:34)
[2021-03-09] MEDS ORDERED: Iothalamate Meglumine 60% 50 ML VIAL FS ONE (12:24)
[2021-03-09] MEDS ORDERED: PROPOFOL 200 MG/20 ML VIAL ONE (13:23)
[2021-03-09] MEDS ORDERED: Ondansetron PF 4 MG/2 ML Vial ONE (13:23)
[2021-03-09] MEDS ORDERED: Lidocaine 1% PF 5 ML VIAL ONE (13:23)
== END 2021-03-09 16:00 | disposition home or self-care (01) ==
LOC: SDC 11:30
PROVIDERS: ATTEND Urology
PROC: 0T778DZ Dilation of Left Ureter with Intraluminal Device, Via Natural or Artificial Opening Endoscopic (ICD-10-PCS; principal; 2021-03-09)
PROC: 0TP98DZ Removal of Intraluminal Device from Ureter, Via Natural or Artificial Opening Endoscopic (ICD-10-PCS; 2021-03-09)
DX: R31.0 Gross hematuria (principal); R93.41 Abnormal radiologic findings on diagnostic imaging of renal pelvis, ureter, or bladder; N35.912 Unspecified bulbous urethral stricture, male; Q62.8 Other congenital malformations of ureter; I10 Essential (primary) hypertension; R60.0 Localized edema; Z79.899 Other long term (current) drug therapy; Z88.6 Allergy status to analgesic agent; Z98.1 Arthrodesis status
CPT/HCPCS: 52332; 74420; Q9961; C2617; J1956; J2405; J2704; J3010

== ENCOUNTER 2021-03-11 17:39 | Inpatient (IN) | payer MEDICARE ==
[2021-03-11 18:24] LABS: Hemoglobin 12.3 g/dL (14.0-18.0); Mean Corpuscular HGB CONC 34.9 g/dL (32.0-36.0); Mean Corpuscular Hemoglobin 31.6 pg (27.0-31.0); Mean Corpuscular Volume 90.4 fL (78.0-98.0); Mean Platelet Volume 6.4 fL (7.4-10.4); Platelet Count 292 thou/uL (130-400); RBC Distribution Width 16.8 % (11.5-14.5); Red Blood Cell (RBC) Count 3.89 mill/uL (4.70-6.10); White Blood Cell (WBC) Count 29.8 thou/uL (4.8-10.8)
[2021-03-11 18:34] LABS: INR-International Normal Ratio 1.3; PTT 44.3 sec (22.9-36.1); Prothrombin Time 16.1 sec (12.0-14.7)
[2021-03-11 18:39] LABS: Bilirubin Negative (Negative); Blood, Urine 3+ (Negative); Clarity Extra Turbid (Clear); Glucose, Urine (Dipstick) 30 mg/dL (Negative); Ketone, Urine Negative (Negative); Leukocyte 500 Leu/uL (Negative); Nitrite Negative (Negative); Protein, Urine (Dipstick) 200 mg/dL (Neg-Trace); RBC/HPF Greater than 50 HPF (0-3); Specific Gravity, Urine 1.014 (1.002-1.036); Squamous Epithelial 0-3 HPF (0-3); Urobilinogen Normal mg/dL (Less than 2)
[2021-03-11 18:41] LABS: Bacteria/HPF 1+ HPF (None Seen)
[2021-03-11] MEDS ORDERED: Cefepime 2 GM VIAL ONE (18:47)
[2021-03-11] MEDS ORDERED: Vancomycin 1 GM/200 ML BAG ONE (18:47)
[2021-03-11 18:52] LABS: ALT (SGPT) 7 U/L (8-55); AST (SGOT) 10 U/L (5-34); Albumin 3.3 g/dL (3.5-5.0); Alkaline Phosphatase 153 U/L (40-110); BUN (Urea Nitrogen) 58 mg/dL (8.4-25.7); Bilirubin, Total 0.4 mg/dL (0.2-1.2); Calc. Creatinine Clearance 0 mL/min (70-130); Calcium 7.1 mg/dL (7.8-10.44); Chloride 110 mmol/L (98-107); Globulin 3.7 g/dL (2.4-3.5); Glucose 123 mg/dL (70-105); Potassium 3.1 mmol/L (3.5-5.1); Sodium 137 mmol/L (136-145)
[2021-03-11 18:53] LABS: Band 5 % (5-11); Eosinophils 1 % (0-10); Lymphocytes 7 % (21-51); MDiff Complete? YES; Monocytes 2 % (0-10); Neutrophil 84 % (42-75); Platelet Morphology Comment Appears Adequate; Polychromasia SLIGHT = 2-3 cells (100X) (0-2/hpf); Reactive Lymphocytes 1 % (0-10)
[2021-03-11 18:55] LABS: Carbon Dioxide Less than 8 mmol/L (22-29)
[2021-03-11 19:10] LABS: Actual Bicarbonate (HCO3a) 5.7 mEq/L (22-28); Analyzer IN Cardio ER; Calcium, Ionized (arterial) 1.02 mmol/L (1.12-1.30); Hemoglobin (Hb) 12.3 g/dL (14.0-18.0); Potassium - ABG Lab 3.08 mmol/L (3.70-5.30)
[2021-03-11 19:14] LABS: CO2 Tension 22.9 mmHg (35.0-45.0); pH, Arterial 7.01 (7.35-7.45)
[2021-03-11 19:15] LABS: ALV-art Gradient 67.105 mmHg (0-20); Puncture Site LRA
[2021-03-11 20:41] LABS: SARS-CoV-2 NAA Rapid Test Not Detected (NotDetected)
[2021-03-11] MEDS ORDERED: Sodium Bicarb 50 MEQ/50 ML Abboject 8.4% SYRINGE ONE (21:19)
[2021-03-11] MEDS ORDERED: Dextrose 50% Abboject 50 ML SYRINGE SLOW IVP PRN (21:33)
[2021-03-11] MEDS ORDERED: HumaLOG 300 UNITS/3 ML VIAL SC PRN ×2 (21:33)
[2021-03-11] MEDS ORDERED: Dextrose 5% in Water 1,000 ML IV PRN (21:33)
[2021-03-11 22:11] LABS: Alcohol Less than 10 mg/dL (Less than 10); Magnesium 2.8 mg/dL (1.6-2.6)
[2021-03-12] MEDS: Potassium Chloride 10 MEQ TAB PO SCH ×2 (00:19→00:46)
[2021-03-12] MEDS: Sodium Bicarbonate 150 MEQ in Dextrose 5% in Water 1,000 ML IV SCH ×4 (00:22→22:14)
[2021-03-12 01:32] LABS: Hemoglobin 10.8 g/dL (14.0-18.0)
[2021-03-12 04:03] LABS: BUN (Urea Nitrogen) 58 mg/dL (8.4-25.7); Calc. Creatinine Clearance 21 mL/min (70-130); Chloride 115 mmol/L (98-107); Sodium 139 mmol/L (136-145)
[2021-03-12 04:04] LABS: ALT (SGPT) 7 U/L (8-55); AST (SGOT) 10 U/L (5-34); Albumin 2.8 g/dL (3.5-5.0); Alkaline Phosphatase 116 U/L (40-110); Bilirubin, Total 0.3 mg/dL (0.2-1.2); Calcium 6.7 mg/dL (7.8-10.44); Globulin 3.5 g/dL (2.4-3.5); Glucose 116 mg/dL (70-105); Protein, Total 6.3 g/dL (6.0-8.3)
[2021-03-12 04:17] LABS: Carbon Dioxide Less than 8 mmol/L (22-29); Potassium 2.4 mmol/L (3.5-5.1)
[2021-03-12] MEDS ORDERED: Potassium Chloride 20 MEQ TAB PO SCH ×2 (04:45→13:15)
[2021-03-12 04:57] LABS: #Eosinphils 0.1 thou/uL (0.0-0.7); #Lymphocytes 2.3 thou/uL (1.20-3.40); #Monocytes 1.2 thou/uL (0.11-0.59); #Neutrophils 17.8 thou/uL (1.40-6.50); %Basophils 0.2 % (0.0-1.0); %Eosinophils 0.6 % (0.0-10.0); %Lymphocytes 10.8 % (21.0-51.0); %Monocytes 5.6 % (0.0-10.0); %Neutrophils 82.9 % (42.0-75.0); Mean Corpuscular HGB CONC 36.1 g/dL (32.0-36.0); Mean Corpuscular Hemoglobin 32.1 pg (27.0-31.0); Mean Platelet Volume 6.5 fL (7.4-10.4); Platelet Count 300 thou/uL (130-400); RBC Distribution Width 16.6 % (11.5-14.5); Red Blood Cell (RBC) Count 3.43 mill/uL (4.70-6.10); White Blood Cell (WBC) Count 21.5 thou/uL (4.8-10.8)
[2021-03-12] MEDS ORDERED: Potassium Chloride 40 MEQ in Premix Bag 1 BAG IVPB SCH (05:30)
[2021-03-12] MEDS ORDERED: Potassium Bicarbonate/Cit Ac 20 MEQ TAB PO SCH (05:30)
[2021-03-12] MEDS: Potassium Chloride 20 MEQ in Premix Bag 1 BAG IVPB SCH ×2 (05:40→07:50)
[2021-03-12 09:46] LABS: Amphetamine Not Detected (NotDetected); Barbiturates Screen Not Detected (NotDetected); Benzodiazepine Screen Not Detected (NotDetected); Cocaine Metabolite Screen Not Detected (NotDetected); Methadone Not Detected (NotDetected); Methamphetamine Not Detected (NotDetected); Opiate Screen Detected (NotDetected); Oxycodone Screen Not Detected (NotDetected); Phencyclidine (PCP) Not Detected (NotDetected); THC/Cannabinoid Screen Not Detected (NotDetected); Tricyclic Screen Not Detected (NotDetected)
[2021-03-12 09:46] LABS: Acetaminophen Less than 6.0 mcg/mL (10.0-30.0); Anion Gap 18 mmol/L (10-20); BUN (Urea Nitrogen) 54 mg/dL (8.4-25.7); Calc. Creatinine Clearance 22 mL/min (70-130); Calcium 6.2 mg/dL (7.8-10.44); Carbon Dioxide 10 mmol/L (22-29); Chloride 116 mmol/L (98-107); Glucose 128 mg/dL (70-105); Salicylate Less than 8.0 mg/dL (15.0-30.0); Sodium 142 mmol/L (136-145)
[2021-03-12 09:53] LABS: Potassium 2.4 mmol/L (3.5-5.1)
[2021-03-12 10:18] LABS: Creatinine, Urine 53.39 mg/dL (63-166); Potassium, Urine 19.8 mmol/L
[2021-03-12 10:19] LABS: Protein, Urine Random Quant 150 mg/dL (1-14); Sodium, Urine 51 mmol/L (Not Available); Urea Nitrogen, Random Urine 341 mg/dl
[2021-03-12 13:49] LABS: Hemoglobin 10.4 g/dL (14.0-18.0)
[2021-03-12 14:09] LABS: ALT (SGPT) Less than 7 U/L (8-55); AST (SGOT) 8 U/L (5-34); Albumin 2.7 g/dL (3.5-5.0); Alkaline Phosphatase 110 U/L (40-110); Anion Gap 17 mmol/L (10-20); BUN (Urea Nitrogen) 45 mg/dL (8.4-25.7); Bilirubin, Total 0.3 mg/dL (0.2-1.2); Calc. Creatinine Clearance 23 mL/min (70-130); Calcium 6.1 mg/dL (7.8-10.44); Carbon Dioxide 11 mmol/L (22-29); Chloride 117 mmol/L (98-107); Globulin 2.8 g/dL (2.4-3.5); Glucose 125 mg/dL (70-105); Magnesium 2.3 mg/dL (1.6-2.6); Phosphorus 2.8 mg/dL (2.3-4.7); Protein, Total 5.5 g/dL (6.0-8.3); Sodium 143 mmol/L (136-145)
[2021-03-12 14:17] LABS: Potassium 2.3 mmol/L (3.5-5.1)
[2021-03-12] MEDS ORDERED: Potassium Chloride 40 MEQ in Sodium Chloride 0.9% 250 ML 250 ML IVPB SCH ×2 (14:45→20:00)
[2021-03-12] MEDS: Cefepime 1 GM in Sodium Chloride 0.9% 100 ML IVPB SCH (17:30)
[2021-03-12] MEDS: Ondansetron PF 4 MG/2 ML Vial IVP PRN (17:39)
[2021-03-12 18:52] LABS: Vancomycin, Random 7.9 ug/mL (See Comment)
[2021-03-12 19:15] LABS: ALT (SGPT) Less than 7 U/L (8-55); AST (SGOT) 9 U/L (5-34); Albumin 2.7 g/dL (3.5-5.0); Alkaline Phosphatase 118 U/L (40-110); BUN (Urea Nitrogen) 54 mg/dL (8.4-25.7); Bilirubin, Total 0.3 mg/dL (0.2-1.2); Calc. Creatinine Clearance 24 mL/min (70-130); Calcium 6.4 mg/dL (7.8-10.44); Chloride 121 mmol/L (98-107); Globulin 3.2 g/dL (2.4-3.5); Glucose 95 mg/dL (70-105); Magnesium 2.4 mg/dL (1.6-2.6); Protein, Total 5.9 g/dL (6.0-8.3); Sodium 144 mmol/L (136-145)
[2021-03-12] MEDS ORDERED: Vancomycin 1 GM in Premix Bag 1 BAG IVPB SCH (19:30)
[2021-03-12 19:33] LABS: Carbon Dioxide Less than 8 mmol/L (22-29); Potassium 2.9 mmol/L (3.5-5.1)
[2021-03-12] MEDS ORDERED: Sodium Bicarb 50 MEQ/50 ML Abboject 8.4% SYRINGE IVP SCH (20:00)
[2021-03-12] MEDS: Vancomycin HCl 500 MG, Admixture Fee 1 EACH in Sodium Chloride 0.9% 100 ML IVPB SCH ×4 (20:35→20:38)
[2021-03-13] MEDS: Sodium Bicarbonate 150 MEQ in Dextrose 5% in Water 1,000 ML IV SCH ×3 (02:07→23:34)
[2021-03-13 04:04] LABS: #Eosinphils 0.3 thou/uL (0.0-0.7); #Lymphocytes 2.7 thou/uL (1.20-3.40); #Monocytes 0.9 thou/uL (0.11-0.59); #Neutrophils 9.5 thou/uL (1.40-6.50); %Basophils 0.3 % (0.0-1.0); %Eosinophils 1.9 % (0.0-10.0); %Lymphocytes 20.4 % (21.0-51.0); %Monocytes 6.5 % (0.0-10.0); %Neutrophils 70.9 % (42.0-75.0); Hemoglobin 9.6 g/dL (14.0-18.0); Mean Corpuscular HGB CONC 35.3 g/dL (32.0-36.0); Mean Corpuscular Hemoglobin 31.7 pg (27.0-31.0); Mean Corpuscular Volume 89.7 fL (78.0-98.0); Mean Platelet Volume 6.5 fL (7.4-10.4); Platelet Count 286 thou/uL (130-400); RBC Distribution Width 16.8 % (11.5-14.5); Red Blood Cell (RBC) Count 3.04 mill/uL (4.70-6.10); White Blood Cell (WBC) Count 13.3 thou/uL (4.8-10.8)
[2021-03-13 04:26] LABS: ALT (SGPT) Less than 7 U/L (8-55); AST (SGOT) 7 U/L (5-34); Albumin 2.7 g/dL (3.5-5.0); Alkaline Phosphatase 106 U/L (40-110); Anion Gap 15 mmol/L (10-20); BUN (Urea Nitrogen) 49 mg/dL (8.4-25.7); Bilirubin, Total 0.4 mg/dL (0.2-1.2); Calc. Creatinine Clearance 27 mL/min (70-130); Calcium 6.7 mg/dL (7.8-10.44); Carbon Dioxide 12 mmol/L (22-29); Chloride 121 mmol/L (98-107); Globulin 2.8 g/dL (2.4-3.5); Glucose 111 mg/dL (70-105); Magnesium 2.3 mg/dL (1.6-2.6); Protein, Total 5.5 g/dL (6.0-8.3); Sodium 146 mmol/L (136-145)
[2021-03-13 04:30] LABS: Phosphorus 2.1 mg/dL (2.3-4.7)
[2021-03-13 04:42] LABS: Potassium 2.4 mmol/L (3.5-5.1)
[2021-03-13] MEDS ORDERED: Potassium Chloride 20 MEQ TAB PO SCH ×2 (05:00→09:30)
[2021-03-13] MEDS ORDERED: Potassium Chloride 10 MEQ in Premix Bag 1 BAG IVPB SCH (05:00)
[2021-03-13] MEDS ORDERED: Potassium Chloride 40 MEQ in Premix Bag 1 BAG IVPB SCH (10:00)
[2021-03-13] MEDS ORDERED: Potassium Bicarbonate/Cit Ac 20 MEQ TAB PO SCH ×2 (10:00→20:00)
[2021-03-13] MEDS: Ondansetron PF 4 MG/2 ML Vial IVP PRN (10:31)
[2021-03-13 10:32] LABS: ALT (SGPT) Less than 7 U/L (8-55); AST (SGOT) 7 U/L (5-34); Albumin 2.5 g/dL (3.5-5.0); Alkaline Phosphatase 101 U/L (40-110); Anion Gap 15 mmol/L (10-20); BUN (Urea Nitrogen) 45 mg/dL (8.4-25.7); Bilirubin, Total 0.4 mg/dL (0.2-1.2); Calc. Creatinine Clearance 0 mL/min (70-130); Carbon Dioxide 15 mmol/L (22-29); Chloride 120 mmol/L (98-107); Globulin 2.9 g/dL (2.4-3.5); Glucose 115 mg/dL (70-105); Magnesium 2.3 mg/dL (1.6-2.6); Protein, Total 5.4 g/dL (6.0-8.3); Sodium 147 mmol/L (136-145)
[2021-03-13 10:43] LABS: Potassium 2.6 mmol/L (3.5-5.1)
[2021-03-13 13:26] LABS: Potassium 2.7 mmol/L (3.5-5.1)
[2021-03-13] MEDS: Fentanyl 100 MCG/2 ML VIAL SLOW IVP PRN ×2 (14:37→19:55)
[2021-03-13 18:22] LABS: Vancomycin, Random 17.1 ug/mL (See Comment)
[2021-03-13] MEDS: Cefepime 1 GM in Sodium Chloride 0.9% 100 ML IVPB SCH (18:30)
[2021-03-13 18:40] LABS: ALT (SGPT) Less than 7 U/L (8-55); AST (SGOT) 9 U/L (5-34); Albumin 2.6 g/dL (3.5-5.0); Alkaline Phosphatase 97 U/L (40-110); Anion Gap 16 mmol/L (10-20); BUN (Urea Nitrogen) 42 mg/dL (8.4-25.7); Bilirubin, Total 0.5 mg/dL (0.2-1.2); Calc. Creatinine Clearance 0 mL/min (70-130); Calcium 7.5 mg/dL (7.8-10.44); Carbon Dioxide 17 mmol/L (22-29); Chloride 120 mmol/L (98-107); Globulin 2.9 g/dL (2.4-3.5); Glucose 119 mg/dL (70-105); Magnesium 2.2 mg/dL (1.6-2.6); Protein, Total 5.5 g/dL (6.0-8.3); Sodium 150 mmol/L (136-145)
[2021-03-13 18:46] LABS: Potassium 2.8 mmol/L (3.5-5.1)
[2021-03-13] MEDS ORDERED: Vancomycin HCl 500 MG in Sodium Chloride 0.9% 100 ML IVPB SCH (19:00)
[2021-03-13] MEDS: Potassium Chloride 20 MEQ in Premix Bag 1 BAG IVPB SCH ×2 (21:36→23:35)
[2021-03-14] MEDS: Fentanyl 100 MCG/2 ML VIAL SLOW IVP PRN ×2 (02:17→13:50)
[2021-03-14 04:30] LABS: #Eosinphils 0.4 thou/uL (0.0-0.7); #Lymphocytes 3.5 thou/uL (1.20-3.40); #Monocytes 1.2 thou/uL (0.11-0.59); #Neutrophils 8.3 thou/uL (1.40-6.50); %Basophils 0.3 % (0.0-1.0); %Eosinophils 2.8 % (0.0-10.0); %Lymphocytes 26.1 % (21.0-51.0); %Monocytes 9.1 % (0.0-10.0); %Neutrophils 61.7 % (42.0-75.0); Hemoglobin 8.9 g/dL (14.0-18.0); Mean Corpuscular HGB CONC 35.6 g/dL (32.0-36.0); Mean Corpuscular Hemoglobin 31.7 pg (27.0-31.0); Mean Corpuscular Volume 89.1 fL (78.0-98.0); Mean Platelet Volume 6.8 fL (7.4-10.4); Platelet Count 263 thou/uL (130-400); RBC Distribution Width 16.7 % (11.5-14.5); White Blood Cell (WBC) Count 13.5 thou/uL (4.8-10.8)
[2021-03-14 04:38] LABS: Phosphorus 1.7 mg/dL (2.3-4.7)
[2021-03-14] MEDS ORDERED: Electrolyte Replacement Protocol 1 EACH FS PRN (04:45)
[2021-03-14] MEDS ORDERED: Sodium Phosphate 15 MMOL in Sodium Chloride 0.9% 250 ML 250 ML IVPB SCH (05:30)
[2021-03-14 06:14] LABS: ALT (SGPT) 8 U/L (8-55); AST (SGOT) 10 U/L (5-34); Albumin 2.5 g/dL (3.5-5.0); Alkaline Phosphatase 94 U/L (40-110); Anion Gap 12 mmol/L (10-20); BUN (Urea Nitrogen) 35 mg/dL (8.4-25.7); Bilirubin, Total 0.6 mg/dL (0.2-1.2); Calc. Creatinine Clearance 36 mL/min (70-130); Calcium 8.2 mg/dL (7.8-10.44); Carbon Dioxide 25 mmol/L (22-29); Chloride 117 mmol/L (98-107); Globulin 3.4 g/dL (2.4-3.5); Glucose 118 mg/dL (70-105); Magnesium 2.1 mg/dL (1.6-2.6); Protein, Total 5.9 g/dL (6.0-8.3); Sodium 151 mmol/L (136-145)
[2021-03-14] MEDS ORDERED: Potassium Phosphate 15 MMOL in Sodium Chloride 0.9% 250 ML 250 ML IVPB SCH (06:45)
[2021-03-14] MEDS ORDERED: Potassium Chloride 20 MEQ in Premix Bag 1 BAG IVPB SCH (06:45)
[2021-03-14] MEDS: Sodium Bicarbonate 150 MEQ in Dextrose 5% in Water 1,000 ML IV SCH (09:26)
[2021-03-14 11:47] LABS: Anion Gap 15 mmol/L (10-20); BUN (Urea Nitrogen) 35 mg/dL (8.4-25.7); Calc. Creatinine Clearance 38 mL/min (70-130); Carbon Dioxide 22 mmol/L (22-29); Chloride 119 mmol/L (98-107); Potassium 3.9 mmol/L (3.5-5.1); Sodium 152 mmol/L (136-145)
[2021-03-14 11:48] LABS: ALT (SGPT) 7 U/L (8-55); AST (SGOT) 11 U/L (5-34); Albumin 2.5 g/dL (3.5-5.0); Alkaline Phosphatase 94 U/L (40-110); Bilirubin, Total 0.6 mg/dL (0.2-1.2); Calcium 7.6 mg/dL (7.8-10.44); Globulin 3.1 g/dL (2.4-3.5); Glucose 137 mg/dL (70-105); Magnesium 2.1 mg/dL (1.6-2.6); Protein, Total 5.6 g/dL (6.0-8.3)
[2021-03-14] MEDS: Dextrose 5% in Water 1,000 ML IV SCH ×2 (12:38→23:22)
[2021-03-14] MEDS: Cefepime 1 GM in Sodium Chloride 0.9% 100 ML IVPB SCH (18:01)
[2021-03-14 18:50] LABS: ALT (SGPT) Less than 7 U/L (8-55); AST (SGOT) 7 U/L (5-34); Albumin 2.7 g/dL (3.5-5.0); Alkaline Phosphatase 93 U/L (40-110); Anion Gap 13 mmol/L (10-20); BUN (Urea Nitrogen) 35 mg/dL (8.4-25.7); Bilirubin, Total 0.6 mg/dL (0.2-1.2); Calc. Creatinine Clearance 42 mL/min (70-130); Carbon Dioxide 25 mmol/L (22-29); Chloride 117 mmol/L (98-107); Globulin 2.9 g/dL (2.4-3.5); Glucose 119 mg/dL (70-105); Magnesium 2.1 mg/dL (1.6-2.6); Potassium 3.1 mmol/L (3.5-5.1); Protein, Total 5.6 g/dL (6.0-8.3); Sodium 152 mmol/L (136-145)
[2021-03-14 18:56] LABS: Vancomycin, Random 14.7 ug/mL (See Comment)
[2021-03-14] MEDS ORDERED: Vancomycin HCl 750 MG in Sodium Chloride 0.9% 250 ML 250 ML IVPB SCH (20:00)
[2021-03-14] MEDS ORDERED: Electrolyte Replacement Protocol FS PRN (20:45)
[2021-03-14] MEDS ORDERED: Potassium Chloride 20 MEQ TAB PO SCH (21:00)
[2021-03-14] MEDS: Ondansetron PF 4 MG/2 ML Vial IVP PRN (23:22)
[2021-03-15 04:14] LABS: #Eosinphils 0.7 thou/uL (0.0-0.7); #Lymphocytes 3.4 thou/uL (1.20-3.40); #Monocytes 1.3 thou/uL (0.11-0.59); #Neutrophils 8.2 thou/uL (1.40-6.50); %Basophils 0.3 % (0.0-1.0); %Eosinophils 5.5 % (0.0-10.0); %Lymphocytes 25.2 % (21.0-51.0); %Monocytes 9.2 % (0.0-10.0); %Neutrophils 59.9 % (42.0-75.0); Mean Corpuscular HGB CONC 35.3 g/dL (32.0-36.0); Mean Corpuscular Hemoglobin 32.2 pg (27.0-31.0); Mean Corpuscular Volume 91.2 fL (78.0-98.0); Mean Platelet Volume 6.9 fL (7.4-10.4); Platelet Count 233 thou/uL (130-400); Red Blood Cell (RBC) Count 3.09 mill/uL (4.70-6.10); White Blood Cell (WBC) Count 13.7 thou/uL (4.8-10.8)
[2021-03-15 04:33] LABS: ALT (SGPT) 7 U/L (8-55); AST (SGOT) 8 U/L (5-34); Albumin 2.6 g/dL (3.5-5.0); Alkaline Phosphatase 89 U/L (40-110); Anion Gap 13 mmol/L (10-20); BUN (Urea Nitrogen) 29 mg/dL (8.4-25.7); Bilirubin, Total 0.6 mg/dL (0.2-1.2); Calc. Creatinine Clearance 44 mL/min (70-130); Calcium 8.2 mg/dL (7.8-10.44); Carbon Dioxide 25 mmol/L (22-29); Chloride 117 mmol/L (98-107); Globulin 3.1 g/dL (2.4-3.5); Glucose 113 mg/dL (70-105); Magnesium 2.1 mg/dL (1.6-2.6); Potassium 3.4 mmol/L (3.5-5.1); Protein, Total 5.7 g/dL (6.0-8.3); Sodium 152 mmol/L (136-145)
[2021-03-15 05:03] LABS: Phosphorus 3.4 mg/dL (2.3-4.7)
[2021-03-15] MEDS: Acetaminophen 325 MG TAB PO PRN ×2 (11:22→15:42)
[2021-03-15] MEDS: Fentanyl 100 MCG/2 ML VIAL SLOW IVP PRN ×2 (11:27→20:05)
[2021-03-15] MEDS: Dextrose 5% in Water 1,000 ML IV SCH ×2 (11:32→21:33)
[2021-03-15] MEDS ORDERED: Potassium Chloride 20 MEQ TAB PO SCH ×2 (14:00→19:00)
[2021-03-15] MEDS: Cefepime 1 GM in Sodium Chloride 0.9% 100 ML IVPB SCH (18:42)
[2021-03-15 20:31] LABS: Vancomycin, Random 17.8 ug/mL (See Comment)
[2021-03-15] MEDS ORDERED: hydrALAZINE 20 MG/ML VIAL SLOW IVP PRN (20:55)
[2021-03-15] MEDS ORDERED: Vancomycin HCl 500 MG in Sodium Chloride 0.9% 100 ML IVPB SCH (23:59)
[2021-03-16] MEDS: Fentanyl 100 MCG/2 ML VIAL SLOW IVP PRN ×4 (02:30→21:02)
[2021-03-16 07:10] LABS: #Basophils 0.1 thou/uL (0.0-0.2); #Lymphocytes 3.8 thou/uL (1.20-3.40); #Monocytes 1.2 thou/uL (0.11-0.59); #Neutrophils 7.4 thou/uL (1.40-6.50); %Basophils 0.4 % (0.0-1.0); %Eosinophils 7.6 % (0.0-10.0); %Lymphocytes 27.9 % (21.0-51.0); %Monocytes 9.2 % (0.0-10.0); Hemoglobin 9.3 g/dL (14.0-18.0); Mean Corpuscular HGB CONC 34.2 g/dL (32.0-36.0); Mean Corpuscular Volume 90.8 fL (78.0-98.0); Mean Platelet Volume 6.9 fL (7.4-10.4); Platelet Count 231 thou/uL (130-400); RBC Distribution Width 16.6 % (11.5-14.5); White Blood Cell (WBC) Count 13.5 thou/uL (4.8-10.8)
[2021-03-16 07:30] LABS: Anion Gap 11 mmol/L (10-20); BUN (Urea Nitrogen) 26 mg/dL (8.4-25.7); Calc. Creatinine Clearance 52 mL/min (70-130); Carbon Dioxide 23 mmol/L (22-29); Chloride 109 mmol/L (98-107); Glucose 107 mg/dL (70-105); Potassium 3.3 mmol/L (3.5-5.1); Sodium 140 mmol/L (136-145)
[2021-03-16] MEDS: Famotidine 20 MG TAB PO SCH ×2 (08:22→20:57)
[2021-03-16] MEDS: Acetaminophen 325 MG TAB PO PRN (08:22)
[2021-03-16] MEDS: Saccharomyces boulardii 250 MG CAP PO SCH (08:22)
[2021-03-16] MEDS: Dextrose 5% in Water 1,000 ML IV SCH (08:23)
[2021-03-16] MEDS ORDERED: Potassium Chloride 20 MEQ TAB PO SCH ×2 (12:15→17:00)
[2021-03-16] MEDS: Cefepime 1 GM in Sodium Chloride 0.9% 100 ML IVPB SCH (17:49)
[2021-03-16 23:53] LABS: Vancomycin, Random 16.1 ug/mL (See Comment)
[2021-03-17] MEDS: Acetaminophen 325 MG TAB PO PRN ×2 (01:26→12:02)
[2021-03-17] MEDS: Vancomycin HCl 750 MG in Sodium Chloride 0.9% 250 ML 250 ML IVPB SCH (01:26)
[2021-03-17] MEDS: Fentanyl 100 MCG/2 ML VIAL SLOW IVP PRN ×3 (05:34→23:46)
[2021-03-17 06:51] LABS: #Basophils 0.1 thou/uL (0.0-0.2); #Eosinphils 0.9 thou/uL (0.0-0.7); #Lymphocytes 4.5 thou/uL (1.20-3.40); #Monocytes 1.2 thou/uL (0.11-0.59); #Neutrophils 7.5 thou/uL (1.40-6.50); %Basophils 0.5 % (0.0-1.0); %Eosinophils 6.5 % (0.0-10.0); %Lymphocytes 31.5 % (21.0-51.0); %Monocytes 8.5 % (0.0-10.0); %Neutrophils 52.9 % (42.0-75.0); Hemoglobin 9.7 g/dL (14.0-18.0); Mean Corpuscular HGB CONC 34.3 g/dL (32.0-36.0); Mean Corpuscular Hemoglobin 31.6 pg (27.0-31.0); Platelet Count 231 thou/uL (130-400); RBC Distribution Width 16.7 % (11.5-14.5); Red Blood Cell (RBC) Count 3.07 mill/uL (4.70-6.10); White Blood Cell (WBC) Count 14.2 thou/uL (4.8-10.8)
[2021-03-17 06:54] LABS: Anion Gap 16 mmol/L (10-20); BUN (Urea Nitrogen) 25 mg/dL (8.4-25.7); Calc. Creatinine Clearance 50 mL/min (70-130); Calcium 8.5 mg/dL (7.8-10.44); Carbon Dioxide 21 mmol/L (22-29); Chloride 110 mmol/L (98-107); Glucose 80 mg/dL (70-105); Potassium 3.9 mmol/L (3.5-5.1); Sodium 143 mmol/L (136-145)
[2021-03-17] MEDS: Saccharomyces boulardii 250 MG CAP PO SCH (09:26)
[2021-03-17] MEDS: Famotidine 20 MG TAB PO SCH ×2 (09:26→20:37)
[2021-03-17] MEDS: HYDROcodone/Acetaminophen 5/325 mg Tablet PO PRN ×2 (11:57→18:42)
[2021-03-17 13:34] VITALS: BMI 28.4
[2021-03-17] MEDS: Cefepime 1 GM in Sodium Chloride 0.9% 100 ML IVPB SCH (17:24)
[2021-03-18] MEDS: Vancomycin HCl 750 MG in Sodium Chloride 0.9% 250 ML 250 ML IVPB SCH (02:40)
[2021-03-18] MEDS: HYDROcodone/Acetaminophen 5/325 mg Tablet PO PRN ×3 (04:03→19:51)
[2021-03-18 06:26] LABS: #Basophils 0.1 thou/uL (0.0-0.2); #Lymphocytes 4.8 thou/uL (1.20-3.40); #Neutrophils 7.8 thou/uL (1.40-6.50); %Basophils 0.6 % (0.0-1.0); %Eosinophils 6.5 % (0.0-10.0); %Lymphocytes 32.7 % (21.0-51.0); %Monocytes 6.9 % (0.0-10.0); %Neutrophils 53.3 % (42.0-75.0); Hemoglobin 9.9 g/dL (14.0-18.0); Mean Corpuscular HGB CONC 33.8 g/dL (32.0-36.0); Mean Corpuscular Hemoglobin 31.7 pg (27.0-31.0); Mean Corpuscular Volume 93.6 fL (78.0-98.0); Mean Platelet Volume 7.1 fL (7.4-10.4); Platelet Count 206 thou/uL (130-400); RBC Distribution Width 16.7 % (11.5-14.5); Red Blood Cell (RBC) Count 3.12 mill/uL (4.70-6.10); White Blood Cell (WBC) Count 14.7 thou/uL (4.8-10.8)
[2021-03-18 06:47] LABS: Anion Gap 14 mmol/L (10-20); BUN (Urea Nitrogen) 21 mg/dL (8.4-25.7); Calc. Creatinine Clearance 46 mL/min (70-130); Calcium 8.7 mg/dL (7.8-10.44); Carbon Dioxide 22 mmol/L (22-29); Chloride 110 mmol/L (98-107); Glucose 82 mg/dL (70-105); Potassium 3.8 mmol/L (3.5-5.1); Sodium 142 mmol/L (136-145)
[2021-03-18] MEDS: Fentanyl 100 MCG/2 ML VIAL SLOW IVP PRN (08:57)
[2021-03-18] MEDS: Saccharomyces boulardii 250 MG CAP PO SCH (08:58)
[2021-03-18] MEDS: Famotidine 20 MG TAB PO SCH ×2 (08:58→19:52)
[2021-03-19] MEDS: Fentanyl 100 MCG/2 ML VIAL SLOW IVP PRN ×3 (00:33→16:10)
[2021-03-19] MEDS: HYDROcodone/Acetaminophen 5/325 mg Tablet PO PRN ×3 (04:56→17:04)
[2021-03-19 07:17] LABS: #Basophils 0.1 thou/uL (0.0-0.2); #Eosinphils 0.8 thou/uL (0.0-0.7); #Lymphocytes 4.2 thou/uL (1.20-3.40); #Monocytes 1.1 thou/uL (0.11-0.59); #Neutrophils 7.1 thou/uL (1.40-6.50); %Basophils 0.5 % (0.0-1.0); %Eosinophils 6.3 % (0.0-10.0); %Lymphocytes 31.4 % (21.0-51.0); %Monocytes 8.3 % (0.0-10.0); %Neutrophils 53.5 % (42.0-75.0); Mean Corpuscular HGB CONC 34.4 g/dL (32.0-36.0); Mean Corpuscular Hemoglobin 32.2 pg (27.0-31.0); Mean Corpuscular Volume 93.7 fL (78.0-98.0); Mean Platelet Volume 7.2 fL (7.4-10.4); Platelet Count 200 thou/uL (130-400); RBC Distribution Width 16.4 % (11.5-14.5); Red Blood Cell (RBC) Count 3.11 mill/uL (4.70-6.10); White Blood Cell (WBC) Count 13.2 thou/uL (4.8-10.8)
[2021-03-19 07:36] LABS: Anion Gap 16 mmol/L (10-20); BUN (Urea Nitrogen) 17 mg/dL (8.4-25.7); Calc. Creatinine Clearance 45 mL/min (70-130); Calcium 8.8 mg/dL (7.8-10.44); Carbon Dioxide 21 mmol/L (22-29); Chloride 110 mmol/L (98-107); Glucose 85 mg/dL (70-105); Potassium 4.6 mmol/L (3.5-5.1); Sodium 142 mmol/L (136-145)
[2021-03-19] MEDS: Saccharomyces boulardii 250 MG CAP PO SCH (08:56)
[2021-03-19] MEDS: Famotidine 20 MG TAB PO SCH (08:56)
[2021-03-19 16:03] VITALS: TEMP 98.4
[2021-03-19 18:13] LABS: SARS-CoV-2 PCR by NAA Not Detected (NotDetected)
[2021-03-19 20:28] VITALS: BP 166/71
[2021-03-20] MEDS ORDERED: Ergocalciferol 1.25 MG(50,000 UNITS) CAP PO SCH (09:00)
== END 2021-03-19 21:26 | disposition home health service (06) | DRG 871 ==
LOC: ERS 17:39 → CCU 21:25 → IMCU/EMU 03-13 16:51 → T4-B 03-16 11:23 → T4-A 03-18 08:22 → T4-B 03-18 08:26
PROVIDERS: ADMIT Internal Medicine; ATTEND Internal Medicine
DX: A41.9 Sepsis, unspecified organism (principal); J18.9 Pneumonia, unspecified organism; Z20.822 Contact with and (suspected) exposure to COVID-19; G93.41 Metabolic encephalopathy; N18.4 Chronic kidney disease, stage 4 (severe); N17.9 Acute kidney failure, unspecified; L03.115 Cellulitis of right lower limb; L03.116 Cellulitis of left lower limb; E87.2 Acidosis; N39.0 Urinary tract infection, site not specified; E87.1 Hypo-osmolality and hyponatremia; E87.0 Hyperosmolality and hypernatremia; N25.81 Secondary hyperparathyroidism of renal origin; L97.919 Non-pressure chronic ulcer of unspecified part of right lower leg with unspecified severity; R65.20 Severe sepsis without septic shock; E11.22 Type 2 diabetes mellitus with diabetic chronic kidney disease; E11.51 Type 2 diabetes mellitus with diabetic peripheral angiopathy without gangrene; D63.1 Anemia in chronic kidney disease; G89.29 Other chronic pain; E87.6 Hypokalemia; S81.801A Unspecified open wound, right lower leg, initial encounter; X58.XXXA Exposure to other specified factors, initial encounter; R31.0 Gross hematuria; R59.0 Localized enlarged lymph nodes; I12.9 Hypertensive chronic kidney disease with stage 1 through stage 4 chronic kidney disease, or unspecified chronic kidney disease; M10.9 Gout, unspecified; F17.210 Nicotine dependence, cigarettes, uncomplicated; B95.2 Enterococcus as the cause of diseases classified elsewhere; E86.0 Dehydration; E86.1 Hypovolemia; E83.39 Other disorders of phosphorus metabolism; E83.51 Hypocalcemia; E83.42 Hypomagnesemia; E55.9 Vitamin D deficiency, unspecified; E87.8 Other disorders of electrolyte and fluid balance, not elsewhere classified; E88.09 Other disorders of plasma-protein metabolism, not elsewhere classified; E11.622 Type 2 diabetes mellitus with other skin ulcer; Z88.5 Allergy status to narcotic agent; Z79.899 Other long term (current) drug therapy; Z87.442 Personal history of urinary calculi; Z90.49 Acquired absence of other specified parts of digestive tract; Z86.718 Personal history of other venous thrombosis and embolism; Z82.49 Family history of ischemic heart disease and other diseases of the circulatory system; Z83.3 Family history of diabetes mellitus; Z80.0 Family history of malignant neoplasm of digestive organs; Z98.1 Arthrodesis status
CPT/HCPCS: 36415; 36416; 36600; 51702; 70450; 71045; 74176; 80048; 80053; 80143; 80179; 80202; 80306; 80307; 81003; 81015; 82306; 82340; 82570; 82805; 83605; 83735; 83930; 83970; 84100; 84133; 84156; 84300; 84484; 84540; 85025; 85610; 85730; 86140; 87040; 87086; 93005; 93923; 96365; 96366; 96367; 96375; J0360; J0692; J2405; J3010; J3370; J3480; J3490; J7050; J7070; U0002; U0003; U0005

== ENCOUNTER 2021-04-26 18:56 | Inpatient (IN) | payer MEDICARE ==
[2021-04-26] MEDS ORDERED: Ondansetron PF 4 MG/2 ML Vial ONE (19:20)
[2021-04-26 19:48] LABS: #Basophils 0.1 thou/uL (0.0-0.2); #Eosinphils 0.1 thou/uL (0.0-0.7); #Lymphocytes 2.7 thou/uL (1.20-3.40); #Monocytes 1.4 thou/uL (0.11-0.59); #Neutrophils 14.1 thou/uL (1.40-6.50); %Basophils 0.4 % (0.0-1.0); %Eosinophils 0.8 % (0.0-10.0); %Lymphocytes 14.9 % (21.0-51.0); %Monocytes 7.3 % (0.0-10.0); %Neutrophils 76.6 % (42.0-75.0); Hemoglobin 11.4 g/dL (14.0-18.0); Mean Corpuscular HGB CONC 34.6 g/dL (32.0-36.0); Mean Corpuscular Volume 95.4 fL (78.0-98.0); Mean Platelet Volume 6.3 fL (7.4-10.4); Platelet Count 248 thou/uL (130-400); RBC Distribution Width 16.2 % (11.5-14.5); Red Blood Cell (RBC) Count 3.47 mill/uL (4.70-6.10); White Blood Cell (WBC) Count 18.4 thou/uL (4.8-10.8)
[2021-04-26 20:03] LABS: ALT (SGPT) 8 U/L (8-55); AST (SGOT) 8 U/L (5-34); Albumin 3.5 g/dL (3.5-5.0); Alkaline Phosphatase 131 U/L (40-110); Anion Gap 15 mmol/L (10-20); BUN (Urea Nitrogen) 41 mg/dL (8.4-25.7); Bilirubin, Total 0.3 mg/dL (0.2-1.2); Calc. Creatinine Clearance 0 mL/min (70-130); Calcium 9.5 mg/dL (7.8-10.44); Carbon Dioxide 12 mmol/L (22-29); Chloride 112 mmol/L (98-107); Globulin 4.1 g/dL (2.4-3.5); Glucose 94 mg/dL (70-105); Lipase 45 U/L (8-78); Potassium 3.4 mmol/L (3.5-5.1); Protein, Total 7.6 g/dL (6.0-8.3); Sodium 136 mmol/L (136-145)
[2021-04-26] MEDS ORDERED: Clindamycin/D5W 900 mg/50 ml Premix Bag ONE (21:32)
[2021-04-26 21:55] LABS: Bacteria/HPF None Seen HPF (None Seen); Bilirubin Negative (Negative); Blood, Urine 3+ (Negative); Clarity Turbid (Clear); Glucose, Urine (Dipstick) Normal (Negative); Ketone, Urine Negative (Negative); Leukocyte 500 Leu/uL (Negative); Nitrite 1+ (Negative); Protein, Urine (Dipstick) 100 mg/dL (Neg-Trace); RBC/HPF 21-50 HPF (0-3); Specific Gravity, Urine 1.015 (1.002-1.036); Squamous Epithelial 0-3 HPF (0-3); Urobilinogen Normal mg/dL (Less than 2); WBC/HPF Greater than 50 HPF (0-3); pH, Urine 7.5 (5.0-9.0)
[2021-04-26] MEDS ORDERED: Ondansetron PF 4 MG/2 ML Vial IVP PRN ×2 (23:00→23:29)
[2021-04-26] MEDS ORDERED: Acetaminophen 325 MG TAB PO PRN ×2 (23:00→23:29)
[2021-04-26] MEDS ORDERED: Ondansetron ODT 4 MG TAB SL PRN (23:00)
[2021-04-26] MEDS ORDERED: cefTRIAXone\\ROCEPHIN 1 GM in Sodium Chloride 0.9% 100 ML IVPB SCH (23:30)
[2021-04-26] MEDS: Sodium Chloride 0.9% 1,000 ML IV SCH (23:49)
[2021-04-27] MEDS ORDERED: Electrolyte Replacement Protocol 1 EACH FS SCH (00:45)
[2021-04-27] MEDS ORDERED: Potassium Chloride 20 MEQ TAB PO SCH ×2 (00:45→09:30)
[2021-04-27] MEDS ORDERED: Melatonin 3 MG TAB PO PRN (00:46)
[2021-04-27] MEDS: HYDROcodone/Acetaminophen 10/325 mg Tablet PO PRN ×3 (01:33→21:55)
[2021-04-27] MEDS ORDERED: Dextrose 50% Abboject 50 ML SYRINGE SLOW IVP PRN (02:01)
[2021-04-27] MEDS ORDERED: Dextrose 5% in Water 1,000 ML IV PRN (02:01)
[2021-04-27] MEDS ORDERED: HumaLOG 300 UNITS/3 ML VIAL SC PRN ×2 (02:01)
[2021-04-27] MEDS: Potassium Chloride 20 MEQ in Premix Bag 1 BAG IVPB SCH ×2 (02:14→04:18)
[2021-04-27] MEDS ORDERED: Piperacillin/Tazobactam 3.375 GM in Sodium Chloride 0.9% 100 ML IVPB SCH ×3 (06:00→10:00)
[2021-04-27 07:09] LABS: #Eosinphils 0.1 thou/uL (0.0-0.7); #Lymphocytes 2.4 thou/uL (1.20-3.40); #Monocytes 1.5 thou/uL (0.11-0.59); #Neutrophils 14.2 thou/uL (1.40-6.50); %Basophils 0.2 % (0.0-1.0); %Eosinophils 0.8 % (0.0-10.0); %Lymphocytes 12.9 % (21.0-51.0); %Neutrophils 78.1 % (42.0-75.0); Hemoglobin 10.3 g/dL (14.0-18.0); Mean Corpuscular HGB CONC 33.8 g/dL (32.0-36.0); Mean Corpuscular Hemoglobin 32.3 pg (27.0-31.0); Mean Corpuscular Volume 95.7 fL (78.0-98.0); Mean Platelet Volume 6.3 fL (7.4-10.4); Platelet Count 238 thou/uL (130-400); RBC Distribution Width 16.2 % (11.5-14.5); White Blood Cell (WBC) Count 18.2 thou/uL (4.8-10.8)
[2021-04-27 07:22] LABS: Anion Gap 14 mmol/L (10-20); BUN (Urea Nitrogen) 37 mg/dL (8.4-25.7); Calc. Creatinine Clearance 27 mL/min (70-130); Calcium 8.8 mg/dL (7.8-10.44); Carbon Dioxide 10 mmol/L (22-29); Chloride 118 mmol/L (98-107); Glucose 90 mg/dL (70-105); Magnesium 2.3 mg/dL (1.6-2.6); Potassium 3.5 mmol/L (3.5-5.1); Sodium 138 mmol/L (136-145)
[2021-04-27] MEDS: Gabapentin 300 MG CAP PO SCH ×3 (09:14→20:29)
[2021-04-27] MEDS: Sodium Chloride 0.9% 1,000 ML IV SCH ×2 (09:14→09:23)
[2021-04-27] MEDS: Enoxaparin Sodium 30 MG/0.3 ML SYRINGE SC SCH ×2 (09:14→10:11)
[2021-04-27 12:07] LABS: SARS-CoV-2 PCR by NAA Not Detected (NotDetected)
[2021-04-27] MEDS ORDERED: methylPREDNISolone Sod Succ/PF 110 MG in Sodium Chloride 0.9% 250 ML 250 ML IVPB SCH (14:00)
[2021-04-27] MEDS: Ampicillin/Sulbactam 3 GM in Sodium Chloride 0.9% 100 ML IVPB SCH ×2 (14:23→20:28)
[2021-04-27] MEDS: Sodium Bicarbonate Tab 325 MG TAB PO SCH ×2 (14:27→20:29)
[2021-04-27 17:19] LABS: BUN (Urea Nitrogen) 34 mg/dL (8.4-25.7); Calc. Creatinine Clearance 29 mL/min (70-130); Calcium 8.6 mg/dL (7.8-10.44); Chloride 122 mmol/L (98-107); Glucose 79 mg/dL (70-105); Sodium 141 mmol/L (136-145)
[2021-04-27] MEDS ORDERED: Lidocaine 1% w/Epinephrine 1:100K 20 ML VIAL ONE (17:23)
[2021-04-27 17:35] LABS: Carbon Dioxide Less than 8 mmol/L (22-29)
[2021-04-27] MEDS ORDERED: Sodium Bicarb 50 MEQ/50 ML Abboject 8.4% SYRINGE IVP SCH ×2 (18:00→20:15)
[2021-04-27] MEDS ORDERED: Sodium Bicarbonate 50 MEQ in Sodium Chloride 0.45% 1,000 ML IV SCH (18:00)
[2021-04-27 19:00] LABS: Anion Gap 14 mmol/L (10-20); BUN (Urea Nitrogen) 33 mg/dL (8.4-25.7); Calc. Creatinine Clearance 30 mL/min (70-130); Calcium 8.9 mg/dL (7.8-10.44); Chloride 121 mmol/L (98-107); Glucose 105 mg/dL (70-105); Potassium 3.8 mmol/L (3.5-5.1); Sodium 140 mmol/L (136-145)
[2021-04-27 19:04] LABS: Carbon Dioxide 9 mmol/L (22-29)
[2021-04-27] MEDS: Sodium Bicarbonate 150 MEQ in Dextrose 5% in Water 1,000 ML IV SCH (21:31)
[2021-04-27] MEDS: Chlorhexidine Gluconate 15 ML UDCUP SSP SCH (21:34)
[2021-04-27] MEDS: Mupirocin 2% Ointment 22 GM Tube TOP SCH (21:34)
[2021-04-27] MEDS ORDERED: cefTRIAXone\\ROCEPHIN 1 GM in Sodium Chloride 0.9% 100 ML IVPB SCH (23:00)
[2021-04-27 23:24] LABS: Potassium 3.1 mmol/L (3.5-5.1)
[2021-04-28 04:40] LABS: Anion Gap 13 mmol/L (10-20); BUN (Urea Nitrogen) 30 mg/dL (8.4-25.7); Calc. Creatinine Clearance 32 mL/min (70-130); Carbon Dioxide 12 mmol/L (22-29); Chloride 120 mmol/L (98-107); Glucose 129 mg/dL (70-105); Potassium 3.4 mmol/L (3.5-5.1); Sodium 142 mmol/L (136-145)
[2021-04-28] MEDS ORDERED: UNASYN IVPB PRN (08:13)
[2021-04-28] MEDS: Chlorhexidine Gluconate 15 ML UDCUP SSP SCH ×4 (09:35→21:45)
[2021-04-28] MEDS: Gabapentin 300 MG CAP PO SCH ×2 (09:35→21:44)
[2021-04-28] MEDS: Ampicillin/Sulbactam 3 GM in Sodium Chloride 0.9% 100 ML IVPB SCH ×2 (09:35→21:45)
[2021-04-28] MEDS: Sodium Bicarbonate Tab 325 MG TAB PO SCH ×3 (09:36→21:42)
[2021-04-28] MEDS: Enoxaparin Sodium 30 MG/0.3 ML SYRINGE SC SCH (09:37)
[2021-04-28] MEDS: Mupirocin 2% Ointment 22 GM Tube TOP SCH ×3 (09:37→21:45)
[2021-04-28] MEDS: HYDROcodone/Acetaminophen 10/325 mg Tablet PO PRN ×2 (09:48→21:43)
[2021-04-29] MEDS: Sodium Bicarbonate 150 MEQ in Dextrose 5% in Water 1,000 ML IV SCH ×2 (01:35→18:03)
[2021-04-29] MEDS: HYDROcodone/Acetaminophen 10/325 mg Tablet PO PRN ×4 (03:41→22:52)
[2021-04-29] MEDS ORDERED: Linezolid 600 MG in Premix Bag 1 BAG IVPB SCH (09:00)
[2021-04-29] MEDS: Sodium Bicarbonate Tab 325 MG TAB PO SCH ×3 (10:03→22:51)
[2021-04-29] MEDS: Gabapentin 300 MG CAP PO SCH ×2 (10:03→21:41)
[2021-04-29] MEDS: Enoxaparin Sodium 30 MG/0.3 ML SYRINGE SC SCH (10:04)
[2021-04-29] MEDS: Mupirocin 2% Ointment 22 GM Tube TOP SCH ×3 (10:04→22:53)
[2021-04-29] MEDS: Ampicillin/Sulbactam 3 GM in Sodium Chloride 0.9% 100 ML IVPB SCH ×3 (10:04→22:54)
[2021-04-29] MEDS: Chlorhexidine Gluconate 15 ML UDCUP SSP SCH ×4 (10:04→22:51)
[2021-04-29] MEDS: Vancomycin 1 GM in Premix Bag 1 BAG IVPB SCH (11:11)
[2021-04-29 12:24] LABS: Hemoglobin 10.7 g/dL (14.0-18.0); Mean Corpuscular HGB CONC 34.1 g/dL (32.0-36.0); Mean Corpuscular Hemoglobin 32.6 pg (27.0-31.0); Mean Corpuscular Volume 95.6 fL (78.0-98.0); Mean Platelet Volume 7.4 fL (7.4-10.4); Platelet Count 218 thou/uL (130-400); RBC Distribution Width 16.8 % (11.5-14.5); Red Blood Cell (RBC) Count 3.28 mill/uL (4.70-6.10)
[2021-04-29 12:40] LABS: Anion Gap 16 mmol/L (10-20); BUN (Urea Nitrogen) 31 mg/dL (8.4-25.7); Calc. Creatinine Clearance 39 mL/min (70-130); Carbon Dioxide 15 mmol/L (22-29); Chloride 110 mmol/L (98-107); Glucose 92 mg/dL (70-105); Potassium 3.1 mmol/L (3.5-5.1); Sodium 138 mmol/L (136-145)
[2021-04-29] MEDS ORDERED: Potassium Chloride 20 MEQ TAB PO SCH (12:45)
[2021-04-29 13:05] LABS: Anisocytosis SLIGHT = 6-15 cells (100X) (0-5/hpf); Band 15 % (5-11); Lymphocytes 10 % (21-51); MDiff Complete? YES; Monocytes 5 % (0-10); Neutrophil 70 % (42-75); Platelet Morphology Comment Appears Adequate; Polychromasia SLIGHT = 2-3 cells (100X) (0-2/hpf)
[2021-04-29] MEDS: Heparin 5,000 UNITS/ML VIAL SC SCH ×2 (18:04→22:53)
[2021-04-30] MEDS: Sodium Bicarbonate 150 MEQ in Dextrose 5% in Water 1,000 ML IV SCH (01:58)
[2021-04-30 05:13] LABS: #Eosinphils 0.1 thou/uL (0.0-0.7); #Lymphocytes 4.9 thou/uL (1.20-3.40); #Monocytes 0.9 thou/uL (0.11-0.59); #Neutrophils 8.3 thou/uL (1.40-6.50); %Basophils 0.1 % (0.0-1.0); %Eosinophils 0.6 % (0.0-10.0); %Lymphocytes 34.4 % (21.0-51.0); %Monocytes 6.4 % (0.0-10.0); %Neutrophils 58.5 % (42.0-75.0); Hemoglobin 9.2 g/dL (14.0-18.0); Mean Corpuscular HGB CONC 34.6 g/dL (32.0-36.0); Mean Corpuscular Volume 95.3 fL (78.0-98.0); Platelet Count 227 thou/uL (130-400); RBC Distribution Width 16.3 % (11.5-14.5); Red Blood Cell (RBC) Count 2.77 mill/uL (4.70-6.10); White Blood Cell (WBC) Count 14.3 thou/uL (4.8-10.8)
[2021-04-30] MEDS: Ampicillin/Sulbactam 3 GM in Sodium Chloride 0.9% 100 ML IVPB SCH ×4 (05:52→19:51)
[2021-04-30] MEDS: Chlorhexidine Gluconate 15 ML UDCUP SSP SCH ×4 (09:19→19:51)
[2021-04-30] MEDS: Gabapentin 300 MG CAP PO SCH ×2 (09:19→19:51)
[2021-04-30] MEDS: HYDROcodone/Acetaminophen 10/325 mg Tablet PO PRN ×2 (09:20→17:15)
[2021-04-30] MEDS: Sodium Bicarbonate Tab 325 MG TAB PO SCH ×3 (09:20→19:56)
[2021-04-30] MEDS: Mupirocin 2% Ointment 22 GM Tube TOP SCH ×3 (09:21→19:51)
[2021-04-30] MEDS: Heparin 5,000 UNITS/ML VIAL SC SCH (09:21)
[2021-04-30] MEDS: Vancomycin 1 GM in Premix Bag 1 BAG IVPB SCH (10:48)
[2021-04-30 10:55] LABS: Anion Gap 16 mmol/L (10-20); BUN (Urea Nitrogen) 30 mg/dL (8.4-25.7); Calc. Creatinine Clearance 39 mL/min (70-130); Calcium 8.3 mg/dL (7.8-10.44); Carbon Dioxide 17 mmol/L (22-29); Chloride 109 mmol/L (98-107); Glucose 60 mg/dL (70-105); Sodium 139 mmol/L (136-145)
[2021-04-30 11:04] LABS: Potassium 2.8 mmol/L (3.5-5.1)
[2021-04-30] MEDS ORDERED: Potassium Chloride 20 MEQ TAB PO SCH ×2 (11:30→16:45)
[2021-04-30 13:08] VITALS: BMI 26.5
[2021-04-30] MEDS: Potassium Chloride 20 MEQ in Premix Bag 1 BAG IVPB SCH ×2 (13:39→16:56)
[2021-05-01] MEDS: HYDROcodone/Acetaminophen 10/325 mg Tablet PO PRN ×3 (00:01→17:18)
[2021-05-01 05:16] LABS: #Eosinphils 0.3 thou/uL (0.0-0.7); #Lymphocytes 3.6 thou/uL (1.20-3.40); #Monocytes 0.9 thou/uL (0.11-0.59); #Neutrophils 5.4 thou/uL (1.40-6.50); %Basophils 0.3 % (0.0-1.0); %Eosinophils 2.6 % (0.0-10.0); %Lymphocytes 35.7 % (21.0-51.0); %Monocytes 8.7 % (0.0-10.0); %Neutrophils 52.7 % (42.0-75.0); Hemoglobin 8.2 g/dL (14.0-18.0); Mean Corpuscular HGB CONC 34.7 g/dL (32.0-36.0); Mean Corpuscular Hemoglobin 33.4 pg (27.0-31.0); Mean Corpuscular Volume 96.3 fL (78.0-98.0); Mean Platelet Volume 6.9 fL (7.4-10.4); Platelet Count 191 thou/uL (130-400); RBC Distribution Width 16.4 % (11.5-14.5); Red Blood Cell (RBC) Count 2.46 mill/uL (4.70-6.10); White Blood Cell (WBC) Count 10.2 thou/uL (4.8-10.8)
[2021-05-01] MEDS: Ampicillin/Sulbactam 3 GM in Sodium Chloride 0.9% 100 ML IVPB SCH ×4 (05:34→20:58)
[2021-05-01 05:39] LABS: Anion Gap 10 mmol/L (10-20); BUN (Urea Nitrogen) 28 mg/dL (8.4-25.7); Calc. Creatinine Clearance 43 mL/min (70-130); Calcium 8.3 mg/dL (7.8-10.44); Carbon Dioxide 25 mmol/L (22-29); Chloride 110 mmol/L (98-107); Glucose 101 mg/dL (70-105); Potassium 3.3 mmol/L (3.5-5.1); Sodium 142 mmol/L (136-145)
[2021-05-01] MEDS: Sodium Bicarbonate Tab 325 MG TAB PO SCH ×3 (09:11→20:57)
[2021-05-01] MEDS: Gabapentin 300 MG CAP PO SCH ×2 (09:11→20:57)
[2021-05-01] MEDS: Mupirocin 2% Ointment 22 GM Tube TOP SCH ×3 (09:15→20:58)
[2021-05-01] MEDS: Vancomycin 1 GM in Premix Bag 1 BAG IVPB SCH (09:16)
[2021-05-01] MEDS: Chlorhexidine Gluconate 15 ML UDCUP SSP SCH ×4 (09:21→20:58)
[2021-05-01 09:45] LABS: Vancomycin, Trough 15.7 ug/mL
[2021-05-01] MEDS ORDERED: EPOETIN ALFA-EPBX (ESRD) 10,000 UNIT/ML VIAL SC SCH (14:30)
[2021-05-01] MEDS: Potassium Chloride 20 MEQ TAB PO SCH (16:55)
[2021-05-02] MEDS: HYDROcodone/Acetaminophen 10/325 mg Tablet PO PRN ×4 (01:14→20:58)
[2021-05-02] MEDS: Ampicillin/Sulbactam 3 GM in Sodium Chloride 0.9% 100 ML IVPB SCH ×2 (03:25→08:56)
[2021-05-02 05:04] LABS: #Eosinphils 0.4 thou/uL (0.0-0.7); #Lymphocytes 3.7 thou/uL (1.20-3.40); #Monocytes 0.9 thou/uL (0.11-0.59); #Neutrophils 5.5 thou/uL (1.40-6.50); %Basophils 0.4 % (0.0-1.0); %Eosinophils 4.2 % (0.0-10.0); %Lymphocytes 35.2 % (21.0-51.0); %Monocytes 8.3 % (0.0-10.0); %Neutrophils 51.9 % (42.0-75.0); Hemoglobin 8.3 g/dL (14.0-18.0); Mean Corpuscular HGB CONC 34.3 g/dL (32.0-36.0); Mean Corpuscular Hemoglobin 33.4 pg (27.0-31.0); Mean Corpuscular Volume 97.4 fL (78.0-98.0); Platelet Count 148 thou/uL (130-400); RBC Distribution Width 16.5 % (11.5-14.5); Red Blood Cell (RBC) Count 2.49 mill/uL (4.70-6.10); White Blood Cell (WBC) Count 10.5 thou/uL (4.8-10.8)
[2021-05-02 05:25] LABS: Anion Gap 12 mmol/L (10-20); BUN (Urea Nitrogen) 20 mg/dL (8.4-25.7); Calc. Creatinine Clearance 48 mL/min (70-130); Carbon Dioxide 25 mmol/L (22-29); Chloride 106 mmol/L (98-107); Glucose 86 mg/dL (70-105); Potassium 3.8 mmol/L (3.5-5.1); Sodium 139 mmol/L (136-145)
[2021-05-02] MEDS: Sodium Bicarbonate 150 MEQ in Dextrose 5% in Water 1,000 ML IV SCH ×2 (08:52→15:14)
[2021-05-02] MEDS: Sodium Bicarbonate Tab 325 MG TAB PO SCH ×3 (08:54→20:57)
[2021-05-02] MEDS: Potassium Chloride 20 MEQ TAB PO SCH (08:56)
[2021-05-02] MEDS: Chlorhexidine Gluconate 15 ML UDCUP SSP SCH ×4 (08:58→20:56)
[2021-05-02] MEDS: Mupirocin 2% Ointment 22 GM Tube TOP SCH ×3 (08:58→21:02)
[2021-05-02] MEDS: Gabapentin 300 MG CAP PO SCH ×2 (09:00→20:58)
[2021-05-02] MEDS ORDERED: Loperamide HCl 2 MG CAP PO PRN (10:16)
[2021-05-02] MEDS ORDERED: Saccharomyces boulardii 250 MG CAP PO SCH (10:30)
[2021-05-02] MEDS: Vancomycin 1 GM in Premix Bag 1 BAG IVPB SCH (11:05)
[2021-05-03] MEDS: HYDROcodone/Acetaminophen 10/325 mg Tablet PO PRN ×2 (05:01→13:35)
[2021-05-03 05:41] LABS: Anion Gap 12 mmol/L (10-20); BUN (Urea Nitrogen) 18 mg/dL (8.4-25.7); Calc. Creatinine Clearance 45 mL/min (70-130); Calcium 8.3 mg/dL (7.8-10.44); Carbon Dioxide 26 mmol/L (22-29); Chloride 107 mmol/L (98-107); Glucose 100 mg/dL (70-105); Potassium 4.2 mmol/L (3.5-5.1); Sodium 141 mmol/L (136-145)
[2021-05-03 08:50] VITALS: BP 133/60
[2021-05-03] MEDS ORDERED: Saccharomyces boulardii 250 MG CAP PO SCH (09:00)
[2021-05-03] MEDS: Chlorhexidine Gluconate 15 ML UDCUP SSP SCH ×3 (10:08→16:54)
[2021-05-03] MEDS: Gabapentin 300 MG CAP PO SCH (10:08)
[2021-05-03] MEDS: Mupirocin 2% Ointment 22 GM Tube TOP SCH ×2 (10:09→15:15)
[2021-05-03] MEDS: Sodium Bicarbonate Tab 325 MG TAB PO SCH ×2 (10:09→15:15)
[2021-05-03] MEDS: Vancomycin 1 GM in Premix Bag 1 BAG IVPB SCH (10:10)
[2021-05-03 10:29] LABS: Vancomycin, Trough 21.8 ug/mL
[2021-05-03 15:37] VITALS: TEMP 97.2
[2021-05-04] MEDS ORDERED: Vancomycin HCl 750 MG in Sodium Chloride 0.9% 250 ML 250 ML IVPB SCH (10:00)
== END 2021-05-03 18:40 | disposition home or self-care (01) | DRG 853 ==
LOC: ERS 18:56 → T4-A 22:07 → OBSVTOIN 04-27 11:37 → 2NO 04-27 21:14
PROVIDERS: ADMIT Student in an Organized Health Care Education/Training Program; ATTEND Family Medicine
PROC: 0C90XZZ Drainage of Upper Lip, External Approach (ICD-10-PCS; principal; 2021-04-28)
PROC: 0TP98DZ Removal of Intraluminal Device from Ureter, Via Natural or Artificial Opening Endoscopic (ICD-10-PCS; 2021-05-03)
DX: A41.02 Sepsis due to Methicillin resistant Staphylococcus aureus (principal); G93.41 Metabolic encephalopathy; N17.9 Acute kidney failure, unspecified; L03.211 Cellulitis of face; L02.01 Cutaneous abscess of face; L03.115 Cellulitis of right lower limb; N18.4 Chronic kidney disease, stage 4 (severe); N30.01 Acute cystitis with hematuria; K13.0 Diseases of lips; R65.20 Severe sepsis without septic shock; Z20.822 Contact with and (suspected) exposure to COVID-19; M10.9 Gout, unspecified; F17.210 Nicotine dependence, cigarettes, uncomplicated; E87.6 Hypokalemia; B96.4 Proteus (mirabilis) (morganii) as the cause of diseases classified elsewhere; I12.9 Hypertensive chronic kidney disease with stage 1 through stage 4 chronic kidney disease, or unspecified chronic kidney disease; D63.1 Anemia in chronic kidney disease; D53.9 Nutritional anemia, unspecified; E11.22 Type 2 diabetes mellitus with diabetic chronic kidney disease; G89.29 Other chronic pain; E11.51 Type 2 diabetes mellitus with diabetic peripheral angiopathy without gangrene; N13.9 Obstructive and reflux uropathy, unspecified; R19.7 Diarrhea, unspecified; Z86.718 Personal history of other venous thrombosis and embolism; Z88.8 Allergy status to other drugs, medicaments and biological substances; Z79.899 Other long term (current) drug therapy; Z98.890 Other specified postprocedural states; Z90.49 Acquired absence of other specified parts of digestive tract; Z98.1 Arthrodesis status
CPT/HCPCS: 36415; 36416; 71045; 74018; 80048; 80053; 80202; 81003; 81015; 83605; 83690; 83735; 85025; 87040; 87070; 87077; 87086; 87186; 87205; 87324; 87449; 96366; 96367; 96374; 96375; 96376; G0378; J0295; J0696; J1650; J1815; J2405; J2543; J2930; J3370; J3480; J3490; J7050; J7070; Q5105; U0003; U0005

== ENCOUNTER 2021-05-06 02:35 | Inpatient (IN) | payer MEDICARE ==
[2021-05-06 02:58] LABS: #Basophils 0.1 thou/uL (0.0-0.2); #Eosinphils 0.6 thou/uL (0.0-0.7); #Monocytes 0.8 thou/uL (0.11-0.59); #Neutrophils 5.6 thou/uL (1.40-6.50); %Basophils 0.6 % (0.0-1.0); %Eosinophils 6.2 % (0.0-10.0); %Lymphocytes 29.8 % (21.0-51.0); %Monocytes 7.5 % (0.0-10.0); Hemoglobin 9.5 g/dL (14.0-18.0); Mean Corpuscular HGB CONC 31.9 g/dL (32.0-36.0); Mean Corpuscular Hemoglobin 32.8 pg (27.0-31.0); Mean Platelet Volume 6.9 fL (7.4-10.4); Platelet Count 177 thou/uL (130-400); RBC Distribution Width 17.2 % (11.5-14.5)
[2021-05-06 03:41] LABS: ALT (SGPT) 18 U/L (8-55); AST (SGOT) 10 U/L (5-34); Albumin 3.2 g/dL (3.5-5.0); Alkaline Phosphatase 82 U/L (40-110); Anion Gap 13 mmol/L (10-20); BUN (Urea Nitrogen) 16 mg/dL (8.4-25.7); Bilirubin, Total 0.2 mg/dL (0.2-1.2); Calc. Creatinine Clearance 0 mL/min (70-130); Calcium 8.9 mg/dL (7.8-10.44); Carbon Dioxide 22 mmol/L (22-29); Chloride 109 mmol/L (98-107); Globulin 3.7 g/dL (2.4-3.5); Glucose 99 mg/dL (70-105); Potassium 4.1 mmol/L (3.5-5.1); Protein, Total 6.9 g/dL (6.0-8.3); Sodium 140 mmol/L (136-145)
[2021-05-06] MEDS ORDERED: Nitroglycerin 2% Ointment 1 INCH/1 GM Packet ONE (04:41)
[2021-05-06] MEDS ORDERED: Aspirin 81 mg Enteric Coated Tablet ONE (04:41)
[2021-05-06] MEDS ORDERED: Morphine 4 MG/ML VIAL ONE (04:48)
[2021-05-06] MEDS ORDERED: Ondansetron PF 4 MG/2 ML Vial ONE (04:48)
[2021-05-06] MEDS ORDERED: Ondansetron PF 4 MG/2 ML Vial IVP PRN (05:43)
[2021-05-06] MEDS ORDERED: Nitroglycerin 0.4 MG TAB (25 Tab Bottle) SL PRN (05:43)
[2021-05-06 06:31] LABS: Troponin I Less than 0.010 ng/mL (< 0.028)
[2021-05-06] MEDS ORDERED: Heparin 5,000 UNITS/ML VIAL SC SCH (09:00)
[2021-05-06 09:22] LABS: Troponin I Less than 0.010 ng/mL (< 0.028)
[2021-05-06] MEDS ORDERED: Clindamycin 150 MG CAP ONE (10:13)
[2021-05-06] MEDS: Clindamycin 150 MG CAP PO SCH ×4 (10:18→22:04)
[2021-05-06] MEDS ORDERED: Aspirin 81 mg Enteric Coated Tablet PO SCH (11:15)
[2021-05-06 12:35] LABS: SARS-CoV-2 NAA Rapid Test Not Detected (NotDetected)
[2021-05-06] MEDS ORDERED: Acetaminophen 325 MG TAB ONE (13:17)
[2021-05-06] MEDS: Acetaminophen 325 MG TAB PO PRN (13:20)
[2021-05-06] MEDS: HYDROcodone/Acetaminophen 10/325 mg Tablet PO PRN (17:26)
[2021-05-06] MEDS: Sodium Chloride 0.9% 1,000 ML IV SCH (17:26)
[2021-05-06] MEDS: Gabapentin 300 MG CAP PO SCH (21:04)
[2021-05-06] MEDS: Atorvastatin Calcium 20 MG TAB PO SCH (21:04)
[2021-05-07] MEDS: HYDROcodone/Acetaminophen 10/325 mg Tablet PO PRN ×4 (01:31→21:08)
[2021-05-07] MEDS: Clindamycin 150 MG CAP PO SCH ×4 (04:18→21:07)
[2021-05-07 05:03] LABS: #Eosinphils 0.5 thou/uL (0.0-0.7); #Lymphocytes 2.2 thou/uL (1.20-3.40); #Monocytes 0.8 thou/uL (0.11-0.59); #Neutrophils 4.7 thou/uL (1.40-6.50); %Basophils 0.4 % (0.0-1.0); %Eosinophils 5.6 % (0.0-10.0); %Lymphocytes 27.2 % (21.0-51.0); %Monocytes 9.4 % (0.0-10.0); %Neutrophils 57.4 % (42.0-75.0); Hemoglobin 8.5 g/dL (14.0-18.0); Mean Corpuscular HGB CONC 32.7 g/dL (32.0-36.0); Mean Corpuscular Hemoglobin 33.4 pg (27.0-31.0); Mean Platelet Volume 7.1 fL (7.4-10.4); Platelet Count 172 thou/uL (130-400); RBC Distribution Width 16.5 % (11.5-14.5); Red Blood Cell (RBC) Count 2.56 mill/uL (4.70-6.10); White Blood Cell (WBC) Count 8.2 thou/uL (4.8-10.8)
[2021-05-07 05:22] LABS: Anion Gap 14 mmol/L (10-20); BUN (Urea Nitrogen) 15 mg/dL (8.4-25.7); Calc. Creatinine Clearance 48 mL/min (70-130); Calcium 8.4 mg/dL (7.8-10.44); Carbon Dioxide 18 mmol/L (22-29); Chloride 114 mmol/L (98-107); Glucose 83 mg/dL (70-105); Potassium 4.7 mmol/L (3.5-5.1); Sodium 141 mmol/L (136-145)
[2021-05-07] MEDS: Sodium Chloride 0.9% 1,000 ML IV SCH (06:10)
[2021-05-07] MEDS: Gabapentin 300 MG CAP PO SCH ×3 (07:51→21:07)
[2021-05-07] MEDS: Aspirin 81 mg Enteric Coated Tablet PO SCH (07:52)
[2021-05-07] MEDS: Amlodipine 10 MG TAB PO SCH (09:51)
[2021-05-07 16:06] LABS: Iron 22 ug/dL (65-175); Iron Binding Capacity, Total 193 mcg/dL (261-462)
[2021-05-07 16:36] LABS: Ferritin 94.57 ng/mL (22-322)
[2021-05-07] MEDS: Atorvastatin Calcium 20 MG TAB PO SCH (21:07)
[2021-05-07] MEDS: Methocarbamol 500 MG TAB PO PRN (21:08)
[2021-05-08] MEDS: Sodium Chloride 0.9% 1,000 ML IV SCH ×2 (00:06→14:47)
[2021-05-08] MEDS: HYDROcodone/Acetaminophen 10/325 mg Tablet PO PRN ×4 (03:42→22:13)
[2021-05-08] MEDS: Clindamycin 150 MG CAP PO SCH ×4 (03:43→22:13)
[2021-05-08 04:53] LABS: #Eosinphils 0.5 thou/uL (0.0-0.7); #Lymphocytes 2.6 thou/uL (1.20-3.40); #Monocytes 0.7 thou/uL (0.11-0.59); #Neutrophils 3.7 thou/uL (1.40-6.50); %Basophils 0.4 % (0.0-1.0); %Eosinophils 6.1 % (0.0-10.0); %Lymphocytes 34.9 % (21.0-51.0); %Monocytes 8.9 % (0.0-10.0); %Neutrophils 49.7 % (42.0-75.0); Hemoglobin 7.8 g/dL (14.0-18.0); Mean Corpuscular HGB CONC 32.7 g/dL (32.0-36.0); Mean Corpuscular Hemoglobin 33.4 pg (27.0-31.0); Mean Platelet Volume 6.9 fL (7.4-10.4); Platelet Count 168 thou/uL (130-400); Red Blood Cell (RBC) Count 2.34 mill/uL (4.70-6.10); White Blood Cell (WBC) Count 7.4 thou/uL (4.8-10.8)
[2021-05-08 05:13] LABS: Anion Gap 10 mmol/L (10-20); BUN (Urea Nitrogen) 14 mg/dL (8.4-25.7); Calc. Creatinine Clearance 47 mL/min (70-130); Calcium 8.4 mg/dL (7.8-10.44); Carbon Dioxide 22 mmol/L (22-29); Chloride 112 mmol/L (98-107); Glucose 75 mg/dL (70-105); Potassium 4.5 mmol/L (3.5-5.1); Sodium 139 mmol/L (136-145)
[2021-05-08] MEDS: Amlodipine 10 MG TAB PO SCH (08:49)
[2021-05-08] MEDS: Aspirin 81 mg Enteric Coated Tablet PO SCH (08:49)
[2021-05-08] MEDS: Gabapentin 300 MG CAP PO SCH ×3 (08:50→22:11)
[2021-05-08] MEDS: Methocarbamol 500 MG TAB PO PRN (08:50)
[2021-05-08] MEDS: Folic Acid 1 MG TAB PO SCH (08:50)
[2021-05-08] MEDS: Floranex 1 GM Packet PO SCH (09:58)
[2021-05-08] MEDS: Cyanocobalamin (Vitamin B-12) 1,000 MCG TAB PO SCH (10:02)
[2021-05-08 10:30] LABS: Anisocytosis SLIGHT = 6-15 cells (100X) (0-5/hpf); Eosinophils 2 % (0-10); Hemoglobin 7.7 g/dL (14.0-18.0); Lymphocytes 31 % (21-51); MDiff Complete? YES; Macrocytosis SLIGHT = 6-15 cells (100X) (0-5/hpf); Mean Corpuscular HGB CONC 33.1 g/dL (32.0-36.0); Mean Corpuscular Hemoglobin 33.9 pg (27.0-31.0); Mean Platelet Volume 6.4 fL (7.4-10.4); Monocytes 10 % (0-10); Neutrophil 56 % (42-75); Platelet Count 190 thou/uL (130-400); RBC Distribution Width 16.7 % (11.5-14.5); Red Blood Cell (RBC) Count 2.28 mill/uL (4.70-6.10); White Blood Cell (WBC) Count 8.1 thou/uL (4.8-10.8)
[2021-05-08 12:52] LABS: Bilirubin Negative (Negative); Blood, Urine Negative (Negative); Clarity Clear (Clear); Glucose, Urine (Dipstick) Normal (Negative); Ketone, Urine Negative (Negative); Leukocyte Negative Leu/uL (Negative); Nitrite Negative (Negative); Protein, Urine (Dipstick) Negative (Neg-Trace); RBC/HPF None Seen HPF (0-3); Specific Gravity, Urine 1.007 (1.002-1.036); Squamous Epithelial 0-3 HPF (0-3); Urobilinogen Normal mg/dL (Less than 2); WBC/HPF 0-3 HPF (0-3)
[2021-05-08 13:00] LABS: Bacteria/HPF None Seen HPF (None Seen)
[2021-05-08 13:01] LABS: Urine Culture Reflex No No
[2021-05-08 16:24] LABS: Hemoglobin 8.5 g/dL (14.0-18.0)
[2021-05-08] MEDS ORDERED: Morphine 4 MG/ML VIAL SLOW IVP SCH (16:45)
[2021-05-08] MEDS: Atorvastatin Calcium 20 MG TAB PO SCH (22:12)
[2021-05-08 22:23] LABS: Hemoglobin 8.7 g/dL (14.0-18.0)
[2021-05-09] MEDS: HYDROcodone/Acetaminophen 10/325 mg Tablet PO PRN ×4 (03:56→23:20)
[2021-05-09] MEDS: Clindamycin 150 MG CAP PO SCH ×2 (04:00→11:18)
[2021-05-09] MEDS: Sodium Chloride 0.9% 1,000 ML IV SCH ×3 (04:45→23:21)
[2021-05-09 05:02] LABS: Hemoglobin 8.4 g/dL (14.0-18.0)
[2021-05-09] MEDS: Floranex 1 GM Packet PO SCH (11:18)
[2021-05-09] MEDS: Folic Acid 1 MG TAB PO SCH (11:19)
[2021-05-09] MEDS: Cyanocobalamin (Vitamin B-12) 1,000 MCG TAB PO SCH (11:19)
[2021-05-09] MEDS: Gabapentin 300 MG CAP PO SCH ×3 (11:20→21:05)
[2021-05-09] MEDS: Amlodipine 10 MG TAB PO SCH (11:20)
[2021-05-09] MEDS: Aspirin 81 mg Enteric Coated Tablet PO SCH (11:20)
[2021-05-09 11:46] LABS: Hemoglobin 9.4 g/dL (14.0-18.0)
[2021-05-09 15:57] LABS: Hemoglobin 9.2 g/dL (14.0-18.0)
[2021-05-09] MEDS: Atorvastatin Calcium 20 MG TAB PO SCH (21:06)
[2021-05-10 02:10] LABS: Anion Gap 11 mmol/L (10-20); BUN (Urea Nitrogen) 14 mg/dL (8.4-25.7); Calc. Creatinine Clearance 47 mL/min (70-130); Calcium 8.5 mg/dL (7.8-10.44); Carbon Dioxide 18 mmol/L (22-29); Chloride 114 mmol/L (98-107); Glucose 99 mg/dL (70-105); Potassium 4.2 mmol/L (3.5-5.1); Sodium 139 mmol/L (136-145)
[2021-05-10 02:11] LABS: #Basophils 0.1 thou/uL (0.0-0.2); #Eosinphils 0.6 thou/uL (0.0-0.7); #Lymphocytes 2.5 thou/uL (1.20-3.40); #Monocytes 0.6 thou/uL (0.11-0.59); #Neutrophils 5.4 thou/uL (1.40-6.50); %Basophils 0.7 % (0.0-1.0); %Eosinophils 6.2 % (0.0-10.0); %Lymphocytes 27.5 % (21.0-51.0); %Monocytes 6.9 % (0.0-10.0); %Neutrophils 58.8 % (42.0-75.0); Hemoglobin 8.4 g/dL (14.0-18.0); Mean Corpuscular HGB CONC 33.4 g/dL (32.0-36.0); Mean Corpuscular Hemoglobin 33.7 pg (27.0-31.0); Mean Platelet Volume 6.3 fL (7.4-10.4); Platelet Count 220 thou/uL (130-400); RBC Distribution Width 16.5 % (11.5-14.5); Red Blood Cell (RBC) Count 2.48 mill/uL (4.70-6.10); White Blood Cell (WBC) Count 9.2 thou/uL (4.8-10.8)
[2021-05-10] MEDS ORDERED: traMADol HCl 50 MG TAB PO PRN (04:23)
[2021-05-10] MEDS: HYDROcodone/Acetaminophen 10/325 mg Tablet PO PRN ×3 (05:44→20:59)
[2021-05-10] MEDS ORDERED: Communication Order-Pharmacy FS SCH (08:30)
[2021-05-10] MEDS ORDERED: Lidocaine 1% (PF) 30 ML VIAL ONE (09:02)
[2021-05-10] MEDS ORDERED: Fentanyl 100 MCG/2 ML VIAL ONE (09:02)
[2021-05-10] MEDS ORDERED: Midazolam HCl 2 mg/2 ml Vial ONE (09:02)
[2021-05-10] MEDS: Amlodipine 10 MG TAB PO SCH (09:10)
[2021-05-10] MEDS: Gabapentin 300 MG CAP PO SCH ×3 (09:10→21:00)
[2021-05-10] MEDS: Aspirin 81 mg Enteric Coated Tablet PO SCH (09:10)
[2021-05-10] MEDS: Folic Acid 1 MG TAB PO SCH (09:10)
[2021-05-10] MEDS: Cyanocobalamin (Vitamin B-12) 1,000 MCG TAB PO SCH (09:11)
[2021-05-10] MEDS ORDERED: Acetaminophen/Codeine 30-300mg Tablet PO PRN (10:06)
[2021-05-10] MEDS ORDERED: Sodium Chloride 0.9% 200 ML IV PRN (10:06)
[2021-05-10] MEDS: Floranex 1 GM Packet PO SCH (10:41)
[2021-05-10] MEDS ORDERED: Iopamidol 370 76% 100 ML VIAL ONE (11:05)
[2021-05-10] MEDS: Sodium Chloride 0.9% 1,000 ML IV SCH ×2 (13:29→21:00)
[2021-05-10] MEDS ORDERED: Calcium Carbonate 500 MG ChewTAB PO PRN (13:55)
[2021-05-10] MEDS: cefTRIAXone\\ROCEPHIN 1 GM in Sodium Chloride 0.9% 100 ML IVPB SCH (14:58)
[2021-05-10] MEDS ORDERED: GoLYTELY 4,000 ml Bottle PO SCH (15:30)
[2021-05-10] MEDS: Atorvastatin Calcium 20 MG TAB PO SCH (21:00)
[2021-05-11] MEDS: HYDROcodone/Acetaminophen 10/325 mg Tablet PO PRN ×2 (05:00→20:00)
[2021-05-11] MEDS: Gabapentin 300 MG CAP PO SCH ×3 (08:37→19:59)
[2021-05-11] MEDS: Aspirin 81 mg Enteric Coated Tablet PO SCH (08:37)
[2021-05-11] MEDS: Amlodipine 10 MG TAB PO SCH (08:37)
[2021-05-11] MEDS: Folic Acid 1 MG TAB PO SCH (08:39)
[2021-05-11] MEDS: Floranex 1 GM Packet PO SCH (08:39)
[2021-05-11] MEDS: Cyanocobalamin (Vitamin B-12) 1,000 MCG TAB PO SCH (09:58)
[2021-05-11] MEDS ORDERED: PROPOFOL 200 MG/20 ML VIAL ONE (11:34)
[2021-05-11] MEDS ORDERED: GoLYTELY 4,000 ml Bottle PO SCH (12:15)
[2021-05-11] MEDS: cefTRIAXone\\ROCEPHIN 1 GM in Sodium Chloride 0.9% 100 ML IVPB SCH (14:43)
[2021-05-11] MEDS: Sodium Chloride 0.9% 1,000 ML IV SCH ×2 (15:14→23:55)
[2021-05-11] MEDS: Atorvastatin Calcium 20 MG TAB PO SCH (19:59)
[2021-05-11] MEDS: Sucralfate 1 GM TAB PO SCH (23:53)
[2021-05-12] MEDS: HYDROcodone/Acetaminophen 10/325 mg Tablet PO PRN ×2 (04:17→11:26)
[2021-05-12] MEDS: Sodium Chloride 0.9% 1,000 ML IV SCH ×2 (04:22→11:13)
[2021-05-12] MEDS ORDERED: Fentanyl 100 MCG/2 ML VIAL ONE (08:13)
[2021-05-12] MEDS ORDERED: PROPOFOL 200 MG/20 ML VIAL ONE (08:21)
[2021-05-12] MEDS ORDERED: Lidocaine 1% PF 5 ML VIAL ONE (08:21)
[2021-05-12 10:31] VITALS: BMI 29.5
[2021-05-12] MEDS: Sucralfate 1 GM TAB PO SCH ×2 (11:10→11:11)
[2021-05-12] MEDS: Gabapentin 300 MG CAP PO SCH ×2 (11:10→15:07)
[2021-05-12] MEDS: Cyanocobalamin (Vitamin B-12) 1,000 MCG TAB PO SCH (11:10)
[2021-05-12] MEDS: Folic Acid 1 MG TAB PO SCH (11:11)
[2021-05-12] MEDS: Amlodipine 10 MG TAB PO SCH (11:11)
[2021-05-12] MEDS: Aspirin 81 mg Enteric Coated Tablet PO SCH (11:11)
[2021-05-12] MEDS: Floranex 1 GM Packet PO SCH (11:26)
[2021-05-12] MEDS: cefTRIAXone\\ROCEPHIN 1 GM in Sodium Chloride 0.9% 100 ML IVPB SCH (15:07)
[2021-05-12] MEDS: Acetaminophen 325 MG TAB PO PRN (15:18)
[2021-05-12 15:46] VITALS: BP 116/56; TEMP 98.1
== END 2021-05-12 16:11 | disposition home or self-care (01) | DRG 391 ==
LOC: ERS 02:35 → ERHOLD 05:27 → OBSVTOIN 10:57 → 2NO 16:29
PROVIDERS: ADMIT Internal Medicine; ATTEND Internal Medicine
PROC: 30233N1 Transfusion of Nonautologous Red Blood Cells into Peripheral Vein, Percutaneous Approach (ICD-10-PCS; 2021-05-08)
PROC: B2111ZZ Fluoroscopy of Multiple Coronary Arteries using Low Osmolar Contrast (ICD-10-PCS; principal; 2021-05-10)
PROC: 0DB98ZX Excision of Duodenum, Via Natural or Artificial Opening Endoscopic, Diagnostic (ICD-10-PCS; 2021-05-11)
PROC: 0DB58ZX Excision of Esophagus, Via Natural or Artificial Opening Endoscopic, Diagnostic (ICD-10-PCS; 2021-05-11)
PROC: 0DJD8ZZ Inspection of Lower Intestinal Tract, Via Natural or Artificial Opening Endoscopic (ICD-10-PCS; 2021-05-11)
DX: K21.00 Gastro-esophageal reflux disease with esophagitis, without bleeding (principal); J18.9 Pneumonia, unspecified organism; L03.211 Cellulitis of face; N17.9 Acute kidney failure, unspecified; Z20.822 Contact with and (suspected) exposure to COVID-19; I12.9 Hypertensive chronic kidney disease with stage 1 through stage 4 chronic kidney disease, or unspecified chronic kidney disease; D63.1 Anemia in chronic kidney disease; N18.30 Chronic kidney disease, stage 3 unspecified; M10.9 Gout, unspecified; G89.29 Other chronic pain; M54.9 Dorsalgia, unspecified; F17.210 Nicotine dependence, cigarettes, uncomplicated; E78.5 Hyperlipidemia, unspecified; E11.42 Type 2 diabetes mellitus with diabetic polyneuropathy; R31.0 Gross hematuria; E53.8 Deficiency of other specified B group vitamins; K22.70 Barrett's esophagus without dysplasia; K29.80 Duodenitis without bleeding; Z86.718 Personal history of other venous thrombosis and embolism; Z79.01 Long term (current) use of anticoagulants; Z86.14 Personal history of Methicillin resistant Staphylococcus aureus infection; Z88.6 Allergy status to analgesic agent; Z90.49 Acquired absence of other specified parts of digestive tract; Z82.49 Family history of ischemic heart disease and other diseases of the circulatory system; Z71.6 Tobacco abuse counseling; Z87.11 Personal history of peptic ulcer disease
CPT/HCPCS: 36415; 36430; 71045; 71046; 78451; 80048; 80053; 81001; 82274; 82607; 82728; 82746; 83540; 83550; 83880; 84484; 85014; 85018; 85025; 85060; 86850; 86900; 86901; 87070; 87077; 87186; 87205; 88305; 93005; 93306; 93454; 93970; 94760; 96374; 96375; 99152; A9500; A9540; G0378; J0696; J2001; J2250; J2270; J2405; J3010; J3490; J7050; P9016; Q9967; U0002